=== PATIENT | female | born 1955 | race American Indian/Alaskan Native ===

== ENCOUNTER 2019-01-01 16:16 | Inpatient (IN) | payer MEDICARE ==
[2019-01-01 17:17] LABS: Basophils # (Auto) 0.1 K/mm3 (0.0-0.1); Basophils % (Auto) 0.9 % (0.0-1.8); Eosinophils # (Auto) 0.1 K/mm3 (0.0-0.4); Eosinophils % (Auto) 2.2 % (0.0-4.3); Hematocrit 34.2 % (30.3-42.9); Hemoglobin 10.7 gm/dl (10.1-14.3); Lymphocytes % (Auto) 15.2 % (13.4-35.0); Mean Corpuscular HGB Conc 31 % (30-34); Mean Corpuscular Volume 77 fl (79-97); Monocytes # (Auto) 0.6 K/mm3 (0.0-0.8); Monocytes % (Auto) 8.8 % (0.0-7.3); Platelet Count 226 K/mm3 (140-440); Red Blood Count 4.43 M/mm3 (3.65-5.03)
[2019-01-01 17:23] LABS: Red Cell Distribution Width 22.1 % (13.2-15.2)
--- NOTE | 2019-01-01 17:24 | Emergency Department Report ---
HPI - General Chief Complaint: Altered Mental Status Time Seen by Provider: 01/01/19 17:01 - HPI HPI: Room 4 The patient is a 63-year-old female presenting with chief complaint altered mental status. The patient states she was at hemodialysis and when she was going home TODAY she got dizzy and fell. Patient denies loss of consciousness but states she struck her head during the fall. Patient currently denies complaints but is slow to respond. Location: Mental status Duration: [See above] Quality: Altered Severity: Mild Modifying factors: [see above] Context: [see above] Mode of transportation: [not driving] ED Past Medical Hx - Past Medical History Hx Hypertension: Yes Additional medical history: Renal failure - Surgical History Additional Surgical History: Abdominal surgery (patient states she cannot remember what was performed). Neck surgery/tracheotomy? - Family History Family history: no significant - Social History Smoking Status: Never Smoker Substance Use Type: None ED Review of Systems ROS: Stated complaint: FELL/LETHARGIC Other details as noted in HPI Constitutional: no symptoms reported Eyes: denies: eye pain ENT: denies: throat pain Respiratory: no symptoms reported Cardiovascular: denies: chest pain Endocrine: no symptoms reported Gastrointestinal: denies: abdominal pain Genitourinary: denies: dysuria Musculoskeletal: denies: back pain Neurological: denies: headache Physical Exam - Physical Exam Vital Signs: Vital Signs 01/01/19 16:35 Pulse Rate 76 Respiratory 18 Rate Blood Pressure 180/80 [Right] O2 Sat by Pulse 99 Oximetry Physical Exam: GENERAL: The patient is well-developed well-nourished female lying on stretcher not appearing to be in acute distress but slow to respond. [] HEENT: Normocephalic. Atraumatic. Extraocular motions are intact. Patient has moist mucous membranes. NECK: Supple. Trachea midline CHEST/LUNGS: Clear to auscultation. There is no respiratory distress noted. HEART/CARDIOVASCULAR: Regular. There is no tachycardia. There is no gallop rub or murmur. ABDOMEN: Abdomen is soft, nontender. Patient has normal bowel sounds. There is no abdominal distention. SKIN: There is no rash. There is no edema. There is no diaphoresis. NEURO: The patient is awake but lethargic in appearance. Patient is slow to respond but answers questions appropriately. The patient is cooperative. The patient has no focal neurologic deficits. The patient has normal speech. Cranial nerves II through XII grossly intact MUSCULOSKELETAL: There is no evidence of acute injury. ED Course Vital Signs 01/01/19 16:35 Pulse Rate 76 Respiratory 18 Rate Blood Pressure 180/80 [Right] O2 Sat by Pulse 99 Oximetry ED Medical Decision Making - Lab Data Result diagrams: 01/01/19 16:56 01/01/19 16:56 Laboratory Tests 01/01/19 01/01/19 01/01/19 16:56 16:56 16:56 WBC 6.4 RBC 4.43 Hgb 10.7 Hct 34.2 MCV 77 L MCH 24 L MCHC 31 RDW 22.1 H Plt Count 226 Lymph % (Auto) 15.2 [place] % (Auto) 8.8 H Eos % (Auto) 2.2 Baso % (Auto) 0.9 Lymph # 1.0 L [place] # 0.6 Eos # 0.1 Baso # 0.1 Seg Neutrophils % 72.9 H Seg Neutrophils # 4.7 PT INR APTT Sodium 136 L Potassium 3.7 Chloride 92.0 L Carbon Dioxide 30 Anion Gap 18 BUN 21 H Creatinine 4.9 H Estimated GFR 9 BUN/Creatinine Ratio 4 Glucose 100 Calcium 8.7 Total Bilirubin 0.50 AST 46 H ALT 28 Alkaline Phosphatase 144 H Ammonia Total Protein 7.8 Albumin 3.8 L Albumin/Globulin Ratio 1.0 TSH 2.630 Plasma/Serum Alcohol 01/01/19 01/01/19 01/01/19 16:56 17:04 17:17 WBC RBC Hgb Hct MCV MCH MCHC RDW Plt Count Lymph % (Auto) [place] % (Auto) Eos % (Auto) Baso % (Auto) Lymph # [place] # Eos # Baso # Seg Neutrophils % Seg Neutrophils # PT 14.7 INR 1.11 APTT 34.9 Sodium Potassium Chloride Carbon Dioxide Anion Gap BUN Creatinine Estimated GFR BUN/Creatinine Ratio Glucose Calcium Total Bilirubin AST ALT Alkaline Phosphatase Ammonia 42.0 Total Protein Albumin Albumin/Globulin Ratio TSH Plasma/Serum Alcohol < 0.01 - EKG Data -: EKG Interpreted by Oh EKG shows normal: sinus rhythm Rate: normal - EKG Data When compared to previous EKG there are: previous EKG unavailable Interpretation: nonspecific ST-T wave gilma (T-wave inversions in leads V2) - Radiology Data Radiology results: pending (CT head, CT cervical spine) - Differential Diagnosis altered mental status, ICH, orthostasis, symptomatic anemia Critical care attestation.: If time is entered above; I have spent that time in minutes in the direct care of this critically ill patient, excluding procedure time. ED Disposition Clinical Impression: Altered mental status, Hypertension Disposition: OP ADMIT IP TO THIS HOSP Is pt being admited?: Yes Does the pt Need Aspirin: No Condition: Fair Instructions: Hypertension (ED) Time of Disposition: 19:53 (hospitalist notified (Dr Meza))
[2019-01-01 17:39] LABS: INR 1.11 (0.87-1.13)
[2019-01-01 17:40] LABS: Partial Thromboplastin Time 34.9 Sec. (24.2-36.6)
[2019-01-01 17:59] LABS: Albumin 3.8 g/dL (3.9-5); Calcium 8.7 mg/dL (8.4-10.2)
[2019-01-01] MEDS ORDERED: CATAPRES PO ONE (19:54)
--- NOTE | 2019-01-01 20:02 | Cat Scan Report ---
FINAL REPORT PROCEDURE: CT head without contrast. TECHNIQUE: Computerized tomography of the head was performed without contrast material. HISTORY: Altered mental status. COMPARISON: No prior studies are available for comparison. FINDINGS: There is motion artifact on several of the images. The ventricles are normal in size. There are old l acunar infarcts in the left basal ganglia. The pacheco matter and white matter otherwise appear normal. There are no mass lesions. There is no intracranial hemorrhage. The calvarium appears intact. The mas toid air cells and visualized paranasal sinuses are well aerated. IMPRESSION: Old lacunar infarcts in the left basal ganglia. Normal study of the brain for age.
--- NOTE | 2019-01-01 20:09 | Event Note ---
Date: 01/01/19 Patient evalated for fall Had HD today [place] slighly weak and dizzy and nearly fell No Syncope Discharge diagnosis Fall D/c Home F/u with pcp
--- NOTE | 2019-01-01 20:20 | Cat Scan Report ---
FINAL REPORT PROCEDURE: CT cervical spine without contrast. TECHNIQUE: Computerized tomography of the cervical spine was performed from the skull base to T1 wit hout contrast material. HISTORY: Neck injury after fall. COMPARISON: No prior studies are available for comparison. FINDINGS: The cervical vertebrae have normal height and alignment. There are no fractures. There is no subluxat ion. There is severe disc space narrowing at C3-4, C4-5 and C5-6. There are small vertebral body oste ophytes at these levels. The spinal canal is widely patent. The facet joints appear satisfactory. The neural foramina are widely patent. The prevertebral soft tissues have normal thickness. IMPRESSION: Degenerative disc disease as described. No evidence of acute cervical spine injury.
[2019-01-01] MEDS ORDERED: TYLENOL PO PRN (23:42)
[2019-01-01] MEDS ORDERED: SODIUM CHLORIDE FLUSH SYRINGE 10 ML IV PRN (23:42)
[2019-01-01] MEDS ORDERED: ZOFRAN IV PRN (23:42)
--- NOTE | 2019-01-01 23:48 | History and Physical Report ---
<RANDY NORTON - Last Filed: 01/02/19 02:40> History of Present Illness Date of examination: 01/01/19 Date of admission: 01/01/19 Chief complaint: syncope History of present illness: Patient is an 63-year-old female with past medical history of end stage renal failure, hypertension who was brought to the ER by EMS after losing con sciousness at home today. Patient non-Palestinian speaking and the most of the information was translated by patient's daughter. Patient's daughter States that patient goes to dialysis 3 times a week, after hemodialysis today when she arrives home from dialysis she was exiting the car when she collapsed on the floor and lose consciousness. Patient states that she felt dizzy and weak and passed out, she states that she hits her head on the floor when she fell, she was taken to the ER by EMS for evaluation. Patient denied any palpitation before and after the fall, denies it any seizure activities, denies bowel or bladder bladder incontinence, denies postictal disorientation and confusion. Patient's daughter at the bedside states that the patient is usually feeling weak and tired after hemodialysis, she also states that the patient was vomiting the day before. Patient was seen in the ER a CT scan of the brain was negative bilaterally bilateral Doppler studies was also done and negative. Patient labs values was reviewed, was within normal limits for patient. Patient is placed and observation for further evaluation and treatment. Past History Past Medical History: hypertension, renal failure (on HD) Past Surgical History: Other (AV fistula) Social history: no significant social history, , lives with family Family history: no significant family history Medications and Allergies Allergies Allergy/AdvReac Type Severity Reaction Status Date / Time No Known Allergies Allergy Verified 01/01/19 23:56 Active Meds: Active Medications Acetaminophen (Tylenol) 650 mg PO Q4H PRN PRN Reason: Pain MILD(1-3)/Fever >100.5/YOUNG Ondansetron HCl (Zofran) 4 mg IV Q8H PRN PRN Reason: Nausea And Vomiting Sodium Chloride (Sodium Chloride Flush Syringe 10 Ml) 10 ml IV BID ART Sodium Chloride (Sodium Chloride Flush Syringe 10 Ml) 10 ml IV PRN PRN PRN Reason: LINE FLUSH Review of Systems Neurological: headaches, other (dizziness) Exam - Constitutional Vitals: Temp Pulse Resp BP Pulse Ox 97.2 F L 74 18 201/89 98 01/01/19 17:36 01/01/19 20:24 01/01/19 20:15 01/01/19 20:24 01/01/19 20:15 General appearance: Present: other (somnolent.) - EENT Eyes: Present: EOM intact ENT: hearing intact - Neck Neck: Present: normal ROM - Respiratory Respiratory effort: normal - Cardiovascular Rhythm: irregularly irregular - Extremities Extremities: no ischemia Extremity abnormal: edema, cyanosis Peripheral Pulses: within normal limits - Abdominal General gastrointestinal: Present: non-distended Female genitourinary: Present: deferred - Rectal Rectal Exam: deferred - Integumentary Integumentary: Present: warm, dry - Musculoskeletal Musculoskeletal: generalized weakness - Psychiatric Psychiatric: cooperative - Neurologic Neurologic: moves all extremities Results - Labs CBC & Chem 7: 01/01/19 16:56 01/01/19 16:56 Labs: Laboratory Last Values WBC 6.4 K/mm3 (4.5-11.0) 01/01/19 16:56 RBC 4.43 M/mm3 (3.65-5.03) 01/01/19 16:56 Hgb 10.7 gm/dl (10.1-14.3) 01/01/19 16:56 Hct 34.2 % (30.3-42.9) 01/01/19 16:56 MCV 77 fl (79-97) L 01/01/19 16:56 MCH 24 pg (28-32) L 01/01/19 16:56 MCHC 31 % (30-34) 01/01/19 16:56 RDW 22.1 % (13.2-15.2) H 01/01/19 16:56 Plt Count 226 K/mm3 (140-440) 01/01/19 16:56 Lymph % (Auto) 15.2 % (13.4-35.0) 01/01/19 16:56 [place] % (Auto) 8.8 % (0.0-7.3) H 01/01/19 16:56 Eos % (Auto) 2.2 % (0.0-4.3) 01/01/19 16:56 Baso % (Auto) 0.9 % (0.0-1.8) 01/01/19 16:56 Lymph # 1.0 K/mm3 (1.2-5.4) L 01/01/19 16:56 [place] # 0.6 K/mm3 (0.0-0.8) 01/01/19 16:56 Eos # 0.1 K/mm3 (0.0-0.4) 01/01/19 16:56 Baso # 0.1 K/mm3 (0.0-0.1) 01/01/19 16:56 Seg Neutrophils % 72.9 % (40.0-70.0) H 01/01/19 16:56 Seg Neutrophils # 4.7 K/mm3 (1.8-7.7) 01/01/19 16:56 PT 14.7 Sec. (12.2-14.9) 01/01/19 17:04 INR 1.11 (0.87-1.13) 01/01/19 17:04 APTT 34.9 Sec. (24.2-36.6) 01/01/19 17:04 Sodium 136 mmol/L (137-145) L 01/01/19 16:56 Potassium 3.7 mmol/L (3.6-5.0) 01/01/19 16:56 Chloride 92.0 mmol/L (98-107) L 01/01/19 16:56 Carbon Dioxide 30 mmol/L (22-30) 01/01/19 16:56 Anion Gap 18 mmol/L 01/01/19 16:56 BUN 21 mg/dL (7-17) H 01/01/19 16:56 Creatinine 4.9 mg/dL (0.7-1.2) H 01/01/19 16:56 Estimated GFR 9 ml/min 01/01/19 16:56 BUN/Creatinine Ratio 4 % 01/01/19 16:56 Glucose 100 mg/dL (65-100) 01/01/19 16:56 Calcium 8.7 mg/dL (8.4-10.2) 01/01/19 16:56 Total Bilirubin 0.50 mg/dL (0.1-1.2) 01/01/19 16:56 AST 46 units/L (5-40) H 01/01/19 16:56 ALT 28 units/L (7-56) 02/04/19 16:56 Alkaline Phosphatase 144 units/L (35-129) H 01/01/19 16:56 Ammonia 42.0 umol/L (25-60) 01/01/19 17:17 Total Protein 7.8 g/dL (6.3-8.2) 01/01/19 16:56 Albumin 3.8 g/dL (3.9-5) L 01/01/19 16:56 Albumin/Globulin Ratio 1.0 % 01/01/19 16:56 TSH 2.630 mlU/mL (0.270-4.200) 01/01/19 16:56 Plasma/Serum Alcohol < 0.01 % (0-0.07) 01/01/19 16:56 Assessment and Plan Assessment and plan: 1. Acute syncopal episode (r/o cardiac vrs neurologic) 2. End-stage renal disease (hemodialysis Tuesday, Tuesday, Tuesday) 3. Accelerated systolic Hypertension 4. Irregular Heart rate Plan: Patient is placed in observation for syncope Continue neuro check every [address] and double cutter Consult cardiology for irregular heart rate Monitor vital signs Resume Home meds Further plan per cardiology recommendations Advance Directives: Yes VTE prophylaxis?: Mechanical Plan of care discussed with patient/family: Yes <DARSHANA BLACK - Last Filed: 01/02/19 04:29> History of Present Illness Date of admission: 01/01/19 23:42 Medications and Allergies Active Meds: Active Medications Acetaminophen (Tylenol) 650 mg PO Q4H PRN PRN Reason: Pain MILD(1-3)/Fever >100.5/YOUNG Ondansetron HCl (Zofran) 4 mg IV Q8H PRN PRN Reason: Nausea And Vomiting Sodium Chloride (Sodium Chloride Flush Syringe 10 Ml) 10 ml IV BID ART Sodium Chloride (Sodium Chloride Flush Syringe 10 Ml) 10 ml IV PRN PRN PRN Reason: LINE FLUSH Exam - Constitutional Vitals: Temp Pulse Resp BP Pulse Ox 98.5 F 66 20 193/85 97 01/02/19 02:15 01/02/19 02:58 01/02/19 02:15 01/02/19 02:58 01/02/19 02:15 Results - Labs CBC & Chem 7: 01/01/19 16:56 01/01/19 16:56 Labs: Laboratory Last Values WBC 6.4 K/mm3 (4.5-11.0) 01/01/19 16:56 RBC 4.43 M/mm3 (3.65-5.03) 01/01/19 16:56 Hgb 10.7 gm/dl (10.1-14.3) 01/01/19 16:56 Hct 34.2 % (30.3-42.9) 01/01/19 16:56 MCV 77 fl (79-97) L 01/01/19 16:56 MCH 24 pg (28-32) L 01/01/19 16:56 MCHC 31 % (30-34) 01/01/19 16:56 RDW 22.1 % (13.2-15.2) H 01/01/19 16:56 Plt Count 226 K/mm3 (140-440) 01/01/19 16:56 Lymph % (Auto) 15.2 % (13.4-35.0) 01/01/19 16:56 [place] % (Auto) 8.8 % (0.0-7.3) H 01/01/19 16:56 Eos % (Auto) 2.2 % (0.0-4.3) 01/01/19 16:56 Baso % (Auto) 0.9 % (0.0-1.8) 01/01/19 16:56 Lymph # 1.0 K/mm3 (1.2-5.4) L 01/01/19 16:56 [place] # 0.6 K/mm3 (0.0-0.8) 01/01/19 16:56 Eos # 0.1 K/mm3 (0.0-0.4) 01/01/19 16:56 Baso # 0.1 K/mm3 (0.0-0.1) 01/01/19 16:56 Seg Neutrophils % 72.9 % (40.0-70.0) H 01/01/19 16:56 Seg Neutrophils # 4.7 K/mm3 (1.8-7.7) 01/01/19 16:56 PT 14.7 Sec. (12.2-14.9) 01/01/19 17:04 INR 1.11 (0.87-1.13) 01/01/19 17:04 APTT 34.9 Sec. (24.2-36.6) 01/01/19 17:04 Sodium 136 mmol/L (137-145) L 01/01/19 16:56 Potassium 3.7 mmol/L (3.6-5.0) 01/01/19 16:56 Chloride 92.0 mmol/L (98-107) L 01/01/19 16:56 Carbon Dioxide 30 mmol/L (22-30) 01/01/19 16:56 Anion Gap 18 mmol/L 01/01/19 16:56 BUN 21 mg/dL (7-17) H 01/01/19 16:56 Creatinine 4.9 mg/dL (0.7-1.2) H 01/01/19 16:56 Estimated GFR 9 ml/min 01/01/19 16:56 BUN/Creatinine Ratio 4 % 01/01/19 16:56 Glucose 100 mg/dL (65-100) 01/01/19 16:56 Calcium 8.7 mg/dL (8.4-10.2) 01/01/19 16:56 Total Bilirubin 0.50 mg/dL (0.1-1.2) 01/01/19 16:56 AST 46 units/L (5-40) H 01/01/19 16:56 ALT 28 units/L (7-56) 01/01/19 16:56 Alkaline Phosphatase 144 units/L (35-129) H 01/01/19 16:56 Ammonia 42.0 umol/L (25-60) 01/01/19 17:17 Total Protein 7.8 g/dL (6.3-8.2) 01/01/19 16:56 Albumin 3.8 g/dL (3.9-5) L 01/01/19 16:56 Albumin/Globulin Ratio 1.0 % 01/01/19 16:56 TSH 2.630 mlU/mL (0.270-4.200) 01/01/19 16:56 Plasma/Serum Alcohol < 0.01 % (0-0.07) 01/01/19 16:56 Assessment and Plan Assessment and plan: 63-year-old woman for history of hypertension, end-stage renal disease on dialysis develop multiple episodes of nausea vomiting yesterday, complaining of generalized weakness. She went to dialysis today even though she was not feeling her usual self, at dialysis she felt dizzy and had a syncopal episode. Patient seen and examined with nurse practitioner, see plan as discussed above, in addition check cardiac enzymes, echo, carotid Doppler
[2019-01-02] MEDS ORDERED: TYLENOL PO PRN (00:50)
[2019-01-02] MEDS ORDERED: ZOFRAN IV PRN (00:50)
[2019-01-02] MEDS: APRESOLINE IV PRN ×2 (05:01→11:10)
[2019-01-02 07:02] LABS: Creatine Kinase MB 1.4 ng/mL (0.0-4.0)
[2019-01-02 07:20] LABS: Chol/HDL Ratio 3.33 %
[2019-01-02] MEDS ORDERED: APRESOLINE IV PRN (09:37)
--- NOTE | 2019-01-02 09:38 | Progress Note ---
Assessment and Plan Assessment and plan: --Syncope; Probably secondary to autonomic dysfunction Follow syncope workup, fall precautions, supportive care --Hypertensive urgency; resume home antihypertensives When necessary medications --Positive cardiac enzymes; nonspecific probably secondary to ESRD Hypertensive cardiomyopathy, with multiple risk factors Benefit by cardiology evaluation, request cardiology consult --Acute versus acute on chronic systolic congestive heart failure; ejection fraction 30-35%, Continue anti-failure medications, hemodialysis, cardiology already consulted --End-stage renal disease; on HD [MWF] Management per nephrology --DVT prophylaxis: Heparin ,renal dose Closely monitor the patient and adjust management as needed History Interval history: The patient seen and examined and medical records reviewed Admitted with syncope,syncope workup in progress The patient has uncontrolled hypertension Complaints of mild shortness of breath and chest discomfort Vital signs noted Hospitalist Physical - Constitutional Vitals: Temp Pulse Resp BP Pulse Ox 98.5 F 66 20 193/85 97 01/02/19 02:15 01/02/19 05:01 01/02/19 02:15 01/02/19 05:01 01/02/19 02:15 General appearance: Present: mild distress, well-nourished, other (somnolent.) - EENT Eyes: Present: PERRL, EOM intact - Neck Neck: Present: supple, normal ROM - Respiratory Respiratory effort: normal Respiratory: bilateral: diminished, rales, negative: rhonchi, wheezing - Cardiovascular Rhythm: regular Heart Sounds: Present: S1 & S2 - Extremities Extremities: no ischemia, No edema - Abdominal General gastrointestinal: soft, non-tender, non-distended, normal bowel sounds - Integumentary Integumentary: Present: clear, warm - Psychiatric Psychiatric: appropriate mood/affect, cooperative - Neurologic Neurologic: moves all extremities Results - Labs CBC & Chem 7: 01/01/19 16:56 01/01/19 16:56 Labs: Laboratory Last Values WBC 6.4 K/mm3 (4.5-11.0) 01/01/19 16:56 RBC 4.43 M/mm3 (3.65-5.03) 01/01/19 16:56 Hgb 10.7 gm/dl (10.1-14.3) 01/01/19 16:56 Hct 34.2 % (30.3-42.9) 01/01/19 16:56 MCV 77 fl (79-97) L 01/01/19 16:56 MCH 24 pg (28-32) L 01/01/19 16:56 MCHC 31 % (30-34) 01/01/19 16:56 RDW 22.1 % (13.2-15.2) H 01/01/19 16:56 Plt Count 226 K/mm3 (140-440) 01/01/19 16:56 Lymph % (Auto) 15.2 % (13.4-35.0) 01/01/19 16:56 [place] % (Auto) 8.8 % (0.0-7.3) H 01/01/19 16:56 Eos % (Auto) 2.2 % (0.0-4.3) 01/01/19 16:56 Baso % (Auto) 0.9 % (0.0-1.8) 01/01/19 16:56 Lymph # 1.0 K/mm3 (1.2-5.4) L 01/01/19 16:56 [place] # 0.6 K/mm3 (0.0-0.8) 01/01/19 16:56 Eos # 0.1 K/mm3 (0.0-0.4) 01/01/19 16:56 Baso # 0.1 K/mm3 (0.0-0.1) 01/01/19 16:56 Seg Neutrophils % 72.9 % (40.0-70.0) H 01/01/19 16:56 Seg Neutrophils # 4.7 K/mm3 (1.8-7.7) 01/01/19 16:56 PT 14.7 Sec. (12.2-14.9) 01/01/19 17:04 INR 1.11 (0.87-1.13) 01/01/19 17:04 APTT 34.9 Sec. (24.2-36.6) 01/01/19 17:04 Sodium 136 mmol/L (137-145) L 01/01/19 16:56 Potassium 3.7 mmol/L (3.6-5.0) 01/01/19 16:56 Chloride 92.0 mmol/L (98-107) L 01/01/19 16:56 Carbon Dioxide 30 mmol/L (22-30) 01/01/19 16:56 Anion Gap 18 mmol/L 01/01/19 16:56 BUN 21 mg/dL (7-17) H 01/01/19 16:56 Creatinine 4.9 mg/dL (0.7-1.2) H 01/01/19 16:56 Estimated GFR 9 ml/min 01/01/19 16:56 BUN/Creatinine Ratio 4 % 01/01/19 16:56 Glucose 100 mg/dL (65-100) 01/01/19 16:56 POC Glucose 180 (70-105) H 01/02/19 06:20 Calcium 8.7 mg/dL (8.4-10.2) 01/01/19 16:56 Total Bilirubin 0.50 mg/dL (0.1-1.2) 01/01/19 16:56 AST 46 units/L (5-40) H 01/01/19 16:56 ALT 28 units/L (7-56) 01/01/19 16:56 Alkaline Phosphatase 144 units/L (35-129) H 01/01/19 16:56 Ammonia 42.0 umol/L (25-60) 01/01/19 17:17 Total Creatine Kinase 21 units/L (30-135) L 01/02/19 05:53 CK-MB (CK-2) 1.4 ng/mL (0.0-4.0) 01/02/19 05:53 CK-MB (CK-2) Rel Index 6.6 (0-4) H 01/02/19 05:53 Troponin T 0.183 ng/mL (0.00-0.029) H* 01/02/19 05:53 Total Protein 7.8 g/dL (6.3-8.2) 01/01/19 16:56 Albumin 3.8 g/dL (3.9-5) L 01/01/19 16:56 Albumin/Globulin Ratio 1.0 % 01/01/19 16:56 Triglycerides 69 mg/dL (2-149) 01/02/19 05:53 Cholesterol 130 mg/dL (50-199) 01/02/19 05:53 LDL Cholesterol Direct 87 mg/dL (50-130) 01/02/19 05:53 HDL Cholesterol 39 mg/dL (40-59) L 01/02/19 05:53 Cholesterol/HDL Ratio 3.33 % 01/02/19 05:53 TSH 2.630 mlU/mL (0.270-4.200) 01/01/19 16:56 Plasma/Serum Alcohol < 0.01 % (0-0.07) 01/01/19 16:56
[2019-01-02] MEDS ORDERED: SODIUM CHLORIDE FLUSH SYRINGE 10 ML IV SCH (10:00)
[2019-01-02] MEDS ORDERED: GLUCOTROL PO SCH (10:00)
[2019-01-02] MEDS ORDERED: NON-FORMULARY (Furosemide [Lasix] 80 MG) PO SCH (10:00)
[2019-01-02] MEDS ORDERED: APRESOLINE IV NR (10:30)
[2019-01-02] MEDS: SODIUM CHLORIDE FLUSH SYRINGE 10 ML IV SCH ×2 (10:50→21:01)
[2019-01-02] MEDS: LASIX PO SCH (10:55)
[2019-01-02] MEDS: ZESTRIL PO SCH (11:00)
[2019-01-02] MEDS: HEPARIN SUB-Q SCH ×2 (11:01→21:01)
[2019-01-02] MEDS: HumaLOG SUB-Q SCH ×3 (11:25→22:25)
[2019-01-02 11:48] LABS: Creatine Kinase MB 1.4 ng/mL (0.0-4.0)
[2019-01-02] MEDS: ANTIVERT PO SCH ×2 (14:21→21:01)
[2019-01-02] MEDS: APRESOLINE PO SCH ×2 (14:24→21:01)
--- NOTE | 2019-01-02 15:01 | Consultation ---
Addendum entered and electronically signed by LORENZA QUIROZ MD 01/02/19 18:55: CKR revealed cardiomegaly,moderate bilateral pulmonary edema - Systolic HF.Increase in troponins could also be secondary to CHF and CKD. Original Note: History of Present Illness Consult date: 01/02/19 Requesting physician: TERESITA SUAREZ Consult reason: elevated troponin, syncope History of present illness: The pt is a 63 YO female with a past medical history of ESRD (MWF, follows Dr. Plaza), HTN, DM. She is previously unknown to our practice. She presented with c/o weakness and ? syncope. She states that she completed dialysis as usual yesterday and was attempting to get into her car when she began to feel very weak and dizzy and then fell down. She does not recall falling down, she is unsure whether she lost consciousness. She recalls being on the ground several seconds after falling down. She denies any chest pain, SOB, palpitations, n/v, diaphoresis. She was in her normal state of health prior to this episode yesterday. She denies any prior cardiac issues, including CAD, AMI, HF or arrhythmia. Past History Past Medical History: diabetes, dialysis, ESRD, hypertension Past Surgical History: Other (AV fistula; thyroidectomy ) Social history: no significant social history, , lives with family Family history: no significant family history Medications and Allergies Allergies Allergy/AdvReac Type Severity Reaction Status Date / Time No Known Allergies Allergy Verified 01/01/19 23:56 Home Medications Medication Instructions Recorded Confirmed Last Taken Type Furosemide [Lasix] 80 mg PO QDAY 01/02/19 01/02/19 01/01/19 History Lisinopril [Zestril] 40 mg QDAY 01/02/19 01/02/19 01/01/19 History Loratadine [Claritin] 10 mg PO QDAY 01/02/19 01/02/19 01/01/19 History Meclizine HCl [Wal-Dram 2] 25 mg PO TID 01/02/19 01/02/19 Unknown History Zolpidem [Ambien] 5 mg PO QHS 01/02/19 01/02/19 Unknown History glipiZIDE [Glipizide] 10 mg PO BID 01/02/19 01/02/1919 History hydrALAZINE [Apresoline TAB] 100 mg PO TID 01/02/19 01/02/19 01/01/19 History Active Meds: Active Medications Acetaminophen (Tylenol) 650 mg PO Q4H PRN PRN Reason: Pain MILD(1-3)/Fever >100.5/YOUNG Furosemide (Lasix) 80 mg PO DAILY@0600 [facility] Last Admin: 01/02/19 10:55 Dose: 80 mg Documented by: Heparin Sodium (Porcine) (Heparin) 5,000 unit SUB-Q Q12HR [facility] Last Admin: 01/02/19 11:01 Dose: 5,000 unit Documented by: Hydralazine HCl (Apresoline) 10 mg IV Q6H PRN PRN Reason: systolic b/p > 160 Last Admin: 01/02/19 05:01 Dose: 10 mg Documented by: Hydralazine HCl (Apresoline) 100 mg PO TID [facility] Hydralazine HCl (Apresoline) 10 mg IV Q4HR PRN PRN Reason: Hypertension Insulin Human Lispro (Humalog) 0 unit SUB-Q [facility]; Protocol Lisinopril (Zestril) 40 mg PO QDAY [facility] Last Admin: 01/02/19 11:00 Dose: 40 mg Documented by: Meclizine HCl (Antivert) 25 mg PO TID [facility] Ondansetron HCl (Zofran) 4 mg IV Q8H PRN PRN Reason: Nausea And Vomiting Sodium Chloride (Sodium Chloride Flush Syringe 10 Ml) 10 ml IV BID [facility] Last Admin: 01/02/19 10:50 Dose: 10 ml Documented by: Sodium Chloride (Sodium Chloride Flush Syringe 10 Ml) 10 ml IV PRN PRN PRN Reason: LINE FLUSH Review of Systems Constitutional: weakness, no fever, no chills Ears, nose, mouth and throat: no ear pain, no nose pain, no sinus pressure, no sinus pain Cardiovascular: syncope (questionable), lightheadedness, high blood pressure, no chest pain, no orthopnea, no palpitations, no rapid/irregular heart beat, no edema, no shortness of breath, no dyspnea on exertion, no paroxysmal nocturnal dyspnea, no leg edema Respiratory: no cough, no shortness of breath, no dyspnea on exertion, no congestion, no wheezing, no pain on inspiration Gastrointestinal: no abdominal pain, no nausea, no vomiting, no diarrhea, no constipation, no change in bowel habits Genitourinary Female: no pelvic pain, no flank pain, no dysuria, no urinary frequency, no urgency Musculoskeletal: no neck stiffness, no neck pain, no shooting arm pain, no arm numbness/tingling, no low back pain, no shooting leg pain Integumentary: no rash, no pruritis, no redness, no sores, no wounds Neurological: weakness, syncope (questionable), no head injury, no paralysis, no parathesias, no numbness, no tingling, no seizures Psychiatric: no anxiety Endocrine: no cold intolerance, no heat intolerance Hematologic/Lymphatic: no easy bruising, no easy bleeding Allergic/Immunologic: no urticaria, no wheezing Physical Examination Vital Signs Pulse Resp BP Pulse Ox 76 18 180/80 99 01/01/19 16:35 01/01/19 16:35 01/01/19 16:35 01/01/19 16:35 General appearance: no acute distress HEENT: Positive: PERRL, Normocephaly, Mucus Membranes Moist Neck: Positive: neck supple, trachea midline Cardiac: Positive: Reg Rate and Rhythm, S1/S2 Lungs: Positive: clear to auscultation Neuro: Positive: Grossly Intact Abdomen: Positive: Soft. Negative: Tender Skin: Negative: Rash, Wound Musculoskeletal: No Pain Extremities: Present: edema Results 01/01/19 16:56 01/01/19 16:56 Cardiac Enzymes 01/01/19 01/02/19 01/02/19 Range/Units 16:56 05:53 10:09 AST 46 H (5-40) units/L CK-MB (CK-2) 1.4 1.4 (0.0-4.0) ng/mL Coagulation 01/01/19 Range/Units 17:04 PT 14.7 (12.2-14.9) Sec. INR 1.11 (0.87-1.13) APTT 34.9 (24.2-36.6) Sec. Lipids 01/02/19 Range/Units 05:53 Triglycerides 69 (2-149) mg/dL Cholesterol 130 (50-199) mg/dL HDL Cholesterol 39 L (40-59) mg/dL Cholesterol/HDL Ratio 3.33 % CBC 01/01/19 Range/Units 16:56 WBC 6.4 (4.5-11.0) K/mm3 RBC 4.43 (3.65-5.03) M/mm3 Hgb 10.7 (10.1-14.3) gm/dl Hct 34.2 (30.3-42.9) % Plt Count 226 (140-440) K/mm3 Lymph # 1.0 L (1.2-5.4) K/mm3 [place] # 0.6 (0.0-0.8) K/mm3 Eos # 0.1 (0.0-0.4) K/mm3 Baso # 0.1 (0.0-0.1) K/mm3 Comprehensive Metabolic Panel 01/01/19 Range/Units 16:56 Sodium 136 L (137-145) mmol/L Potassium 3.7 (3.6-5.0) mmol/L Chloride 92.0 L (98-107) mmol/L Carbon Dioxide 30 (22-30) mmol/L BUN 21 H (7-17) mg/dL Creatinine 4.9 H (0.7-1.2) mg/dL Glucose 100 (65-100) mg/dL Calcium 8.7 (8.4-10.2) mg/dL AST 46 H (5-40) units/L ALT 28 (7-56) units/L Alkaline Phosphatase 144 H (35-129) units/L Total Protein 7.8 (6.3-8.2) g/dL Albumin 3.8 L (3.9-5) g/dL - Imaging and Cardiology Echo: pending EKG: report reviewed, image reviewed EKG interpretations - Telemetry EKG Rhythm: Sinus Rhythm - EKG Sinus rhythms and dysrhythmias: sinus rhythm Chamber hypertrophy or enlargement: left ventricular hypertro Repolarization changes or abnormalities: repolarization abn secondary to ventricular hypertrophy Assessment and Plan Pt with suspected syncope, accelerated HTN and CE elevation pattern c/w NSTEMI type II. No known prior cardiac issues or cardiac workup. Pt denies chest pain, ECG with no acute ischemic changes. Echo reviewed - EF 30-35%, mod LVH, mod global hypokinesis of LV, impaired relaxation. No current clinical evidence of acute heart failure. Obtain CXR. Intiate Coreg in setting of CMP and accelerated HTN. Cont lisinopril and hydralazine. Plan for lexiscan MPI stress test in AM to r/o ischemic CMP. NPO after MN. Cont telemetry. The patient has been seen in conjunction with Dr. Hameed who agrees with the assessment and plan of care. - Patient Problems (1) Syncope Current Visit: Yes Status: Suspected (2) Elevated troponin Current Visit: Yes Status: Acute (3) Cardiomyopathy Current Visit: Yes Status: Chronic (4) Hypertensive heart disease Current Visit: Yes Status: Chronic (5) Accelerated hypertension Current Visit: Yes Status: Acute (6) ESRD (end stage renal disease) Current Visit: Yes Status: Chronic (7) Diabetes Current Visit: Yes Status: Chronic
--- NOTE | 2019-01-02 15:24 | Vascular Lab Report ---
FINAL REPORT EXAM: US CAROTID DUPLEX HISTORY: syncope TECHNIQUE: Grayscale and color and spectral Doppler ultrasound imaging of the carotid arteries was p erformed. PRIORS: None. FINDINGS: No areas of complete occlusion. Normal waveforms are seen throughout. No aneurysm. Normal flow is see n in the external carotid arteries. Antegrade flow is seen in the vertebral arteries. Calcified ather osclerotic plaque is seen bilaterally. Peak systolic velocities in cm/s below: Right: CCA: 94 proximally, 63 distally ICA: 74 proximally, 76 mid, 114 distally ECA: 93 Left: CCA: 80 proximally, 62 distally ICA: 50 proximally, 111 mid, 95 distally ECA: 56 The right ICA:CCA ratio is 1.2. The left ICA:CCA ratio is 1.38. IMPRESSION: Less than 50 percent stenosis of the internal carotid arteries.
[2019-01-02] MEDS ORDERED: NACL 0.9% 100 ML IV PRN (16:15)
--- NOTE | 2019-01-02 17:09 | XRay Report ---
FINAL REPORT EXAM: XRAY CHEST SINGLE VIEW HISTORY: HF TECHNIQUE: Frontal chest radiograph. PRIORS: None. FINDINGS: Atherosclerotic calculi are seen in the thoracic aorta. The cardiac silhouette is enlarged. Moderate bilateral pulmonary edema. No focal consolidation. No pleural effusion. Curvilinear line over the lateral aspect of the left upper thorax likely represents a skin fold. No d efinite pneumothorax is seen. No acute osseous abnormality. IMPRESSION: Cardiomegaly with moderate bilateral pulmonary edema.
--- NOTE | 2019-01-02 19:22 | Consultation ---
History of Present Illness - Reason for Consult Consult date: 01/02/19 end stage renal disease Requesting physician: TERESITA SUAREZ - History of Present Illness This is a 63 yo F with past medical history of hypertension, Type 2DM, ESRD on HD on MWF schedule at [facility], who was brought in to ER after an episode of loss of consciousness. As per Patient's daughter, pt arrived at home from dialysis, and when she was exiting the car when she collapsed on the floor and lose consciousness. pt reports dizziness prior to the incident, however denies CP, palpitations, fever, chills, n/v/d, abdominal pain, dysuria prior to the incident. In ER CT scan of the brain did not show acute findings, bilaterally bilateral Doppler studies was also negative. BP was elevated as high as 210/90mmHg. Trop was mildly elevated at 0.18, 0.16. Renal consult is requested for mangement of ESRD/HD. Past History Past Medical History: diabetes, dialysis, ESRD, hypertension Past Surgical History: Other (AV fistula; thyroidectomy ) Social history: no significant social history, , lives with family Family history: no significant family history Medications and Allergies Allergies Allergy/AdvReac Type Severity Reaction Status Date / Time No Known Allergies Allergy Verified 01/01/19 23:56 Home Medications Medication Instructions Recorded Confirmed Last Taken Type Furosemide [Lasix] 80 mg PO QDAY 01/02/19 01/02/19 01/01/19 History Lisinopril [Zestril] 40 mg QDAY 01/02/19 01/02/19 01/01/19 History Loratadine [Claritin] 10 mg PO QDAY 01/02/19 01/02/19 01/01/19 History Meclizine HCl [Wal-Dram 2] 25 mg PO TID 01/02/19 01/02/19 Unknown History Zolpidem [Ambien] 5 mg PO QHS 01/02/19 01/02/19 Unknown History glipiZIDE [Glipizide] 10 mg PO BID 01/02/19 01/02/19 01/01/19 History hydrALAZINE [Apresoline TAB] 100 mg PO TID 01/02/19 01/02/19 01/01/19 History Active Meds: Active Medications Acetaminophen (Tylenol) 650 mg PO Q4H PRN PRN Reason: Pain MILD(1-3)/Fever >100.5/YOUNG Aspirin (Baby Aspirin) 81 mg PO QDAY [facility] Carvedilol (Coreg) 12.5 mg PO BID [facility] Furosemide (Lasix) 80 mg PO DAILY@0600 [facility] Last Admin: 01/02/19 10:55 Dose: 80 mg Documented by: Heparin Sodium (Porcine) (Heparin) 5,000 unit SUB-Q Q12HR [facility] Last Admin: 01/02/19 11:01 Dose: 5,000 unit Documented by: Hydralazine HCl (Apresoline) 10 mg IV Q6H PRN PRN Reason: systolic b/p > 160 Last Admin: 01/02/19 05:01 Dose: 10 mg Documented by: Hydralazine HCl (Apresoline) 100 mg PO TID [facility] Hydralazine HCl (Apresoline) 10 mg IV Q4HR PRN PRN Reason: Hypertension Sodium Chloride (Nacl 0.9%) 100 mls @ 999 mls/hr IV TWAN PRN PRN Reason: Hypotension Insulin Human Lispro (Humalog) 0 unit SUB-Q A[facility]S [facility]; Protocol Lisinopril (Zestril) 40 mg PO QDAY [facility] Last Admin: 01/02/19 11:00 Dose: 40 mg Documented by: Meclizine HCl (Antivert) 25 mg PO TID [facility] Ondansetron HCl (Zofran) 4 mg IV Q8H PRN PRN Reason: Nausea And Vomiting Sodium Chloride (Sodium Chloride Flush Syringe 10 Ml) 10 ml IV BID [facility] Last Admin: 01/02/19 10:50 Dose: 10 ml Documented by: Sodium Chloride (Sodium Chloride Flush Syringe 10 Ml) 10 ml IV PRN PRN PRN Reason: LINE FLUSH Review of Systems All systems: negative Constitutional: weakness Neurological: change in mentation, other (loss of conciousness, dizziness ) Exam - Vital Signs Vital signs: Vital Signs Pulse Resp BP Pulse Ox 76 18 180/80 99 01/01/19 16:35 01/01/19 16:35 01/01/19 16:35 01/01/19 16:35 - General Appearance General appearance: well-developed, well-nourished, appears stated age EENT: ATNC, PERRL, mucous membranes moist Neck: Present: neck supple Respiratory: Clear to Ascultation Heart: regular, S1S2 Gastrointestinal: Present: normoactive bowel sounds Integumentary: no rash, other (no edema ) Neurologic: no focal deficit, alert and oriented x3, strength 5/5, CN 3-12 intact Psychiatric: mood/affect appropriate, cooperative Results - Lab Results 01/01/19 16:56 01/01/19 16:56 Most recent lab results Calcium 8.7 mg/dL (8.4-10.2) 01/01/19 16:56 Laboratory Tests 01/01/19 01/01/19 01/01/19 16:56 16:56 16:56 PT INR APTT POC Glucose Hemoglobin A1c Calcium 8.7 Total Bilirubin 0.50 AST 46 H ALT 28 Alkaline Phosphatase 144 H Ammonia Total Creatine Kinase CK-MB (CK-2) CK-MB (CK-2) Rel Index Troponin T Total Protein 7.8 Albumin 3.8 L Albumin/Globulin Ratio 1.0 Triglycerides Cholesterol LDL Cholesterol Direct HDL Cholesterol Cholesterol/HDL Ratio TSH 2.630 Plasma/Serum Alcohol < 0.01 01/01/19 01/01/19 01/02/19 17:04 17:17 05:53 PT 14.7 INR 1.11 APTT 34.9 POC Glucose Hemoglobin A1c Calcium Total Bilirubin AST ALT Alkaline Phosphatase Ammonia 42.0 Total Creatine Kinase 21 L CK-MB (CK-2) 1.4 CK-MB (CK-2) Rel Index 6.6 H Troponin T 0.183 H* Total Protein Albumin Albumin/Globulin Ratio Triglycerides 69 Cholesterol 130 LDL Cholesterol Direct 87 HDL Cholesterol 39 L Cholesterol/HDL Ratio 3.33 TSH Plasma/Serum Alcohol 01/02/19 01/02/19 01/02/19 06:20 10:09 10:09 PT INR APTT POC Glucose 180 H Hemoglobin A1c 6.5 H Calcium Total Bilirubin AST ALT Alkaline Phosphatase Ammonia Total Creatine Kinase 32 CK-MB (CK-2) 1.4 CK-MB (CK-2) Rel Index 4.3 H Troponin T 0.168 H* Total Protein Albumin Albumin/Globulin Ratio Triglycerides Cholesterol LDL Cholesterol Direct HDL Cholesterol Cholesterol/HDL Ratio TSH Plasma/Serum Alcohol 01/02/19 12:20 PT INR APTT POC Glucose 176 H Hemoglobin A1c Calcium Total Bilirubin AST ALT Alkaline Phosphatase Ammonia Total Creatine Kinase CK-MB (CK-2) CK-MB (CK-2) Rel Index Troponin T Total Protein Albumin Albumin/Globulin Ratio Triglycerides Cholesterol LDL Cholesterol Direct HDL Cholesterol Cholesterol/HDL Ratio TSH Plasma/Serum Alcohol Assessment and Plan - Patient Problems (1) Altered mental status Current Visit: Yes Status: Acute Plan to address problem: CT head/bilateral carotid duplex negative, awaiting Echocardiogram result. (2) Accelerated hypertension Current Visit: Yes Status: Acute Plan to address problem: resume home BP. cont IV hydralazine 10mg prn to target SBP <170mmHg. will increase UF with HD for further volume/BP control (3) Diabetes Current Visit: Yes Status: Chronic Qualifiers: Diabetes mellitus type: type 2 Plan to address problem: glucose control as per primary attending (4) ESRD (end stage renal disease) Current Visit: Yes Status: Chronic Plan to address problem: cont HD on MWF schedule, target UF 2-3kg as tolerated
[2019-01-02] MEDS: COREG PO SCH (21:01)
[2019-01-03] MEDS: APRESOLINE IV PRN ×2 (00:04→05:53)
[2019-01-03] MEDS: LASIX PO SCH (05:53)
[2019-01-03 06:01] LABS: Basophils % (Auto) 0.7 % (0.0-1.8); Eosinophils # (Auto) 0.2 K/mm3 (0.0-0.4); Eosinophils % (Auto) 3.1 % (0.0-4.3); Hematocrit 32.8 % (30.3-42.9); Hemoglobin 10.4 gm/dl (10.1-14.3); Lymphocytes # (Auto) 1.2 K/mm3 (1.2-5.4); Lymphocytes % (Auto) 21.3 % (13.4-35.0); Mean Corpuscular HGB Conc 32 % (30-34); Mean Corpuscular Volume 76 fl (79-97); Monocytes # (Auto) 0.4 K/mm3 (0.0-0.8); Monocytes % (Auto) 7.9 % (0.0-7.3); Platelet Count 291 K/mm3 (140-440); Red Blood Count 4.34 M/mm3 (3.65-5.03); Red Cell Distribution Width 21.4 % (13.2-15.2)
[2019-01-03 06:22] LABS: Calcium 9.4 mg/dL (8.4-10.2)
[2019-01-03] MEDS: HumaLOG SUB-Q SCH ×4 (07:20→22:31)
[2019-01-03] MEDS ORDERED: LEXISCAN IV ONE ×2 (08:29→08:30)
[2019-01-03] MEDS: APRESOLINE PO SCH ×4 (09:36→20:41)
[2019-01-03] MEDS: ANTIVERT PO SCH ×4 (09:36→20:41)
[2019-01-03] MEDS: SODIUM CHLORIDE FLUSH SYRINGE 10 ML IV SCH ×2 (10:00→22:32)
[2019-01-03] MEDS: HEPARIN SUB-Q SCH ×2 (10:00→22:31)
--- NOTE | 2019-01-03 10:57 | Progress Note ---
Assessment and Plan - Patient Problems (1) ESRD (end stage renal disease) Current Visit: Yes Status: Chronic Plan to address problem: cont HD on MWF schedule, target UF 2-3kg as tolerated (2) Accelerated hypertension Current Visit: Yes Status: Acute Plan to address problem: resume home BP. cont IV hydralazine 10mg prn to target SBP <170mmHg. will increa se UF with HD for further volume/BP control (3) Altered mental status Current Visit: Yes Status: Acute Plan to address problem: CT head/bilateral carotid duplex negative. Echocardiogram showed moderate global hypokinesis of LV, LVEF 30-35% along with impaired relaxation. further ischemic w/u as per cardiology (4) Diabetes Current Visit: Yes Status: Chronic Qualifiers: Diabetes mellitus type: type 2 Plan to address problem: glucose control as per primary attending Subjective Date of service: 01/03/19 Principal diagnosis: ESRD Interval history: pt awake alert, in NAD, s/p bhanu scan this AM Objective - Vital Signs Vital signs: Vital Signs - 12hr 01/02/19 01/02/19 01/03/19 23:27 23:39 04:00 Temperature 98.5 F Pulse Rate 73 74 74 Respiratory 18 Rate Blood Pressure 191/85 O2 Sat by Pulse 100 97 Oximetry 01/03/19 01/03/19 04:18 08:00 Temperature 98.3 F Pulse Rate 77 Respiratory 16 Rate Blood Pressure 210/87 O2 Sat by Pulse Oximetry - General Appearance General appearance: well-developed, well-nourished, appears stated age EENT: ATNC, PERRL, mucous membranes moist Neck: no JVD Respiratory: Present: Clear to Ascultation Cardiology: regular, S1S2 Gastrointestinal: normoactive bowel sounds Integumentary: no rash, other (no edema ) Neurologic: no focal deficit, alert and oriented x3, strength 5/5, CN 3-12 intact Psychiatric: mood/affect appropriate, cooperative - Lab 01/03/19 05:18 01/03/19 05:18 Most recent lab results Calcium 9.4 mg/dL (8.4-10.2) 01/03/19 05:18 Medications & Allergies - Medications Allergies/Adverse Reactions: Allergies No Known Allergies Allergy (Verified 01/01/19 23:56) Home Medications: Home Medications Medication Instructions Recorded Confirmed Last Taken Type Furosemide [Lasix] 80 mg PO QDAY 01/02/19 01/02/19 01/01/19 History Lisinopril [Zestril] 40 mg QDAY 01/02/19 01/02/19 01/01/19 History Loratadine [Claritin] 10 mg PO QDAY 01/02/19 01/02/19 01/01/19 History Meclizine HCl [Wal-Dram 2] 25 mg PO TID 01/02/19 01/02/19 Unknown History Zolpidem [Ambien] 5 mg PO QHS 01/02/19 01/02/19 Unknown History glipiZIDE [Glipizide] 10 mg PO BID 01/02/19 01/02/19 01/01/19 History hydrALAZINE [Apresoline TAB] 100 mg PO TID 01/02/19 01/02/19 01/01/19 History Active Medications: Generic Name Dose Route Start Last Admin Trade Name Freq PRN Reason Stop Dose Admin Acetaminophen 650 mg 01/01/19 23:42 Tylenol PO Q4H PRN Pain MILD(1-3)/Fever >100.5/YOUNG Aspirin 81 mg 01/03/19 10:00 Baby Aspirin PO QDAY [facility] Carvedilol 12.5 mg 01/02/19 22:00 01/02/19 21:01 Coreg PO 12.5 mg BID ART Administration Furosemide 80 mg 01/02/19 11:00 01/03/19 05:53 Lasix PO 80 mg DAILY@0600 [facility] Administration Heparin Sodium (Porcine) 5,000 unit 01/02/19 10:00 01/02/19 21:01 Heparin SUB-Q 5,000 unit Q12HR [facility] Administration Hydralazine HCl 10 mg 01/02/19 04:35 01/03/19 05:53 Apresoline IV 10 mg Q6H PRN Administration systolic b/p > 160 Hydralazine HCl 100 mg 01/02/19 14:00 01/03/19 09:36 Apresoline PO Not Given TID [facility] Hydralazine HCl 10 mg 01/02/19 09:37 Apresoline IV Q4HR PRN Hypertension Sodium Chloride 100 mls @ 999 mls/hr 01/02/19 16:15 Nacl 0.9% IV TWAN PRN Hypotension Insulin Human Lispro 0 unit 01/02/19 11:30 01/03/19 07:20 Humalog SUB-Q Not Given ACHS [facility] Protocol Lisinopril 40 mg 01/02/19 10:00 01/02/19 11:00 Zestril PO 40 mg QDAY [facility] Administration Meclizine HCl 25 mg 01/02/19 14:00 01/03/19 09:36 Antivert PO Not Given TID [facility] Ondansetron HCl 4 mg 01/01/19 23:42 Zofran IV Q8H PRN Nausea And Vomiting Sodium Chloride 10 ml 01/02/19 10:00 01/02/19 21:01 Sodium Chloride Flush Syringe 10 Ml IV 10 ml BID [facility] Administration Sodium Chloride 10 ml 01/01/19 23:42 Sodium Chloride Flush Syringe 10 Ml IV PRN PRN LINE FLUSH
[2019-01-03] MEDS ORDERED: NACL 0.9% 100 ML IV PRN (11:16)
--- NOTE | 2019-01-03 11:28 | Progress Note ---
Assessment and Plan Pt with suspected syncope, accelerated HTN and CE elevation pattern c/w NSTEMI type II. No known prior cardiac issues or cardiac workup. Pt denies chest pain, ECG with no acute ischemic changes. Echo reviewed - EF 30-35%, mod LVH, mod global hypokinesis of LV, impaired relaxation. Optimize BPs - initiate amlodipine, increase coreg, cont lisinopril and hydralazine. Proceed with lexiscan MPI stress test. Await findings. The patient has been seen in conjunction with Dr. Hameed who agrees with the assessment and plan of care. - Patient Problems (1) Syncope Current Visit: Yes Status: Suspected (2) Elevated troponin Current Visit: Yes Status: Acute (3) Cardiomyopathy Current Visit: Yes Status: Chronic (4) Hypertensive heart disease Current Visit: Yes Status: Chronic (5) Accelerated hypertension Current Visit: Yes Status: Acute (6) ESRD (end stage renal disease) Current Visit: Yes Status: Chronic (7) Diabetes Current Visit: Yes Status: Chronic Qualifiers: Diabetes mellitus type: type 2 Subjective Date of service: 01/03/19 Principal diagnosis: ESRD Interval history: for stress test. tele reviewed - pt in SR with no acute events overnight. Objective Last Vital Signs Temp 98.3 F 01/03/19 04:18 Pulse 77 01/03/19 08:00 Resp 16 01/03/19 04:18 BP 210/87 01/03/19 04:18 Pulse Ox 97 01/03/19 04:00 - Physical Examination HEENT: Positive: PERRL, Normocephaly, Mucus Membranes Moist Neck: Positive: neck supple Neuro: Positive: Grossly Intact Abdomen: Positive: Soft. Negative: Tender Skin: Negative: Rash, Wound Musculoskeletal: No Pain Extremities: Present: edema - Labs and Meds Cardiac Enzymes 01/02/19 Range/Units 10:09 CK-MB (CK-2) 1.4 (0.0-4.0) ng/mL CBC 01/03/19 Range/Units 05:18 WBC 5.5 (4.5-11.0) K/mm3 RBC 4.34 (3.65-5.03) M/mm3 Hgb 10.4 (10.1-14.3) gm/dl Hct 32.8 (30.3-42.9) % Plt Count 291 (140-440) K/mm3 Lymph # 1.2 (1.2-5.4) K/mm3 [place] # 0.4 (0.0-0.8) K/mm3 Eos # 0.2 (0.0-0.4) K/mm3 Baso # 0.0 (0.0-0.1) K/mm3 Comprehensive Metabolic Panel 01/03/19 Range/Units 05:18 Sodium 132 L (137-145) mmol/L Potassium 4.4 (3.6-5.0) mmol/L Chloride 88.4 L (98-107) mmol/L Carbon Dioxide 27 (22-30) mmol/L BUN 47 H (7-17) mg/dL Creatinine 8.5 H D (0.7-1.2) mg/dL Glucose 87 (65-100) mg/dL Calcium 9.4 (8.4-10.2) mg/dL - Imaging and Cardiology EKG: report reviewed, image reviewed Echo: report reviewed (EF 30-35%, mod LVH, mod global hypokinesis of LV, impaired relaxation. ) - Telemetry EKG Rhythm: Sinus Rhythm - EKG Sinus rhythms and dysrhythmias: sinus rhythm Chamber hypertrophy or enlargement: left ventricular hypertro Repolarization changes or abnormalities: repolarization abn secondary to ventricular hypertrophy
[2019-01-03 12:23] LABS: Hepatitis C Virus Antibody Non-Reactive (NonReactive)
[2019-01-03] MEDS: COREG PO SCH ×3 (12:29→22:32)
[2019-01-03 13:44] LABS: Hepatitis B Surface Antigen Non-Reactive (Negative)
[2019-01-03] MEDS: NORVASC PO SCH (15:42)
[2019-01-03] MEDS: BABY ASPIRIN PO SCH (15:43)
[2019-01-03] MEDS: ZESTRIL PO SCH (15:44)
--- NOTE | 2019-01-03 18:50 | Progress Note ---
Assessment and Plan Assessment and plan: --Positive cardiac enzymes; nonspecific probably secondary to ESRD Hypertensive cardiomyopathy, with multiple risk factors Cardiology evaluated the patient, status post stress test today Pending report --Syncope; no new episodes of syncope Probably secondary to autonomic dysfunction Follow syncope workup, fall precautions, physical therapy --Hypertensive urgency; present on admission, today moderate control Continue current antihypertensives, When necessary medications --Acute versus acute on chronic systolic congestive heart failure; ejection fraction 30-35%, Continue anti-failure medications, hemodialysis, cardiology already consulted --End-stage renal disease; on HD [MWF] Management per nephrology --DVT prophylaxis: Heparin ,renal dose Physical therapy evaluation and treat, possible home PT at discharge Closely monitor the patient and adjust management as needed Possible discharge tomorrow , home health service as needed .i History Interval history: Patient seen and examined medical records reviewed Patient feels better no new complaints Patient underwent stress test awaiting report Not in acute distress Vital signs noted Hospitalist Physical - Constitutional Vitals: Temp Pulse Resp BP Pulse Ox 98.3 F 81 18 148/69 93 01/03/19 16:34 01/03/19 16:34 01/03/19 16:34 01/03/19 16:34 01/03/19 16:34 General appearance: Present: no acute distress, well-nourished - EENT Eyes: Present: PERRL, EOM intact - Neck Neck: Present: supple, normal ROM - Respiratory Respiratory effort: normal Respiratory: bilateral: diminished, negative: rales, rhonchi, wheezing - Cardiovascular Rhythm: regular Heart Sounds: Present: S1 & S2 - Extremities Extremities: no ischemia Extremity abnormal: edema - Abdominal General gastrointestinal: soft, non-tender, non-distended, normal bowel sounds - Integumentary Integumentary: Present: clear, warm - Psychiatric Psychiatric: appropriate mood/affect, cooperative - Neurologic Neurologic: CNII-XII intact, moves all extremities Results - Labs CBC & Chem 7: 01/03/19 05:18 01/03/19 05:18 Labs: Laboratory Last Values WBC 5.5 K/mm3 (4.5-11.0) 01/03/19 05:18 RBC 4.34 M/mm3 (3.65-5.03) 01/03/19 05:18 Hgb 10.4 gm/dl (10.1-14.3) 01/03/19 05:18 Hct 32.8 % (30.3-42.9) 01/03/19 05:18 MCV 76 fl (79-97) L 01/03/19 05:18 MCH 24 pg (28-32) L 01/03/19 05:18 MCHC 32 % (30-34) 01/03/19 05:18 RDW 21.4 % (13.2-15.2) H 01/03/19 05:18 Plt Count 291 K/mm3 (140-440) 01/03/19 05:18 Lymph % (Auto) 21.3 % (13.4-35.0) 01/03/19 05:18 [place] % (Auto) 7.9 % (0.0-7.3) H 01/03/19 05:18 Eos % (Auto) 3.1 % (0.0-4.3) 01/03/19 05:18 Baso % (Auto) 0.7 % (0.0-1.8) 01/03/19 05:18 Lymph # 1.2 K/mm3 (1.2-5.4) 01/03/19 05:18 [place] # 0.4 K/mm3 (0.0-0.8) 01/03/19 05:18 Eos # 0.2 K/mm3 (0.0-0.4) 01/03/19 05:18 Baso # 0.0 K/mm3 (0.0-0.1) 01/03/19 05:18 Seg Neutrophils % 67.0 % (40.0-70.0) 01/03/19 05:18 Seg Neutrophils # 3.7 K/mm3 (1.8-7.7) 01/03/19 05:18 PT 14.7 Sec. (12.2-14.9) 01/01/19 17:04 INR 1.11 (0.87-1.13) 01/01/19 17:04 APTT 34.9 Sec. (24.2-36.6) 01/01/19 17:04 Sodium 132 mmol/L (137-145) L 01/03/19 05:18 Potassium 4.4 mmol/L (3.6-5.0) 01/03/19 05:18 Chloride 88.4 mmol/L (98-107) L 01/03/19 05:18 Carbon Dioxide 27 mmol/L (22-30) 01/03/19 05:18 Anion Gap 21 mmol/L 01/03/19 05:18 BUN 47 mg/dL (7-17) H 01/03/19 05:18 Creatinine 8.5 mg/dL (0.7-1.2) H D 01/03/19 05:18 Estimated GFR 6 ml/min 01/03/19 05:18 BUN/Creatinine Ratio 6 % 01/03/19 05:18 Glucose 87 mg/dL (65-100) 01/03/19 05:18 POC Glucose 91 (70-105) 01/03/19 05:28 Hemoglobin A1c 6.5 % (4-6) H 01/02/19 10:09 Calcium 9.4 mg/dL (8.4-10.2) 01/03/19 05:18 Total Bilirubin 0.50 mg/dL (0.1-1.2) 01/01/19 16:56 AST 46 units/L (5-40) H 01/01/19 16:56 ALT 28 units/L (7-56) 01/01/19 16:56 Alkaline Phosphatase 144 units/L (35-129) H 01/01/19 16:56 Ammonia 42.0 umol/L (25-60) 01/01/19 17:17 Total Creatine Kinase 32 units/L (30-135) 01/02/19 10:09 CK-MB (CK-2) 1.4 ng/mL (0.0-4.0) 01/02/19 10:09 CK-MB (CK-2) Rel Index 4.3 (0-4) H 01/02/19 10:09 Troponin T 0.168 ng/mL (0.00-0.029) H* 01/02/19 10:09 Total Protein 7.8 g/dL (6.3-8.2) 01/01/19 16:56 Albumin 3.8 g/dL (3.9-5) L 01/01/19 16:56 Albumin/Globulin Ratio 1.0 % 01/01/19 16:56 Triglycerides 69 mg/dL (2-149) 01/02/19 05:53 Cholesterol 130 mg/dL (50-199) 01/02/19 05:53 LDL Cholesterol Direct 87 mg/dL (50-130) 01/02/19 05:53 HDL Cholesterol 39 mg/dL (40-59) L 01/02/19 05:53 Cholesterol/HDL Ratio 3.33 % 01/02/19 05:53 TSH 2.630 mlU/mL (0.270-4.200) 01/01/19 16:56 Plasma/Serum Alcohol < 0.01 % (0-0.07) 01/01/19 16:56 Hepatitis A IgM Ab Non-reactive (NonReactive) 01/03/19 11:34 Hep Bs Antigen Non-reactive (Negative) 01/03/19 11:34 Hep B Core IgM Ab Non-reactive (NonReactive) 01/03/19 11:34 Hepatitis C Antibody Non-reactive (NonReactive) 01/03/19 11:34
--- NOTE | 2019-01-03 23:46 | Treadmill Report ---
SINGLE ISOTOPE DUAL STUDY MYOCARDIAL PERFUSION SCAN REPORT AGE: 63. SEX: Female. Seen and dictated by Nando Montoya. The patient received 10 mCi of technetium 99m Myoview intravenously under resting conditions. Resting myocardial perfusion scan was done. Subsequently, the patient underwent Lexiscan stress test as per the protocol. During Lexiscan stress, the patient received 28 mCi of technetium 99m Myoview intravenously. After 30-60 minutes, post stress images were done. Computerized reconstruction images were performed for analysis. The post-stress images did not reveal any perfusion abnormality. Gated study revealed moderate global left ventricular systolic dysfunction with LVEF of 38%. The resting images were normal. CONCLUSION: 1. Normal resting and stress myocardial perfusion scan images after the patient underwent a Lexiscan stress test. 2. Moderate global left ventricular systolic dysfunction with LVEF of 38% by gated study. JOB# [id number] [facility]
[2019-01-04] MEDS: LASIX PO SCH (05:39)
[2019-01-04] MEDS: APRESOLINE PO SCH ×2 (10:23→14:32)
[2019-01-04] MEDS: ANTIVERT PO SCH ×2 (10:23→14:33)
[2019-01-04] MEDS: ZESTRIL PO SCH (10:23)
[2019-01-04] MEDS: HEPARIN SUB-Q SCH (10:23)
[2019-01-04] MEDS: NORVASC PO SCH (10:23)
[2019-01-04] MEDS: BABY ASPIRIN PO SCH (10:23)
[2019-01-04] MEDS: COREG PO SCH (10:23)
[2019-01-04] MEDS: HumaLOG SUB-Q SCH ×2 (10:24→14:42)
[2019-01-04] MEDS: SODIUM CHLORIDE FLUSH SYRINGE 10 ML IV SCH (10:24)
--- NOTE | 2019-01-04 13:36 | Progress Note ---
Assessment and Plan Optimize BPs - increase amlodipine, cont coreg, lisinopril and hydralazine. S/p lexiscan MPI stress test yesterday which was negative for ischemia. Currently stable cardiac status. Nothing further to add from cardiac perspective at this time. Will sign off. Recommend follow up in our office with Dr. Hameed within 1-2 weeks of hospital discharge ([phone]). The patient has been seen in conjunction with Dr. Hameed who agrees with the assessment and plan of care. - Patient Problems (1) Syncope Current Visit: Yes Status: Suspected (2) Elevated troponin Current Visit: Yes Status: Acute (3) Cardiomyopathy Current Visit: Yes Status: Chronic (4) Hypertensive heart disease Current Visit: Yes Status: Chronic (5) Accelerated hypertension Current Visit: Yes Status: Acute (6) ESRD (end stage renal disease) Current Visit: Yes Status: Chronic (7) Diabetes Current Visit: Yes Status: Chronic Qualifiers: Diabetes mellitus type: type 2 Subjective Date of service: 01/04/19 Principal diagnosis: ESRD Interval history: pt resting in bed, no current complaints. tele reviewed - no acute events. Objective Last Vital Signs Temp 98.7 F 01/04/19 07:25 Pulse 77 01/04/19 07:25 Resp 20 01/04/19 07:25 BP 182/83 01/04/19 07:25 Pulse Ox 97 01/04/19 07:25 - Physical Examination HEENT: Positive: PERRL, Normocephaly, Mucus Membranes Moist Neck: Positive: neck supple Cardiac: Positive: Reg Rate and Rhythm, S1/S2 Lungs: Positive: Decreased Breath Sounds Neuro: Positive: Grossly Intact Abdomen: Positive: Soft. Negative: Tender Skin: Negative: Rash, Wound Musculoskeletal: No Pain Extremities: Present: edema - Imaging and Cardiology EKG: report reviewed, image reviewed Echo: report reviewed (EF 30-35%, mod LVH, mod global hypokinesis of LV, impaired relaxation. ) - EKG Sinus rhythms and dysrhythmias: sinus rhythm Chamber hypertrophy or enlargement: left ventricular hypertro Repolarization changes or abnormalities: repolarization abn secondary to ventricular hypertrophy
--- NOTE | 2019-01-04 14:31 | Discharge Summary ---
Providers - Providers Date of Admission: 01/01/19 23:42 Date of discharge: 01/04/19 Attending physician: TERESITA SUAREZ 01/01/19 22:19 Consult to Case Management [CONS] Stat Services Needed at Discharge: Other Notified:: Angelina Branch RN Additional Physician Instructions: see nurse's note. 01/02/19 04:23 Physical Therapy Evaluation and Treat [CONS] Routine Comment: Reason For Exam: weakness 01/02/19 13:20 Consult to Physician [CONS] Routine Comment: Consulting Provider: LORENZA QUIROZ Physician Instructions: Reason For Exam: Syncope/positive troponin/ESRD/Risk factors 01/02/19 13:56 Consult to Physician [CONS] Routine Comment: Consulting Provider: NING CHAIDEZ Physician Instructions: Reason For Exam: ESRD/HD Primary care physician: JOSE LUIS BRITO Hospitalization Reason for admission: syncopal episode Condition: Fair Pertinent studies: Echo: showed 30-35% ejection fraction abnormal left ventricle diastolic filling with impaired relaxation. 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 CT cervical spine; no acute abnormality; degenerative disc disease Chest x-ray; cardiomegaly with pulmonary edema Stress test; negative for reversible ischemia, ejection fraction 38% Carotid Doppler; less than 50% stenosis Hospital course: 63-year-old -[place] female patient with significant history of end- stage renal disease on hemodialysis received dialysis and was going home and suddenly had a syncopal episode Patient was admitted for syncope workup was negative, placed on fall precautions, physical therapy evaluated the patient and received therapyPatient had mild elevation of cardiac enzymes, though nonspecific secondary to ESRD, atient had risk factors hence evaluated by cardiology,underwent stress test which was negative for reversible ischemia, Echocardiogram showed 30-35% ejection fraction abnormal left ventricle diastolic filling with impaired relaxation.,Patient received hemodialysis per schedule during the hospital stay Today she is comfortable in no new complaints, Vital signs noted, Physical examination unremarkable, Stable at discharge Discharge diagnosis: and management; --Positive cardiac enzymes; nonspecific Cardiology evaluated the patient, negative stress test Optimize medications --Noncardiac chest pain; probably secondary to GERD --Syncope; no new episodes of syncope Probably secondary to autonomic dysfunction syncope workup, negative, fall precautions, --Hypertensive urgency; present on admission, now well controlled Continue current antihypertensives, When necessary medications --Acute versus acute on chronic systolic congestive heart failure; ejection fraction 30-35%, Continue anti-failure medications, hemodialysis, cardiology evaluated --End-stage renal disease; on HD [MWF] HD per schedule upon discharge Patient is hemodynamically and clinically stable at discharge Disposition: [facility] TO HOME OR SELFCARE Time spent for discharge: 32 min Core Measure Documentation - Palliative Care Palliative Care/ Comfort Measures: Not Applicable - Core Measures Any of the following diagnoses?: heart failure - Heart Failure Discharge Requirements DYLAN/ARB for LVSD if EF <40%: No Reason for no DYLAN/ARB: Renal impairment Beta yahaira at discharge: Yes Exam - Constitutional Vitals: Temp Pulse Resp BP Pulse Ox 98.7 F 77 20 182/83 97 01/04/19 07:25 01/04/19 07:25 01/04/19 07:25 01/04/19 07:25 01/04/19 07:25 General appearance: Present: no acute distress, well-nourished - EENT Eyes: Present: PERRL, EOM intact - Neck Neck: Present: supple, normal ROM - Respiratory Respiratory effort: normal Respiratory: bilateral: diminished, negative: rales, rhonchi, wheezing - Cardiovascular Rhythm: regular Heart Sounds: Present: S1 & S2 - Extremities Extremities: no ischemia, No edema - Abdominal General gastrointestinal: Present: soft, non-tender, non-distended, normal bowel sounds - Integumentary Integumentary: Present: clear, warm - Musculoskeletal Musculoskeletal: strength equal bilaterally, generalized weakness - Psychiatric Psychiatric: appropriate mood/affect, cooperative - Neurologic Neurologic: CNII-XII intact, moves all extremities Plan Activity: advance as tolerated, fall precautions Diet: renal Additional Instructions: f/u Renal,HD per schedule [MWF]. Fall precautions Follow up with: JOSE LUIS BRITO MD [Primary Care Provider] - 3-5 Days LORELEI VASQUEZ MD [Staff Physician] - 7 Days LROENZA QUIROZ MD [Staff Physician] - 7 Days Prescriptions: amLODIPine [Norvasc] 10 mg PO QDAY #30 tablet Aspirin [Aspirin BABY CHEW TAB] 81 mg PO QDAY #30 tab.chew Carvedilol [Coreg] 25 mg PO BID #60 tablet
[2019-01-04 14:37] VITALS: BP 166/70
--- NOTE | 2019-01-04 15:12 | Progress Note ---
Assessment and Plan - Patient Problems (1) ESRD (end stage renal disease) Current Visit: Yes Status: Chronic Plan to address problem: cont HD on MWF schedule, target UF 2-3kg as tolerated (2) Accelerated hypertension Current Visit: Yes Status: Acute Plan to address problem: BP improved on current meds and with increased UF with HD. cont meds as above (3) Altered mental status Current Visit: Yes Status: Acute Plan to address problem: CT head/bilateral carotid duplex negative. Echocardiogram showed moderate global hypokinesis of LV, LVEF 30-35% along with impaired relaxation. further ischemic w/u as per cardiology (4) Diabetes Current Visit: Yes Status: Chronic Qualifiers: Diabetes mellitus type: type 2 Plan to address problem: glucose control as per primary attending Subjective Date of service: 01/04/19 Principal diagnosis: ESRD Interval history: pt awake alert, in NAD, denies CP, palpitations, SOB, n/v/d Objective - Vital Signs Vital signs: Vital Signs - 12hr 01/04/19 01/04/19 01/04/19 04:48 04:52 07:25 Temperature 98.4 F 98.2 F 98.7 F Pulse Rate 72 94 H 77 Respiratory 16 16 20 Rate Blood Pressure 190/80 154/72 182/83 O2 Sat by Pulse 93 98 97 Oximetry 01/04/19 14:34 Temperature 98.9 F Pulse Rate 74 Respiratory 20 Rate Blood Pressure 166/70 O2 Sat by Pulse 95 Oximetry - General Appearance General appearance: well-developed, well-nourished, appears stated age EENT: ATNC, PERRL, mucous membranes moist Neck: no JVD Respiratory: Present: Clear to Ascultation Cardiology: regular, S1S2 Gastrointestinal: normoactive bowel sounds Integumentary: no rash, other (no edema ) Neurologic: no focal deficit, alert and oriented x3, strength 5/5, CN 3-12 intact Psychiatric: mood/affect appropriate, cooperative - Lab 01/03/19 05:18 01/03/19 05:18 Most recent lab results Calcium 9.4 mg/dL (8.4-10.2) 01/03/19 05:18 Medications & Allergies - Medications Allergies/Adverse Reactions: Allergies No Known Allergies Allergy (Verified 01/01/19 23:56) Home Medications: Home Medications Medication Instructions Recorded Confirmed Last Taken Type Furosemide [Lasix] 80 mg PO QDAY 01/02/19 01/02/19 01/01/19 History Lisinopril [Zestril] 40 mg QDAY 01/02/19 01/02/19 01/01/19 History Loratadine [Claritin] 10 mg PO QDAY 01/02/19 01/02/19 01/01/19 History Meclizine HCl [[place] 2] 25 mg PO TID 01/02/19 01/02/19 Unknown History Zolpidem [Ambien] 5 mg PO QHS 01/02/19 01/02/19 Unknown History glipiZIDE [Glipizide] 10 mg PO BID 01/02/19 01/02/19 01/01/19 History hydrALAZINE [Apresoline TAB] 100 mg PO TID 01/02/19 01/02/19 01/01/19 History Aspirin [Aspirin BABY CHEW TAB] 81 mg PO QDAY #30 tab.chew 01/04/19 Unknown Rx Carvedilol [Coreg] 25 mg PO BID #60 tablet 01/04/19 Unknown Rx amLODIPine [Norvasc] 10 mg PO QDAY #30 tablet 01/04/19 Unknown Rx Active Medications: Generic Name Dose Route Start Last Admin Trade Name Freq PRN Reason Stop Dose Admin Acetaminophen 650 mg 01/01/19 23:42 01/03/19 17:06 Tylenol PO 650 mg Q4H PRN Administration Pain MILD(1-3)/Fever >100.5/YOUNG Amlodipine Besylate 10 mg 01/04/19 16:00 Norvasc PO QDAY ART Aspirin 81 mg 01/03/19 10:00 01/04/19 10:23 Baby Aspirin PO 81 mg QDAY ART Administration Carvedilol 25 mg 01/03/19 14:00 01/04/19 10:23 Coreg PO 25 mg BID ART Administration Furosemide 80 mg 01/02/19 11:00 01/04/19 05:39 Lasix PO 80 mg DAILY@0600 ART Administration Heparin Sodium (Porcine) 5,000 unit 01/02/19 10:00 01/04/19 10:23 Heparin SUB-Q 5,000 unit Q12HR ART Administration Hydralazine HCl 100 mg 01/02/19 14:00 01/04/19 14:32 Apresoline PO 100 mg TID ART Administration Hydralazine HCl 10 mg 01/02/19 09:37 Apresoline IV Q4HR PRN Hypertension Sodium Chloride 100 mls @ 999 mls/hr 01/03/19 11:16 Nacl 0.9% IV TWAN PRN Hypotension Insulin Human Lispro 0 unit 01/02/19 11:30 01/04/19 14:42 Humalog SUB-Q 2 unit ACHS ART Administration Protocol Lisinopril 40 mg 01/02/19 10:00 01/04/19 10:23 Zestril PO 40 mg QDAY ART Administration Meclizine HCl 25 mg 01/02/19 14:00 01/04/19 14:33 Antivert PO 25 mg TID ART Administration Ondansetron HCl 4 mg 01/01/19 23:42 Zofran IV Q8H PRN Nausea And Vomiting Sodium Chloride 10 ml 01/02/19 10:00 01/04/19 10:24 Sodium Chloride Flush Syringe 10 Ml IV 10 ml BID ART Administration Sodium Chloride 10 ml 01/01/19 23:42 Sodium Chloride Flush Syringe 10 Ml IV PRN PRN LINE FLUSH
[2019-01-04] MEDS ORDERED: NORVASC PO SCH (16:00)
== END 2019-01-04 16:12 | disposition home or self-care (01) | DRG 73 ==
LOC: EDBD → ED 16:16 → 4A 23:42
PROVIDERS: ADMIT Internal Medicine; ATTEND Internal Medicine
PROC: 5A1D70Z Performance of Urinary Filtration, Intermittent, Less than 6 Hours Per Day (ICD-10-PCS; principal; 2019-01-03)
DX: G90.9 Disorder of the autonomic nervous system, unspecified (principal); I50.23 Acute on chronic systolic (congestive) heart failure; N18.6 End stage renal disease; I13.2 Hypertensive heart and chronic kidney disease with heart failure and with stage 5 chronic kidney disease, or end stage renal disease; I43 Cardiomyopathy in diseases classified elsewhere; R41.82 Altered mental status, unspecified; I16.0 Hypertensive urgency; E11.22 Type 2 diabetes mellitus with diabetic chronic kidney disease; E89.0 Postprocedural hypothyroidism; I25.2 Old myocardial infarction; Z79.899 Other long term (current) drug therapy
CPT/HCPCS: 36415; 70450; 71045; 72125; 78452; 80048; 80053; 80061; 80074; 80320; 82140; 82550; 82553; 82962; 83036; 84443; 84484; 85025; 85610; 85730; 93005; 93010; 93017; 93306; 93880; G0378; A9502; G0480; J0360; J1644; J1815; J2785

== ENCOUNTER 2019-03-15 17:42 | Inpatient (IN) | payer MEDICARE ==
--- NOTE | 2019-03-15 17:50 | Emergency Department Report ---
Blank Doc - Documentation Documentation: This is a 63-year-old female that presents uncontrolled diabetes. Stated at h ome was in the 400s. This initial assessment/diagnostic orders/clinical plan/treatment(s) is/are subject to change based on patient's health status, clinical progression and re- assessment by fellow clinical providers in the ED. Further treatment and workup at subsequent clinical providers discretion. Patient/guardians urged not to elope from the ED as their condition may be serious if not clinically assessed and managed. Initial orders include: 1- Patient sent to MAIN ED for further evaluation and treatment 2- labs 3- UA
[2019-03-15 18:07] LABS: Basophils # (Auto) 0.1 K/mm3 (0.0-0.1); Basophils % (Auto) 1.4 % (0.0-1.8); Eosinophils # (Auto) 0.1 K/mm3 (0.0-0.4); Eosinophils % (Auto) 3.4 % (0.0-4.3); Hematocrit 34.3 % (30.3-42.9); Lymphocytes % (Auto) 24.7 % (13.4-35.0); Mean Corpuscular HGB Conc 32 % (30-34); Mean Corpuscular Volume 77 fl (79-97); Monocytes # (Auto) 0.3 K/mm3 (0.0-0.8); Platelet Count 179 K/mm3 (140-440); Red Blood Count 4.49 M/mm3 (3.65-5.03); Red Cell Distribution Width 23.1 % (13.2-15.2)
[2019-03-15 18:27] LABS: Alanine Aminotransferase 91 units/L (7-56); Albumin 3.5 g/dL (3.9-5); BUN/Creatinine Ratio 6; Blood Urea Nitrogen 51 mg/dL (7-17); Calcium 7.9 mg/dL (8.4-10.2); Hemolysis Index 3
[2019-03-15 18:39] LABS: Bilirubin,Direct < 0.2 mg/dL (0-0.2)
--- NOTE | 2019-03-15 18:49 | Emergency Department Report ---
ED General Adult HPI - General Chief complaint: Hyperglycemia Stated complaint: HIGH SUGAR LEVEL Time Seen by Provider: 03/15/19 17:49 Source: patient Mode of arrival: Ambulatory Limitations: Language Barrier - History of Present Illness Initial comments: Patient is a 63-year-old female that presents to the emergency room for hyperglycemia. Patient states she is not on insulin. Patient states she is a diabetic but is only taking glipizide. Patient denies chest pain or shortness of breath. Patient denies abdominal pain. Patient denies headache. Patient denies blurry vision. Patient states she is not sure why her blood sugar is high. Patient states she does dialysis Tuesday, Tuesday and Tuesday. Light with very noted. Family at bedside to translate. -: Sudden Severity scale (0 -10): 0 Improves with: rest Worsens with: eating Associated Symptoms: denies other symptoms. denies: confusion, cough, diaphoresis, fever/chills, headaches, loss of appetite, malaise, nausea/vomiting, rash, seizure, syncope, weakness Treatments Prior to Arrival: none - Related Data Home Medications Medication Instructions Recorded Confirmed Last Taken Furosemide [Lasix] 80 mg PO QDAY 01/02/19 02/18/19 02/17/19 Lisinopril [Zestril] 40 mg QDAY 01/02/19 02/18/19 02/17/19 Loratadine [Claritin] 10 mg PO QDAY 01/02/19 02/18/19 02/17/19 Meclizine HCl [Wal-Dram 2] 25 mg PO TID 01/02/19 02/18/19 02/17/19 Zolpidem [Ambien] 5 mg PO QHS 01/02/19 02/18/19 02/17/19 glipiZIDE [Glipizide] 10 mg PO BID 01/02/19 02/18/19 02/17/19 hydrALAZINE [Apresoline TAB] 100 mg PO TID 01/02/19 02/18/19 02/17/19 Previous Rx's Medication Instructions Recorded Last Taken Type Aspirin [Aspirin BABY CHEW TAB] 81 mg PO QDAY #30 tab.chew 01/04/19 02/17/19 Rx Carvedilol [Coreg] 25 mg PO BID #60 tablet 01/04/19 02/17/19 Rx amLODIPine [Norvasc] 10 mg PO QDAY #30 tablet 01/04/19 02/17/19 Rx Allergies Allergy/AdvReac Type Severity Reaction Status Date / Time No Known Allergies Allergy Verified 01/01/19 23:56 ED Review of Systems ROS: Stated complaint: HIGH SUGAR LEVEL Other details as noted in HPI Constitutional: denies: chills, fever Eyes: denies: eye pain, eye discharge, vision change ENT: denies: ear pain, throat pain Respiratory: shortness of breath. denies: cough, wheezing Cardiovascular: chest pain. denies: palpitations Endocrine: no symptoms reported Gastrointestinal: denies: abdominal pain, nausea, diarrhea Genitourinary: denies: urgency, dysuria, discharge Musculoskeletal: denies: back pain, joint swelling, arthralgia Skin: denies: rash, lesions Neurological: denies: headache, weakness, paresthesias Psychiatric: denies: anxiety, depression Hematological/Lymphatic: denies: easy bleeding, easy bruising ED Past Medical Hx - Past Medical History Previous Medical History?: Yes Hx Hypertension: Yes Hx Congestive Heart Failure: Yes Hx Diabetes: Yes Hx Renal Disease: Yes Hx Headaches / Migraines: Yes Hx Asthma: No Hx COPD: No Additional medical history: Renal failure. Dialysis M, W, F - Surgical History Past Surgical History?: Yes Hx Cholecystectomy: Yes Additional Surgical History: Abdominal surgery (patient states she cannot remember what was performed). Neck surgery/tracheotomy? - Family History Family history: no significant - Social History Smoking Status: Never Smoker Substance Use Type: None - Medications Home Medications: Home Medications Medication Instructions Recorded Confirmed Last Taken Type Furosemide [Lasix] 80 mg PO QDAY 01/02/19 02/18/19 02/17/19 History Lisinopril [Zestril] 40 mg QDAY 01/02/19 02/18/19 02/17/19 History Loratadine [Claritin] 10 mg PO QDAY 01/02/19 02/18/19 02/17/19 History Meclizine HCl [Wal-Dram 2] 25 mg PO TID 01/02/19 02/18/19 02/17/19 History Zolpidem [Ambien] 5 mg PO QHS 01/02/19 02/18/19 02/17/19 History glipiZIDE [Glipizide] 10 mg PO BID 01/02/19 02/18/19 02/17/19 History hydrALAZINE [Apresoline TAB] 100 mg PO TID 01/02/19 02/18/19 02/17/19 History Aspirin [Aspirin BABY CHEW TAB] 81 mg PO QDAY #30 tab.chew 01/04/19 02/18/19 02/17/19 Rx Carvedilol [Coreg] 25 mg PO BID #60 tablet 01/04/19 02/18/19 02/17/19 Rx amLODIPine [Norvasc] 10 mg PO QDAY #30 tablet 01/04/19 02/18/19 02/17/19 Rx ED Physical Exam - General Limitations: Language Barrier General appearance: alert, in no apparent distress - Head Head exam: Present: atraumatic, normocephalic - Eye Eye exam: Present: normal appearance - ENT ENT exam: Present: mucous membranes moist - Neck Neck exam: Present: normal inspection - Respiratory Respiratory exam: Present: normal lung sounds bilaterally. Absent: respiratory distress - Cardiovascular Cardiovascular Exam: Present: regular rate, normal rhythm. Absent: systolic murmur, diastolic murmur, rubs, gallop - GI/Abdominal GI/Abdominal exam: Present: soft, normal bowel sounds - Extremities Exam Extremities exam: Present: normal inspection - Back Exam Back exam: Present: normal inspection - Neurological Exam Neurological exam: Present: alert, oriented X3 - Psychiatric Psychiatric exam: Present: normal affect, normal mood - Skin Skin exam: Present: warm, dry, intact, normal color. Absent: rash ED Course Vital Signs 03/15/19 03/15/19 03/15/19 17:50 18:25 18:30 Temperature 98.1 F Pulse Rate 68 Respiratory 18 Rate Blood Pressure 226/93 229/99 Blood Pressure [Right] O2 Sat by Pulse 93 92 95 Oximetry 03/15/19 03/15/19 03/15/19 18:46 19:00 19:16 Temperature Pulse Rate Respiratory Rate Blood Pressure 227/91 227/91 227/91 Blood Pressure [Right] O2 Sat by Pulse 90 92 98 Oximetry 03/15/19 03/15/19 03/15/19 19:30 19:46 19:56 Temperature Pulse Rate Respiratory Rate Blood Pressure 227/91 227/91 227/91 Blood Pressure [Right] O2 Sat by Pulse 96 96 Oximetry 03/15/19 03/15/19 03/15/19 20:00 20:16 20:30 Temperature Pulse Rate Respiratory Rate Blood Pressure 227/91 227/91 227/91 Blood Pressure [Right] O2 Sat by Pulse 95 98 97 Oximetry 03/15/19 03/15/19 03/15/19 20:33 20:46 21:00 Temperature Pulse Rate Respiratory Rate Blood Pressure 227/91 227/91 Blood Pressure 220/99 [Right] O2 Sat by Pulse 100 99 Oximetry 03/15/19 03/15/19 03/15/19 21:01 21:16 21:43 Temperature Pulse Rate 61 Respiratory Rate Blood Pressure 228/95 227/91 227/91 Blood Pressure [Right] O2 Sat by Pulse 100 97 Oximetry 03/15/19 03/15/19 03/15/19 21:45 21:46 22:00 Temperature Pulse Rate 65 Respiratory Rate Blood Pressure 227/91 227/91 Blood Pressure 211/90 [Right] O2 Sat by Pulse 97 96 Oximetry 03/15/19 03/15/19 03/15/19 22:12 22:16 22:30 Temperature Pulse Rate 64 Respiratory 18 Rate Blood Pressure 227/91 227/91 Blood Pressure 190/81 [Right] O2 Sat by Pulse 99 95 96 Oximetry 03/15/19 03/15/19 03/15/19 22:43 22:45 23:00 Temperature Pulse Rate Respiratory 16 Rate Blood Pressure 168/72 171/71 Blood Pressure 167/76 [Right] O2 Sat by Pulse 99 95 96 Oximetry 03/15/19 03/15/19 03/15/19 23:16 23:30 23:46 Temperature Pulse Rate Respiratory Rate Blood Pressure 207/89 225/92 226/90 Blood Pressure [Right] O2 Sat by Pulse 98 99 100 Oximetry 03/16/19 03/16/19 03/16/19 00:00 00:16 00:30 Temperature Pulse Rate Respiratory Rate Blood Pressure 221/84 215/85 208/97 Blood Pressure [Right] O2 Sat by Pulse 100 99 100 Oximetry 03/16/19 03/16/19 03/16/19 00:36 00:46 01:00 Temperature Pulse Rate 64 Respiratory 15 Rate Blood Pressure 225/69 206/80 Blood Pressure 210/83 [Right] O2 Sat by Pulse 100 100 99 Oximetry 03/16/19 03/16/19 03/16/19 01:16 01:18 01:30 Temperature Pulse Rate 71 Respiratory 16 Rate Blood Pressure 154/75 149/68 Blood Pressure 154/75 [Right] O2 Sat by Pulse 93 99 97 Oximetry 03/16/19 01:46 Temperature Pulse Rate Respiratory Rate Blood Pressure 149/62 Blood Pressure [Right] O2 Sat by Pulse 94 Oximetry - Reevaluation(s) Reevaluation #1: Patient's blood pressure still high. Patient will be given clonidine 0.2 mg. Patient already given 10 units of insulin. We will recheck the blood sugar 03/15/19 19:46 I went to discuss the patient's results with her and the patient is complaining of chest pain and shortness of breath. Patient states that she's been having chest pain for approximately 48 hours and that the chest pain and shortness of breath is worse with laying down and exertion. Patient states the chest pain shortness of breath are better with rest and upright position. We will do an initial cardiac workup. EKG has already been done. 03/15/19 20:42 Discussed results with patient. 03/15/19 22:48 Patient blood pressure difficult to control. Patient will be placed on a nicardipine drip. 03/16/19 00:44 Blood pressure is better. Patient will be admitted to the hospitalist service. Discussed all results with patient. Patient agrees with plan of care and admission. 03/16/19 01:48 - Consultations Consultation #1: Hospitalist consult for admission. Hospitalist to admit patient. 03/16/19 01:48 ED Medical Decision Making - Lab Data Result diagrams: 03/15/19 17:56 03/15/19 17:56 - EKG Data -: EKG Interpreted by Al EKG shows normal: sinus rhythm, axis, intervals, QRS complexes, ST-T waves Rate: normal - Radiology Data Radiology results: report reviewed PROCEDURE: CT ANGIOGRAM OF THE CHEST FOR PULMONARY EMBOLISM TECHNIQUE: Computerized axial tomographic angiography of the chest and pulmonary arteries was performed after the IV injection of iodinated nonionic contrast. The image data was postprocessed using maximum intensity projection (MIP) and 2-dimensional multiplanar reformatted (MPR) techniques. The examination is specifically tailored to the evaluation of the pulmonary arteries per clinical request. Automated exposure control, adjustment of mA and/or kV according to patient size, or iterative reconstruction dose optimization techniques were utilized. CPT G9637, 80599 HISTORY: Shortness of breath R06.02, chest pain unspecified R07.9 , COMPARISONS: 02/19/2019 FINDINGS: Heart and pericardium: The heart is enlarged. Thoracic aorta: There is calcified plaque in the thoracic aorta. There is no aneurysm or dissection.. Pulmonary vasculature: There is no pulmonary embolism.. Lymph nodes: No enlarged thoracic lymph nodes. Lungs: There is bilateral perihilar pulmonary edema. This suggests heart failure or fluid overload. There are noncalcified nodules at the right lung base measuring up to 9 mm.. These are slightly more prominent compared to the prior study. Pleural space: There are small effusions. Musculoskeletal structures: There are multiple degenerative disc changes in the thoracic spine.. Upper abdominal structures: No significant abnormality. IMPRESSION: The heart is enlarged. There is calcified plaque in the thoracic aorta. There is no aneurysm or dissection.. There is no pulmonary embolism.. There is bilateral perihilar pulmonary edema. This suggests heart failure or fluid overload. There are noncalcified nodules at the right lung base measuring up to 9 mm.. These are slightly more prominent. The the prior study. There are small effusions.. - Medical Decision Making Patient is a 63-year-old female that presents emergency room with complaints of hyperglycemia. Patient after initial workup was completely and a peanut shaker is at bedside, the patient may be aware that that she was actually having chest pain or shortness of breath. Patient then had a cardiac workup done. Patient found to have a elevated troponin which is most likely secondary to congestive heart failure and end-stage renal disease. Labs are consistent with end-stage renal disease. Also found to have elevated BNP. Patient had a CTA done to rule out dissection and PE. Pulmonary edema noted on CTA. Patient will be admitted to the hospitalist service. Patient was placed on a nicardipine drip for her elevated blood pressure. Patient's blood pressure was difficult to manage with other medications so nicardipine drip was initiated. - Differential Diagnosis PE. Chest pain. Shortness of breath. CHF. Hyperglycemia volume overload Critical Care Time: Yes Critical care attestation.: If time is entered above; I have spent that time in minutes in the direct care of this critically ill patient, excluding procedure time. Critical Care Time: 35 minutes ED Disposition Clinical Impression: SOB (shortness of breath), End stage renal disease on dialysis, Malignant hypertension, Elevated troponin, ESRD (end stage renal disease), Pulmonary edema cardiac cause Chest pain Qualifiers: Chest pain type: unspecified Qualified Code(s): R07.9 - Chest pain, unspecified Hypertension Qualifiers: Hypertension type: essential hypertension Qualified Code(s): I10 - Essential (primary) hypertension Cardiomyopathy Qualifiers: Cardiomyopathy type: unspecified Qualified Code(s): I42.9 - Cardiomyopathy, unspecified CHF (congestive heart failure) Qualifiers: Heart failure type: unspecified Heart failure chronicity: acute Qualified Code(s): I50.9 - Heart failure, unspecified Disposition: 09 OP ADMIT IP TO THIS HOSP Is pt being admited?: Yes Does the pt Need Aspirin: No Condition: Critical Time of Disposition: 02:06
[2019-03-15] MEDS ORDERED: HumuLIN R IV ONE (18:50)
[2019-03-15] MEDS ORDERED: CATAPRES PO ONE (19:45)
[2019-03-15] MEDS ORDERED: APRESOLINE IV ONE (20:44)
[2019-03-15 21:59] LABS: Creatine Kinase MB 2.4 ng/mL (0.0-4.0)
[2019-03-15 22:21] LABS: Chol/HDL Ratio 3.82 %
[2019-03-16] MEDS ORDERED: ASPIRIN PO ONE (00:25)
[2019-03-16] MEDS ORDERED: CARDENE 50 MG in NACL 0.9% 250ML 230 ML IV SCH (01:00)
--- NOTE | 2019-03-16 01:44 | Cat Scan Report ---
PROCEDURE: CT ANGIOGRAM OF THE CHEST FOR PULMONARY EMBOLISM TECHNIQUE: Computerized axial tomographic angiography of the chest and pulmonary arteries was perfor med after the IV injection of iodinated nonionic contrast. The image data was postprocessed using max imum intensity projection (MIP) and 2-dimensional multiplanar reformatted (MPR) techniques. The exami nation is specifically tailored to the evaluation of the pulmonary arteries per clinical request. Au tomated exposure control, adjustment of mA and/or kV according to patient size, or iterative reconstr uction dose optimization techniques were utilized. CPT G9637, 61122 HISTORY: Shortness of breath R06.02, chest pain unspecified R07.9 , COMPARISONS: 02/19/2019 FINDINGS: Heart and pericardium: The heart is enlarged. Thoracic aorta: There is calcified plaque in the thoracic aorta. There is no aneurysm or dissection. . Pulmonary vasculature: There is no pulmonary embolism.. Lymph nodes: No enlarged thoracic lymph nodes. Lungs: There is bilateral perihilar pulmonary edema. This suggests heart failure or fluid overload. There are noncalcified nodules at the right lung base measuring up to 9 mm.. These are slightly more prominent compared to the prior study. Pleural space: There are small effusions. Musculoskeletal structures: There are multiple degenerative disc changes in the thoracic spine.. Upper abdominal structures: No significant abnormality. IMPRESSION: The heart is enlarged. There is calcified plaque in the thoracic aorta. There is no aneurysm or dissection.. There is no pulmonary embolism.. There is bilateral perihilar pulmonary edema. This suggests heart failure or fluid overload. There ar e noncalcified nodules at the right lung base measuring up to 9 mm.. These are slightly more prominen t. The the prior study. There are small effusions.. This document is electronically signed by Ricardo Curran MD., March 16 2019 01:41:41 AM ET
[2019-03-16] MEDS ORDERED: D50W (25GM) Syringe IV ONE ×2 (02:32→02:36)
--- NOTE | 2019-03-16 03:49 | History and Physical Report ---
History of Present Illness Date of examination: 03/16/19 History of present illness: 63 year old woman with history of hypertension, diabetes, end-stage renal disease on dialysis comes to the emergency room because her blood sugar and blood pressure has been elevated despite taking her medications. Also complaining of chest pain, located in the epigastric area, started 4 days ago, she is unable to describe it, intermittently every 5 minutes, no radiation, intensity 4/10, cannot identify exacerbating or relieving factors. Admits to shortness of breath, no nausea vomiting, diaphoresis, constipation. Patient has been here several times with similar complaints, she had a stress test on the however she cannot recall when the last stress test was. Her last few admissions on during the white count, unable to pull up her old records. In the emergency room her blood pressure has been on control with antihypertensive, she was started on a Cardene drip Review of systems Constitutional: no weight loss, chills, fever Ears, eyes, nose, mouth and throat: no nasal congestion, no nasal discharge, no sinus pressure, no vision change, no red eye. Neck: No neck pain or rigidity. Cardiovascular: no palpitations Respiratory: no cough, shortness of breath Gastrointestinal: no hematochezia, abdominal pain Genitourinary : no frequency , no hematuria Musculoskeletal: no joint swelling or muscle ache Integumentary: no rash, no pruritis Neurological: no parathesias, no focal weakness Endocrine: no cold or heat intolerance, no polyuria or polydipsia Hematologic/Lymphatic: no easy bruising, no easy bleeding, no gland swelling Allergic/Immunologic: no urticaria, no angioedema. PAST MEDICAL HISTORY:hypertension, diabetes, end-stage renal disease PAST SURGICAL HISTORY: AV fistula, thyroidectomy, cholecystectomy SOCIAL HISTORY: Denies alcohol, drugs, tobacco FAMILY HISTORY: Hypertension Medications and Allergies Allergies Allergy/AdvReac Type Severity Reaction Status Date / Time No Known Allergies Allergy Verified 01/01/19 23:56 Home Medications Medication Instructions Recorded Confirmed Last Taken Type Furosemide [Lasix] 80 mg PO QDAY 01/02/19 03/16/19 02/17/19 History Lisinopril [Zestril] 40 mg QDAY 01/02/19 03/16/19 02/17/19 History Loratadine [Claritin] 10 mg PO QDAY 01/02/19 03/16/19 02/17/19 History Meclizine HCl [Wal-Dram 2] 25 mg PO TID 01/02/19 03/16/19 02/17/19 History Zolpidem [Ambien] 5 mg PO QHS 01/02/19 03/16/19 02/17/19 History glipiZIDE [Glipizide] 10 mg PO BID 01/02/19 03/16/19 02/17/19 History hydrALAZINE [Apresoline TAB] 100 mg PO TID 01/02/19 03/16/19 02/17/19 History Aspirin [Aspirin BABY CHEW TAB] 81 mg PO QDAY #30 tab.chew 01/04/19 03/16/19 02/17/19 Rx Carvedilol [Coreg] 25 mg PO BID #60 tablet 01/04/19 03/16/19 02/17/19 Rx amLODIPine [Norvasc] 10 mg PO QDAY #30 tablet 01/04/19 03/16/19 02/17/19 Rx Active Meds: Active Medications Enoxaparin Sodium (Lovenox) 30 mg SUB-Q QDAY ART Nicardipine HCl 50 mg/ Sodium (Chloride) 250 mls @ 25 mls/hr IV TITR ART; Protocol Last Admin: 03/16/19 00:59 Dose: 5 mg/hr, 25 mls/hr Documented by: Exam - Physical Exam Narrative exam: General Apperance: The patient lying in bed, breathing comfortable HEENT: Normocephalic, atraumatic. Pupils equally round and reactive to light, EOMI, no sclericterus or JVD or thyromegaly or nodule. , no carotid bruit, muc ous membranes moist, no exudate or erythema Heart: S1-S2, regular is rhythm Lungs: Clear to auscultation bilaterally, breathing comfortable Abdomen: Positive bowel sounds, soft, nontender, nondistended, no organomegaly Extremities: No edema cyanosis clubbing Skin: no rash, nodule, warm and dry Neuro: cranial nerves 2-12 intact, speech is fluent, motor/sensory intact - Constitutional Vitals: Temp Pulse Resp BP Pulse Ox 97.9 F 59 L 21 136/58 97 03/16/19 02:15 03/16/19 03:16 03/16/19 03:16 03/16/19 03:16 03/16/19 03:16 Results - Labs CBC & Chem 7: 03/15/19 17:56 03/15/19 17:56 Labs: Abnormal lab results 03/15/19 03/15/19 03/15/19 Range/Units 17:53 17:56 17:56 WBC 3.9 L (4.5-11.0) K/mm3 MCV 77 L (79-97) fl MCH 25 L (28-32) pg RDW 23.1 H (13.2-15.2) % [place] % (Auto) 8.0 H (0.0-7.3) % Lymph # 1.0 L (1.2-5.4) K/mm3 Chloride 94.3 L (98-107) mmol/L BUN 51 H (7-17) mg/dL Creatinine 8.7 H (0.7-1.2) mg/dL Glucose 367 H (65-100) mg/dL POC Glucose 359 H (70-105) Calcium 7.9 L (8.4-10.2) mg/dL AST 111 H (5-40) units/L ALT 91 H (7-56) units/L Alkaline Phosphatase 197 H (35-129) units/L Troponin T (0.00-0.029) ng/mL NT-Pro-B Natriuret Pep (0-900) pg/mL Albumin 3.5 L (3.9-5) g/dL 03/15/19 03/15/19 03/15/19 Range/Units 20:00 20:21 20:52 WBC (4.5-11.0) K/mm3 MCV (79-97) fl MCH (28-32) pg RDW (13.2-15.2) % [place] % (Auto) (0.0-7.3) % Lymph # (1.2-5.4) K/mm3 Chloride (98-107) mmol/L BUN (7-17) mg/dL Creatinine (0.7-1.2) mg/dL Glucose (65-100) mg/dL POC Glucose 284 H (70-105) Calcium (8.4-10.2) mg/dL AST (5-40) units/L ALT (7-56) units/L Alkaline Phosphatase (35-129) units/L Troponin T 0.187 H* (0.00-0.029) ng/mL NT-Pro-B Natriuret Pep 56677 H (0-900) pg/mL Albumin (3.9-5) g/dL 03/16/19 03/16/19 Range/Units 02:25 03:08 WBC (4.5-11.0) K/mm3 MCV (79-97) fl MCH (28-32) pg RDW (13.2-15.2) % [place] % (Auto) (0.0-7.3) % Lymph # (1.2-5.4) K/mm3 Chloride (98-107) mmol/L BUN (7-17) mg/dL Creatinine (0.7-1.2) mg/dL Glucose (65-100) mg/dL POC Glucose 60 L 204 H (70-105) Calcium (8.4-10.2) mg/dL AST (5-40) units/L ALT (7-56) units/L Alkaline Phosphatase (35-129) units/L Troponin T (0.00-0.029) ng/mL NT-Pro-B Natriuret Pep (0-900) pg/mL Albumin (3.9-5) g/dL - Imaging and Cardiology EKG: image reviewed CT scan - chest: report reviewed Assessment and Plan Assessment Hypertensive urgency, malignant Chest pain Diabetes 2 uncontrolled End-stage disease on dialysis Plan Admit to medicine Continue Cardene drip Check cardiac enzymes, consult cardiology Consult critical care, renal Check fingersticks and initiate insulin sliding scale DVT prophylaxis
[2019-03-16] MEDS ORDERED: PERCOCET 5/325 PO PRN (04:09)
[2019-03-16] MEDS ORDERED: TYLENOL PO PRN (04:09)
[2019-03-16] MEDS ORDERED: SODIUM CHLORIDE FLUSH SYRINGE 10 ML IV PRN (04:09)
[2019-03-16] MEDS ORDERED: ZOFRAN IV PRN (04:09)
--- NOTE | 2019-03-16 09:24 | Consultation ---
History of Present Illness Consult date: 03/16/19 Requesting physician: DARSHANA BLACK History of present illness: 63 year old woman with history of hypertension, diabetes, end-stage renal disea se on dialysis comes to the emergency room because her blood sugar and blood pressure has been elevated despite taking her medications. Also complaining of chest pain, located in the epigastric area, started 4 days ago, she is unable to describe it, intermittently every 5 minutes, no radiation, intensity 4/10, cannot identify exacerbating or relieving factors. Admits to shortness of breath, no nausea vomiting, diaphoresis, constipation. Patient has been here several times with similar complaints, she had a stress test on the however she cannot recall when the last stress test was. In the emergency room she was antihypertensive, she was started on a Cardene drip which is currently at an infusion rate of 2mg I have been consulted for critical care management. At the time of evaluation, patient was yet to receive her oral medications and is scheduled for HD. Will give her oral medications, get HD done. Once she is off the cardene infusion she can be downgraded to telemetry unit. Review of systems Constitutional: no weight loss, chills, fever Ears, eyes, nose, mouth and throat: no nasal congestion, no nasal discharge, no sinus pressure, no vision change, no red eye. Neck: No neck pain or rigidity. Cardiovascular: no palpitations Respiratory: no cough, shortness of breath Gastrointestinal: no hematochezia, abdominal pain Genitourinary : no frequency , no hematuria Musculoskeletal: no joint swelling or muscle ache Integumentary: no rash, no pruritis Neurological: no parathesias, no focal weakness Endocrine: no cold or heat intolerance, no polyuria or polydipsia Hematologic/Lymphatic: no easy bruising, no easy bleeding, no gland swelling Allergic/Immunologic: no urticaria, no angioedema. PAST MEDICAL HISTORY:hypertension, diabetes, end-stage renal disease PAST SURGICAL HISTORY: AV fistula, thyroidectomy, cholecystectomy SOCIAL HISTORY: Denies alcohol, drugs, tobacco FAMILY HISTORY: Hypertension Medications and Allergies Allergies Allergy/AdvReac Type Severity Reaction Status Date / Time No Known Allergies Allergy Verified 01/01/19 23:56 Home Medications Medication Instructions Recorded Confirmed Last Taken Type Furosemide [Lasix] 80 mg PO QDAY 01/02/19 03/16/19 02/17/19 History Lisinopril [Zestril] 40 mg QDAY 01/02/19 03/16/19 02/17/19 History Loratadine [Claritin] 10 mg PO QDAY 01/02/19 03/16/19 02/17/19 History Meclizine HCl [Wal-Dram 2] 25 mg PO TID 01/02/19 03/16/19 02/17/19 History Zolpidem [Ambien] 5 mg PO QHS 01/02/19 03/16/19 02/17/19 History glipiZIDE [Glipizide] 10 mg PO BID 01/02/19 03/16/19 02/17/19 History hydrALAZINE [Apresoline TAB] 100 mg PO TID 01/02/19 03/16/19 02/17/19 History Aspirin [Aspirin BABY CHEW TAB] 81 mg PO QDAY #30 tab.chew 01/04/19 03/16/19 02/17/19 Rx Carvedilol [Coreg] 25 mg PO BID #60 tablet 01/04/19 03/16/19 02/17/19 Rx amLODIPine [Norvasc] 10 mg PO QDAY #30 tablet 01/04/19 03/16/19 02/17/19 Rx Active Meds: Active Medications Acetaminophen (Tylenol) 650 mg PO Q4H PRN PRN Reason: Pain MILD(1-3)/Fever >100.5/YOUNG Aspirin (Baby Aspirin) 81 mg PO QDAY [facility] Enoxaparin Sodium (Lovenox) 30 mg SUB-Q QDAY [facility] Glipizide (Glucotrol) 10 mg PO BIDDIAB [facility] Nicardipine HCl 50 mg/ Sodium (Chloride) 250 mls @ 25 mls/hr IV TITR ART; Pr otocol Last Titration: 03/16/19 02:15 Dose: 2.5 mg/hr, 12.5 mls/hr Documented by: Ondansetron HCl (Zofran) 4 mg IV Q4H PRN PRN Reason: Nausea And Vomiting Oxycodone/Acetaminophen (Percocet 5/325) 1 tab PO Q6H PRN PRN Reason: Pain, Moderate (4-6) Sodium Chloride (Sodium Chloride Flush Syringe 10 Ml) 10 ml IV BID [facility] Sodium Chloride (Sodium Chloride Flush Syringe 10 Ml) 10 ml IV PRN PRN PRN Reason: LINE FLUSH Physical Examination Vital signs: Vital Signs Temp Pulse Resp BP Pulse Ox 98.1 F 68 18 226/93 93 03/15/19 17:50 03/15/19 17:50 03/15/19 17:50 03/15/19 17:50 03/15/19 17:50 General Apperance: The patient lying in bed, breathing comfortable, chronically ill looking HEENT: Normocephalic, atraumatic. Pupils equally round and reactive to light, EOMI, no sclericterus or JVD or thyromegaly or nodule. Heart: S1-S2, RRR, Lungs: Clear to auscultation bilaterally, Diminished AE Abdomen: Positive bowel sounds, soft, non-tender, non-distended, no organomegaly Extremities: No edema cyanosis clubbing Skin: no rash, nodule, warm and dry Neuro: cranial nerves 2-12 intact, speech is fluent, motor/sensory intact Results - Laboratory Findings CBC and BMP: 03/17/19 07:37 03/17/19 07:37 Abnormal lab findings: Abnormal Labs 03/15/19 03/15/19 03/15/19 17:53 17:56 17:56 WBC 3.9 L MCV 77 L MCH 25 L RDW 23.1 H [place] % (Auto) 8.0 H Lymph # 1.0 L Chloride 94.3 L BUN 51 H Creatinine 8.7 H Glucose 367 H POC Glucose 359 H Calcium 7.9 L AST 111 H ALT 91 H Alkaline Phosphatase 197 H CK-MB (CK-2) Rel Index Troponin T NT-Pro-B Natriuret Pep Albumin 3.5 L 03/15/19 03/15/19 03/15/19 20:00 20:21 20:52 WBC MCV MCH RDW [place] % (Auto) Lymph # Chloride BUN Creatinine Glucose POC Glucose 284 H Calcium AST ALT Alkaline Phosphatase CK-MB (CK-2) Rel Index Troponin T 0.187 H* NT-Pro-B Natriuret Pep 38375 H Albumin 03/16/19 03/16/19 03/16/19 02:25 03:08 04:59 WBC MCV MCH RDW [place] % (Auto) Lymph # Chloride BUN Creatinine Glucose POC Glucose 60 L 204 H Calcium AST ALT Alkaline Phosphatase CK-MB (CK-2) Rel Index 4.7 H Troponin T 0.184 H* NT-Pro-B Natriuret Pep Albumin 03/16/19 03/16/19 06:35 08:28 WBC MCV MCH RDW [place] % (Auto) Lymph # Chloride BUN Creatinine Glucose POC Glucose 260 H 261 H Calcium AST ALT Alkaline Phosphatase CK-MB (CK-2) Rel Index Troponin T NT-Pro-B Natriuret Pep Albumin Assessment and Plan Hypertensive urgency, malignant Chest pain Diabetes 2 uncontrolled End-stage disease on dialysis -Wean off cardene infusion -Supplemental oxygen to keep O2 sats>90% -Resume home medications -Once off cardene infusion can downgrade to telemetry unit -HD emergently -Accuchecks with glycemic control -Renal, cardiac, consistent carb diet -VTE prophylaxis, stop enoxaparin and use heparin -Cardiology consult -Nutritional support Thank you for this consult will follow Please do not hesitate to call with questions and concerns
[2019-03-16 11:19] LABS: Creatine Kinase MB 3.6 ng/mL (0.0-4.0)
[2019-03-16] MEDS ORDERED: BABY ASPIRIN ONE (11:45)
[2019-03-16] MEDS ORDERED: LOVENOX SUB-Q ONE (11:47)
[2019-03-16] MEDS: LOVENOX SUB-Q SCH (12:08)
[2019-03-16] MEDS: BABY ASPIRIN PO SCH (12:08)
[2019-03-16] MEDS: SODIUM CHLORIDE FLUSH SYRINGE 10 ML IV SCH ×2 (12:08→22:29)
[2019-03-16] MEDS: GLUCOTROL PO SCH ×2 (12:08→20:51)
--- NOTE | 2019-03-16 12:09 | Consultation ---
History of Present Illness Consult date: 03/16/19 Requesting physician: DARSHANA BLACK Consult reason: chest pain History of present illness: The pt is a 63 YO female with a past medical history of CMP, ESRD (MWF, follows Dr. Plaza), HTN, DM. She has been seen by our practice on prior hospitalizations and infrequently in the office by Dr. Shipman. She presented with c/o "elevated blood sugars". She reports compliance with her dialysis and medication regimen. She denies any other complaints. Cardiology has been consulted for chest pain. Pt denies chest pain. Pt was noted to have hypertensive emergency and was initiated on cardene gtt. Echo done 12/2018 showed EF 30-35%, mod LVH, mod global hypokinesis, impaired relaxation, RVSP 33mmHg. Lexiscan MPI stress test done 12/2018 was negative for ischemia, EF 38%. Past History Past Medical History: diabetes, dialysis, ESRD, hypertension Medications and Allergies Allergies Allergy/AdvReac Type Severity Reaction Status Date / Time No Known Allergies Allergy Verified 01/01/19 23:56 Home Medications Medication Instructions Recorded Confirmed Last Taken Type Furosemide [Lasix] 80 mg PO QDAY 01/02/19 03/16/19 02/17/19 History Lisinopril [Zestril] 40 mg QDAY 01/02/19 03/16/19 02/17/19 History Loratadine [Claritin] 10 mg PO QDAY 01/02/19 03/16/19 02/17/19 History Meclizine HCl [Wal-Dram 2] 25 mg PO TID 01/02/19 03/16/19 02/17/19 History Zolpidem [Ambien] 5 mg PO QHS 01/02/19 03/16/19 02/17/19 History glipiZIDE [Glipizide] 10 mg PO BID 01/02/19 03/16/19 02/17/19 History hydrALAZINE [Apresoline TAB] 100 mg PO TID 01/02/19 03/16/19 02/17/19 History Aspirin [Aspirin BABY CHEW TAB] 81 mg PO QDAY #30 tab.chew 01/04/19 03/16/19 02/17/19 Rx Carvedilol [Coreg] 25 mg PO BID #60 tablet 01/04/19 03/16/19 02/17/19 Rx amLODIPine [Norvasc] 10 mg PO QDAY #30 tablet 01/04/19 03/16/19 02/17/19 Rx Active Meds: Active Medications Acetaminophen (Tylenol) 650 mg PO Q4H PRN PRN Reason: Pain MILD(1-3)/Fever >100.5/YOUNG Aspirin (Baby Aspirin) 81 mg PO QDAY [facility] Enoxaparin Sodium (Lovenox) 30 mg SUB-Q QDAY [facility] Glipizide (Glucotrol) 10 mg PO BIDDIAB [facility] Nicardipine HCl 50 mg/ Sodium (Chloride) 250 mls @ 25 mls/hr IV TITR ART; Protocol Last Titration: 03/16/19 02:15 Dose: 2.5 mg/hr, 12.5 mls/hr Documented by: Ondansetron HCl (Zofran) 4 mg IV Q4H PRN PRN Reason: Nausea And Vomiting Oxycodone/Acetaminophen (Percocet 5/325) 1 tab PO Q6H PRN PRN Reason: Pain, Moderate (4-6) Sodium Chloride (Sodium Chloride Flush Syringe 10 Ml) 10 ml IV BID [facility] Sodium Chloride (Sodium Chloride Flush Syringe 10 Ml) 10 ml IV PRN PRN PRN Reason: LINE FLUSH Review of Systems Constitutional: no weight loss, no weight gain, no fever, no chills, no sweats Ears, nose, mouth and throat: no ear pain, no nose pain, no sinus pressure, no sinus pain Cardiovascular: high blood pressure, no chest pain, no orthopnea, no palpitations, no rapid/irregular heart beat, no edema, no syncope, no lightheadedness, no shortness of breath, no dyspnea on exertion Respiratory: no cough, no shortness of breath, no dyspnea on exertion, no congestion, no wheezing, no pain on inspiration Gastrointestinal: no abdominal pain, no nausea, no vomiting, no diarrhea, no constipation, no change in bowel habits Genitourinary Female: no pelvic pain, no flank pain, no dysuria, no urinary frequency, no urgency Musculoskeletal: no neck stiffness, no neck pain, no shooting arm pain, no arm numbness/tingling, no low back pain Integumentary: no rash, no pruritis, no redness, no sores, no wounds Neurological: no head injury, no paralysis, no weakness, no parathesias, no numbness, no tingling, no seizures, no syncope Psychiatric: no anxiety Endocrine: high blood sugars, no cold intolerance, no heat intolerance Hematologic/Lymphatic: no easy bruising, no easy bleeding Allergic/Immunologic: no urticaria, no wheezing Physical Examination Vital Signs Temp Pulse Resp BP Pulse Ox 98.1 F 68 18 226/93 93 03/15/19 17:50 03/15/19 17:50 03/15/19 17:50 03/15/19 17:50 03/15/19 17:50 General appearance: no acute distress HEENT: Positive: PERRL, Normocephaly, Mucus Membranes Moist Neck: Positive: neck supple, trachea midline Cardiac: Positive: Reg Rate and Rhythm, S1/S2 Lungs: Positive: clear to auscultation Neuro: Positive: Grossly Intact Abdomen: Positive: Soft. Negative: Tender Skin: Negative: Rash, Wound Musculoskeletal: No Pain Extremities: Absent: edema Results 03/15/19 17:56 03/15/19 17:56 Cardiac Enzymes 03/15/19 03/15/19 03/16/19 Range/Units 17:56 20:52 04:59 AST 111 H (5-40) units/L CK-MB (CK-2) 2.4 3.0 (0.0-4.0) ng/mL 03/16/19 Range/Units 10:39 AST (5-40) units/L CK-MB (CK-2) 3.6 (0.0-4.0) ng/mL Lipids 03/15/19 Range/Units 20:52 Triglycerides 71 (2-149) mg/dL Cholesterol 153 (50-199) mg/dL HDL Cholesterol 40 (40-59) mg/dL Cholesterol/HDL Ratio 3.82 % CBC 03/15/19 Range/Units 17:56 WBC 3.9 L (4.5-11.0) K/mm3 RBC 4.49 (3.65-5.03) M/mm3 Hgb 11.0 (10.1-14.3) gm/dl Hct 34.3 (30.3-42.9) % Plt Count 179 (140-440) K/mm3 Lymph # 1.0 L (1.2-5.4) K/mm3 [place] # 0.3 (0.0-0.8) K/mm3 Eos # 0.1 (0.0-0.4) K/mm3 Baso # 0.1 (0.0-0.1) K/mm3 Comprehensive Metabolic Panel 03/15/19 Range/Units 17:56 Sodium 138 (137-145) mmol/L Potassium 4.3 (3.6-5.0) mmol/L Chloride 94.3 L (98-107) mmol/L Carbon Dioxide 29 (22-30) mmol/L BUN 51 H (7-17) mg/dL Creatinine 8.7 H (0.7-1.2) mg/dL Glucose 367 H (65-100) mg/dL Calcium 7.9 L (8.4-10.2) mg/dL Direct Bilirubin < 0.2 (0-0.2) mg/dL Indirect Bilirubin 0.2 mg/dL AST 111 H (5-40) units/L ALT 91 H (7-56) units/L Alkaline Phosphatase 197 H (35-129) units/L Total Protein 6.4 (6.3-8.2) g/dL Albumin 3.5 L (3.9-5) g/dL - Imaging and Cardiology Echo: report reviewed (12/2018 showed EF 30-35%, mod LVH, mod global hypokinesis, impaired relaxation, RVSP 33mmHg.) EKG: report reviewed, image reviewed EKG interpretations - Telemetry EKG Rhythm: Sinus Rhythm - EKG Sinus rhythms and dysrhythmias: sinus rhythm Chamber hypertrophy or enlargement: left ventricular hypertro Assessment and Plan Pt presented with c/o "elevated blood sugars" and hypertensive emergency. Pt denies any current cardiac complaints. Echo done 12/2018 showed EF 30-35%, mod LVH, mod global hypokinesis, impaired relaxation, RVSP 33mmHg. Lexiscan MPI stress test done 12/2018 was negative for ischemia, EF 38%. Optimize anti-hypertensive regimen. Volume optimization per nephrology. Pt appears to have chronic troponin elevation, currently nonspecific in setting of hypertensive emergency and ESRD. The patient has been seen in conjunction with Dr. Arechiga who agrees with the assessment and plan of care. - Patient Problems (1) Acute HFrEF (heart failure with reduced ejection fraction) Current Visit: Yes Status: Acute (2) Cardiomyopathy Current Visit: Yes Status: Chronic Qualifiers: Cardiomyopathy type: unspecified Qualified Code(s): I42.9 - Cardiomyopathy, unspecified (3) Volume overload Current Visit: Yes Status: Acute (4) Hypertensive crisis Current Visit: Yes Status: Acute (5) Diabetes mellitus with hyperglycemia Current Visit: Yes Status: Acute (6) ESRD (end stage renal disease) Current Visit: Yes Status: Chronic (7) Elevated troponin Current Visit: Yes Status: Acute
[2019-03-16] MEDS ORDERED: NACL 0.9% 100 ML IV PRN (13:23)
[2019-03-16] MEDS ORDERED: APRESOLINE ONE (13:35)
[2019-03-16] MEDS: APRESOLINE PO SCH ×2 (13:39→20:51)
[2019-03-16] MEDS ORDERED: ANTIVERT ONE (13:44)
[2019-03-16] MEDS: ANTIVERT PO SCH ×2 (13:55→20:51)
--- NOTE | 2019-03-16 16:55 | Event Note ---
Date: 03/16/19 Patient seen and examined, continue current management. I will discuss with the patients family in respect to her compliance with medications and management. she is a poor historian. Restart home meds and wean off cardene drip
[2019-03-16] MEDS: COREG PO SCH (22:28)
[2019-03-16] MEDS: AMBIEN PO SCH (22:31)
[2019-03-17] MEDS ORDERED: NORMODYNE IV ONE (05:50)
[2019-03-17 08:37] LABS: Basophils % (Auto) 0.9 % (0.0-1.8); Eosinophils # (Auto) 0.2 K/mm3 (0.0-0.4); Eosinophils % (Auto) 4.1 % (0.0-4.3); Hematocrit 34.2 % (30.3-42.9); Hemoglobin 10.8 gm/dl (10.1-14.3); Lymphocytes % (Auto) 22.7 % (13.4-35.0); Mean Corpuscular HGB Conc 32 % (30-34); Mean Corpuscular Volume 77 fl (79-97); Monocytes # (Auto) 0.3 K/mm3 (0.0-0.8); Monocytes % (Auto) 7.4 % (0.0-7.3); Platelet Count 164 K/mm3 (140-440); Red Blood Count 4.47 M/mm3 (3.65-5.03)
[2019-03-17 08:41] LABS: Red Cell Distribution Width 23.8 % (13.2-15.2)
[2019-03-17] MEDS: LOVENOX SUB-Q SCH (09:51)
[2019-03-17] MEDS: BABY ASPIRIN PO SCH (09:53)
[2019-03-17] MEDS: NORVASC PO SCH (09:53)
[2019-03-17] MEDS: APRESOLINE PO SCH ×3 (09:53→22:21)
[2019-03-17] MEDS: CLARITIN PO SCH (09:53)
[2019-03-17] MEDS: GLUCOTROL PO SCH ×2 (09:53→18:47)
[2019-03-17] MEDS: LASIX PO SCH (09:54)
[2019-03-17] MEDS: COREG PO SCH ×2 (09:54→22:22)
[2019-03-17] MEDS: ANTIVERT PO SCH ×3 (09:55→22:21)
[2019-03-17] MEDS ORDERED: NON-FORMULARY (Furosemide [Lasix] 80 MG) PO SCH (10:00)
[2019-03-17] MEDS ORDERED: ZESTRIL PO SCH (10:00)
--- NOTE | 2019-03-17 10:23 | Progress Note ---
Assessment and Plan Assessment and plan: 63 year old woman with history of hypertension, diabetes, end-stage renal disease on dialysis comes to the emergency room because her blood sugar and blood pressure has been elevated despite taking her medications. Also complaining of chest pain, located in the epigastric area, started 4 days ago, she is unable to describe it, intermittently every 5 minutes, no radiation, intensity 4/10, cannot identify exacerbating or relieving factors. Admits to shortness of breath, no nausea vomiting, diaphoresis, constipation. Patient has been here several times with similar complaints, she had a stress test on the however she cannot recall when the last stress test was. Her last few admissions on during the white count, unable to pull up her old records. In the emergency room her blood pressure has been on control with antihypertensive, she was started on a Cardene drip Hypertensive urgency, malignant ATYPICAL Chest pain Secondary to hypertensive urgency Diabetes 2 uncontrolled End-stage disease on dialysis Plan Cardene drip weaned off cardiology input noted Continue adjusting BP meds Nephrology consult pending awaiting family to bring in home meds Consult critical care, renal Check fingersticks and initiate insulin sliding scale DVT prophylaxis History Interval history: Patient seen and examined, resting comfortable, no chest pain, no nausea and vomiting. Hospitalist Physical - Physical exam Narrative exam: General Apperance: The patient lying in bed, breathing comfortable HEENT: Normocephalic, atraumatic. Pupils equally round and reactive to light, E TRIPP, no sclericterus or JVD or thyromegaly or nodule. no carotid bruit, mucous membranes moist, no exudate or erythema Heart: S1-S2, regular is rhythm Lungs: Clear to auscultation bilaterally, breathing comfortable Abdomen: Positive bowel sounds, soft, nontender, nondistended, no organomegaly Extremities: No edema cyanosis clubbing Skin: no rash, nodule, warm and dry Neuro: cranial nerves 2-12 intact, speech is fluent, motor/sensory intact - Constitutional Vitals: Temp Pulse Resp BP Pulse Ox 97.8 F 78 18 183/64 100 03/17/19 05:11 03/17/19 09:54 03/17/19 05:11 03/17/19 09:54 03/17/19 05:11 General appearance: Present: no acute distress Results - Labs CBC & Chem 7: 03/17/19 07:37 03/17/19 07:37 Labs: Laboratory Last Values WBC 4.3 K/mm3 (4.5-11.0) L 03/17/19 07:37 RBC 4.47 M/mm3 (3.65-5.03) 03/17/19 07:37 Hgb 10.8 gm/dl (10.1-14.3) 03/17/19 07:37 Hct 34.2 % (30.3-42.9) 03/17/19 07:37 MCV 77 fl (79-97) L 03/17/19 07:37 MCH 24 pg (28-32) L 03/17/19 07:37 MCHC 32 % (30-34) 03/17/19 07:37 RDW 23.8 % (13.2-15.2) H 03/17/19 07:37 Plt Count 164 K/mm3 (140-440) 03/17/19 07:37 Lymph % (Auto) 22.7 % (13.4-35.0) 03/17/19 07:37 [place] % (Auto) 7.4 % (0.0-7.3) H 03/17/19 07:37 Eos % (Auto) 4.1 % (0.0-4.3) 03/17/19 07:37 Baso % (Auto) 0.9 % (0.0-1.8) 03/17/19 07:37 Lymph # 1.0 K/mm3 (1.2-5.4) L 03/17/19 07:37 [place] # 0.3 K/mm3 (0.0-0.8) 03/17/19 07:37 Eos # 0.2 K/mm3 (0.0-0.4) 03/17/19 07:37 Baso # 0.0 K/mm3 (0.0-0.1) 03/17/19 07:37 Seg Neutrophils % 64.9 % (40.0-70.0) 03/17/19 07:37 Seg Neutrophils # 2.8 K/mm3 (1.8-7.7) 03/17/19 07:37 VBG pH 7.418 (7.320-7.420) 03/15/19 17:56 Sodium 138 mmol/L (137-145) 03/17/19 07:37 Potassium 4.3 mmol/L (3.6-5.0) 03/17/19 07:37 Chloride 95.9 mmol/L (98-107) L 03/17/19 07:37 Carbon Dioxide 28 mmol/L (22-30) 03/17/19 07:37 Anion Gap 18 mmol/L 03/17/19 07:37 BUN 33 mg/dL (7-17) H 03/17/19 07:37 Creatinine 7.1 mg/dL (0.7-1.2) H 03/17/19 07:37 Estimated GFR 7 ml/min 03/17/19 07:37 BUN/Creatinine Ratio 5 % 03/17/19 07:37 Glucose 146 mg/dL (65-100) H 03/17/19 07:37 POC Glucose 252 (70-105) H 03/16/19 13:48 Calcium 8.0 mg/dL (8.4-10.2) L 03/17/19 07:37 Total Bilirubin 0.40 mg/dL (0.1-1.2) 03/15/19 17:56 Direct Bilirubin < 0.2 mg/dL (0-0.2) 03/15/19 17:56 Indirect Bilirubin 0.2 mg/dL 03/15/19 17:56 AST 111 units/L (5-40) H 03/15/19 17:56 ALT 91 units/L (7-56) H 03/15/19 17:56 Alkaline Phosphatase 197 units/L (35-129) H 03/15/19 17:56 Total Creatine Kinase 67 units/L (30-135) 03/16/19 10:39 CK-MB (CK-2) 3.6 ng/mL (0.0-4.0) 03/16/19 10:39 CK-MB (CK-2) Rel Index 5.3 (0-4) H 03/16/19 10:39 Troponin T 0.191 ng/mL (0.00-0.029) H* 03/16/19 10:39 NT-Pro-B Natriuret Pep 36470 pg/mL (0-900) H 03/15/19 20:00 Total Protein 6.4 g/dL (6.3-8.2) 03/15/19 17:56 Albumin 3.5 g/dL (3.9-5) L 03/15/19 17:56 Albumin/Globulin Ratio 1.2 % 03/15/19 17:56 Triglycerides 71 mg/dL (2-149) 03/15/19 20:52 Cholesterol 153 mg/dL (50-199) 03/15/19 20:52 LDL Cholesterol Direct 112 mg/dL (50-130) 03/15/19 20:52 HDL Cholesterol 40 mg/dL (40-59) 03/15/19 20:52 Cholesterol/HDL Ratio 3.82 % 03/15/19 20:52 Active Medications - Current Medications Current Medications: Generic Name Dose Route Start Last Admin Trade Name Freq PRN Reason Stop Dose Admin Acetaminophen 650 mg 03/16/19 04:09 Tylenol PO Q4H PRN Pain MILD(1-3)/Fever >100.5/YOUNG Amlodipine Besylate 10 mg 03/17/19 10:00 03/17/19 09:53 Norvasc PO 10 mg QDAY [facility] Administration Aspirin 81 mg 03/16/19 10:00 03/17/19 09:53 Baby Aspirin PO 81 mg QDAY [facility] Administration Carvedilol 25 mg 03/16/19 22:00 03/17/19 09:54 Coreg PO 25 mg BID ART Administration Enoxaparin Sodium 30 mg 03/16/19 10:00 03/17/19 09:51 Lovenox SUB-Q 30 mg QDAY [facility] Administration Furosemide 80 mg 03/17/19 10:00 03/17/19 09:54 Lasix PO 80 mg DAILY ART Administration Glipizide 10 mg 03/16/19 08:00 03/17/19 09:53 Glucotrol PO 10 mg BIDDIAB ART Administration Hydralazine HCl 100 mg 03/16/19 14:00 03/17/19 09:53 Apresoline PO 100 mg TID ART Administration Hydralazine HCl 10 mg 03/17/19 09:15 Apresoline IV Q4HR PRN Hypertension Sodium Chloride 100 mls @ 999 mls/hr 03/16/19 13:23 Nacl 0.9% IV TWAN PRN Hypotension Lisinopril 40 mg 03/17/19 10:00 03/17/19 09:54 Zestril PO 40 mg QDAY [facility] Administration Loratadine 10 mg 03/17/19 10:00 03/17/19 09:53 Claritin PO 10 mg QDAY [facility] Administration Meclizine HCl 25 mg 03/16/19 14:00 03/17/19 09:55 Antivert PO 25 mg TID ART Administration Ondansetron HCl 4 mg 03/16/19 04:09 Zofran IV Q4H PRN Nausea And Vomiting Oxycodone/Acetaminophen 1 tab 03/16/19 04:09 Percocet 5/325 PO Q6H PRN Pain, Moderate (4-6) Sodium Chloride 10 ml 03/16/19 10:00 03/16/19 22:29 Sodium Chloride Flush Syringe 10 Ml IV 10 ml BID ART Administration Sodium Chloride 10 ml 03/16/19 04:09 Sodium Chloride Flush Syringe 10 Ml IV PRN PRN LINE FLUSH Zolpidem Tartrate 5 mg 03/16/19 22:00 03/16/19 22:31 Ambien PO 5 mg QHS ART Administration
--- NOTE | 2019-03-17 11:05 | Consultation ---
History of Present Illness - Reason for Consult end stage renal disease, hyperkalemia Requesting physician: NEELIMA RONQUILLO - History of Present Illness Very pleasant 63-year-old Irish female well known to us from the outpatient dialysis unit, with a past medical history of end-stage renal disease in the setting of diabetes and hypertension, presented to emergency department [place] to significant hyperglycemia and poorly controlled diabetes. She mentioned that over the past days she has noted Accu-Chek readings of greater than 400 for which she came into the emergency room department for further evaluation. She was also found to be significantly hypertensive and was placed on a Cardene drip initially which now has been weaned off. Patient received her scheduled hemod ialysis yesterday as an inpatient with removal of 2 L of fluid with ultrafiltration. Labs noted and stable this morning. Blood pressures continues to be elevated. She is not complaining of any headaches, dizziness, lightheadedness, visual disturbances, chest pain, or shortness of breath. She is on a Tuesday outpatient hemodialysis schedule. She dialyzes via left upper extremity AV fistula. Past History Past Medical History: diabetes, dialysis, ESRD, hypertension Medications and Allergies Allergies Allergy/AdvReac Type Severity Reaction Status Date / Time No Known Allergies Allergy Verified 01/01/19 23:56 Home Medications Medication Instructions Recorded Confirmed Last Taken Type Furosemide [Lasix] 80 mg PO QDAY 01/02/19 03/16/19 02/17/19 History Lisinopril [Zestril] 40 mg QDAY 01/02/19 03/16/19 02/17/19 History Loratadine [Claritin] 10 mg PO QDAY 01/02/19 03/16/19 02/17/19 History Meclizine HCl [[place] 2] 25 mg PO TID 01/02/19 03/16/19 02/17/19 History Zolpidem [Ambien] 5 mg PO QHS 01/02/19 03/16/19 02/17/19 History glipiZIDE [Glipizide] 10 mg PO BID 01/02/19 03/16/19 02/17/19 History hydrALAZINE [Apresoline TAB] 100 mg PO TID 01/02/19 03/16/19 02/17/19 History Aspirin [Aspirin BABY CHEW TAB] 81 mg PO QDAY #30 tab.chew 02/07/19 04/19/19 03/23/19 Rx Carvedilol [Coreg] 25 mg PO BID #60 tablet 01/04/19 03/16/19 02/17/19 Rx amLODIPine [Norvasc] 10 mg PO QDAY #30 tablet 01/04/19 03/16/19 02/17/19 Rx Active Meds: Active Medications Acetaminophen (Tylenol) 650 mg PO Q4H PRN PRN Reason: Pain MILD(1-3)/Fever >100.5/YOUNG Amlodipine Besylate (Norvasc) 10 mg PO QDAY [facility] Last Admin: 03/17/19 09:53 Dose: 10 mg Documented by: Aspirin (Baby Aspirin) 81 mg PO QDAY [facility] Last Admin: 03/17/19 09:53 Dose: 81 mg Documented by: Carvedilol (Coreg) 25 mg PO BID [facility] Last Admin: 03/17/19 09:54 Dose: 25 mg Documented by: Enoxaparin Sodium (Lovenox) 30 mg SUB-Q QDAY [facility] Last Admin: 03/17/19 09:51 Dose: 30 mg Documented by: Furosemide (Lasix) 80 mg PO DAILY [facility] Last Admin: 03/17/19 09:54 Dose: 80 mg Documented by: Glipizide (Glucotrol) 10 mg PO BIDDIAB [facility] Last Admin: 03/17/19 09:53 Dose: 10 mg Documented by: Hydralazine HCl (Apresoline) 100 mg PO TID [facility] Last Admin: 03/17/19 09:53 Dose: 100 mg Documented by: Hydralazine HCl (Apresoline) 10 mg IV Q4H PRN PRN Reason: Hypertension Sodium Chloride (Nacl 0.9%) 100 mls @ 999 mls/hr IV TWAN PRN PRN Reason: Hypotension Loratadine (Claritin) 10 mg PO QDAY [facility] Last Admin: 03/17/19 09:53 Dose: 10 mg Documented by: Losartan Potassium (Cozaar) 100 mg PO QDAY [facility] Meclizine HCl (Antivert) 25 mg PO TID [facility] Last Admin: 03/17/19 09:55 Dose: 25 mg Documented by: Ondansetron HCl (Zofran) 4 mg IV Q4H PRN PRN Reason: Nausea And Vomiting Oxycodone/Acetaminophen (Percocet 5/325) 1 tab PO Q6H PRN PRN Reason: Pain, Moderate (4-6) Sodium Chloride (Sodium Chloride Flush Syringe 10 Ml) 10 ml IV BID [facility] Last Admin: 03/16/19 22:29 Dose: 10 ml Documented by: Sodium Chloride (Sodium Chloride Flush Syringe 10 Ml) 10 ml IV PRN PRN PRN Reason: LINE FLUSH Zolpidem Tartrate (Ambien) 5 mg PO QHS [facility] Last Admin: 03/16/19 22:31 Dose: 5 mg Documented by: Review of Systems All systems: negative Constitutional: fatigue, weakness Exam - Vital Signs Vital signs: Vital Signs Temp Pulse Resp BP Pulse Ox 98.1 F 68 18 226/93 93 03/15/19 17:50 03/15/19 17:50 03/15/19 17:50 03/15/19 17:50 03/15/19 17:50 - General Appearance General appearance: well-developed, well-nourished, appears stated age EENT: ATNC, PERRL Neck: Present: neck supple, trachea midline Respiratory: Clear to Ascultation, Normal Exam Heart: regular, S1S2 Gastrointestinal: Present: normal, normoactive bowel sounds Integumentary: no rash, warm and dry Neurologic: no focal deficit, alert and oriented x3 Musculoskeletal: Present: other (negative edema) Psychiatric: mood/affect appropriate, cooperative Results - Lab Results 03/17/19 07:37 03/17/19 07:37 Most recent lab results Calcium 8.0 mg/dL (8.4-10.2) L 03/17/19 07:37 Assessment and Plan - Patient Problems (1) ESRD (end stage renal disease) Current Visit: Yes Status: Chronic Plan to address problem: [facility] patient on Tuesday inpatient hemodialysis schedule. Will have patient obtain extra session today for isolated ultrafiltration goal of 22.5 L as tolerated. (2) Hypertensive chronic kidney disease with stage 5 chronic kidney disease or end stage renal disease Current Visit: Yes Status: Chronic Plan to address problem: Patient has been weaned off Cardene drip at this time. We will discontinue her lisinopril and started on losartan at an equivalent dose of 100 mg daily. We'll monitor on this regimen. For further optimization of volume status and hypertension, we will have patient undergo an extra session today essentially for isolated UF goal of 2-2.5 L. Please ensure the patient is on low-sodium diet as appropriate. (3) Type 2 diabetes mellitus with diabetic chronic kidney disease Current Visit: Yes Status: Chronic Qualifiers: Chronic kidney disease stage: on chronic dialysis Plan to address problem: Diabetes management per primary attending. (4) Anemia in CKD (chronic kidney disease) Current Visit: Yes Status: Chronic Qualifiers: Chronic kidney disease stage: on chronic dialysis Qualified Code(s): N18.6 - End stage renal disease; D63.1 - Anemia in chronic kidney disease; Z99.2 - Dependence on renal dialysis Plan to address problem: Current hemoglobin levels are at goal for her end-stage renal disease. We'll hold off on a project at this time secondary also to patient's uncontrolled hypertension. (5) Secondary hyperparathyroidism (of renal origin) Current Visit: Yes Status: Chronic Plan to address problem: Continue patient's home phosphate binder regimen.
[2019-03-17] MEDS ORDERED: NACL 0.9% 100 ML IV PRN (11:08)
--- NOTE | 2019-03-17 13:37 | Progress Note ---
Assessment and Plan Patient undergoing hemodialysis. She is on 2L O2. Patient O2 saturation is 98%. No complaint of chest pain, shortness of breath or cough. - Patient Problems (1) Accelerated hypertension Current Visit: Yes Status: Acute Plan to address problem: Management as per primary care. (2) Acute HFrEF (heart failure with reduced ejection fraction) Current Visit: Yes Status: Acute Plan to address problem: Management as per cardiology. (3) Chest pain Current Visit: Yes Status: Acute Qualifiers: Chest pain type: unspecified Qualified Code(s): R07.9 - Chest pain, unspecified Plan to address problem: Management as per cardiology. (4) Diabetes mellitus with hyperglycemia Current Visit: Yes Status: Acute Plan to address problem: Management as per primary care. (5) Hypertensive crisis Current Visit: Yes Status: Acute Plan to address problem: management as per primary care. (6) Pulmonary edema cardiac cause Current Visit: Yes Status: Acute Plan to address problem: Patient is on lasix. (7) ESRD (end stage renal disease) Current Visit: Yes Status: Chronic Plan to address problem: Managment as per nephrology. Subjective Date of service: 03/17/19 Interval history: Patient undergoing hemodialysis. She is on 2L O2. Patient O2 saturation is 98%. No complaint of chest pain, shortness of breath or cough. Objective Vital Signs - 12hr 03/17/19 03/17/19 03/17/19 05:11 06:04 09:53 Temperature 97.8 F Pulse Rate 67 67 78 Respiratory 18 Rate Blood Pressure 205/87 205/87 183/64 Blood Pressure [Right] O2 Sat by Pulse 100 Oximetry 03/17/19 03/17/19 03/17/19 09:54 10:25 13:34 Temperature 98.2 F Pulse Rate 78 74 75 Respiratory 18 Rate Blood Pressure 183/64 194/76 Blood Pressure 158/73 [Right] O2 Sat by Pulse 96 92 Oximetry Constitutional: no acute distress, alert Eyes: non-icteric ENT: oropharynx moist Neck: supple, no lymphadenopathy Ascultation: Bilateral: rales Cardiovascular: regular rate and rhythm Gastrointestinal: normoactive bowel sounds, non-tender Integumentary: normal Extremities: no cyanosis, no edema Neurologic: normal mental status, non-focal exam, pupils equal and round, CN II- XII normal CBC and BMP: 03/17/19 07:37 03/17/19 07:37 Abnormal lab findings: Abnormal Labs 03/15/19 03/15/19 03/15/19 17:53 17:56 17:56 WBC 3.9 L MCV 77 L MCH 25 L RDW 23.1 H [place] % (Auto) 8.0 H Lymph # 1.0 L Chloride 94.3 L BUN 51 H Creatinine 8.7 H Glucose 367 H POC Glucose 359 H Calcium 7.9 L AST 111 H ALT 91 H Alkaline Phosphatase 197 H CK-MB (CK-2) Rel Index Troponin T NT-Pro-B Natriuret Pep Albumin 3.5 L 03/15/19 03/15/19 03/15/19 20:00 20:21 20:52 WBC MCV MCH RDW [place] % (Auto) Lymph # Chloride BUN Creatinine Glucose POC Glucose 284 H Calcium AST ALT Alkaline Phosphatase CK-MB (CK-2) Rel Index Troponin T 0.187 H* NT-Pro-B Natriuret Pep 14961 H Albumin 03/16/19 03/16/19 03/16/19 02:25 03:08 04:59 WBC MCV MCH RDW [place] % (Auto) Lymph # Chloride BUN Creatinine Glucose POC Glucose 60 L 204 H Calcium AST ALT Alkaline Phosphatase CK-MB (CK-2) Rel Index 4.7 H Troponin T 0.184 H* NT-Pro-B Natriuret Pep Albumin 03/16/19 03/16/19 03/16/19 06:35 08:28 10:39 WBC MCV MCH RDW [place] % (Auto) Lymph # Chloride BUN Creatinine Glucose POC Glucose 260 H 261 H Calcium AST ALT Alkaline Phosphatase CK-MB (CK-2) Rel Index 5.3 H Troponin T 0.191 H* NT-Pro-B Natriuret Pep Albumin 03/16/19 03/17/19 03/17/19 13:48 07:37 07:37 WBC 4.3 L MCV 77 L MCH 24 L RDW 23.8 H [place] % (Auto) 7.4 H Lymph # 1.0 L Chloride 95.9 L BUN 33 H Creatinine 7.1 H Glucose 146 H POC Glucose 252 H Calcium 8.0 L AST ALT Alkaline Phosphatase CK-MB (CK-2) Rel Index Troponin T NT-Pro-B Natriuret Pep Albumin CT scan - chest: report reviewed, image reviewed Additional Studies: Angio Ct of the chest done on 03/15/19 The heart is enlarged. There is calcified plaque in the thoracic aorta. There is no aneurysm or dissection.. There is no pulmonary embolism.. There is bilateral perihilar pulmonary edema. This suggests heart failure or fl uid overload. There are noncalcified nodules at the right lung base measuring up to 9 mm.. These are slightly more prominent compared to the prior study. There are small effusions..
--- NOTE | 2019-03-17 14:56 | Progress Note ---
Assessment and Plan The pt is a 63 YO female with a past medical history of CMP, ESRD (MWF, follows Dr. Plaza), HTN, DM. She has been seen by our practice on prior hospitalizations and infrequently in the office by Dr. Shipman. She presented with c/o "elevated blood sugars". She reports compliance with her dialysis and medication regimen. She denies any other complaints. Cardiology has been consulted for chest pain. Pt denies chest pain. Pt was noted to have hypertensive emergency and was initiated on cardene gtt. Echo done 12/2018 showed EF 30-35%, mod LVH, mod global hypokinesis, impaired relaxation, RVSP 33mmHg. Lexiscan MPI stress test done 12/2018 was negative for ischemia, EF 38%. 03/17/2019>telemetry shows S.R with PVC's,clinically patient is better,continue present therapy. Subjective Date of service: 03/17/19 Interval history: Feels some better,says still gets SOB. Objective Vital Signs Temp Pulse Pulse Resp BP BP Pulse Ox 03/17/19 13:34 98.2 F 75 18 158/73 92 03/17/19 10:25 74 194/76 96 03/17/19 09:54 78 183/64 03/17/19 09:53 78 183/64 03/17/19 06:04 67 205/87 03/17/19 05:11 97.8 F 67 18 205/87 100 03/16/19 23:11 70 18 03/16/19 22:28 67 183/77 03/16/19 19:41 98.3 F 67 18 183/77 100 03/16/19 19:35 66 03/16/19 18:00 97.8 F 65 18 181/85 03/16/19 17:45 67 178/87 03/16/19 17:30 62 174/83 03/16/19 17:15 62 172/86 03/16/19 17:00 65 187/92 03/16/19 16:45 62 190/86 03/16/19 16:30 63 165/88 03/16/19 16:15 61 171/52 03/16/19 16:00 59 L 168/74 03/16/19 15:45 60 157/79 03/16/19 15:30 65 169/85 03/16/19 15:15 58 L 162/67 03/16/19 15:00 61 170/82 - Physical Examination General: No Apparent Distress HEENT: Positive: PERRL, Normocephaly, Mucus Membranes Moist Neck: Positive: neck supple, trachea midline Cardiac: Positive: Irregularly Regular Lungs: Positive: Decreased Breath Sounds Neuro: Positive: Grossly Intact Abdomen: Positive: Soft. Negative: Tender Skin: Negative: Rash, Wound Musculoskeletal: No Pain Extremities: Absent: edema - Labs and Meds CBC 03/17/19 Range/Units 07:37 WBC 4.3 L (4.5-11.0) K/mm3 RBC 4.47 (3.65-5.03) M/mm3 Hgb 10.8 (10.1-14.3) gm/dl Hct 34.2 (30.3-42.9) % Plt Count 164 (140-440) K/mm3 Lymph # 1.0 L (1.2-5.4) K/mm3 [place] # 0.3 (0.0-0.8) K/mm3 Eos # 0.2 (0.0-0.4) K/mm3 Baso # 0.0 (0.0-0.1) K/mm3 Comprehensive Metabolic Panel 03/17/19 Range/Units 07:37 Sodium 138 (137-145) mmol/L Potassium 4.3 (3.6-5.0) mmol/L Chloride 95.9 L (98-107) mmol/L Carbon Dioxide 28 (22-30) mmol/L BUN 33 H (7-17) mg/dL Creatinine 7.1 H (0.7-1.2) mg/dL Glucose 146 H (65-100) mg/dL Calcium 8.0 L (8.4-10.2) mg/dL - Imaging and Cardiology EKG: report reviewed, image reviewed Echo: report reviewed (12/2018 showed EF 30-35%, mod LVH, mod global hypokinesis, impaired relaxation, RVSP 33mmHg.) - EKG Sinus rhythms and dysrhythmias: sinus rhythm Chamber hypertrophy or enlargement: left ventricular hypertro
[2019-03-17] MEDS ORDERED: NACL 0.9 (PRIMING MACHINE ONLY DIALYSIS) MC ONE (17:14)
[2019-03-17] MEDS: SODIUM CHLORIDE FLUSH SYRINGE 10 ML IV SCH ×2 (18:49→22:22)
[2019-03-17] MEDS: APRESOLINE IV PRN (18:49)
[2019-03-17] MEDS: AMBIEN PO SCH (22:22)
[2019-03-18] MEDS: APRESOLINE IV PRN (05:58)
--- NOTE | 2019-03-18 08:23 | Progress Note ---
Assessment and Plan Assessment and plan: 63 year old woman with history of hypertension, diabetes, end-stage renal disease on dialysis comes to the emergency room because her blood sugar and blood pressure has been elevated despite taking her medications. Also complaining of chest pain, located in the epigastric area, started 4 days ago, she is unable to describe it, intermittently every 5 minutes, no radiation, intensity 4/10, cannot identify exacerbating or relieving factors. Admits to shortness of breath, no nausea vomiting, diaphoresis, constipation. Patient has been here several times with similar complaints, she had a stress test on the however she cannot recall when the last stress test was. Her last few admissions on during the white count, unable to pull up her old records. In the emergency room her blood pressure has been on control with antihypertensive, she was started on a Cardene drip Hypertensive urgency, malignant ATYPICAL Chest pain Secondary to hypertensive urgency Diabetes 2 uncontrolled End-stage disease on dialysis Cardimyopathy Plan Cardene drip weaned off Cardiology input noted Echo done 12/2018 showed EF 30-35%, mod LVH, mod global hypokinesis, impaired relaxation, RVSP 33mmHg. Lexiscan MPI stress test done 12/2018 was negative for ischemia, EF 38%. 03/17/2019>telemetry shows S.R with PVC's,clinically patient is better,continue present therapy. Continue adjusting BP meds Nephrology consult noted Changed to Losartan from Lisinopril BP still elevated, will add Clonidin and monitor considering Bradycardia. Awaiting family to bring in home meds Renal and Critical care input noted Check fingersticks and initiate insulin sliding scale Transfer to [facility] DVT prophylaxis Anticipate discharge in am if BP stable History Interval history: Patient seen and examined, resting comfortable, no chest pain, no nausea and vomiting. Hospitalist Physical - Physical exam Narrative exam: General Apperance: The patient lying in bed, breathing comfortable HEENT: Normocephalic, atraumatic. Pupils equally round and reactive to light, EOMI, no sclericterus or JVD or thyromegaly or nodule. no carotid bruit, mucous membranes moist, no exudate or erythema Heart: S1-S2, regular is rhythm Lungs: Clear to auscultation bilaterally, breathing comfortable Abdomen: Positive bowel sounds, soft, nontender, nondistended, no organomegaly Extremities: No edema cyanosis clubbing Skin: no rash, nodule, warm and dry Neuro: cranial nerves 2-12 intact, speech is fluent, motor/sensory intact - Constitutional Vitals: Temp Pulse Resp BP Pulse Ox 98.2 F 73 16 198/88 98 03/18/19 03:51 03/18/19 05:58 03/18/19 03:51 03/18/19 05:58 03/17/19 22:46 General appearance: Present: no acute distress Results - Labs CBC & Chem 7: 03/17/19 07:37 03/17/19 07:37 Labs: Laboratory Last Values WBC 4.3 K/mm3 (4.5-11.0) L 03/17/19 07:37 RBC 4.47 M/mm3 (3.65-5.03) 03/17/19 07:37 Hgb 10.8 gm/dl (10.1-14.3) 03/17/19 07:37 Hct 34.2 % (30.3-42.9) 03/17/19 07:37 MCV 77 fl (79-97) L 03/17/19 07:37 MCH 24 pg (28-32) L 03/17/19 07:37 MCHC 32 % (30-34) 03/17/19 07:37 RDW 23.8 % (13.2-15.2) H 03/17/19 07:37 Plt Count 164 K/mm3 (140-440) 03/17/19 07:37 Lymph % (Auto) 22.7 % (13.4-35.0) 03/17/19 07:37 [place] % (Auto) 7.4 % (0.0-7.3) H 03/17/19 07:37 Eos % (Auto) 4.1 % (0.0-4.3) 03/17/19 07:37 Baso % (Auto) 0.9 % (0.0-1.8) 03/17/19 07:37 Lymph # 1.0 K/mm3 (1.2-5.4) L 03/17/19 07:37 [place] # 0.3 K/mm3 (0.0-0.8) 03/17/19 07:37 Eos # 0.2 K/mm3 (0.0-0.4) 03/17/19 07:37 Baso # 0.0 K/mm3 (0.0-0.1) 03/17/19 07:37 Seg Neutrophils % 64.9 % (40.0-70.0) 03/17/19 07:37 Seg Neutrophils # 2.8 K/mm3 (1.8-7.7) 03/17/19 07:37 VBG pH 7.418 (7.320-7.420) 03/15/19 17:56 Sodium 138 mmol/L (137-145) 03/17/19 07:37 Potassium 4.3 mmol/L (3.6-5.0) 03/17/19 07:37 Chloride 95.9 mmol/L (98-107) L 03/17/19 07:37 Carbon Dioxide 28 mmol/L (22-30) 03/17/19 07:37 Anion Gap 18 mmol/L 03/17/19 07:37 BUN 33 mg/dL (7-17) H 03/17/19 07:37 Creatinine 7.1 mg/dL (0.7-1.2) H 03/17/19 07:37 Estimated GFR 7 ml/min 03/17/19 07:37 BUN/Creatinine Ratio 5 % 03/17/19 07:37 Glucose 146 mg/dL (65-100) H 03/17/19 07:37 POC Glucose 278 (70-105) H 03/17/19 20:50 Calcium 8.0 mg/dL (8.4-10.2) L 03/17/19 07:37 Total Bilirubin 0.40 mg/dL (0.1-1.2) 03/15/19 17:56 Direct Bilirubin < 0.2 mg/dL (0-0.2) 03/15/19 17:56 Indirect Bilirubin 0.2 mg/dL 03/15/19 17:56 AST 111 units/L (5-40) H 03/15/19 17:56 ALT 91 units/L (7-56) H 03/15/19 17:56 Alkaline Phosphatase 197 units/L (35-129) H 03/15/19 17:56 Total Creatine Kinase 67 units/L (30-135) 03/16/19 10:39 CK-MB (CK-2) 3.6 ng/mL (0.0-4.0) 03/16/19 10:39 CK-MB (CK-2) Rel Index 5.3 (0-4) H 03/16/19 10:39 Troponin T 0.191 ng/mL (0.00-0.029) H* 03/16/19 10:39 NT-Pro-B Natriuret Pep 63076 pg/mL (0-900) H 03/15/19 20:00 Total Protein 6.4 g/dL (6.3-8.2) 03/15/19 17:56 Albumin 3.5 g/dL (3.9-5) L 03/15/19 17:56 Albumin/Globulin Ratio 1.2 % 03/15/19 17:56 Triglycerides 71 mg/dL (2-149) 03/15/19 20:52 Cholesterol 153 mg/dL (50-199) 03/15/19 20:52 LDL Cholesterol Direct 112 mg/dL (50-130) 03/15/19 20:52 HDL Cholesterol 40 mg/dL (40-59) 03/15/19 20:52 Cholesterol/HDL Ratio 3.82 % 03/15/19 20:52 Active Medications - Current Medications Current Medications: Generic Name Dose Route Start Last Admin Trade Name Freq PRN Reason Stop Dose Admin Acetaminophen 650 mg 03/16/19 04:09 Tylenol PO Q4H PRN Pain MILD(1-3)/Fever >100.5/YOUNG Amlodipine Besylate 10 mg 03/17/19 10:00 03/17/19 09:53 Norvasc PO 10 mg QDAY ART Administration Aspirin 81 mg 03/16/19 10:00 03/17/19 09:53 Baby Aspirin PO 81 mg QDAY ART Administration Carvedilol 25 mg 03/16/19 22:00 03/17/19 22:22 Coreg PO 25 mg BID ART Administration Clonidine HCl 0.1 mg 03/18/19 10:00 Catapres PO Q12HR ART Enoxaparin Sodium 30 mg 03/16/19 10:00 03/17/19 09:51 Lovenox SUB-Q 30 mg QDAY ART Administration Furosemide 80 mg 03/17/19 10:00 03/17/19 09:54 Lasix PO 80 mg DAILY ART Administration Glipizide 10 mg 03/16/19 08:00 03/17/19 18:47 Glucotrol PO 10 mg BIDDIAB ART Administration Hydralazine HCl 100 mg 03/16/19 14:00 03/17/19 22:21 Apresoline PO 100 mg TID ART Administration Hydralazine HCl 10 mg 03/17/19 09:15 03/18/19 05:58 Apresoline IV 10 mg Q4H PRN Administration Hypertension Sodium Chloride 100 mls @ 999 mls/hr 03/16/19 13:23 Nacl 0.9% IV TWAN PRN Hypotension Sodium Chloride 100 mls @ 999 mls/hr 03/17/19 11:08 Nacl 0.9% IV TWAN PRN Hypotension Loratadine 10 mg 03/17/19 10:00 03/17/19 09:53 Claritin PO 10 mg QDAY ART Administration Losartan Potassium 100 mg 03/18/19 10:00 Cozaar PO QDAY ART Meclizine HCl 25 mg 03/16/19 14:00 03/17/19 22:21 Antivert PO 25 mg TID ART Administration Ondansetron HCl 4 mg 03/16/19 04:09 Zofran IV Q4H PRN Nausea And Vomiting Oxycodone/Acetaminophen 1 tab 03/16/19 04:09 Percocet 5/325 PO Q6H PRN Pain, Moderate (4-6) Sodium Chloride 10 ml 03/16/19 10:00 03/17/19 22:22 Sodium Chloride Flush Syringe 10 Ml IV 10 ml BID ART Administration Sodium Chloride 10 ml 03/16/19 04:09 Sodium Chloride Flush Syringe 10 Ml IV PRN PRN LINE FLUSH Zolpidem Tartrate 5 mg 03/16/19 22:00 03/17/19 22:22 Ambien PO 5 mg QHS ART Administration
[2019-03-18] MEDS: APRESOLINE PO SCH ×3 (08:55→22:22)
[2019-03-18] MEDS: GLUCOTROL PO SCH ×2 (08:55→17:17)
[2019-03-18] MEDS: ANTIVERT PO SCH ×3 (08:55→22:23)
[2019-03-18] MEDS: LOVENOX SUB-Q SCH (09:00)
[2019-03-18] MEDS: COREG PO SCH ×2 (09:00→22:23)
[2019-03-18] MEDS: LASIX PO SCH (09:00)
[2019-03-18] MEDS: SODIUM CHLORIDE FLUSH SYRINGE 10 ML IV SCH ×2 (09:00→22:24)
[2019-03-18] MEDS: COZAAR PO SCH (09:01)
[2019-03-18] MEDS: NORVASC PO SCH (09:01)
[2019-03-18] MEDS: BABY ASPIRIN PO SCH (09:01)
[2019-03-18] MEDS: CATAPRES PO SCH ×2 (09:01→22:22)
[2019-03-18] MEDS: CLARITIN PO SCH (09:01)
--- NOTE | 2019-03-18 11:23 | Progress Note ---
Assessment and Plan - Patient Problems (1) ESRD (end stage renal disease) Current Visit: Yes Status: Chronic Plan to address problem: Will Place patient on Tuesday inpatient hemodialysis schedule. Patient obtained extra session for isolated UF Tuesday. Next HD session tomorrow and will challenge EDW further with HD (2) Hypertensive chronic kidney disease with stage 5 chronic kidney disease or end stage renal disease Current Visit: Yes Status: Chronic Plan to address problem: Patient has been weaned off Cardene drip at this time. We discontinued her lisinopril and started on losartan at an equivalent dose of 100 mg daily. Clonidine 0.1 mg q12 hrs was also added this am. For further optimization of volume status and hypertension, patient underwent an extra session yesterday essentially for isolated UF. Please ensure the patient is on low-sodium diet as appropriate. (3) Type 2 diabetes mellitus with diabetic chronic kidney disease Current Visit: Yes Status: Chronic Qualifiers: Chronic kidney disease stage: on chronic dialysis Plan to address problem: Diabetes management per primary attending. (4) Anemia in CKD (chronic kidney disease) Current Visit: Yes Status: Chronic Qualifiers: Chronic kidney disease stage: on chronic dialysis Qualified Code(s): N18.6 - End stage renal disease; D63.1 - Anemia in chronic kidney disease; Z99.2 - Dependence on renal dialysis Plan to address problem: Current hemoglobin levels are at goal for her end-stage renal disease. We'll hold off on a project at this time secondary also to patient's uncontrolled hypertension. (5) Secondary hyperparathyroidism (of renal origin) Current Visit: Yes Status: Chronic Plan to address problem: Continue patient's home phosphate binder regimen. Subjective Date of service: 03/18/19 Interval history: No acute changes overnight. tolerated extra session of isolated UF. Blood pressures remain elevated and clonidine has been added. Objective - Vital Signs Vital signs: Vital Signs - 12hr 03/18/19 03/18/19 03/18/19 01:41 03:51 05:58 Temperature 98.2 F Pulse Rate 73 Pulse Rate [ Right Radial] Respiratory 16 Rate Blood Pressure 187/84 198/88 198/88 O2 Sat by Pulse Oximetry 03/18/19 03/18/19 09:22 10:00 Temperature 98.0 F Pulse Rate 71 72 Pulse Rate [ 70 Right Radial] Respiratory 18 18 Rate Blood Pressure 191/83 O2 Sat by Pulse 98 Oximetry - General Appearance General appearance: well-developed, well-nourished, appears stated age EENT: ATNC, PERRL Neck: no JVD, no thyromegaly Respiratory: Present: Clear to Ascultation Cardiology: regular, S1S2 Gastrointestinal: normal, normoactive bowel sounds Integumentary: no rash, warm and dry Neurologic: no focal deficit, no asterixis, alert and oriented x3 Musculoskeletal: other (-edema ) Psychiatric: mood/affect appropriate, cooperative - Lab 03/17/19 07:37 03/17/19 07:37 Most recent lab results Calcium 8.0 mg/dL (8.4-10.2) L 03/17/19 07:37 - Allied health notes Allied health notes reviewed: nursing Medications & Allergies - Medications Allergies/Adverse Reactions: Allergies No Known Allergies Allergy (Verified 01/01/19 23:56) Home Medications: Home Medications Medication Instructions Recorded Confirmed Last Taken Type Furosemide [Lasix] 80 mg PO QDAY 01/02/19 03/16/19 02/17/19 History Lisinopril [Zestril] 40 mg QDAY 01/02/19 03/16/19 02/17/19 History Loratadine [Claritin] 10 mg PO QDAY 01/02/19 03/16/19 02/17/19 History Meclizine HCl [Wal-Dram 2] 25 mg PO TID 01/02/19 03/16/19 02/17/19 History Zolpidem [Ambien] 5 mg PO QHS 01/02/19 03/16/19 02/17/19 History glipiZIDE [Glipizide] 10 mg PO BID 01/02/19 03/16/19 02/17/19 History hydrALAZINE [Apresoline TAB] 100 mg PO TID 01/02/19 03/16/19 02/17/19 History Aspirin [Aspirin BABY CHEW TAB] 81 mg PO QDAY #30 tab.chew 01/04/19 03/16/19 02/17/19 Rx Carvedilol [Coreg] 25 mg PO BID #60 tablet 01/04/19 03/16/19 02/17/19 Rx amLODIPine [Norvasc] 10 mg PO QDAY #30 tablet 01/04/19 03/16/19 02/17/19 Rx Active Medications: Generic Name Dose Route Start Last Admin Trade Name Freq PRN Reason Stop Dose Admin Acetaminophen 650 mg 03/16/19 04:09 Tylenol PO Q4H PRN Pain MILD(1-3)/Fever >100.5/YOUNG Amlodipine Besylate 10 mg 03/17/19 10:00 03/18/19 09:01 Norvasc PO 10 mg QDAY ART Administration Aspirin 81 mg 03/16/19 10:00 03/18/19 09:01 Baby Aspirin PO 81 mg QDAY ART Administration Carvedilol 25 mg 03/16/19 22:00 03/18/19 09:00 Coreg PO 25 mg BID ART Administration Clonidine HCl 0.1 mg 03/18/19 10:00 03/18/19 09:01 Catapres PO 0.1 mg Q12HR ART Administration Enoxaparin Sodium 30 mg 03/16/19 10:00 03/18/19 09:00 Lovenox SUB-Q 30 mg QDAY ART Administration Furosemide 80 mg 03/17/19 10:00 03/18/19 09:00 Lasix PO 80 mg DAILY ART Administration Glipizide 10 mg 03/16/19 08:00 03/18/19 08:55 Glucotrol PO 10 mg BIDDIAB ART Administration Hydralazine HCl 100 mg 03/16/19 14:00 03/18/19 08:55 Apresoline PO 100 mg TID ART Administration Hydralazine HCl 10 mg 03/17/19 09:15 03/18/19 05:58 Apresoline IV 10 mg Q4H PRN Administration Hypertension Sodium Chloride 100 mls @ 999 mls/hr 03/16/19 13:23 Nacl 0.9% IV TWAN PRN Hypotension Sodium Chloride 100 mls @ 999 mls/hr 03/17/19 11:08 Nacl 0.9% IV TWAN PRN Hypotension Loratadine 10 mg 03/17/19 10:00 03/18/19 09:01 Claritin PO 10 mg QDAY ART Administration Losartan Potassium 100 mg 03/18/19 10:00 03/18/19 09:01 Cozaar PO 100 mg QDAY ART Administration Meclizine HCl 25 mg 03/16/19 14:00 03/18/19 08:55 Antivert PO 25 mg TID ART Administration Ondansetron HCl 4 mg 03/16/19 04:09 Zofran IV Q4H PRN Nausea And Vomiting Oxycodone/Acetaminophen 1 tab 03/16/19 04:09 Percocet 5/325 PO Q6H PRN Pain, Moderate (4-6) Sodium Chloride 10 ml 03/16/19 10:00 03/18/19 09:00 Sodium Chloride Flush Syringe 10 Ml IV 10 ml BID ART Administration Sodium Chloride 10 ml 03/16/19 04:09 Sodium Chloride Flush Syringe 10 Ml IV PRN PRN LINE FLUSH Zolpidem Tartrate 5 mg 03/16/19 22:00 03/17/19 22:22 Ambien PO 5 mg QHS ART Administration
--- NOTE | 2019-03-18 15:00 | Progress Note ---
Assessment and Plan Patient is resting on 2L O2. Patient O2 saturation is 98%. No complaint of chest pain, shortness of breath or cough. - Patient Problems (1) Accelerated hypertension Current Visit: Yes Status: Acute Plan to address problem: Management as per primary care. (2) Acute HFrEF (heart failure with reduced ejection fraction) Current Visit: Yes Status: Acute Plan to address problem: Management as per cardiology. (3) Chest pain Current Visit: Yes Status: Acute Qualifiers: Chest pain type: unspecified Qualified Code(s): R07.9 - Chest pain, unspecified Plan to address problem: Management as per cardiology. (4) Diabetes mellitus with hyperglycemia Current Visit: Yes Status: Acute Plan to address problem: Management as per primary care. (5) Hypertensive crisis Current Visit: Yes Status: Acute Plan to address problem: management as per primary care. (6) Pulmonary edema cardiac cause Current Visit: Yes Status: Acute Plan to address problem: Patient is on lasix. (7) ESRD (end stage renal disease) Current Visit: Yes Status: Chronic Plan to address problem: Managment as per nephrology. Subjective Date of service: 03/18/19 Interval history: Patient is resting on 2L O2. Patient O2 saturation is 98%. No complaint of chest pain, shortness of breath or cough. Objective Vital Signs - 12hr 03/18/19 03/18/19 03/18/19 03:51 05:58 09:22 Temperature 98.2 F 98.0 F Pulse Rate 73 71 Pulse Rate [ Right Radial] Respiratory 16 18 Rate Blood Pressure 198/88 198/88 191/83 Blood Pressure [Right] O2 Sat by Pulse 98 Oximetry 03/18/19 03/18/19 10:00 14:22 Temperature 98.3 F Pulse Rate 72 61 Pulse Rate [ 70 Right Radial] Respiratory 18 18 Rate Blood Pressure Blood Pressure 150/67 [Right] O2 Sat by Pulse 96 Oximetry Constitutional: no acute distress, alert Eyes: non-icteric ENT: oropharynx moist Neck: supple, no lymphadenopathy Ascultation: Bilateral: rales Cardiovascular: regular rate and rhythm Gastrointestinal: normoactive bowel sounds, non-tender Integumentary: normal Extremities: no cyanosis, no edema Neurologic: normal mental status, non-focal exam, pupils equal and round, CN II- XII normal CBC and BMP: 03/17/19 07:37 03/17/19 07:37 Abnormal lab findings: Abnormal Labs 03/15/19 03/15/19 03/15/19 17:53 17:56 17:56 WBC 3.9 L MCV 77 L MCH 25 L RDW 23.1 H Cole % (Auto) 8.0 H Lymph # 1.0 L Chloride 94.3 L BUN 51 H Creatinine 8.7 H Glucose 367 H POC Glucose 359 H Calcium 7.9 L AST 111 H ALT 91 H Alkaline Phosphatase 197 H CK-MB (CK-2) Rel Index Troponin T NT-Pro-B Natriuret Pep Albumin 3.5 L 03/15/19 03/15/19 03/15/19 20:00 20:21 20:52 WBC MCV MCH RDW Cole % (Auto) Lymph # Chloride BUN Creatinine Glucose POC Glucose 284 H Calcium AST ALT Alkaline Phosphatase CK-MB (CK-2) Rel Index Troponin T 0.187 H* NT-Pro-B Natriuret Pep 29403 H Albumin 03/16/19 03/16/19 03/16/19 02:25 03:08 04:59 WBC MCV MCH RDW Cole % (Auto) Lymph # Chloride BUN Creatinine Glucose POC Glucose 60 L 204 H Calcium AST ALT Alkaline Phosphatase CK-MB (CK-2) Rel Index 4.7 H Troponin T 0.184 H* NT-Pro-B Natriuret Pep Albumin 03/16/19 03/16/19 03/16/19 06:35 08:28 10:39 WBC MCV MCH RDW Cole % (Auto) Lymph # Chloride BUN Creatinine Glucose POC Glucose 260 H 261 H Calcium AST ALT Alkaline Phosphatase CK-MB (CK-2) Rel Index 5.3 H Troponin T 0.191 H* NT-Pro-B Natriuret Pep Albumin 03/16/19 03/17/19 03/17/19 13:48 07:37 07:37 WBC 4.3 L MCV 77 L MCH 24 L RDW 23.8 H Cole % (Auto) 7.4 H Lymph # 1.0 L Chloride 95.9 L BUN 33 H Creatinine 7.1 H Glucose 146 H POC Glucose 252 H Calcium 8.0 L AST ALT Alkaline Phosphatase CK-MB (CK-2) Rel Index Troponin T NT-Pro-B Natriuret Pep Albumin 03/17/19 03/17/19 03/17/19 13:34 18:51 20:50 WBC MCV MCH RDW Cole % (Auto) Lymph # Chloride BUN Creatinine Glucose POC Glucose 223 H 278 H 278 H Calcium AST ALT Alkaline Phosphatase CK-MB (CK-2) Rel Index Troponin T NT-Pro-B Natriuret Pep Albumin 03/18/19 12:27 WBC MCV MCH RDW Cole % (Auto) Lymph # Chloride BUN Creatinine Glucose POC Glucose 263 H Calcium AST ALT Alkaline Phosphatase CK-MB (CK-2) Rel Index Troponin T NT-Pro-B Natriuret Pep Albumin Allied health notes reviewed: nursing
[2019-03-18] MEDS ORDERED: D50W (25GM) Syringe IV PRN (15:04)
--- NOTE | 2019-03-18 16:48 | Progress Note ---
Assessment and Plan The pt is a 63 YO female with a past medical history of CMP, ESRD (MWF, follows Dr. Plaza), HTN, DM. She has been seen by our practice on prior hospitalizations and infrequently in the office by Dr. Shipman. She presented with c/o "elevated blood sugars". She reports compliance with her dialysis and medication regimen. She denies any other complaints. Cardiology has been consulted for chest pain. Pt denies chest pain. Pt was noted to have hypertensive emergency and was initiated on cardene gtt. Echo done 12/2018 showed EF 30-35%, mod LVH, mod global hypokinesis, impaired relaxation, RVSP 33mmHg. Lexiscan MPI stress test done 12/2018 was negative for ischemia, EF 38%. 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 Subjective Date of service: 03/18/19 Interval history: Feels much better,moved to medical floor. Objective Vital Signs Temp Pulse Pulse Resp BP BP Pulse Ox 03/18/19 14:22 98.3 F 61 18 150/67 96 03/18/19 10:00 72 70 18 03/18/19 09:22 98.0 F 71 18 191/83 98 03/18/19 05:58 73 198/88 03/18/19 03:51 98.2 F 16 198/88 03/18/19 01:41 187/84 03/17/19 22:46 100.2 F H 72 18 192/80 98 03/17/19 22:22 70 161/63 03/17/19 22:00 69 70 18 03/17/19 19:30 98.3 F 70 16 161/43 97 03/17/19 17:00 98.3 F 68 18 189/96 - Physical Examination General: No Apparent Distress HEENT: Positive: PERRL, Normocephaly, Mucus Membranes Moist Neck: Positive: neck supple, trachea midline Cardiac: Positive: Regular Rhythm Lungs: Positive: Normal Breath Sounds Neuro: Positive: Grossly Intact Abdomen: Positive: Soft. Negative: Tender Skin: Negative: Rash, Wound Musculoskeletal: No Pain Extremities: Absent: edema - Imaging and Cardiology EKG: report reviewed, image reviewed Echo: report reviewed (12/2018 showed EF 30-35%, mod LVH, mod global hypokinesis, impaired relaxation, RVSP 33mmHg.) - EKG Sinus rhythms and dysrhythmias: sinus rhythm Chamber hypertrophy or enlargement: left ventricular hypertro - Allied health notes Allied health notes reviewed: nursing
[2019-03-18] MEDS: HumaLOG SUB-Q SCH ×2 (17:16→22:23)
[2019-03-18] MEDS: AMBIEN PO SCH (22:22)
[2019-03-19] MEDS: APRESOLINE PO SCH ×3 (08:20→21:00)
[2019-03-19] MEDS: HumaLOG SUB-Q SCH ×4 (08:30→21:51)
[2019-03-19] MEDS: GLUCOTROL PO SCH ×2 (08:49→16:10)
[2019-03-19] MEDS: ANTIVERT PO SCH ×3 (08:49→21:00)
[2019-03-19] MEDS: LOVENOX SUB-Q SCH (09:40)
[2019-03-19] MEDS: CLARITIN PO SCH (09:42)
[2019-03-19] MEDS: BABY ASPIRIN PO SCH (09:42)
[2019-03-19] MEDS: SODIUM CHLORIDE FLUSH SYRINGE 10 ML IV SCH ×2 (09:43→21:38)
[2019-03-19] MEDS ORDERED: NACL 0.9 (PRIMING MACHINE ONLY DIALYSIS) MC ONE (09:54)
--- NOTE | 2019-03-19 10:30 | Progress Note ---
Assessment and Plan - Patient Problems (1) ESRD (end stage renal disease) Current Visit: Yes Status: Chronic Plan to address problem: cont HD on MWF, increase UF as tolerated (2) Accelerated hypertension Current Visit: Yes Status: Acute Plan to address problem: Patient has been weaned off Cardene drip at this time. lisinopril was changed to losartan at an equivalent dose of 100 mg daily. Clonidine 0.1 mg q12 hrs was added. isolated UF on Sat, will increase UF as tolerated for further volume /BP control. (3) Type 2 diabetes mellitus with diabetic chronic kidney disease Current Visit: Yes Status: Chronic Qualifiers: Chronic kidney disease stage: on chronic dialysis Plan to address problem: Diabetes management per primary attending. (4) Anemia in CKD (chronic kidney disease) Current Visit: Yes Status: Chronic Qualifiers: Chronic kidney disease stage: on chronic dialysis Qualified Code(s): N18.6 - End stage renal disease; D63.1 - Anemia in chronic kidney disease; Z99.2 - Dependence on renal dialysis Plan to address problem: Current hemoglobin levels are at goal for her end-stage renal disease. hold EPO for now, given also uncontrolled HTN (5) Secondary hyperparathyroidism (of renal origin) Current Visit: Yes Status: Chronic Plan to address problem: Continue patient's home phosphate binder regimen Subjective Date of service: 03/19/19 Principal diagnosis: ESRD Interval history: Pt awake, alert, in no acute distress. tolerating HD well Objective - Vital Signs Vital signs: Vital Signs - 12hr 03/19/19 02:48 Temperature 98.3 F Pulse Rate 70 Respiratory 20 Rate Blood Pressure 153/67 O2 Sat by Pulse 96 Oximetry - General Appearance General appearance: well-developed, well-nourished, appears stated age EENT: ATNC, PERRL, mucous membranes moist Neck: no JVD Respiratory: Present: Clear to Ascultation Cardiology: regular, S1S2 Gastrointestinal: normal Integumentary: no rash, other (no edema ) Neurologic: no focal deficit, alert and oriented x3, strength 5/5, CN 3-12 intact Psychiatric: mood/affect appropriate, cooperative - Lab 03/17/19 07:37 03/17/19 07:37 Most recent lab results Calcium 8.0 mg/dL (8.4-10.2) L 03/17/19 07:37 Medications & Allergies - Medications Allergies/Adverse Reactions: Allergies No Known Allergies Allergy (Verified 01/01/19 23:56) Home Medications: Home Medications Medication Instructions Recorded Confirmed Last Taken Type Furosemide [Lasix] 80 mg PO QDAY 01/02/19 03/16/19 02/17/19 History Lisinopril [Zestril] 40 mg QDAY 01/02/19 03/16/19 02/17/19 History Loratadine [Claritin] 10 mg PO QDAY 01/02/19 03/16/19 02/17/19 History Meclizine HCl [Wal-Dram 2] 25 mg PO TID 01/02/19 03/16/19 02/17/19 History Zolpidem [Ambien] 5 mg PO QHS 01/02/19 03/16/19 02/17/19 History glipiZIDE [Glipizide] 10 mg PO BID 01/02/19 03/16/19 02/17/19 History hydrALAZINE [Apresoline TAB] 100 mg PO TID 01/02/19 03/16/19 02/17/19 History Aspirin [Aspirin BABY CHEW TAB] 81 mg PO QDAY #30 tab.chew 01/04/19 03/16/19 02/17/19 Rx Carvedilol [Coreg] 25 mg PO BID #60 tablet 01/04/19 03/16/19 02/17/19 Rx amLODIPine [Norvasc] 10 mg PO QDAY #30 tablet 01/04/19 03/16/19 02/17/19 Rx Active Medications: Generic Name Dose Route Start Last Admin Trade Name Garyq PRN Reason Stop Dose Admin Acetaminophen 650 mg 03/16/19 04:09 Tylenol PO Q4H PRN Pain MILD(1-3)/Fever >100.5/YOUNG Amlodipine Besylate 10 mg 03/17/19 10:00 03/18/19 09:01 Norvasc PO 10 mg QDAY ART Administration Aspirin 81 mg 03/16/19 10:00 03/19/19 09:42 Baby Aspirin PO 81 mg QDAY ART Administration Carvedilol 25 mg 03/16/19 22:00 03/18/19 22:23 Coreg PO 25 mg BID ART Administration Clonidine HCl 0.1 mg 03/18/19 10:00 03/18/19 22:22 Catapres PO 0.1 mg Q12HR ART Administration Dextrose 50 ml 03/18/19 15:04 D50w (25gm) Syringe IV PRN PRN Hypoglycemia Enoxaparin Sodium 30 mg 03/16/19 10:00 03/18/19 09:00 Lovenox SUB-Q 30 mg QDAY ART Administration Furosemide 80 mg 03/17/19 10:00 03/18/19 09:00 Lasix PO 80 mg DAILY ART Administration Glipizide 10 mg 03/16/19 08:00 03/19/19 08:49 Glucotrol PO 10 mg BIDDIAB ART Administration Hydralazine HCl 100 mg 03/16/19 14:00 03/18/19 22:22 Apresoline PO 100 mg TID ART Administration Hydralazine HCl 10 mg 03/17/19 09:15 03/18/19 05:58 Apresoline IV 10 mg Q4H PRN Administration Hypertension Sodium Chloride 100 mls @ 999 mls/hr 03/16/19 13:23 Nacl 0.9% IV TWAN PRN Hypotension Sodium Chloride 100 mls @ 999 mls/hr 03/17/19 11:08 Nacl 0.9% IV TWAN PRN Hypotension Insulin Human Lispro 0 unit 03/18/19 16:30 03/19/19 08:30 Humalog SUB-Q 3 unit ACHS ART Administration Protocol Loratadine 10 mg 03/17/19 10:00 03/19/19 09:42 Claritin PO 10 mg QDAY ART Administration Losartan Potassium 100 mg 03/18/19 10:00 03/18/19 09:01 Cozaar PO 100 mg QDAY ART Administration Meclizine HCl 25 mg 03/16/19 14:00 03/19/19 08:49 Antivert PO 25 mg TID ART Administration Ondansetron HCl 4 mg 03/16/19 04:09 Zofran IV Q4H PRN Nausea And Vomiting Oxycodone/Acetaminophen 1 tab 03/16/19 04:09 Percocet 5/325 PO Q6H PRN Pain, Moderate (4-6) Sodium Chloride 10 ml 03/16/19 10:00 03/19/19 09:43 Sodium Chloride Flush Syringe 10 Ml IV 10 ml BID ART Administration Sodium Chloride 10 ml 03/16/19 04:09 Sodium Chloride Flush Syringe 10 Ml IV PRN PRN LINE FLUSH Zolpidem Tartrate 5 mg 03/16/19 22:00 03/18/19 22:22 Ambien PO 5 mg QHS ART Administration
[2019-03-19] MEDS: APRESOLINE IV PRN ×2 (11:00→16:06)
--- NOTE | 2019-03-19 11:00 | Discharge Summary ---
Providers - Providers Date of Admission: 03/16/19 03:46 Attending physician: NEELIMA RONQUILLO MD 03/16/19 03:48 Consult to Physician [CONS] Routine Comment: Consulting Provider: GAYLE COKER Physician Instructions: Reason For Exam: cc 03/16/19 04:09 Consult to Physician [CONS] Routine Comment: Consulting Provider: DALTON APARICIO Physician Instructions: Reason For Exam: cp 03/16/19 04:17 Consult to Physician [CONS] Routine Comment: Consulting Provider: LORELEI VASQUEZ Physician Instructions: Reason For Exam: hd [facility] Hospital[facility] Condition: Stable Hospital course: 63 year old woman with history of hypertension, diabetes, end-stage renal disease on dialysis comes to the emergency room because her blood sugar and blood pressure has been elevated despite taking her medications. Also complaining of chest pain, located in the epigastric area, started 4 days ago, she is unable to describe it, intermittently every 5 minutes, no radiation, intensity 4/10, cannot identify exacerbating or relieving factors. Admits to shortness of breath, no nausea vomiting, diaphoresis, constipation. Patient has been here several times with similar complaints, she had a stress test on the however she cannot recall when the last stress test was. Her last few admissions on during the white count, unable to pull up her old records. In the emergency room her blood pressure has been on control with antihypertensive, she was started on a Cardene drip Hypertensive urgency, malignant ATYPICAL Chest pain Secondary to hypertensive urgency Diabetes 2 uncontrolled End-stage disease on dialysis Cardimyopathy Acute on chronic Combined systolic and diastolic heart failure Plan Cardene drip weaned off Cardiology input noted Echo done 12/2018 showed EF 30-35%, mod LVH, mod global hypokinesis, impaired relaxation, RVSP 33mmHg. Lexiscan MPI stress test done 12/2018 was negative for ischemia, EF 38%. 03/17/2019>telemetry shows S.R with PVC's,clinically patient is better,continue present therapy. Continue adjusting BP meds Nephrology consult noted Changed to Losartan from Lisinopril BP still elevated, will add Clonidin and monitor considering Bradycardia. Awaiting family to bring in home meds Renal and Critical care input noted Check fingersticks and initiate insulin sliding scale Transfer to [facility] DVT prophylaxis Anticipate discharge in am if BP stable slidding scale insulin added on discharge Daily BP diary recommended and discuss with PCP Disposition: DC-30 STILL A PATIENT Exam - Constitutional Vitals: Temp Pulse Resp BP Pulse Ox 98.3 F 70 20 153/67 96 03/19/19 02:48 03/19/19 02:48 03/19/19 02:48 03/19/19 02:48 03/19/19 02:48 Plan Activity: advance as tolerated, fall precautions Diet: diabetic, renal Special Instructions: record daily weights, record daily BP diary, record blood sugar diary Follow up with: MARCO BARNESCAMDEN MD WARREN [Primary Care Provider] - 7 Days SUE CAMPOS MD [Staff Physician] - 7 Days LORELEI VASQUEZ MD [Staff Physician] - 7 Days Prescriptions: cloNIDine [Catapres] 0.1 mg PO Q12HR #60 tablet Losartan [Cozaar] 100 mg PO QDAY #60 tablet Insulin Regular, Human [HumuLIN R] 0 unit SQ AC #1 vial Other Discharge Orders: Glucometer (Amb) Location: None Selected Glucometer supplies[Amb] Location: None Selected
--- NOTE | 2019-03-19 11:06 | Progress Note ---
Assessment and Plan Currently stable cardiac status. Patient may discharge home from cardiology standpoint. Recommend follow-up in our office with Dr. Shipman within 3 to 5 days of hospital discharge ([phone]). The patient has been seen in conjunction with Dr. Burkett who agrees with the assessment and plan of care. - Patient Problems (1) Acute HFrEF (heart failure with reduced ejection fraction) Current Visit: Yes Status: Acute (2) Cardiomyopathy Current Visit: Yes Status: Chronic Qualifiers: Cardiomyopathy type: unspecified Qualified Code(s): I42.9 - Cardiomyopathy, unspecified (3) Volume overload Current Visit: Yes Status: Acute (4) Hypertensive crisis Current Visit: Yes Status: Acute (5) Diabetes mellitus with hyperglycemia Current Visit: Yes Status: Acute (6) ESRD (end stage renal disease) Current Visit: Yes Status: Chronic (7) Elevated troponin Current Visit: Yes Status: Acute Subjective Date of service: 03/19/19 Principal diagnosis: ESRD Interval history: Patient resting comfortably in bed. Denies CP and SOB. Objective Vital Signs - 12hr 03/19/19 02:48 Temperature 98.3 F Pulse Rate 70 Respiratory 20 Rate Blood Pressure 153/67 O2 Sat by Pulse 96 Oximetry - Physical Examination General: No Apparent Distress HEENT: Positive: PERRL, Normocephaly, Mucus Membranes Moist Neck: Positive: neck supple, trachea midline Cardiac: Positive: Reg Rate and Rhythm Lungs: Positive: clear to auscultation Neuro: Positive: Grossly Intact Abdomen: Positive: Soft. Negative: Tender Skin: Negative: Rash, Wound Musculoskeletal: No Pain Extremities: Absent: edema - Imaging and Cardiology EKG: report reviewed, image reviewed Echo: report reviewed (12/2018 showed EF 30-35%, mod LVH, mod global hypokinesis, impaired relaxation, RVSP 33mmHg.) - EKG Sinus rhythms and dysrhythmias: sinus rhythm Chamber hypertrophy or enlargement: left ventricular hypertro - Allied health notes Allied health notes reviewed: nursing
[2019-03-19] MEDS: CATAPRES PO SCH ×3 (14:36→21:36)
--- NOTE | 2019-03-19 14:44 | Progress Note ---
Assessment and Plan Assessment and plan: 63 year old woman with history of hypertension, diabetes, end-stage renal disease on dialysis comes to the emergency room because her blood sugar and blood pressure has been elevated despite taking her medications. Also complaining of chest pain, located in the epigastric area, started 4 days ago, she is unable to describe it, intermittently every 5 minutes, no radiation, intensity 4/10, cannot identify exacerbating or relieving factors. Admits to shortness of breath, no nausea vomiting, diaphoresis, constipation. Patient has been here several times with similar complaints, she had a stress test on the however she cannot recall when the last stress test was. Her last few admissions on during the white count, unable to pull up her old records. In the emergency room her blood pressure has been on control with antihypertensive, she was started on a Cardene drip CTA cHEST: Enlarged heart, calcified plaque in thoracic aorta, no aneurysm or dissection or pulmonary embolsim. the perihilar pulmonary edema suggestive of heart failure or fluid overload. There are noncalcified nodules of the right lung base measuring 9 mm. The more prominent than prior study. * Of admission the patient was initially on Cardene drip as noted above. This was subsequently weaned off with initiation of her home medications. * Clonidine 0.1 was added with improvement of blood pressure to the 150 systolic with more related unfortunately the patient underwent dialysis and missed one dose blood pressure resulted in reactivation of her blood pressure. * plan is to reevaluate patient throughout the day and if blood pressure remains stable, discharged in a.m. 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 Lexiscan MPI stress test done 12/2018 was negative for ischemia, EF 38%. 03/17/2019>telemetry shows S.R with PVC's,clinically patient is better,continue present therapy. Continue adjusting BP meds Nephrology consult noted Changed to Losartan from Lisinopril BP still elevated, added Clonidin Awaiting family to bring in home meds Renal and Critical care input noted Check fingersticks and initiate insulin sliding scale Transfer to [facility] DVT prophylaxis Anticipate discharge in am if BP stable History Interval history: Patient seen and examined, resting comfortable, no chest pain, no nausea and vomiting. Had dialysis today Hospitalist Physical - Physical exam Narrative exam: General Apperance: The patient lying in bed, breathing comfortable HEENT: Normocephalic, atraumatic. Pupils equally round and reactive to light, EOMI, no sclericterus or JVD or thyromegaly or nodule. no carotid bruit, mucous membranes moist, no exudate or erythema Heart: S1-S2, regular is rhythm Lungs: Clear to auscultation bilaterally, breathing comfortable Abdomen: Positive bowel sounds, soft, nontender, nondistended, no organomegaly Extremities: No edema cyanosis clubbing Skin: no rash, nodule, warm and dry Neuro: cranial nerves 2-12 intact, speech is fluent, motor/sensory intact - Constitutional Vitals: Temp Pulse Resp BP Pulse Ox 98.2 F 70 18 201/89 99 03/19/19 10:15 03/19/19 14:36 03/19/19 10:15 03/19/19 14:36 03/19/19 07:00 General appearance: Present: no acute distress Results - Labs CBC & Chem 7: 03/17/19 07:37 03/17/19 07:37 Labs: Laboratory Last Values WBC 4.3 K/mm3 (4.5-11.0) L 03/17/19 07:37 RBC 4.47 M/mm3 (3.65-5.03) 03/17/19 07:37 Hgb 10.8 gm/dl (10.1-14.3) 03/17/19 07:37 Hct 34.2 % (30.3-42.9) 03/17/19 07:37 MCV 77 fl (79-97) L 03/17/19 07:37 MCH 24 pg (28-32) L 03/17/19 07:37 MCHC 32 % (30-34) 03/17/19 07:37 RDW 23.8 % (13.2-15.2) H 03/17/19 07:37 Plt Count 164 K/mm3 (140-440) 03/17/19 07:37 Lymph % (Auto) 22.7 % (13.4-35.0) 03/17/19 07:37 [place] % (Auto) 7.4 % (0.0-7.3) H 03/17/19 07:37 Eos % (Auto) 4.1 % (0.0-4.3) 03/17/19 07:37 Baso % (Auto) 0.9 % (0.0-1.8) 03/17/19 07:37 Lymph # 1.0 K/mm3 (1.2-5.4) L 03/17/19 07:37 [place] # 0.3 K/mm3 (0.0-0.8) 03/17/19 07:37 Eos # 0.2 K/mm3 (0.0-0.4) 03/17/19 07:37 Baso # 0.0 K/mm3 (0.0-0.1) 03/17/19 07:37 Seg Neutrophils % 64.9 % (40.0-70.0) 03/17/19 07:37 Seg Neutrophils # 2.8 K/mm3 (1.8-7.7) 03/17/19 07:37 VBG pH 7.418 (7.320-7.420) 03/15/19 17:56 Sodium 138 mmol/L (137-145) 03/17/19 07:37 Potassium 4.3 mmol/L (3.6-5.0) 03/17/19 07:37 Chloride 95.9 mmol/L (98-107) L 03/17/19 07:37 Carbon Dioxide 28 mmol/L (22-30) 03/17/19 07:37 Anion Gap 18 mmol/L 03/17/19 07:37 BUN 33 mg/dL (7-17) H 03/17/19 07:37 Creatinine 7.1 mg/dL (0.7-1.2) H 03/17/19 07:37 Estimated GFR 7 ml/min 03/17/19 07:37 BUN/Creatinine Ratio 5 % 03/17/19 07:37 Glucose 146 mg/dL (65-100) H 03/17/19 07:37 POC Glucose 210 (70-105) H 03/19/19 07:38 Calcium 8.0 mg/dL (8.4-10.2) L 03/17/19 07:37 Total Bilirubin 0.40 mg/dL (0.1-1.2) 03/15/19 17:56 Direct Bilirubin < 0.2 mg/dL (0-0.2) 03/15/19 17:56 Indirect Bilirubin 0.2 mg/dL 03/15/19 17:56 AST 111 units/L (5-40) H 03/15/19 17:56 ALT 91 units/L (7-56) H 03/15/19 17:56 Alkaline Phosphatase 197 units/L (35-129) H 03/15/19 17:56 Total Creatine Kinase 67 units/L (30-135) 03/16/19 10:39 CK-MB (CK-2) 3.6 ng/mL (0.0-4.0) 03/16/19 10:39 CK-MB (CK-2) Rel Index 5.3 (0-4) H 03/16/19 10:39 Troponin T 0.191 ng/mL (0.00-0.029) H* 03/16/19 10:39 NT-Pro-B Natriuret Pep 77024 pg/mL (0-900) H 03/15/19 20:00 Total Protein 6.4 g/dL (6.3-8.2) 03/15/19 17:56 Albumin 3.5 g/dL (3.9-5) L 03/15/19 17:56 Albumin/Globulin Ratio 1.2 % 03/15/19 17:56 Triglycerides 71 mg/dL (2-149) 03/15/19 20:52 Cholesterol 153 mg/dL (50-199) 03/15/19 20:52 LDL Cholesterol Direct 112 mg/dL (50-130) 03/15/19 20:52 HDL Cholesterol 40 mg/dL (40-59) 03/15/19 20:52 Cholesterol/HDL Ratio 3.82 % 03/15/19 20:52 Active Medications - Current Medications Current Medications: Generic Name Dose Route Start Last Admin Trade Name Freq PRN Reason Stop Dose Admin Acetaminophen 650 mg 03/16/19 04:09 Tylenol PO Q4H PRN Pain MILD(1-3)/Fever >100.5/YOUNG Amlodipine Besylate 10 mg 03/17/19 10:00 03/18/19 09:01 Norvasc PO 10 mg QDAY ART Administration Aspirin 81 mg 03/16/19 10:00 03/19/19 09:42 Baby Aspirin PO 81 mg QDAY ART Administration Carvedilol 25 mg 03/16/19 22:00 03/18/19 22:23 Coreg PO 25 mg BID ART Administration Clonidine HCl 0.1 mg 03/18/19 10:00 03/19/19 14:36 Catapres PO 0.1 mg Q12HR ART Administration Dextrose 50 ml 03/18/19 15:04 D50w (25gm) Syringe IV PRN PRN Hypoglycemia Enoxaparin Sodium 30 mg 03/16/19 10:00 03/18/19 09:00 Lovenox SUB-Q 30 mg QDAY ART Administration Furosemide 80 mg 03/17/19 10:00 03/18/19 09:00 Lasix PO 80 mg DAILY ART Administration Glipizide 10 mg 03/16/19 08:00 03/19/19 08:49 Glucotrol PO 10 mg BIDDIAB ART Administration Hydralazine HCl 100 mg 03/16/19 14:00 03/19/19 14:36 Apresoline PO 100 mg TID ART Administration Hydralazine HCl 10 mg 03/17/19 09:15 03/19/19 11:00 Apresoline IV 10 mg Q4H PRN Administration Hypertension Sodium Chloride 100 mls @ 999 mls/hr 03/17/19 11:08 Nacl 0.9% IV TWAN PRN Hypotension Insulin Human Lispro 0 unit 03/18/19 16:30 03/19/19 08:30 Humalog SUB-Q 3 unit ACHS ART Administration Protocol Loratadine 10 mg 03/17/19 10:00 03/19/19 09:42 Claritin PO 10 mg QDAY ART Administration Losartan Potassium 100 mg 03/18/19 10:00 03/18/19 09:01 Cozaar PO 100 mg QDAY ART Administration Meclizine HCl 25 mg 03/16/19 14:00 03/19/19 08:49 Antivert PO 25 mg TID ART Administration Ondansetron HCl 4 mg 03/16/19 04:09 Zofran IV Q4H PRN Nausea And Vomiting Oxycodone/Acetaminophen 1 tab 03/16/19 04:09 Percocet 5/325 PO Q6H PRN Pain, Moderate (4-6) Sodium Chloride 10 ml 03/16/19 10:00 03/19/19 09:43 Sodium Chloride Flush Syringe 10 Ml IV 10 ml BID ART Administration Sodium Chloride 10 ml 03/16/19 04:09 Sodium Chloride Flush Syringe 10 Ml IV PRN PRN LINE FLUSH Zolpidem Tartrate 5 mg 03/16/19 22:00 03/18/19 22:22 Ambien PO 5 mg QHS ART Administration
[2019-03-19] MEDS: COZAAR PO SCH (14:46)
[2019-03-19] MEDS: NORVASC PO SCH (15:23)
[2019-03-19] MEDS: COREG PO SCH ×2 (15:24→21:37)
[2019-03-19] MEDS: LASIX PO SCH (15:25)
--- NOTE | 2019-03-19 18:45 | Progress Note ---
Assessment and Plan Patient is resting on 2L O2. Patient O2 saturation is 100%. No complaint of chest pain, shortness of breath or cough.Patient has hemodialysis to day. - Patient Problems (1) Accelerated hypertension Current Visit: Yes Status: Acute Plan to address problem: Management as per primary care. (2) Acute HFrEF (heart failure with reduced ejection fraction) Current Visit: Yes Status: Acute Plan to address problem: Management as per cardiology. (3) Chest pain Current Visit: Yes Status: Acute Qualifiers: Chest pain type: unspecified Qualified Code(s): R07.9 - Chest pain, unspecified Plan to address problem: Management as per cardiology. (4) Diabetes mellitus with hyperglycemia Current Visit: Yes Status: Acute Plan to address problem: Management as per primary care. (5) Hypertensive crisis Current Visit: Yes Status: Acute Plan to address problem: management as per primary care. (6) Pulmonary edema cardiac cause Current Visit: Yes Status: Acute Plan to address problem: Patient is on lasix. (7) ESRD (end stage renal disease) Current Visit: Yes Status: Chronic Plan to address problem: Managment as per nephrology. Subjective Date of service: 03/19/19 Principal diagnosis: ESRD Interval history: Patient is resting on 2L O2. Patient O2 saturation is 100%. No complaint of chest pain, shortness of breath or cough.Patient has hemodialysis to day. Objective Vital Signs - 12hr 03/19/19 03/19/19 03/19/19 07:00 10:15 10:30 Temperature 98 F 98.2 F Pulse Rate 71 67 66 Respiratory 18 18 Rate Blood Pressure 193/90 195/78 Blood Pressure 184/83 [Right] O2 Sat by Pulse 99 Oximetry 03/19/19 03/19/19 03/19/19 10:45 11:00 11:15 Temperature Pulse Rate 66 66 67 Respiratory Rate Blood Pressure 206/92 201/86 187/90 Blood Pressure [Right] O2 Sat by Pulse Oximetry 03/19/19 03/19/19 03/19/19 11:30 11:45 12:00 Temperature Pulse Rate 64 65 67 Respiratory Rate Blood Pressure 194/86 193/80 178/83 Blood Pressure [Right] O2 Sat by Pulse Oximetry 03/19/19 03/19/19 03/19/19 12:15 12:30 12:45 Temperature Pulse Rate 69 67 64 Respiratory Rate Blood Pressure 185/82 197/90 202/82 Blood Pressure [Right] O2 Sat by Pulse Oximetry 03/19/19 03/19/19 03/19/19 13:00 13:15 13:30 Temperature Pulse Rate 64 64 66 Respiratory Rate Blood Pressure 173/64 175/83 179/81 Blood Pressure [Right] O2 Sat by Pulse Oximetry 03/19/19 03/19/19 03/19/19 14:22 14:26 14:36 Temperature Pulse Rate 66 70 Respiratory Rate Blood Pressure 201/89 201/89 Blood Pressure [Right] O2 Sat by Pulse 96 Oximetry 03/19/19 03/19/19 03/19/19 14:46 15:20 15:23 Temperature Pulse Rate 70 70 70 Respiratory Rate Blood Pressure 201/89 200/78 200/78 Blood Pressure [Right] O2 Sat by Pulse 95 Oximetry 03/19/19 03/19/19 03/19/19 15:24 16:01 16:06 Temperature Pulse Rate 70 70 70 Respiratory Rate Blood Pressure 200/78 202/79 202/79 Blood Pressure [Right] O2 Sat by Pulse 100 Oximetry 03/19/19 03/19/19 03/19/19 16:55 17:15 17:38 Temperature Pulse Rate 69 69 70 Respiratory Rate Blood Pressure 203/83 203/83 190/79 Blood Pressure [Right] O2 Sat by Pulse 95 97 Oximetry Constitutional: no acute distress, alert Eyes: non-icteric ENT: oropharynx moist Neck: supple, no lymphadenopathy Ascultation: Bilateral: rales Cardiovascular: regular rate and rhythm Gastrointestinal: normoactive bowel sounds, non-tender Integumentary: normal Extremities: no cyanosis, no edema Neurologic: normal mental status, non-focal exam, pupils equal and round, CN II- XII normal CBC and BMP: 03/17/19 07:37 03/17/19 07:37 Abnormal lab findings: Abnormal Labs 03/15/19 03/15/19 03/15/19 17:53 17:56 17:56 WBC 3.9 L MCV 77 L MCH 25 L RDW 23.1 H [place] % (Auto) 8.0 H Lymph # 1.0 L Chloride 94.3 L BUN 51 H Creatinine 8.7 H Glucose 367 H POC Glucose 359 H Calcium 7.9 L AST 111 H ALT 91 H Alkaline Phosphatase 197 H CK-MB (CK-2) Rel Index Troponin T NT-Pro-B Natriuret Pep Albumin 3.5 L 03/15/19 03/15/19 03/15/19 20:00 20:21 20:52 WBC MCV MCH RDW [place] % (Auto) Lymph # Chloride BUN Creatinine Glucose POC Glucose 284 H Calcium AST ALT Alkaline Phosphatase CK-MB (CK-2) Rel Index Troponin T 0.187 H* NT-Pro-B Natriuret Pep 85204 H Albumin 03/16/19 03/16/19 03/16/19 02:25 03:08 04:59 WBC MCV MCH RDW [place] % (Auto) Lymph # Chloride BUN Creatinine Glucose POC Glucose 60 L 204 H Calcium AST ALT Alkaline Phosphatase CK-MB (CK-2) Rel Index 4.7 H Troponin T 0.184 H* NT-Pro-B Natriuret Pep Albumin 03/16/19 03/16/19 03/16/19 06:35 08:28 10:39 WBC MCV MCH RDW [place] % (Auto) Lymph # Chloride BUN Creatinine Glucose POC Glucose 260 H 261 H Calcium AST ALT Alkaline Phosphatase CK-MB (CK-2) Rel Index 5.3 H Troponin T 0.191 H* NT-Pro-B Natriuret Pep Albumin 03/16/19 03/17/19 03/17/19 13:48 07:37 07:37 WBC 4.3 L MCV 77 L MCH 24 L RDW 23.8 H [place] % (Auto) 7.4 H Lymph # 1.0 L Chloride 95.9 L BUN 33 H Creatinine 7.1 H Glucose 146 H POC Glucose 252 H Calcium 8.0 L AST ALT Alkaline Phosphatase CK-MB (CK-2) Rel Index Troponin T NT-Pro-B Natriuret Pep Albumin 03/17/19 03/17/19 03/17/19 13:34 18:51 20:50 WBC MCV MCH RDW [place] % (Auto) Lymph # Chloride BUN Creatinine Glucose POC Glucose 223 H 278 H 278 H Calcium AST ALT Alkaline Phosphatase CK-MB (CK-2) Rel Index Troponin T NT-Pro-B Natriuret Pep Albumin 03/18/19 03/18/19 03/18/19 12:27 16:38 22:00 WBC MCV MCH RDW [place] % (Auto) Lymph # Chloride BUN Creatinine Glucose POC Glucose 263 H 196 H 219 H Calcium AST ALT Alkaline Phosphatase CK-MB (CK-2) Rel Index Troponin T NT-Pro-B Natriuret Pep Albumin 03/19/19 03/19/19 03/19/19 07:38 15:58 17:09 WBC MCV MCH RDW [place] % (Auto) Lymph # Chloride BUN Creatinine Glucose POC Glucose 210 H 291 H 342 H Calcium AST ALT Alkaline Phosphatase CK-MB (CK-2) Rel Index Troponin T NT-Pro-B Natriuret Pep Albumin Allied health notes reviewed: nursing
[2019-03-19] MEDS: AMBIEN PO SCH (21:36)
[2019-03-20] MEDS: CATAPRES PO SCH ×3 (05:31→21:35)
[2019-03-20] MEDS: HumaLOG SUB-Q SCH ×4 (09:08→21:53)
[2019-03-20] MEDS: SODIUM CHLORIDE FLUSH SYRINGE 10 ML IV SCH ×2 (09:09→21:36)
[2019-03-20] MEDS: GLUCOTROL PO SCH ×2 (09:09→17:44)
[2019-03-20] MEDS: LOVENOX SUB-Q SCH (09:09)
[2019-03-20] MEDS: COZAAR PO SCH (09:09)
[2019-03-20] MEDS: ANTIVERT PO SCH ×3 (09:09→21:38)
[2019-03-20] MEDS: APRESOLINE PO SCH ×3 (09:10→21:35)
[2019-03-20] MEDS: NORVASC PO SCH (09:10)
[2019-03-20] MEDS: COREG PO SCH ×2 (09:10→21:35)
[2019-03-20] MEDS: LASIX PO SCH (09:11)
[2019-03-20] MEDS: BABY ASPIRIN PO SCH (09:11)
[2019-03-20] MEDS: CLARITIN PO SCH (09:11)
--- NOTE | 2019-03-20 10:31 | Progress Note ---
Assessment and Plan - Patient Problems (1) ESRD (end stage renal disease) Current Visit: Yes Status: Chronic Plan to address problem: cont HD on MWF, increase UF as tolerated (2) Accelerated hypertension Current Visit: Yes Status: Acute Plan to address problem: BP remains elevated, depite clonidine increased to 0.1 po tid. given borderline low HR, cannot further increase clonidine dose. added spironolactone 25mg po bid. will increase UF as tolerated for further volume /BP control. pt stable for discharge from renal stand point if BP remains < 160/90s mmHg (3) Type 2 diabetes mellitus with diabetic chronic kidney disease Current Visit: Yes Status: Chronic Qualifiers: Chronic kidney disease stage: on chronic dialysis Plan to address problem: Diabetes management per primary attending. (4) Anemia in CKD (chronic kidney disease) Current Visit: Yes Status: Chronic Qualifiers: Chronic kidney disease stage: on chronic dialysis Qualified Code(s): N18.6 - End stage renal disease; D63.1 - Anemia in chronic kidney disease; Z99.2 - Dependence on renal dialysis Plan to address problem: Current hemoglobin levels are at goal for her end-stage renal disease. hold EPO for now, given also uncontrolled HTN (5) Secondary hyperparathyroidism (of renal origin) Current Visit: Yes Status: Chronic Plan to address problem: Continue patient's home phosphate binder regimen Subjective Date of service: 03/20/19 Principal diagnosis: ESRD Interval history: Pt awake, alert, in no acute distress. BP remains elevated. Objective - Vital Signs Vital signs: Vital Signs - 12hr 03/20/19 03/20/19 03/20/19 02:23 02:24 05:27 Temperature 97.6 F Pulse Rate 63 75 Respiratory 20 Rate Blood Pressure 166/76 Blood Pressure [Right] O2 Sat by Pulse 98 86 Oximetry 03/20/19 03/20/19 03/20/19 05:28 05:31 07:03 Temperature 98.0 F Pulse Rate 82 82 62 Respiratory 20 20 Rate Blood Pressure 158/76 158/76 166/76 Blood Pressure 158/76 [Right] O2 Sat by Pulse 100 Oximetry 03/20/19 03/20/19 03/20/19 07:08 07:19 09:09 Temperature 98.6 F Pulse Rate 63 62 Respiratory Rate Blood Pressure 169/80 169/80 Blood Pressure [Right] O2 Sat by Pulse 100 99 Oximetry 03/20/19 03/20/19 09:10 10:00 Temperature Pulse Rate 62 62 Respiratory Rate Blood Pressure 169/80 Blood Pressure [Right] O2 Sat by Pulse Oximetry - General Appearance General appearance: well-developed, well-nourished, appears stated age EENT: ATNC, PERRL, mucous membranes moist Neck: no JVD Respiratory: Present: Clear to Ascultation Cardiology: regular, S1S2 Gastrointestinal: normoactive bowel sounds Integumentary: no rash, other (no edema ) Neurologic: no focal deficit, alert and oriented x3, strength 5/5, CN 3-12 intact Psychiatric: mood/affect appropriate, cooperative - Lab 03/17/19 07:37 03/17/19 07:37 Most recent lab results Calcium 8.0 mg/dL (8.4-10.2) L 03/17/19 07:37 Medications & Allergies - Medications Allergies/Adverse Reactions: Allergies No Known Allergies Allergy (Verified 01/01/19 23:56) Home Medications: Home Medications Medication Instructions Recorded Confirmed Last Taken Type Furosemide [Lasix] 80 mg PO QDAY 01/02/19 03/16/19 02/17/19 History Loratadine [Claritin] 10 mg PO QDAY 01/02/19 03/16/19 02/17/19 History Meclizine HCl [[place] 2] 25 mg PO TID 01/02/19 03/16/19 02/17/19 History Zolpidem [Ambien] 5 mg PO QHS 01/02/19 03/16/19 02/17/19 History glipiZIDE [Glipizide] 10 mg PO BID 01/02/19 03/16/19 02/17/19 History hydrALAZINE [Apresoline TAB] 100 mg PO TID 01/02/19 03/16/19 02/17/19 History Aspirin [Aspirin BABY CHEW TAB] 81 mg PO QDAY #30 tab.chew 01/04/19 03/16/19 02/17/19 Rx Carvedilol [Coreg] 25 mg PO BID #60 tablet 01/04/19 03/16/19 02/17/19 Rx amLODIPine [Norvasc] 10 mg PO QDAY #30 tablet 01/04/19 03/16/19 02/17/19 Rx Insulin Regular, Human [HumuLIN R] 0 unit SQ AC #1 vial 03/19/19 Unknown Rx Losartan [Cozaar] 100 mg PO QDAY #60 tablet 03/19/19 Unknown Rx cloNIDine [Catapres] 0.1 mg PO Q12HR #60 tablet 03/19/19 Unknown Rx Active Medications: Generic Name Dose Route Start Last Admin Trade Name Freq PRN Reason Stop Dose Admin Acetaminophen 650 mg 03/16/19 04:09 Tylenol PO Q4H PRN Pain MILD(1-3)/Fever >100.5/YOUNG Amlodipine Besylate 10 mg 03/17/19 10:00 03/20/19 09:10 Norvasc PO 10 mg QDAY ART Administration Aspirin 81 mg 03/16/19 10:00 03/20/19 09:11 Baby Aspirin PO 81 mg QDAY ART Administration Carvedilol 25 mg 03/16/19 22:00 03/20/19 09:10 Coreg PO 25 mg BID ART Administration Clonidine HCl 0.1 mg 03/19/19 18:00 03/20/19 05:31 Catapres PO 0.1 mg Q8HR ART Administration Dextrose 50 ml 03/18/19 15:04 D50w (25gm) Syringe IV PRN PRN Hypoglycemia Enoxaparin Sodium 30 mg 03/16/19 10:00 03/20/19 09:09 Lovenox SUB-Q 30 mg QDAY ART Administration Glipizide 10 mg 03/16/19 08:00 03/20/19 09:09 Glucotrol PO 10 mg BIDDIAB ART Administration Hydralazine HCl 100 mg 03/16/19 14:00 03/20/19 09:10 Apresoline PO 100 mg TID ART Administration Hydralazine HCl 10 mg 03/17/19 09:15 03/19/19 16:06 Apresoline IV 10 mg Q4H PRN Administration Hypertension Sodium Chloride 100 mls @ 999 mls/hr 03/17/19 11:08 Nacl 0.9% IV TWAN PRN Hypotension Insulin Human Lispro 0 unit 03/18/19 16:30 03/20/19 09:08 Humalog SUB-Q 3 unit ACHS ART Administration Protocol Loratadine 10 mg 03/17/19 10:00 03/20/19 09:11 Claritin PO 10 mg QDAY ART Administration Losartan Potassium 100 mg 03/18/19 10:00 03/20/19 09:09 Cozaar PO 100 mg QDAY ART Administration Meclizine HCl 25 mg 03/16/19 14:00 03/20/19 09:09 Antivert PO 25 mg TID ART Administration Ondansetron HCl 4 mg 03/16/19 04:09 Zofran IV Q4H PRN Nausea And Vomiting Oxycodone/Acetaminophen 1 tab 03/16/19 04:09 Percocet 5/325 PO Q6H PRN Pain, Moderate (4-6) Sodium Chloride 10 ml 03/16/19 10:00 03/20/19 09:09 Sodium Chloride Flush Syringe 10 Ml IV 10 ml BID ART Administration Sodium Chloride 10 ml 03/16/19 04:09 Sodium Chloride Flush Syringe 10 Ml IV PRN PRN LINE FLUSH Spironolactone 25 mg 03/20/19 11:00 Aldactone PO BID ART Zolpidem Tartrate 5 mg 03/16/19 22:00 03/19/19 21:36 Ambien PO 5 mg QHS ART Administration
[2019-03-20] MEDS: ALDACTONE PO SCH ×2 (11:36→21:34)
--- NOTE | 2019-03-20 13:49 | Progress Note ---
Assessment and Plan Patient is resting on 1L O2. Patient O2 saturation is 99%. No complaint of chest pain, shortness of breath or cough. - Patient Problems (1) Accelerated hypertension Current Visit: Yes Status: Acute Plan to address problem: As per primary care (2) Acute HFrEF (heart failure with reduced ejection fraction) Current Visit: Yes Status: Acute Plan to address problem: Management as per cardiology. (3) Chest pain Current Visit: Yes Status: Acute Qualifiers: Chest pain type: unspecified Qualified Code(s): R07.9 - Chest pain, unspecified Plan to address problem: Management as per cardiology. (4) Diabetes mellitus with hyperglycemia Current Visit: Yes Status: Acute Plan to address problem: Management as per primary care. (5) Hypertensive crisis Current Visit: Yes Status: Acute Plan to address problem: management as per primary care. (6) Pulmonary edema cardiac cause Current Visit: Yes Status: Acute Plan to address problem: Patient is on spirinolactone. (7) ESRD (end stage renal disease) Current Visit: Yes Status: Chronic Plan to address problem: Management as per nephrology. Subjective Date of service: 03/20/19 Principal diagnosis: ESRD Interval history: Patient is resting on 1L O2. Patient O2 saturation is 99%. No complaint of chest pain, shortness of breath or cough. Objective Vital Signs - 12hr 03/20/19 03/20/19 03/20/19 02:23 02:24 05:27 Temperature 97.6 F Pulse Rate 63 75 Respiratory 20 Rate Blood Pressure 166/76 Blood Pressure [Right] O2 Sat by Pulse 98 86 Oximetry 03/20/19 03/20/19 03/20/19 05:28 05:31 07:03 Temperature 98.0 F Pulse Rate 82 82 62 Respiratory 20 20 Rate Blood Pressure 158/76 158/76 166/76 Blood Pressure 158/76 [Right] O2 Sat by Pulse 100 Oximetry 03/20/19 03/20/19 03/20/19 07:08 07:19 09:09 Temperature 98.6 F Pulse Rate 63 62 Respiratory Rate Blood Pressure 169/80 169/80 Blood Pressure [Right] O2 Sat by Pulse 100 99 Oximetry 03/20/19 03/20/19 09:10 10:00 Temperature Pulse Rate 62 62 Respiratory Rate Blood Pressure 169/80 Blood Pressure [Right] O2 Sat by Pulse Oximetry Constitutional: no acute distress, alert Eyes: non-icteric ENT: oropharynx moist Neck: supple, no lymphadenopathy Ascultation: Bilateral: rales Cardiovascular: regular rate and rhythm Gastrointestinal: normoactive bowel sounds, non-tender Integumentary: normal Extremities: no cyanosis, no edema Neurologic: normal mental status, non-focal exam, pupils equal and round, CN II- XII normal CBC and BMP: 03/17/19 07:37 03/17/19 07:37 Abnormal lab findings: Abnormal Labs 03/15/19 03/15/19 03/15/19 17:53 17:56 17:56 WBC 3.9 L MCV 77 L MCH 25 L RDW 23.[address] [place] % (Auto) 8.0 H Lymph # 1.0 L Chloride 94.3 L BUN 51 H Creatinine 8.7 H Glucose 367 H POC Glucose 359 H Calcium 7.9 L AST 111 H ALT 91 H Alkaline Phosphatase 197 H CK-MB (CK-2) Rel Index Troponin T NT-Pro-B Natriuret Pep Albumin 3.5 L 03/15/19 03/15/19 03/15/19 20:00 20:21 20:52 WBC MCV MCH RDW [place] % (Auto) Lymph # Chloride BUN Creatinine Glucose POC Glucose 284 H Calcium AST ALT Alkaline Phosphatase CK-MB (CK-2) Rel Index Troponin T 0.187 H* NT-Pro-B Natriuret Pep 28805 H Albumin 03/16/19 03/16/19 03/16/19 02:25 03:08 04:59 WBC MCV MCH RDW [place] % (Auto) Lymph # Chloride BUN Creatinine Glucose POC Glucose 60 L 204 H Calcium AST ALT Alkaline Phosphatase CK-MB (CK-2) Rel Index 4.7 H Troponin T 0.184 H* NT-Pro-B Natriuret Pep Albumin 03/16/19 03/16/19 03/16/19 06:35 08:28 10:39 WBC MCV MCH RDW [place] % (Auto) Lymph # Chloride BUN Creatinine Glucose POC Glucose 260 H 261 H Calcium AST ALT Alkaline Phosphatase CK-MB (CK-2) Rel Index 5.3 H Troponin T 0.191 H* NT-Pro-B Natriuret Pep Albumin 03/16/19 03/17/19 03/17/19 13:48 07:37 07:37 WBC 4.3 L MCV 77 L MCH 24 L RDW 23.[address] [place] % (Auto) 7.4 H Lymph # 1.0 L Chloride 95.9 L BUN 33 H Creatinine 7.1 H Glucose 146 H POC Glucose 252 H Calcium 8.0 L AST ALT Alkaline Phosphatase CK-MB (CK-2) Rel Index Troponin T NT-Pro-B Natriuret Pep Albumin 03/17/19 03/17/19 03/17/19 13:34 18:51 20:50 WBC MCV MCH RDW [place] % (Auto) Lymph # Chloride BUN Creatinine Glucose POC Glucose 223 H 278 H 278 H Calcium AST ALT Alkaline Phosphatase CK-MB (CK-2) Rel Index Troponin T NT-Pro-B Natriuret Pep Albumin 03/18/19 03/18/19 03/18/19 12:27 16:38 22:00 WBC MCV MCH RDW [place] % (Auto) Lymph # Chloride BUN Creatinine Glucose POC Glucose 263 H 196 H 219 H Calcium AST ALT Alkaline Phosphatase CK-MB (CK-2) Rel Index Troponin T NT-Pro-B Natriuret Pep Albumin 03/19/19 03/19/19 03/19/19 07:38 15:58 17:09 WBC MCV MCH RDW [place] % (Auto) Lymph # Chloride BUN Creatinine Glucose POC Glucose 210 H 291 H 342 H Calcium AST ALT Alkaline Phosphatase CK-MB (CK-2) Rel Index Troponin T NT-Pro-B Natriuret Pep Albumin 03/19/19 03/20/19 03/20/19 21:35 07:08 11:26 WBC MCV MCH RDW [place] % (Auto) Lymph # Chloride BUN Creatinine Glucose POC Glucose 243 H 204 H 239 H Calcium AST ALT Alkaline Phosphatase CK-MB (CK-2) Rel Index Troponin T NT-Pro-B Natriuret Pep Albumin Allied health notes reviewed: nursing
--- NOTE | 2019-03-20 13:57 | Discharge Summary ---
Providers - Providers Date of Admission: 03/16/19 03:46 Date of discharge: 03/20/19 Attending physician: MAINE ASHLEY 03/16/19 03:48 Consult to Physician [CONS] Routine Comment: Consulting Provider: GAYLE COKER Physician Instructions: Reason For Exam: cc 03/16/19 04:09 Consult to Physician [CONS] Routine Comment: Consulting Provider: DALTON APARICIO Physician Instructions: Reason For Exam: cp 03/16/19 04:17 Consult to Physician [CONS] Routine Comment: Consulting Provider: LORELEI VASQUEZ Physician Instructions: Reason For Exam: hd [facility] Hospital[facility] Condition: Stable Hospital course: Patient is a 63 yo woman with a history of hypertension, DM type 2 and ESRD on hemodialysis who presented ER uncontrolled DM and uncontrolled hypertension requiring IV Cardene drip * CTA cHEST: Enlarged heart, calcified plaque in thoracic aorta, no aneurysm or dissection or pulmonary embolsim; the perihilar pulmonary edema suggestive of heart failure or fluid overload. There are noncalcified nodules of the right lung base measuring 9 mm. The more prominent than prior study. Hypertensive urgency, malignant, steady ok to discharge per Renal ATYPICAL Chest pain Secondary to hypertensive urgency Diabetes 2 uncontrolled End-stage disease on dialysis Cardimyopathy Acute on chronic Combined systolic and diastolic heart failure Pulmonray nodules: Outpatient pulmonary follow up for surveillance Disposition: DC-01 TO HOME OR SELFCARE Time spent for discharge: 34 minutes Core Measure Documentation - Palliative Care Palliative Care/ Comfort Measures: Not Applicable - Core Measures Any of the following diagnoses?: none - VTE Discharge Requirements Deep Vein Thrombosis/Pulmonary Embolism Present on Admission: No Has pt received <5 days of overlap therapy or INR<2.0: No Anticoagulant overlap therapy prescribed at discharge: No Contraindication No Overlap Therapy order at DC: Not Indicated Exam - Physical Exam Narrative exam: Gen: WDWN, NAD, Awake, Alert, Orientated HEENT: NCAT, EOMI, PERRL, OP Clear Neck: supple, no adenopathy, no thyromegaly, no JVD CVS/Heart: RRR, normal S1S2, pulses present bilaterally Chest/Lungs: CTA B, Symmetrical chest expansion, good air entry bilaterally GI/Abdomen: soft, NTND, good bowel sounds, no guarding or rebound /Bladder: no suprapubic tenderness, no CVA or paraspinal tenderness Extermity/Skin: no c/c/e, no obvious rash MSK: FROM x 4 Neuro: CN 2-12 grossly intact, no new focal deficits Psych: calm - Constitutional Vitals: Temp Pulse Resp BP Pulse Ox 98.6 F 62 20 169/80 99 03/20/19 07:19 03/20/19 10:00 03/20/19 07:03 03/20/19 09:10 03/20/19 07:19 Plan Activity: other (no strenous activity) Diet: low salt, diabetic Special Instructions: record daily BP diary, record blood sugar diary Follow up with: LORELEI VASQUEZ MD [Staff Physician] - 7 Days AISHA CARR MD [Staff Physician] - 7 Days [facility] MD WARREN [Primary Care Provider] - 7 Days SUE CAMPOS MD [Staff Physician] - 7 Days Prescriptions: Spironolactone [Aldactone] 25 mg PO BID #60 tablet cloNIDine [Catapres] 0.1 mg PO Q8HR #90 tablet Losartan [Cozaar] 100 mg PO QDAY #60 tablet Insulin Regular, Human [HumuLIN R] 0 unit SQ AC #1 vial Other Discharge Orders: Glucometer (Amb) Location: None Selected Glucometer supplies[Amb] Location: None Selected
[2019-03-20 21:16] VITALS: BP 145/70
[2019-03-20] MEDS: AMBIEN PO SCH (21:37)
== END 2019-03-20 23:59 | disposition home or self-care (01) | DRG 637 ==
LOC: ED 17:42 → CC1 03-16 03:46 → 4A 03-16 13:23 → 2B-ACE 03-18 12:45
PROVIDERS: ADMIT Internal Medicine; ATTEND Internal Medicine
PROC: 5A1D70Z Performance of Urinary Filtration, Intermittent, Less than 6 Hours Per Day (ICD-10-PCS; principal; 2019-03-16)
PROC: 5A1D70Z Performance of Urinary Filtration, Intermittent, Less than 6 Hours Per Day (ICD-10-PCS; 2019-03-17)
PROC: 5A1D70Z Performance of Urinary Filtration, Intermittent, Less than 6 Hours Per Day (ICD-10-PCS; 2019-03-19)
DX: E11.65 Type 2 diabetes mellitus with hyperglycemia (principal); I50.43 Acute on chronic combined systolic (congestive) and diastolic (congestive) heart failure; N18.6 End stage renal disease; I13.2 Hypertensive heart and chronic kidney disease with heart failure and with stage 5 chronic kidney disease, or end stage renal disease; N25.81 Secondary hyperparathyroidism of renal origin; I42.9 Cardiomyopathy, unspecified; I16.0 Hypertensive urgency; E11.22 Type 2 diabetes mellitus with diabetic chronic kidney disease; R91.1 Solitary pulmonary nodule; E89.0 Postprocedural hypothyroidism; D63.1 Anemia in chronic kidney disease; G43.909 Migraine, unspecified, not intractable, without status migrainosus; Z99.2 Dependence on renal dialysis; Z90.49 Acquired absence of other specified parts of digestive tract; Z82.49 Family history of ischemic heart disease and other diseases of the circulatory system; Z79.899 Other long term (current) drug therapy; Z79.82 Long term (current) use of aspirin
CPT/HCPCS: 36415; 71275; 80048; 80061; 80076; 82550; 82553; 82805; 82962; 83880; 84484; 85025; 93005; 93010; 96374; 96375; G0378; J0360; J1650; J1815; J7030; J7050; Q9967

== ENCOUNTER 2019-09-09 18:40 | Inpatient (IN) | payer MEDICARE ==
[2019-09-09] MEDS ORDERED: ASPIRIN PO ONE (19:36)
[2019-09-09] MEDS ORDERED: APRESOLINE IV ONE ×2 (19:37→20:08)
[2019-09-09] MEDS ORDERED: TYLENOL PO ONE (20:03)
--- NOTE | 2019-09-09 20:06 | Event Note ---
Date of service: 09/09/19 Face to Face: Nephrology: Dr. Devin Plaza The patient is [id number] and requests that her son translate for her. The patient has end-stage renal disease, and is on dialysis, and presents with shortness of breath, JVD, subjective abdominal discomfort. Found to have evidence of fluid overload, manifest by JVD, crackles, rales, x-ray of the chest showing pulmonary vascular congestion, CT scan abdomen pelvis, obtained for complaint of abdominal pain, also shows pulmonary vascular congestion. 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 Vital Signs - 24 hr 09/09/19 09/09/19 09/09/19 18:58 19:00 19:01 Temperature 98.3 F Pulse Rate 70 69 69 Respiratory 26 H 18 30 H Rate Blood Pressure 211/94 211/94 O2 Sat by Pulse 94 91 92 Oximetry 09/09/19 09/09/19 09/09/19 19:15 19:31 19:45 Temperature Pulse Rate 67 67 67 Respiratory 27 H 16 28 H Rate Blood Pressure 215/90 212/90 218/95 O2 Sat by Pulse 99 99 99 Oximetry 09/09/19 09/09/19 09/09/19 20:01 20:25 20:31 Temperature Pulse Rate 69 70 61 Respiratory 39 H 16 Rate Blood Pressure 212/96 212/96 153/100 O2 Sat by Pulse 96 95 93 Oximetry 09/09/19 20:45 Temperature Pulse Rate 67 Respiratory 22 Rate Blood Pressure 205/90 O2 Sat by Pulse 94 Oximetry
[2019-09-09] MEDS ORDERED: NITROSTAT SL ONE (20:08)
--- NOTE | 2019-09-09 20:16 | XRay Report ---
CHEST 2 VIEWS INDICATION / CLINICAL INFORMATION: dyspnea. Difficulty breathing today. COMPARISON: 04/13/19 FINDINGS: SUPPORT DEVICES: None. HEART / MEDIASTINUM: Heart is enlarged but stable. LUNGS / PLEURA: Moderate interstitial pulmonary edema with James B lines. Mild thickening of the fis sures. No pneumothorax. ADDITIONAL FINDINGS: No significant additional findings. IMPRESSION: 1. Cardiomegaly with moderate pulmonary edema. Signer Name: Margo Hernandez MD Signed: 09/09/2019 8:12 PM Workstation Name: [id number]
--- NOTE | 2019-09-09 20:57 | Cat Scan Report ---
CT ABDOMEN AND PELVIS WITHOUT CONTRAST INDICATION / CLINICAL INFORMATION: abd pain htn sob. TECHNIQUE: Axial CT images were obtained through the abdomen and pelvis without IV contrast. All CT scans at [facility] location are performed using CT dose reduction for ALARA by means of automated exposure control. COMPARISON: None available. FINDINGS: LOWER CHEST: Heart is enlarged with mild to moderate bibasilar interstitial pulmonary edema and small bilateral pleural effusions. LIVER: No significant abnormality. GALLBLADDER: No significant abnormality. BILE DUCTS: No significant abnormality. PANCREAS: No significant abnormality. SPLEEN: No significant abnormality. ADRENALS: No significant abnormality. RIGHT KIDNEY and URETER: Atrophic. No acute abnormality. LEFT KIDNEY and URETER: Atrophic. No acute abnormality. Small cysts. STOMACH and SMALL BOWEL: No significant abnormality. COLON: Moderate amount of fecal material throughout the colon. No acute findings. APPENDIX: No significant abnormality. PERITONEUM: Small amount of free fluid around the liver. No free air. No fluid collection. LYMPH NODES: No significant adenopathy. AORTA and ARTERIES: Extensive vascular calcifications likely related to diabetes and/or renal failure . IVC and VEINS: No significant abnormality. URINARY BLADDER: No significant abnormality. REPRODUCTIVE ORGANS: Uterine fibroids. No acute abnormality. ADDITIONAL FINDINGS: None. SKELETAL SYSTEM: No significant abnormality. IMPRESSION: 1. No inflammatory process or bowel obstruction. 2. Cardiomegaly with bibasilar pulmonary edema and small bilateral pleural effusions. 3. Atrophic kidneys and vascular calcifications likely related to diabetes and/or renal failure. Signer Name: Margo Hernandez MD Signed: 09/09/2019 8:52 PM Workstation Name: [id number]
[2019-09-09 21:13] LABS: Basophils # (Auto) 0.1 K/mm3 (0.0-0.1); Basophils % (Auto) 0.9 % (0.0-1.8); Eosinophils # (Auto) 0.2 K/mm3 (0.0-0.4); Eosinophils % (Auto) 2.6 % (0.0-4.3); Hematocrit 29.9 % (30.3-42.9); Hemoglobin 9.6 gm/dl (10.1-14.3); Lymphocytes # (Auto) 1.6 K/mm3 (1.2-5.4); Lymphocytes % (Auto) 25.3 % (13.4-35.0); Mean Corpuscular HGB Conc 32 % (30-34); Mean Corpuscular Volume 76 fl (79-97); Monocytes # (Auto) 0.3 K/mm3 (0.0-0.8); Monocytes % (Auto) 4.5 % (0.0-7.3); Platelet Count 185 K/mm3 (140-440); Red Blood Count 3.91 M/mm3 (3.65-5.03)
[2019-09-09 21:14] LABS: Red Cell Distribution Width 21.6 % (13.2-15.2)
--- NOTE | 2019-09-09 21:29 | Emergency Department Report ---
<RAH PATEL - Last Filed: 09/09/19 22:37> ED Shortness of Breath HPI - General Chief Complaint: Dyspnea/Respdistress Stated Complaint: ALONSO - Related Data Home Medications Medication Instructions Recorded Confirmed Last Taken Loratadine [Claritin] 10 mg PO QDAY 01/02/19 09/09/19 02/17/19 Meclizine HCl [Wal-Dram 2] 25 mg PO TID 01/02/19 09/09/19 02/17/19 Zolpidem [Ambien] 5 mg PO QHS 01/02/19 09/09/19 02/17/19 glipiZIDE [Glipizide] 10 mg PO BID 01/02/19 09/09/19 02/17/19 hydrALAZINE [Apresoline TAB] 100 mg PO TID 01/02/19 09/09/19 02/17/19 Previous Rx's Medication Instructions Recorded Last Taken Type Aspirin [Aspirin BABY CHEW TAB] 81 mg PO QDAY #30 tab.chew 01/04/19 02/17/19 Rx Carvedilol [Coreg] 25 mg PO BID #60 tablet 01/04/19 02/17/19 Rx amLODIPine [Norvasc] 10 mg PO QDAY #30 tablet 01/04/19 02/17/19 Rx Insulin Regular, Human [HumuLIN R] 0 unit SQ AC #1 vial 03/19/19 Unknown Rx Losartan [Cozaar] 100 mg PO QDAY #60 tablet 03/19/19 Unknown Rx Spironolactone [Aldactone] 25 mg PO BID #60 tablet 03/20/19 Unknown Rx cloNIDine [Catapres] 0.1 mg PO Q8HR #90 tablet 03/20/19 Unknown Rx Allergies Allergy/AdvReac Type Severity Reaction Status Date / Time No Known Allergies Allergy Verified 01/01/19 23:56 ED Past Medical Hx - Medications Home Medications: Home Medications Medication Instructions Recorded Confirmed Last Taken Type Loratadine [Claritin] 10 mg PO QDAY 01/02/19 09/09/19 02/17/19 History Meclizine HCl [Wal-Dram 2] 25 mg PO TID 01/02/19 09/09/19 02/17/19 History Zolpidem [Ambien] 5 mg PO QHS 01/02/19 09/09/19 02/17/19 History glipiZIDE [Glipizide] 10 mg PO BID 01/02/19 09/09/19 02/17/19 History hydrALAZINE [Apresoline TAB] 100 mg PO TID 01/02/19 09/09/19 02/17/19 History Aspirin [Aspirin BABY CHEW TAB] 81 mg PO QDAY #30 tab.chew 01/04/19 09/09/19 02/17/19 Rx Carvedilol [Coreg] 25 mg PO BID #60 tablet 01/04/19 09/09/19 02/17/19 Rx amLODIPine [Norvasc] 10 mg PO QDAY #30 tablet 01/04/19 09/09/19 02/17/19 Rx Insulin Regular, Human [HumuLIN R] 0 unit SQ AC #1 vial 03/19/19 09/09/19 Unknown Rx Losartan [Cozaar] 100 mg PO QDAY #60 tablet 03/19/19 09/09/19 Unknown Rx Spironolactone [Aldactone] 25 mg PO BID #60 tablet 03/20/19 09/09/19 Unknown Rx cloNIDine [Catapres] 0.1 mg PO Q8HR #90 tablet 03/20/19 09/09/19 Unknown Rx ED Course - Reevaluation(s) Reevaluation #2: 09/09/19 22:37 Laboratory studies reviewed and appreciated. Patient will be started on nitroglycerin for supportive care and symptomatic control. Elevated troponin is likely a type II troponin leak. Nephrology has been contacted. High-dose Lasix ordered. The Hospital physician, Dr. Knowles has been contacted, she is agreed to admit the patient to the medical service. ED Medical Decision Making - Lab Data Result diagrams: 09/09/19 20:35 09/09/19 20:35 Vital Signs 09/09/19 09/09/19 09/09/19 18:58 19:00 19:01 Temperature 98.3 F Pulse Rate 70 69 69 Respiratory 26 H 18 30 H Rate Blood Pressure 211/94 211/94 O2 Sat by Pulse 94 91 92 Oximetry 09/09/19 09/09/19 09/09/19 19:15 19:31 19:45 Temperature Pulse Rate 67 67 67 Respiratory 27 H 16 28 H Rate Blood Pressure 215/90 212/90 218/95 O2 Sat by Pulse 99 99 99 Oximetry 09/09/19 09/09/19 09/09/19 20:01 20:25 20:31 Temperature Pulse Rate 69 70 61 Respiratory 39 H 16 Rate Blood Pressure 212/96 212/96 153/100 O2 Sat by Pulse 96 95 93 Oximetry 09/09/19 09/09/19 09/09/19 20:45 21:00 21:15 Temperature Pulse Rate 67 67 68 Respiratory 22 30 H 32 H Rate Blood Pressure 205/90 210/89 217/97 O2 Sat by Pulse 94 92 92 Oximetry 09/09/19 09/09/19 09/09/19 21:18 21:30 21:45 Temperature Pulse Rate 67 68 Respiratory 18 21 14 Rate Blood Pressure 209/95 214/91 O2 Sat by Pulse 90 86 Oximetry 09/09/19 09/09/19 22:01 22:15 Temperature Pulse Rate 66 67 Respiratory 28 H 28 H Rate Blood Pressure 210/87 211/95 O2 Sat by Pulse 89 90 Oximetry Lab Results 09/09/19 09/09/19 09/09/19 Range/Units 20:35 20:35 20:35 WBC 6.4 (4.5-11.0) K/mm3 RBC 3.91 (3.65-5.03) M/mm3 Hgb 9.6 L (10.1-14.3) gm/dl Hct 29.9 L (30.3-42.9) % MCV 76 L (79-97) fl MCH 25 L (28-32) pg MCHC 32 (30-34) % RDW 21.6 H (13.2-15.2) % Plt Count 185 (140-440) K/mm3 Lymph % (Auto) 25.3 (13.4-35.0) % Mower % (Auto) 4.5 (0.0-7.3) % Eos % (Auto) 2.6 (0.0-4.3) % Baso % (Auto) 0.9 (0.0-1.8) % Lymph # 1.6 (1.2-5.4) K/mm3 Mower # 0.3 (0.0-0.8) K/mm3 Eos # 0.2 (0.0-0.4) K/mm3 Baso # 0.1 (0.0-0.1) K/mm3 Seg Neutrophils % 66.7 (40.0-70.0) % Seg Neutrophils # 4.2 (1.8-7.7) K/mm3 PT 13.6 (12.2-14.9) Sec. INR 1.07 (0.87-1.13) APTT 27.1 (24.2-36.6) Sec. Sodium 140 (137-145) mmol/L Potassium 5.1 H (3.6-5.0) mmol/L Chloride 94.9 L (98-107) mmol/L Carbon Dioxide 25 (22-30) mmol/L Anion Gap 25 mmol/L BUN 45 H (7-17) mg/dL Creatinine 8.3 H (0.7-1.2) mg/dL Estimated GFR 6 ml/min BUN/Creatinine Ratio 5 % Glucose 270 H (65-100) mg/dL Calcium 9.3 (8.4-10.2) mg/dL Magnesium (1.7-2.3) mg/dL Total Bilirubin 0.30 (0.1-1.2) mg/dL AST 104 H (5-40) units/L ALT 84 H (7-56) units/L Alkaline Phosphatase 195 H (35-129) units/L Total Creatine Kinase (30-135) units/L Troponin T 0.143 H* (0.00-0.029) ng/mL NT-Pro-B Natriuret Pep (0-900) pg/mL Total Protein 7.6 (6.3-8.2) g/dL Albumin 3.9 (3.9-5) g/dL Albumin/Globulin Ratio 1.1 % Triglycerides 86 (2-149) mg/dL Cholesterol 126 (50-199) mg/dL LDL Cholesterol Direct 73 (50-130) mg/dL HDL Cholesterol 42 (40-59) mg/dL Cholesterol/HDL Ratio 3.00 % 09/09/19 09/09/19 Range/Units 20:35 20:35 WBC (4.5-11.0) K/mm3 RBC (3.65-5.03) M/mm3 Hgb (10.1-14.3) gm/dl Hct (30.3-42.9) % MCV (79-97) fl MCH (28-32) pg MCHC (30-34) % RDW (13.2-15.2) % Plt Count (140-440) K/mm3 Lymph % (Auto) (13.4-35.0) % Mower % (Auto) (0.0-7.3) % Eos % (Auto) (0.0-4.3) % Baso % (Auto) (0.0-1.8) % Lymph # (1.2-5.4) K/mm3 Mower # (0.0-0.8) K/mm3 Eos # (0.0-0.4) K/mm3 Baso # (0.0-0.1) K/mm3 Seg Neutrophils % (40.0-70.0) % Seg Neutrophils # (1.8-7.7) K/mm3 PT (12.2-14.9) Sec. INR (0.87-1.13) APTT (24.2-36.6) Sec. Sodium (137-145) mmol/L Potassium (3.6-5.0) mmol/L Chloride (98-107) mmol/L Carbon Dioxide (22-30) mmol/L Anion Gap mmol/L BUN (7-17) mg/dL Creatinine (0.7-1.2) mg/dL Estimated GFR ml/min BUN/Creatinine Ratio % Glucose (65-100) mg/dL Calcium (8.4-10.2) mg/dL Magnesium 2.30 (1.7-2.3) mg/dL Total Bilirubin (0.1-1.2) mg/dL AST (5-40) units/L ALT (7-56) units/L Alkaline Phosphatase (35-129) units/L Total Creatine Kinase 80 (30-135) units/L Troponin T (0.00-0.029) ng/mL NT-Pro-B Natriuret Pep > 61228 H (0-900) pg/mL Total Protein (6.3-8.2) g/dL Albumin (3.9-5) g/dL Albumin/Globulin Ratio % Triglycerides (2-149) mg/dL Cholesterol (50-199) mg/dL LDL Cholesterol Direct (50-130) mg/dL HDL Cholesterol (40-59) mg/dL Cholesterol/HDL Ratio % - EKG Data -: EKG Interpreted by Me Critical Care Time: Yes Critical care time in (mins) excluding proc time.: 35 ED Disposition Clinical Impression: Hypertension with fluid overload, ESRD (end stage renal disease), Shortness of breath at rest, End stage renal disease on dialysis Pulmonary edema Qualifiers: Chronicity: chronic Qualified Code(s): J81.1 - Chronic pulmonary edema Disposition: OP ADMIT IP TO THIS HOSP Is pt being admited?: Yes Does the pt Need Aspirin: Yes Condition: Stable Instructions: Pulmonary Edema (ED), Hypertension (ED) Referrals: KEVIN TUCKER MD [Primary Care Provider] - 3-5 Days <MEG PICKETT - Last Filed: 09/09/19 22:52> ED Shortness of Breath HPI - General Source: patient, family, EMS Mode of arrival: Ambulatory Limitations: No Limitations - History of Present Illness Initial Comments: Patient is a 64-year-old -Portuguese female with a history of hypertension, vfu-lmizfba-hwpwxbbjm diabetes, CHF, hyperlipidemia and ESRD on hemodialysis 3 times a week who presented to the ED today with Banegas of acute onset persistent worsening shortness of breath with generalized weakness, dry cough and fatigue for 24 hours. Patient states that the shortness of breath is persistent both at rest and with exertion. Patient states that the last time she was at dialysis was 2 days ago. Patient also states that she has previously been treated for pneumonia the last of which was over 6 months ago. Patient denies fever, chills, nausea, vomiting, chest pain, headache, dizziness, abdominal pain, change in vision, syncope, numbness and tingling or weakness of upper and lower extremities bilaterally or diarrhea. Patient states that her and her configuration management architect is Dr. Anthony Watters MD Complaint: shortness of breath, cough -: Sudden, hour(s) (24) Radiation: other (Nonradiating) Severity: severe Pain Scale: 7 Quality: dull, other (tightness and pressure) Consistency: constant Improves With: nothing Worsens With: nothing Known History Of: congestive heart failure, diabetes, recurrent pnemonia Associated Symptoms: denies other symptoms, cough, abdominal pain Treatments Prior to Arrival: none - Related Data Home Oxygen Therapy: No ED Review of Systems ROS: Stated complaint: ALONSO Other details as noted in HPI Constitutional: malaise, weakness. denies: chills, fever Eyes: denies: eye pain, eye discharge, vision change ENT: denies: ear pain, throat pain Respiratory: cough, shortness of breath. denies: wheezing Cardiovascular: dyspnea on exertion. denies: chest pain, palpitations Endocrine: no symptoms reported Gastrointestinal: abdominal pain. denies: nausea, vomiting, diarrhea Genitourinary: denies: urgency, dysuria, discharge Musculoskeletal: denies: back pain, joint swelling, arthralgia Skin: denies: rash, lesions Neurological: denies: headache, weakness, paresthesias Psychiatric: denies: anxiety, depression Hematological/Lymphatic: denies: easy bleeding, easy bruising ED Past Medical Hx - Past Medical History Hx Hypertension: Yes Hx Congestive Heart Failure: Yes Hx Diabetes: Yes Hx Renal Disease: Yes (HD MWF) Hx Headaches / Migraines: Yes Hx Asthma: No Hx COPD: No Additional medical history: Renal failure. Dialysis M, W, F - Surgical History Hx Cholecystectomy: Yes Additional Surgical History: Abdominal surgery (patient states she cannot remember what was performed). Neck surgery/tracheotomy? - Social History Smoking Status: Never Smoker Substance Use Type: None ED Physical Exam - General Limitations: No Limitations General appearance: alert, in no apparent distress - Head Head exam: Present: atraumatic, normocephalic, normal inspection - Eye Eye exam: Present: normal appearance, PERRL, EOMI Pupils: Present: normal accommodation - ENT ENT exam: Present: normal exam, normal orophraynx, mucous membranes moist - Neck Neck exam: Present: normal inspection, full ROM. Absent: tenderness - Respiratory Respiratory exam: Present: normal lung sounds bilaterally, wheezes (mildly diffuse), rhonchi (Bilateral lower lobes), other (tachypnea in triage). Absent: respiratory distress, chest wall tenderness - Cardiovascular Cardiovascular Exam: Present: regular rate, normal rhythm. Absent: systolic murmur, diastolic murmur, rubs, gallop - GI/Abdominal GI/Abdominal exam: Present: soft, normal bowel sounds. Absent: tenderness, guarding - Extremities Exam Extremities exam: Present: normal inspection, full ROM, normal capillary refill - Back Exam Back exam: Present: normal inspection, full ROM - Neurological Exam Neurological exam: Present: alert, oriented X3, CN II-XII intact, normal gait, reflexes normal - Psychiatric Psychiatric exam: Present: normal affect, normal mood - Skin Skin exam: Present: warm, dry, intact, normal color. Absent: rash ED Course Vital Signs 09/09/19 09/09/19 09/09/19 18:58 19:00 19:01 Temperature 98.3 F Pulse Rate 70 69 69 Respiratory 26 H 18 30 H Rate Blood Pressure 211/94 211/94 O2 Sat by Pulse 94 91 92 Oximetry 09/09/19 09/09/19 09/09/19 19:15 19:31 19:45 Temperature Pulse Rate 67 67 67 Respiratory 27 H 16 28 H Rate Blood Pressure 215/90 212/90 218/95 O2 Sat by Pulse 99 99 99 Oximetry 09/09/19 09/09/19 09/09/19 20:01 20:25 20:31 Temperature Pulse Rate 69 70 61 Respiratory 39 H 16 Rate Blood Pressure 212/96 212/96 153/100 O2 Sat by Pulse 96 95 93 Oximetry 09/09/19 09/09/19 09/09/19 20:45 21:00 21:15 Temperature Pulse Rate 67 67 68 Respiratory 22 30 H 32 H Rate Blood Pressure 205/90 210/89 217/97 O2 Sat by Pulse 94 92 92 Oximetry 09/09/19 09/09/19 09/09/19 21:18 21:30 21:45 Temperature Pulse Rate 67 68 Respiratory 18 21 14 Rate Blood Pressure 209/95 214/91 O2 Sat by Pulse 90 86 Oximetry 09/09/19 09/09/19 22:01 22:15 Temperature Pulse Rate 66 67 Respiratory 28 H 28 H Rate Blood Pressure 210/87 211/95 O2 Sat by Pulse 89 90 Oximetry - Reevaluation(s) Reevaluation #1: 09/09/19 21:46 This is a 64-year-old -Portuguese female with a history of end-stage renal disease on hemodialysis, hypertension, hxa-tnylvja-fhreobclh diabetes, hyperte nsion, CHF and hyperlipidemia who presented to the ED with shortness of breath and generalized weakness with dry cough. In the ED, patient is alert and oriented 3 and is not in distress but tachypneic and hypertensive in triage. Labs were drawn chest x-ray also ordered. Patient was treated for hypertension also given aspirin and nitroglycerin. Patient's configuration management architect Dr. Orozco was also paged. Chest x-ray shows cardiomegaly with moderate pulmonary edema. Abdomen pelvis CT scan without contrast shows no acute inflammatory process or small bowel obstruction. It shows cardiomegaly with bibasilar pulmonary edema and bilateral small pleural effusions. I discussed the patient's case with the ED attending physician Dr. Patel also evaluated the patient and agree with the plan of care. I discussed the patient's case with Dr. Orozco who advised that the patient be admitted for hemodialysis in the morning. The plan is to admit the patient to the hospital by hospitalist physician on-call after all lab test results are reviewed, and nephrology shall dialyze the patient in the morning. Lab test results were reviewed and shows an elevated troponin of 0.143 with BNP of greater than 35,000. Patient case was discussed with the hospitalist physician corporate vp advertising & online Dr. Knowles will admitted the patient. 09/09/19 21:54 09/09/19 22:50 09/09/19 22:50 ED Medical Decision Making - Lab Data Result diagrams: 09/09/19 20:35 09/09/19 20:35 - Radiology Data Radiology results: report reviewed, [place] [address] Cat Scan Report Signed Patient: DIANA NATION MR#: [id number] : 1955 Acct:[id number] Age/Sex: 64 / F ADM Date: 09/09/19 Loc: ED Attending Dr: Ordering Physician: RAH PATEL MD Date of Service: 09/09/19 Procedure(s): CT abdomen pelvis wo con Accession Number(s): [id number] cc: RAH PATLE MD CT ABDOMEN AND PELVIS WITHOUT CONTRAST INDICATION / CLINICAL INFORMATION: abd pain htn sob. TECHNIQUE: Axial CT images were obtained through the abdomen and pelvis without IV contrast. All CT scans at this location are performed using CT dose reduction for ALARA by means of automated exposure control. COMPARISON: None available. FINDINGS: LOWER CHEST: Heart is enlarged with mild to moderate bibasilar interstitial pulm onary edema and small bilateral pleural effusions. LIVER: No significant abnormality. GALLBLADDER: No significant abnormality. BILE DUCTS: No significant abnormality. PANCREAS: No significant abnormality. SPLEEN: No significant abnormality. ADRENALS: No significant abnormality. RIGHT KIDNEY and URETER: Atrophic. No acute abnormality. LEFT KIDNEY and URETER: Atrophic. No acute abnormality. Small cysts. STOMACH and SMALL BOWEL: No significant abnormality. COLON: Moderate amount of fecal material throughout the colon. No acute findings. APPENDIX: No significant abnormality. PERITONEUM: Small amount of free fluid around the liver. No free air. No fluid collection. LYMPH NODES: No significant adenopathy. AORTA and ARTERIES: Extensive vascular calcifications likely related to diabetes and/or renal failure. IVC and VEINS: No significant abnormality. URINARY BLADDER: No significant abnormality. REPRODUCTIVE ORGANS: Uterine fibroids. No acute abnormality. ADDITIONAL FINDINGS: None. SKELETAL SYSTEM: No significant abnormality. IMPRESSION: 1. No inflammatory process or bowel obstruction. 2. Cardiomegaly with bibasilar pulmonary edema and small bilateral pleural effusions. 3. Atrophic kidneys and vascular calcifications likely related to diabetes and/or renal failure. Signer Name: Margo Hernandez MD Signed: 09/09/2019 8:52 PM Workstation Name: [id number] Transcribed By: DIMITRY Dictated By: Meg Hernandez MD Electronically Authenticated By: Meg Hernandez MD Signed Date/Time: 09/09/192051 DD/ 48 TD/TT: --------- Findings [facility] [address] [place] [address] XRay Report Signed Patient: DIANA NATION MR#: [id number] : 1955 Acct:[id number] Age/Sex: 64 / F ADM Date: 09/09/19 Loc: ED Attending Dr: Ordering Physician: EUSEBIO PATTON Date of Service: 09/09/19 Procedure(s): XR chest routine 2V Accession Number(s): [id number] cc: EUSEBIO PATTON Fluoro Time In Minutes: CHEST 2 VIEWS INDICATION / CLINICAL INFORMATION: dyspnea. Difficulty breathing today. COMPARISON: 04/13/19 FINDINGS: SUPPORT DEVICES: None. HEART / MEDIASTINUM: Heart is enlarged but stable. LUNGS / PLEURA: Moderate interstitial pulmonary edema with James B lines. Mild thickening of the fissures. No pneumothorax. ADDITIONAL FINDINGS: No significant additional findings. IMPRESSION: 1. Cardiomegaly with moderate pulmonary edema. Signer Name: Margo Hernandez MD Signed: 09/09/2019 8:12 PM Workstation Name: [id number] Transcribed By: DT Dictated By: Meg Hernandez MD Electronically Authenticated By: Meg Hernandez MD Signed Date/Time: 09/09/192011 DD/ 10 TD/TT: - Medical Decision Making 09/09/19 21:46 This is a 64-year-old -Portuguese female with a history of end-stage renal disease on hemodialysis, hypertension, ttz-oxyriyu-kprgfvjni diabetes, hype rtension, CHF and hyperlipidemia who presented to the ED with shortness of breath and generalized weakness with dry cough. In the ED, patient is alert and oriented 3 and is not in distress but tachypneic and hypertensive in triage. Labs were drawn chest x-ray also ordered. Patient was treated for hypertension also given aspirin and nitroglycerin. Patient's configuration management architect Dr. Orozco was also paged. Chest x-ray shows cardiomegaly with moderate pulmonary edema. Abdomen pelvis CT scan without contrast shows no acute inflammatory process or small bowel obstruction. It shows cardiomegaly with bibasilar pulmonary edema and bilateral small pleural effusions. I discussed the patient's case with the ED attending physician Dr. Caraballooff also evaluated the patient and agree with the plan of care. I discussed the patient's case with Dr. Orozco who advised that the patient be admitted for hemodialysis in the morning. The plan is to admit the patient to the hospital by hospitalist physician on-call after all lab test results are reviewed, and nephrology shall dialyze the patient in the morning. Lab test results were reviewed and shows an elevated troponin of 0.143 with BNP of greater than 35,000. Patient case was discussed with the hospitalist physician corporate vp advertising & online Dr. Knowles will admitted the patient. - Differential Diagnosis Dyspnea; Pulmonary edema; Fluid overload; Hypertensive emergency Critical care attestation.: If time is entered above; I have spent that time in minutes in the direct care of this critically ill patient, excluding procedure time.
[2019-09-09 21:30] LABS: INR 1.07 (0.87-1.13)
[2019-09-09 21:31] LABS: Partial Thromboplastin Time 27.1 Sec. (24.2-36.6)
[2019-09-09 22:14] LABS: Albumin 3.9 g/dL (3.9-5); Calcium 9.3 mg/dL (8.4-10.2)
[2019-09-09] MEDS ORDERED: LASIX IV ONE (22:21)
[2019-09-09] MEDS ORDERED: BABY ASPIRIN PO ONE (22:39)
[2019-09-09] MEDS: TRIDIL DRIP 50MG/250ML 50 MG/250 ML BOTTLE IV SCH (23:09)
--- NOTE | 2019-09-09 23:55 | History and Physical Report ---
History of Present Illness Date of examination: 09/09/19 History of present illness: 64 year old woman with history of hypertension, diabetes, end-stage renal disease on dialysis comes to the emergency room because of shortness of breath, states she is compliant with dialysis, but not diet. Also complaining of chest pain, located in the right substernal area, she is unable to describe it, intermittent every 5 minutes, no radiation, intensity 5/10, cannot identify exacerbating or relieving factors. Admits to shortness of breath, no nausea vomiting, diaphoresis In the emergency room her blood pressure has been on control with antihypertensive, she was started on a nitroglycerin drip Review of systems Constitutional: no weight loss, chills, fever Ears, eyes, nose, mouth and throat: no nasal congestion, no nasal discharge, no sinus pressure, no vision change, no red eye. Neck: No neck pain or rigidity. Cardiovascular: no palpitations Respiratory: no cough Gastrointestinal: no hematochezia, abdominal pain Genitourinary : no frequency , no hematuria Musculoskeletal: no joint swelling or muscle ache Integumentary: no rash, no pruritis Neurological: no parathesias, no focal weakness Endocrine: no cold or heat intolerance, no polyuria or polydipsia Hematologic/Lymphatic: no easy bruising, no easy bleeding, no gland swelling Allergic/Immunologic: no urticaria, no angioedema. PAST MEDICAL HISTORY:hypertension, diabetes, end-stage renal disease PAST SURGICAL HISTORY: AV fistula, thyroidectomy, cholecystectomy SOCIAL HISTORY: Denies alcohol, drugs, tobacco Medications and Allergies Allergies Allergy/AdvReac Type Severity Reaction Status Date / Time No Known Allergies Allergy Verified 01/01/19 23:56 Home Medications Medication Instructions Recorded Confirmed Last Taken Type Loratadine [Claritin] 10 mg PO QDAY 01/02/19 09/09/19 02/17/19 History Meclizine HCl [Wal-Dram 2] 25 mg PO TID 01/02/19 09/09/19 02/17/19 History Zolpidem [Ambien] 5 mg PO QHS 01/02/19 09/09/19 02/17/19 History glipiZIDE [Glipizide] 10 mg PO BID 01/02/19 09/09/19 02/17/19 History hydrALAZINE [Apresoline TAB] 100 mg PO TID 01/02/19 09/09/19 02/17/19 History Aspirin [Aspirin BABY CHEW TAB] 81 mg PO QDAY #30 tab.chew 01/04/19 09/09/19 02/17/19 Rx Carvedilol [Coreg] 25 mg PO BID #60 tablet 01/04/19 09/09/19 02/17/19 Rx amLODIPine [Norvasc] 10 mg PO QDAY #30 tablet 01/04/19 09/09/19 02/17/19 Rx Insulin Regular, Human [HumuLIN R] 0 unit SQ AC #1 vial 03/19/19 09/09/19 Unknown Rx Losartan [Cozaar] 100 mg PO QDAY #60 tablet 03/19/19 09/09/19 Unknown Rx Spironolactone [Aldactone] 25 mg PO BID #60 tablet 03/20/19 09/09/19 Unknown Rx cloNIDine [Catapres] 0.1 mg PO Q8HR #90 tablet 03/20/19 09/09/19 Unknown Rx Active Meds: Active Medications Enoxaparin Sodium (Lovenox) 30 mg SUB-Q QDAY ART Nitroglycerin/Dextrose (Tridil Drip 50mg/250ml) 50 mg in 250 mls @ 3 mls/hr IV TITR ART; Protocol Last Admin: 09/09/19 23:09 Dose: 10 mcg/min, 3 mls/hr Documented by: Exam - Physical Exam Narrative exam: General Apperance: The patient sitting in bed no acute distress HEENT: Normocephalic, atraumatic. Pupils equally round and reactive to light, extraocular movement intact, and no sclericterus or JVD or thyromegaly or nodule. Neck supple, no carotid bruit, mucous membranes moist, no exudate or erythema Heart: S1-S2, regular is rhythm Lungs: Crqckles bilaterally, breathing comfortable Abdomen: Positive bowel sounds, soft, nontender, nondistended, no organomegaly Extremities: No edema cyanosis clubbing Skin: no rash, nodule, warm and dry Neuro:CN 2 -12 intact, motor/sensory intact, speech is fluent - Constitutional Vitals: Temp Pulse Resp BP Pulse Ox 98.3 F 64 25 H 193/83 98 09/09/19 19:00 09/09/19 23:30 09/09/19 23:30 09/09/19 23:30 09/09/19 23:30 Results - Labs CBC & Chem 7: 09/09/19 20:35 09/09/19 20:35 Labs: Abnormal lab results 09/09/19 09/09/19 09/09/19 Range/Units 20:35 20:35 20:35 Hgb 9.6 L (10.1-14.3) gm/dl Hct 29.9 L (30.3-42.9) % MCV 76 L (79-97) fl MCH 25 L (28-32) pg RDW 21.6 H (13.2-15.2) % Potassium 5.1 H (3.6-5.0) mmol/L Chloride 94.9 L (98-107) mmol/L BUN 45 H (7-17) mg/dL Creatinine 8.3 H (0.7-1.2) mg/dL Glucose 270 H (65-100) mg/dL AST 104 H (5-40) units/L ALT 84 H (7-56) units/L Alkaline Phosphatase 195 H (35-129) units/L Troponin T 0.143 H* (0.00-0.029) ng/mL NT-Pro-B Natriuret Pep > 99281 H (0-900) pg/mL - Imaging and Cardiology Chest x-ray: report reviewed CT scan - abdomen: report reviewed CT scan - pelvis: report reviewed Assessment and Plan Assessment Hypertensive urgency, malignant End-stage disease needing dialysis Chest pain/Abnormal cardiac enzymes Diabetes 2 uncontrolled Plan Admit to medicine Continue nitroglycerin drip Check cardiac enzymes, echo, consult cardiology Consult critical care, renal Check fingersticks and initiate insulin sliding scale DVT prophylaxis
[2019-09-10] MEDS ORDERED: D50W (25GM) Syringe IV PRN (00:19)
[2019-09-10] MEDS ORDERED: SODIUM CHLORIDE FLUSH SYRINGE 10 ML IV PRN (00:19)
[2019-09-10] MEDS ORDERED: ZOFRAN IV PRN (00:19)
[2019-09-10] MEDS ORDERED: TYLENOL ONE (01:05)
[2019-09-10] MEDS: TYLENOL PO PRN (01:07)
[2019-09-10 01:55] LABS: Creatine Kinase MB 2.5 ng/mL (0.0-4.0)
[2019-09-10 04:27] LABS: Basophils # (Auto) 0.1 K/mm3 (0.0-0.1); Basophils % (Auto) 0.8 % (0.0-1.8); Eosinophils # (Auto) 0.2 K/mm3 (0.0-0.4); Eosinophils % (Auto) 3.1 % (0.0-4.3); Hematocrit 26.9 % (30.3-42.9); Hemoglobin 8.9 gm/dl (10.1-14.3); Lymphocytes # (Auto) 1.4 K/mm3 (1.2-5.4); Lymphocytes % (Auto) 21.3 % (13.4-35.0); Mean Corpuscular HGB Conc 33 % (30-34); Mean Corpuscular Volume 75 fl (79-97); Monocytes # (Auto) 0.3 K/mm3 (0.0-0.8); Monocytes % (Auto) 4.7 % (0.0-7.3); Platelet Count 160 K/mm3 (140-440); Red Blood Count 3.56 M/mm3 (3.65-5.03)
[2019-09-10 04:40] LABS: Calcium 9.3 mg/dL (8.4-10.2)
[2019-09-10 06:09] LABS: Creatine Kinase MB 2.5 ng/mL (0.0-4.0)
[2019-09-10] MEDS: HumaLOG SUB-Q SCH ×4 (09:35→23:20)
[2019-09-10] MEDS ORDERED: HumaLOG SUB-Q ONE ×3 (09:36→23:36)
[2019-09-10] MEDS ORDERED: LOVENOX SUB-Q SCH (10:00)
[2019-09-10] MEDS: BABY ASPIRIN PO SCH (10:30)
[2019-09-10] MEDS: NORVASC PO SCH (10:30)
[2019-09-10] MEDS: COZAAR PO SCH (10:30)
[2019-09-10] MEDS: COREG PO SCH ×2 (10:30→23:20)
[2019-09-10] MEDS ORDERED: LOVENOX SUB-Q ONE (10:50)
[2019-09-10] MEDS ORDERED: BABY ASPIRIN ONE (10:50)
[2019-09-10] MEDS ORDERED: COREG ONE ×2 (10:51→23:07)
[2019-09-10] MEDS ORDERED: COZAAR ONE (10:51)
[2019-09-10] MEDS ORDERED: NORVASC ONE (10:51)
[2019-09-10] MEDS: SODIUM CHLORIDE FLUSH SYRINGE 10 ML IV SCH ×2 (11:13→23:20)
[2019-09-10] MEDS ORDERED: NACL 0.9% 100 ML IV PRN (13:16)
[2019-09-10] MEDS ORDERED: PROCRIT IV PRN (13:16)
--- NOTE | 2019-09-10 13:56 | Consultation ---
History of Present Illness Consult date: 09/10/19 Requesting physician: DARSHANA BLACK Consult reason: elevated troponin, hypertension History of present illness: The pt is a 64 YO female with a past medical history of CMP, ESRD (MWF, follows Dr. Plaza), HTN, DM. She has been seen by our practice on prior hospitalizations and infrequently in the office by Dr. Shipman. She presented with c/o "elevated blood pressure" and SOB since yesterday. She reports compliance with her dialysis and medication regimen. She denies any other complaints. Following arrival, pt was noted to have hypertensive emergency and was initiated on nitro gtt in ED. Echo done 01/2019 showed EF 40-45%%, mod LVH with increased echogenicty ? amyloid heart disease, impaired relaxation, RV systolic function mod reduced, RA mild to mod dilated, pericardial effusion seen adjacent to the RA. Lexiscan MPI stress test done 12/2018 was negative for ischemia, EF 38%. Past History Past Medical History: other (as per HPI) Medications and Allergies Allergies Allergy/AdvReac Type Severity Reaction Status Date / Time No Known Allergies Allergy Verified 01/01/19 23:56 Home Medications Medication Instructions Recorded Confirmed Last Taken Type Loratadine [Claritin] 10 mg PO QDAY 01/02/19 09/09/19 02/17/19 History Meclizine HCl [Wal-Dram 2] 25 mg PO TID 01/02/19 09/09/19 02/17/19 History Zolpidem [Ambien] 5 mg PO QHS 01/02/19 09/09/19 02/17/19 History glipiZIDE [Glipizide] 10 mg PO BID 01/02/19 09/09/19 02/17/19 History hydrALAZINE [Apresoline TAB] 100 mg PO TID 01/02/19 09/09/19 02/17/19 History Aspirin [Aspirin BABY CHEW TAB] 81 mg PO QDAY #30 tab.chew 01/04/19 09/09/19 02/17/19 Rx Carvedilol [Coreg] 25 mg PO BID #60 tablet 01/04/19 09/09/19 02/17/19 Rx amLODIPine [Norvasc] 10 mg PO QDAY #30 tablet 01/04/19 09/09/19 02/17/19 Rx Insulin Regular, Human [HumuLIN R] 0 unit SQ AC #1 vial 03/19/19 09/09/19 Unknown Rx Losartan [Cozaar] 100 mg PO QDAY #60 tablet 03/19/19 09/09/19 Unknown Rx Spironolactone [Aldactone] 25 mg PO BID #60 tablet 03/20/19 09/09/19 Unknown Rx cloNIDine [Catapres] 0.1 mg PO Q8HR #90 tablet 03/20/19 09/09/19 Unknown Rx Active Meds: Active Medications Acetaminophen (Tylenol) 650 mg PO Q4H PRN PRN Reason: Pain MILD(1-3)/Fever >100.5/YOUNG Last Admin: 09/10/19 01:07 Dose: 650 mg Documented by: Amlodipine Besylate (Norvasc) 10 mg PO QDAY [facility] Last Admin: 09/10/19 10:30 Dose: 10 mg Documented by: Aspirin (Baby Aspirin) 81 mg PO QDAY [facility] Last Admin: 09/10/19 10:30 Dose: 81 mg Documented by: Carvedilol (Coreg) 25 mg PO BID [facility] Last Admin: 09/10/19 10:30 Dose: 25 mg Documented by: Clonidine HCl (Catapres) 0.1 mg PO Q8HR [facility] Dextrose (D50w (25gm) Syringe) 50 ml IV PRN PRN PRN Reason: Hypoglycemia Enoxaparin Sodium (Lovenox) 30 mg SUB-Q QDAY [facility] Last Admin: 09/10/19 11:13 Dose: 30 mg Documented by: Epoetin Chago (Procrit) 10,000 unit IV TWAN PRN PRN Reason: hemodialysis Hydralazine HCl (Apresoline) 100 mg PO TID [facility] Nitroglycerin/Dextrose (Tridil Drip 50mg/250ml) 50 mg in 250 mls @ 3 mls/hr IV TITR [facility]; Protocol Last Titration: 09/10/19 12:31 Dose: 35 mcg/min, 10.5 mls/hr Documented by: Sodium Chloride (Nacl 0.9%) 100 mls @ 999 mls/hr IV TWAN PRN PRN Reason: Hypotension Insulin Human Lispro (Humalog) 0 unit SUB-Q ACHS [facility]; Protocol Last Admin: 09/10/19 12:53 Dose: 3 unit Documented by: Losartan Potassium (Cozaar) 100 mg PO QDAY [facility] Last Admin: 09/10/19 10:30 Dose: 100 mg Documented by: Ondansetron HCl (Zofran) 4 mg IV Q8H PRN PRN Reason: Nausea And Vomiting Sodium Chloride (Sodium Chloride Flush Syringe 10 Ml) 10 ml IV BID [facility] Last Admin: 09/10/19 11:13 Dose: 10 ml Documented by: Sodium Chloride (Sodium Chloride Flush Syringe 10 Ml) 10 ml IV PRN PRN PRN Reason: LINE FLUSH Zolpidem Tartrate (Ambien) 5 mg PO QHS [facility] Review of Systems Constitutional: no weight loss, no weight gain, no fever, no chills, no sweats Ears, nose, mouth and throat: no ear pain, no nose pain, no sinus pressure, no sinus pain Cardiovascular: shortness of breath, dyspnea on exertion, high blood pressure, no chest pain, no orthopnea, no palpitations, no rapid/irregular heart beat, no edema, no syncope, no lightheadedness Respiratory: no cough, no congestion, no wheezing Gastrointestinal: no abdominal pain, no nausea, no vomiting, no constipation, no change in bowel habits Genitourinary Female: no pelvic pain, no flank pain, no dysuria, no urinary frequency, no urgency Musculoskeletal: no neck stiffness, no neck pain, no shooting arm pain, no arm numbness/tingling, no low back pain, no shooting leg pain Integumentary: no rash, no pruritis, no redness, no sores, no wounds Neurological: no head injury, no paralysis, no weakness, no parathesias, no numbness, no tingling, no seizures, no syncope Psychiatric: no anxiety Endocrine: no cold intolerance, no heat intolerance Hematologic/Lymphatic: no easy bruising, no easy bleeding Allergic/Immunologic: no urticaria, no wheezing Physical Examination Vital Signs Pulse Resp Pulse Ox 70 26 H 94 09/09/19 18:58 09/09/19 18:58 09/09/19 18:58 General appearance: no acute distress HEENT: Positive: PERRL, Normocephaly, Mucus Membranes Moist Neck: Positive: neck supple, trachea midline Cardiac: Positive: Reg Rate and Rhythm, S1/S2 Lungs: Positive: Decreased Breath Sounds Abdomen: Negative: Tender Skin: Negative: Rash Musculoskeletal: No Pain Extremities: Present: edema (trace BLE) Results 10/14/19 03:59 09/10/19 03:59 Cardiac Enzymes 09/09/19 09/10/19 09/10/19 Range/Units 20:35 01:01 05:44 AST 104 H (5-40) units/L CK-MB (CK-2) 2.5 2.5 (0.0-4.0) ng/mL Coagulation 09/09/19 Range/Units 20:35 PT 13.6 (12.2-14.9) Sec. INR 1.07 (0.87-1.13) APTT 27.1 (24.2-36.6) Sec. Lipids 09/09/19 Range/Units 20:35 Triglycerides 86 (2-149) mg/dL Cholesterol 126 (50-199) mg/dL HDL Cholesterol 42 (40-59) mg/dL Cholesterol/HDL Ratio 3.00 % CBC 09/09/19 09/10/19 Range/Units 20:35 03:59 WBC 6.4 6.5 (4.5-11.0) K/mm3 RBC 3.91 3.56 L (3.65-5.03) M/mm3 Hgb 9.6 L 8.9 L (10.1-14.3) gm/dl Hct 29.9 L 26.9 L (30.3-42.9) % Plt Count 185 160 (140-440) K/mm3 Lymph # 1.6 1.4 (1.2-5.4) K/mm3 [place]vert # 0.3 0.3 (0.0-0.8) K/mm3 Eos # 0.2 0.2 (0.0-0.4) K/mm3 Baso # 0.1 0.1 (0.0-0.1) K/mm3 Comprehensive Metabolic Panel 09/09/19 09/10/19 Range/Units 20:35 03:59 Sodium 140 140 (137-145) mmol/L Potassium 5.1 H 5.1 H (3.6-5.0) mmol/L Chloride 94.9 L 95.3 L (98-107) mmol/L Carbon Dioxide 25 26 (22-30) mmol/L BUN 45 H 50 H (7-17) mg/dL Creatinine 8.3 H 8.7 H (0.7-1.2) mg/dL Glucose 270 H 217 H (65-100) mg/dL Calcium 9.3 9.3 (8.4-10.2) mg/dL AST 104 H (5-40) units/L ALT 84 H (7-56) units/L Alkaline Phosphatase 195 H (35-129) units/L Total Protein 7.6 (6.3-8.2) g/dL Albumin 3.9 (3.9-5) g/dL - Imaging and Cardiology Echo: report reviewed ( 01/2019 showed EF 40-45%%, mod LVH with increased echogenicty ? amyloid heart disease, impaired relaxation, RV systolic function mod reduced, RA mild to mod dilated, pericardial effusion seen adjacent to the RA.) EKG: report reviewed, image reviewed EKG interpretations - Telemetry EKG Rhythm: Sinus Rhythm - EKG Sinus rhythms and dysrhythmias: sinus rhythm Chamber hypertrophy or enlargement: left ventricular hypertro Assessment and Plan Pt presented with c/o SOB and hypertensive emergency. Optimize anti-hypertensive regimen. Volume optimization per nephrology. Pt appears to have chronic troponin elevation c/w NSTEMI type II, currently nonspecific in setting of hypertensive emergency and ESRD. Lexiscan MPI stress test done 12/2018 was negative for ischemia, EF 38%. No plans for additional cardiac w/u at this time. The patient has been seen in conjunction with Dr. Bazan who agrees with the assessment and plan of care. - Patient Problems (1) Acute HFrEF (heart failure with reduced ejection fraction) Current Visit: Yes Status: Acute (2) Cardiomyopathy Current Visit: Yes Status: Chronic Qualifiers: Cardiomyopathy type: unspecified Qualified Code(s): I42.9 - Cardiomyopathy, unspecified (3) Volume overload Current Visit: Yes Status: Acute (4) Hypertensive crisis Current Visit: Yes Status: Acute (5) Diabetes mellitus with hyperglycemia Current Visit: Yes Status: Acute (6) ESRD (end stage renal disease) Current Visit: Yes Status: Chronic (7) NSTEMI Current Visit: Yes Status: Acute
[2019-09-10] MEDS ORDERED: APRESOLINE ONE ×2 (15:08→23:07)
[2019-09-10] MEDS ORDERED: CATAPRES ONE ×2 (15:08→23:07)
--- NOTE | 2019-09-10 15:08 | Progress Note ---
Assessment and Plan Hypertensive urgency, malignant - Continue nitroglycerin drip - resumed home medications and wean off nitroglycerin drip as tolerated Respiratory distress with a moderate pulmonary edema - due to volume overload from end-stage renal disease and underlying CHF - Continue supplemental oxygen, plan for emergent dialysis, strictly monitor f luid balance End-stage disease needing dialysis with volume overload - Consulted nephrology for emergent dialysis Chest pain/Abnormal cardiac enzymes - Pt appears to have chronic troponin elevation c/w NSTEMI type II, currently nonspecific in setting of hypertensive emergency and ESRD.Respiratory - Lexiscan MPI stress test done 12/2018 was negative for ischemia, EF 38%. No plans for additional cardiac w/u at this time per cardiology. Acute CHF exacerbation with systolic dysfunction - Echo done 01/2019 showed EF 40-45% - Patient presented with volume overload - superimposed with history of end- stage renal disease and underlying CHF - Volume correction with hemodialysis, Cardiologic consulted to follow recommendation Diabetes 2 uncontrolled - Consistent carb diet with sliding scale insulin coverage Protein calorie malnutrition, consult dietary Hyperkalemia due to ESRD, monitor clinically potassium level should improve to a dialysis Anemia of chronic kidney disease - Monitor H&H, transfuse as needed DVT prophylaxis, with heparin Brief History: 64 y/o [place] female with h/o ESRD on MWS scheduled with last HD session on Tuesday presented with uncontrolled blood pressures and worsening LE edema and dyspnea on exertion. She is being treated for hypertensive emergency with evidence of moderate pulmonary edema on chest xray. She is on nitro gtt in the ER. Nephrology consulted secondary to chronic HD needs, cardiology following for abnormal cardiac enzymes. Radiological data: Chest x-ray - Cardiomegaly with moderate pulmonary edema. Abdominal pelvis CT 1. No inflammatory process or bowel obstruction. 2. Cardiomegaly with bibasilar pulmonary edema and small bilateral pleural effusions. 3. Atrophic kidneys and vascular calcifications likely related to diabetes and/or renal failure. Hospitalist Physical exam: GENERAL: Elderly malnourished female lying on bed appeared to be in no discomf ort. HEENT: Normocephalic. Atraumatic. No conjunctival congestion or icterus. Patient has moist mucous membranes. NECK: Supple. Trachea midline. CHEST/LUNGS: Coarse breath sounds auscultated bilaterally, breathing slightly labored. HEART/CARDIOVASCULAR: Regular in rate and rhythm. S1 and S2 positive. ABDOMEN: Abdomen is soft, nontender. Patient has normal bowel sounds. SKIN: There is no rash. Warm and dry. NEURO: No focal motor deficit. Follows command. MUSCULOSKELETAL: No joint effusion or tenderness. EXTRIMITY: Positive edema, no cyanosis or clubbing. PSYCH: Cooperative. Subjective Date of service: 09/10/19 Interval history: Patient seen and examined. Medical records and medication list reviewed. No acute event overnight noted by the RN. Patient complains of difficulty breathing. Patient is tolerating diet. Discussed plan of care at bedside with patient. Objective - Constitutional Vitals: Vital Signs - 12hr 09/10/19 09/10/19 09/10/19 03:30 04:01 04:30 Temperature Pulse Rate 64 65 63 Respiratory 22 38 H 16 Rate Blood Pressure 184/79 182/82 168/67 Blood Pressure [Left] O2 Sat by Pulse 94 97 97 Oximetry 09/10/19 09/10/19 09/10/19 05:00 05:31 06:01 Temperature Pulse Rate 63 65 66 Respiratory 20 15 13 Rate Blood Pressure 165/64 165/53 181/81 Blood Pressure [Left] O2 Sat by Pulse 93 95 96 Oximetry 09/10/19 09/10/19 09/10/19 06:30 06:31 07:00 Temperature 98.3 F Pulse Rate 64 63 63 Respiratory 18 14 20 Rate Blood Pressure 172/69 159/65 Blood Pressure 164/67 [Left] O2 Sat by Pulse 94 93 93 Oximetry 09/10/19 09/10/19 09/10/19 07:30 08:00 08:30 Temperature Pulse Rate 65 66 66 Respiratory 22 17 27 H Rate Blood Pressure 168/70 176/81 185/74 Blood Pressure [Left] O2 Sat by Pulse 93 Oximetry 09/10/19 09/10/19 09/10/19 09:00 09:30 10:00 Temperature Pulse Rate 65 65 63 Respiratory 24 27 H 23 Rate Blood Pressure 186/79 181/80 183/76 Blood Pressure [Left] O2 Sat by Pulse 95 94 97 Oximetry 09/10/19 09/10/19 09/10/19 10:30 11:00 11:30 Temperature Pulse Rate 73 65 65 Respiratory 25 H 25 H 23 Rate Blood Pressure 193/79 198/80 195/82 Blood Pressure [Left] O2 Sat by Pulse 97 96 96 Oximetry 09/10/19 09/10/19 09/10/19 12:00 12:31 13:00 Temperature Pulse Rate 67 66 66 Respiratory 17 34 H 24 Rate Blood Pressure 199/76 179/73 179/78 Blood Pressure [Left] O2 Sat by Pulse 96 95 97 Oximetry 09/10/19 13:30 Temperature Pulse Rate 66 Respiratory 24 Rate Blood Pressure 180/71 Blood Pressure [Left] O2 Sat by Pulse Oximetry - Labs CBC & Chem 7: 09/10/19 03:59 09/10/19 03:59 Labs: Abnormal lab results 09/09/19 09/09/19 09/09/19 Range/Units 20:35 20:35 20:35 RBC (3.65-5.03) M/mm3 Hgb 9.6 L (10.1-14.3) gm/dl Hct 29.9 L (30.3-42.9) % MCV 76 L (79-97) fl MCH 25 L (28-32) pg RDW 21.6 H (13.2-15.2) % Seg Neutrophils % (40.0-70.0) % Potassium 5.1 H (3.6-5.0) mmol/L Chloride 94.9 L (98-107) mmol/L BUN 45 H (7-17) mg/dL Creatinine 8.3 H (0.7-1.2) mg/dL Glucose 270 H (65-100) mg/dL POC Glucose (70-105) AST 104 H (5-40) units/L ALT 84 H (7-56) units/L Alkaline Phosphatase 195 H (35-129) units/L Troponin T 0.143 H* (0.00-0.029) ng/mL NT-Pro-B Natriuret Pep > 22631 H (0-900) pg/mL 09/10/19 09/10/19 09/10/19 Range/Units 01:01 03:59 03:59 RBC 3.56 L (3.65-5.03) M/mm3 Hgb 8.9 L (10.1-14.3) gm/dl Hct 26.9 L (30.3-42.9) % MCV 75 L (79-97) fl MCH 25 L (28-32) pg RDW 21.0 H (13.2-15.2) % Seg Neutrophils % 70.1 H (40.0-70.0) % Potassium 5.1 H (3.6-5.0) mmol/L Chloride 95.3 L (98-107) mmol/L BUN 50 H (7-17) mg/dL Creatinine 8.7 H (0.7-1.2) mg/dL Glucose 217 H (65-100) mg/dL POC Glucose (70-105) AST (5-40) units/L ALT (7-56) units/L Alkaline Phosphatase (35-129) units/L Troponin T 0.157 H* (0.00-0.029) ng/mL NT-Pro-B Natriuret Pep (0-900) pg/mL 09/10/19 09/10/19 09/10/19 Range/Units 05:44 09:38 12:54 RBC (3.65-5.03) M/mm3 Hgb (10.1-14.3) gm/dl Hct (30.3-42.9) % MCV (79-97) fl MCH (28-32) pg RDW (13.2-15.2) % Seg Neutrophils % (40.0-70.0) % Potassium (3.6-5.0) mmol/L Chloride (98-107) mmol/L BUN (7-17) mg/dL Creatinine (0.7-1.2) mg/dL Glucose (65-100) mg/dL POC Glucose 304 H 172 H (70-105) AST (5-40) units/L ALT (7-56) units/L Alkaline Phosphatase (35-129) units/L Troponin T 0.151 H* (0.00-0.029) ng/mL NT-Pro-B Natriuret Pep (0-900) pg/mL
[2019-09-10] MEDS: APRESOLINE PO SCH ×2 (15:12→23:19)
[2019-09-10] MEDS: CATAPRES PO SCH ×2 (15:15→23:19)
--- NOTE | 2019-09-10 15:57 | Consultation ---
History of Present Illness Consult date: 09/10/19 Requesting physician: CROW KIM Reason for consult: dyspnea History of present illness: 64 yo admitted with increased SOB at rest, elevated BP requiring Nitro drip. Denies fevers, chills, chest pain. Has had dry cough. No hemoptysis, LE edema. Reports medication compliance. Active Medications Acetaminophen (Tylenol) 650 mg PO Q4H PRN PRN Reason: Pain MILD(1-3)/Fever >100.5/YOUNG Last Admin: 09/10/19 01:07 Dose: 650 mg Documented by: Amlodipine Besylate (Norvasc) 10 mg PO QDAY [facility] Last Admin: 09/10/19 10:30 Dose: 10 mg Documented by: Aspirin (Baby Aspirin) 81 mg PO QDAY [facility] Last Admin: 09/10/19 10:30 Dose: 81 mg Documented by: Carvedilol (Coreg) 25 mg PO BID [facility] Last Admin: 09/10/19 10:30 Dose: 25 mg Documented by: Clonidine HCl (Catapres) 0.1 mg PO Q8HR [facility] Last Admin: 09/10/19 15:15 Dose: 0.1 mg Documented by: Dextrose (D50w (25gm) Syringe) 50 ml IV PRN PRN PRN Reason: Hypoglycemia Enoxaparin Sodium (Lovenox) 30 mg SUB-Q QDAY [facility] Last Admin: 09/10/19 11:13 Dose: 30 mg Documented by: Epoetin Chago (Procrit) 10,000 unit IV TWAN PRN PRN Reason: hemodialysis Heparin Sodium (Porcine) (Heparin) 5,000 unit SUB-Q Q12HR [facility] Hydralazine HCl (Apresoline) 100 mg PO TID [facility] Last Admin: 09/10/19 15:12 Dose: 100 mg Documented by: Nitroglycerin/Dextrose (Tridil Drip 50mg/250ml) 50 mg in 250 mls @ 3 mls/hr IV TITR [facility]; Protocol Last Titration: 09/10/19 12:31 Dose: 35 mcg/min, 10.5 mls/hr Documented by: Sodium Chloride (Nacl 0.9%) 100 mls @ 999 mls/hr IV TWAN PRN PRN Reason: Hypotension Insulin Human Lispro (Humalog) 0 unit SUB-Q ACHS [facility]; Protocol Last Admin: 09/10/19 12:53 Dose: 3 unit Documented by: Losartan Potassium (Cozaar) 100 mg PO QDAY [facility] Last Admin: 09/10/19 10:30 Dose: 100 mg Documented by: Ondansetron HCl (Zofran) 4 mg IV Q8H PRN PRN Reason: Nausea And Vomiting Sodium Chloride (Sodium Chloride Flush Syringe 10 Ml) 10 ml IV BID [facility] Last Admin: 09/10/19 11:13 Dose: 10 ml Documented by: Sodium Chloride (Sodium Chloride Flush Syringe 10 Ml) 10 ml IV PRN PRN PRN Reason: LINE FLUSH Zolpidem Tartrate (Ambien) 5 mg PO QHS [facility] Past History Past Medical History: other (HTN, ESRD, Cardiomyopathy, Chronic systolic CHF) Social history: full code. denies: smoking, alcohol abuse, prescription drug abuse, IV drug use Family history: other (No pulm issues reported) Medications and Allergies Allergies Allergy/AdvReac Type Severity Reaction Status Date / Time No Known Allergies Allergy Verified 01/01/19 23:56 Home Medications Medication Instructions Recorded Confirmed Last Taken Type Loratadine [Claritin] 10 mg PO QDAY 01/02/19 09/09/19 02/17/19 History Meclizine HCl [Wal-Dram 2] 25 mg PO TID 01/02/19 09/09/19 02/17/19 History Zolpidem [Ambien] 5 mg PO QHS 01/02/19 09/09/19 02/17/19 History glipiZIDE [Glipizide] 10 mg PO BID 01/02/19 09/09/19 02/17/19 History hydrALAZINE [Apresoline TAB] 100 mg PO TID 01/02/19 09/09/19 02/17/19 History Aspirin [Aspirin BABY CHEW TAB] 81 mg PO QDAY #30 tab.chew 01/04/19 09/09/19 02/17/19 Rx Carvedilol [Coreg] 25 mg PO BID #60 tablet 01/04/19 09/09/19 02/17/19 Rx amLODIPine [Norvasc] 10 mg PO QDAY #30 tablet 01/04/19 09/09/19 02/17/19 Rx Insulin Regular, Human [HumuLIN R] 0 unit SQ AC #1 vial 03/19/19 09/09/19 Unknown Rx Losartan [Cozaar] 100 mg PO QDAY #60 tablet 03/19/19 09/09/19 Unknown Rx Spironolactone [Aldactone] 25 mg PO BID #60 tablet 03/20/19 09/09/19 Unknown Rx cloNIDine [Catapres] 0.1 mg PO Q8HR #90 tablet 03/20/19 09/09/19 Unknown Rx Active Meds: Active Medications Acetaminophen (Tylenol) 650 mg PO Q4H PRN PRN Reason: Pain MILD(1-3)/Fever >100.5/YOUNG Last Admin: 09/10/19 01:07 Dose: 650 mg Documented by: Amlodipine Besylate (Norvasc) 10 mg PO QDAY [facility] Last Admin: 09/10/19 10:30 Dose: 10 mg Documented by: Aspirin (Baby Aspirin) 81 mg PO QDAY [facility] Last Admin: 09/10/19 10:30 Dose: 81 mg Documented by: Carvedilol (Coreg) 25 mg PO BID [facility] Last Admin: 09/10/19 10:30 Dose: 25 mg Documented by: Clonidine HCl (Catapres) 0.1 mg PO Q8HR [facility] Last Admin: 09/10/19 15:15 Dose: 0.1 mg Documented by: Dextrose (D50w (25gm) Syringe) 50 ml IV PRN PRN PRN Reason: Hypoglycemia Enoxaparin Sodium (Lovenox) 30 mg SUB-Q QDAY [facility] Last Admin: 09/10/19 11:13 Dose: 30 mg Documented by: Epoetin Chago (Procrit) 10,000 unit IV TWAN PRN PRN Reason: hemodialysis Heparin Sodium (Porcine) (Heparin) 5,000 unit SUB-Q Q12HR [facility] Hydralazine HCl (Apresoline) 100 mg PO TID [facility] Last Admin: 09/10/19 15:12 Dose: 100 mg Documented by: Nitroglycerin/Dextrose (Tridil Drip 50mg/250ml) 50 mg in 250 mls @ 3 mls/hr IV TITR [facility]; Protocol Last Titration: 09/10/19 12:31 Dose: 35 mcg/min, 10.5 mls/hr Documented by: Sodium Chloride (Nacl 0.9%) 100 mls @ 999 mls/hr IV TWAN PRN PRN Reason: Hypotension Insulin Human Lispro (Humalog) 0 unit SUB-Q ACHS [facility]; Protocol Last Admin: 09/10/19 12:53 Dose: 3 unit Documented by: Losartan Potassium (Cozaar) 100 mg PO QDAY [facility] Last Admin: 09/10/19 10:30 Dose: 100 mg Documented by: Ondansetron HCl (Zofran) 4 mg IV Q8H PRN PRN Reason: Nausea And Vomiting Sodium Chloride (Sodium Chloride Flush Syringe 10 Ml) 10 ml IV BID [facility] Last Admin: 09/10/19 11:13 Dose: 10 ml Documented by: Sodium Chloride (Sodium Chloride Flush Syringe 10 Ml) 10 ml IV PRN PRN PRN Reason: LINE FLUSH Zolpidem Tartrate (Ambien) 5 mg PO QHS [facility] Review of Systems All systems: negative Physical Examination Vital signs: Vital Signs Pulse Resp Pulse Ox 70 26 H 94 09/09/19 18:58 09/09/19 18:58 09/09/19 18:58 Vital Signs - 24 hr 09/09/19 09/09/19 09/09/19 18:58 19:00 19:01 Temperature 98.3 F Pulse Rate 70 69 69 Respiratory 26 H 18 30 H Rate Blood Pressure 211/94 211/94 Blood Pressure [Left] O2 Sat by Pulse 94 91 92 Oximetry 09/09/19 09/09/19 09/09/19 19:15 19:31 19:45 Temperature Pulse Rate 67 67 67 Respiratory 27 H 16 28 H Rate Blood Pressure 215/90 212/90 218/95 Blood Pressure [Left] O2 Sat by Pulse 99 99 99 Oximetry 09/09/19 09/09/19 09/09/19 20:01 20:25 20:31 Temperature Pulse Rate 69 70 61 Respiratory 39 H 16 Rate Blood Pressure 212/96 212/96 153/100 Blood Pressure [Left] O2 Sat by Pulse 96 95 93 Oximetry 09/09/19 09/09/19 09/09/19 20:45 21:00 21:15 Temperature Pulse Rate 67 67 68 Respiratory 22 30 H 32 H Rate Blood Pressure 205/90 210/89 217/97 Blood Pressure [Left] O2 Sat by Pulse 94 92 92 Oximetry 09/09/19 09/09/19 09/09/19 21:18 21:30 21:45 Temperature Pulse Rate 67 68 Respiratory 18 21 14 Rate Blood Pressure 209/95 214/91 Blood Pressure [Left] O2 Sat by Pulse 90 86 Oximetry 09/09/19 09/09/19 09/09/19 21:46 22:01 22:15 Temperature Pulse Rate 66 67 Respiratory 16 28 H 28 H Rate Blood Pressure 210/87 211/95 Blood Pressure [Left] O2 Sat by Pulse 89 90 Oximetry 09/09/19 09/09/19 09/09/19 22:31 22:45 23:00 Temperature Pulse Rate 65 65 66 Respiratory 26 H 30 H 28 H Rate Blood Pressure 201/77 201/77 202/78 Blood Pressure [Left] O2 Sat by Pulse 99 99 98 Oximetry 09/09/19 09/09/19 09/09/19 23:15 23:30 23:45 Temperature Pulse Rate 66 64 66 Respiratory 23 25 H 22 Rate Blood Pressure 200/81 193/83 195/77 Blood Pressure [Left] O2 Sat by Pulse 96 98 96 Oximetry 09/10/19 09/10/19 09/10/19 00:01 00:15 00:30 Temperature Pulse Rate 66 66 67 Respiratory 14 26 H 21 Rate Blood Pressure 194/76 188/85 195/80 Blood Pressure [Left] O2 Sat by Pulse 96 95 93 Oximetry 09/10/19 09/10/19 09/10/19 00:45 01:01 01:31 Temperature Pulse Rate 68 66 Respiratory 23 19 39 H Rate Blood Pressure 195/80 114/91 218/90 Blood Pressure [Left] O2 Sat by Pulse 98 98 97 Oximetry 09/10/19 09/10/19 09/10/19 02:01 02:31 03:01 Temperature Pulse Rate 65 65 64 Respiratory 14 13 11 L Rate Blood Pressure 182/77 186/74 187/72 Blood Pressure [Left] O2 Sat by Pulse 93 94 94 Oximetry 09/10/19 09/10/19 09/10/19 03:30 04:01 04:30 Temperature Pulse Rate 64 65 63 Respiratory 22 38 H 16 Rate Blood Pressure 184/79 182/82 168/67 Blood Pressure [Left] O2 Sat by Pulse 94 97 97 Oximetry 09/10/19 09/10/19 09/10/19 05:00 05:31 06:01 Temperature Pulse Rate 63 65 66 Respiratory 20 15 13 Rate Blood Pressure 165/64 165/53 181/81 Blood Pressure [Left] O2 Sat by Pulse 93 95 96 Oximetry 09/10/19 09/10/19 09/10/19 06:30 06:31 07:00 Temperature 98.3 F Pulse Rate 64 63 63 Respiratory 18 14 20 Rate Blood Pressure 172/69 159/65 Blood Pressure 164/67 [Left] O2 Sat by Pulse 94 93 93 Oximetry 09/10/19 09/10/19 09/10/19 07:30 08:00 08:30 Temperature Pulse Rate 65 66 66 Respiratory 22 17 27 H Rate Blood Pressure 168/70 176/81 185/74 Blood Pressure [Left] O2 Sat by Pulse 93 Oximetry 09/10/19 09/10/19 09/10/19 09:00 09:30 10:00 Temperature Pulse Rate 65 65 63 Respiratory 24 27 H 23 Rate Blood Pressure 186/79 181/80 183/76 Blood Pressure [Left] O2 Sat by Pulse 95 94 97 Oximetry 09/10/19 09/10/19 09/10/19 10:30 11:00 11:30 Temperature Pulse Rate 73 65 65 Respiratory 25 H 25 H 23 Rate Blood Pressure 193/79 198/80 195/82 Blood Pressure [Left] O2 Sat by Pulse 97 96 96 Oximetry 09/10/19 09/10/19 09/10/19 12:00 12:31 13:00 Temperature Pulse Rate 67 66 66 Respiratory 17 34 H 24 Rate Blood Pressure 199/76 179/73 179/78 Blood Pressure [Left] O2 Sat by Pulse 96 95 97 Oximetry 09/10/19 09/10/19 09/10/19 13:30 14:00 14:30 Temperature Pulse Rate 66 64 63 Respiratory 24 22 22 Rate Blood Pressure 180/71 164/66 160/71 Blood Pressure [Left] O2 Sat by Pulse 97 94 Oximetry 09/10/19 09/10/19 15:00 15:15 Temperature Pulse Rate 66 63 Respiratory 23 Rate Blood Pressure 169/71 169/71 Blood Pressure [Left] O2 Sat by Pulse Oximetry General appearance: no acute distress, alert Eyes: non-icteric ENT: oropharynx moist Neck: supple Effort: normal Ascultation: Bilateral: clear (anteriorly) Cardiovascular: regular rate and rhythm (no mrg) Gastrointestinal: normoactive bowel sounds, soft, non-tender, non-distended Integumentary: normal Extremities: no cyanosis, no edema, pink and warm normal mental status, non-focal exam, pupils equal and round, CN II-XII normal mood appropriate, affect normal Results - Laboratory Findings CBC and BMP: 09/10/19 03:59 09/10/19 03:59 PT/INR, D-dimer PT 13.6 Sec. (12.2-14.9) 09/09/19 20:35 INR 1.07 (0.87-1.13) 09/09/19 20:35 Abnormal lab findings: Abnormal Labs 09/09/19 09/09/19 09/09/19 20:35 20:35 20:35 RBC Hgb 9.6 L Hct 29.9 L MCV 76 L MCH 25 L RDW 21.6 H Seg Neutrophils % Potassium 5.1 H Chloride 94.9 L BUN 45 H Creatinine 8.3 H Glucose 270 H POC Glucose AST 104 H ALT 84 H Alkaline Phosphatase 195 H Troponin T 0.143 H* NT-Pro-B Natriuret Pep > 01455 H 09/10/19 09/10/19 09/10/19 01:01 03:59 03:59 RBC 3.56 L Hgb 8.9 L Hct 26.9 L MCV 75 L MCH 25 L RDW 21.0 H Seg Neutrophils % 70.1 H Potassium 5.1 H Chloride 95.3 L BUN 50 H Creatinine 8.7 H Glucose 217 H POC Glucose AST ALT Alkaline Phosphatase Troponin T 0.157 H* NT-Pro-B Natriuret Pep 09/10/19 09/10/19 09/10/19 05:44 09:38 12:54 RBC Hgb Hct MCV MCH RDW Seg Neutrophils % Potassium Chloride BUN Creatinine Glucose POC Glucose 304 H 172 H AST ALT Alkaline Phosphatase Troponin T 0.151 H* NT-Pro-B Natriuret Pep - Diagnostic Findings Chest x-ray: report reviewed, image reviewed (CHF) Assessment and Plan Imp: 1. Cardiomyopathy 2. A/C systolic CHF 3. Hyperkalemia 4. ESRD 5. Hypertensive urgency Rec: 1. PO anti-hypertensive optimization then wean off NTG drip 2. Dialysis as per renal, with volume removal 3. DVT PPx 4. F/u CXR to ensure improvement in CHF after #'s 1 and 2 5. Further plans pending clinical course Plan of care reviewed with patient, she understands/agrees
--- NOTE | 2019-09-10 16:14 | Consultation ---
History of Present Illness - Reason for Consult end stage renal disease - History of Present Illness 64 y/o [place] Citizen female with h/o ESRD, well known to our outpatient dialysis unit, presented with uncontrolled blood pressures and worsening LE edema and dyspnea on exertion. She is being treated for hypertensive emergency with evidence of moderate pulmonary edema on chest xray. She is on nitro gtt in the ER. Nephrology consulted secondary to chronic HD needs. She dialyzes on a MWF schedule, with last HD session on Tuesday. Past History Past Medical History: diabetes, ESRD, heart failure, hypertension, hyperlipidemia, other (HTN, ESRD, Cardiomyopathy, Chronic systolic CHF) Past Surgical History: Other (AVF creation ) Social history: no significant social history, lives with family, full code. denies: smoking, alcohol abuse, prescription drug abuse, IV drug use Family history: other (No pulm issues reported) Medications and Allergies Allergies Allergy/AdvReac Type Severity Reaction Status Date / Time No Known Allergies Allergy Verified 01/01/19 23:56 Home Medications Medication Instructions Recorded Confirmed Last Taken Type Loratadine [Claritin] 10 mg PO QDAY 01/02/19 09/09/19 02/17/19 History Meclizine HCl [Wal-Dram 2] 25 mg PO TID 01/02/19 09/09/19 02/17/19 History Zolpidem [Ambien] 5 mg PO QHS 01/02/19 09/09/19 02/17/19 History glipiZIDE [Glipizide] 10 mg PO BID 01/02/19 09/09/19 02/17/19 History hydrALAZINE [Apresoline TAB] 100 mg PO TID 01/02/19 09/09/19 02/17/19 History Aspirin [Aspirin BABY CHEW TAB] 81 mg PO QDAY #30 tab.chew 01/04/19 09/09/19 02/17/19 Rx Carvedilol [Coreg] 25 mg PO BID #60 tablet 01/04/19 09/09/19 02/17/19 Rx amLODIPine [Norvasc] 10 mg PO QDAY #30 tablet 01/04/19 09/09/19 02/17/19 Rx Insulin Regular, Human [HumuLIN R] 0 unit SQ AC #1 vial 03/19/19 09/09/19 Unknown Rx Losartan [Cozaar] 100 mg PO QDAY #60 tablet 03/19/19 09/09/19 Unknown Rx Spironolactone [Aldactone] 25 mg PO BID #60 tablet 03/20/19 09/09/19 Unknown Rx cloNIDine [Catapres] 0.1 mg PO Q8HR #90 tablet 03/20/19 09/09/19 Unknown Rx Active Meds: Active Medications Acetaminophen (Tylenol) 650 mg PO Q4H PRN PRN Reason: Pain MILD(1-3)/Fever >100.5/[facility] Last Admin: 09/10/19 01:07 Dose: 650 mg Documented by: Amlodipine Besylate (Norvasc) 10 mg PO QDAY [facility] Last Admin: 09/10/19 10:30 Dose: 10 mg Documented by: Aspirin (Baby Aspirin) 81 mg PO QDAY [facility] Last Admin: 09/10/19 10:30 Dose: 81 mg Documented by: Carvedilol (Coreg) 25 mg PO BID [facility] Last Admin: 09/10/19 10:30 Dose: 25 mg Documented by: Clonidine HCl (Catapres) 0.1 mg PO Q8HR [facility] Last Admin: 09/10/19 15:15 Dose: 0.1 mg Documented by: Dextrose (D50w (25gm) Syringe) 50 ml IV PRN PRN PRN Reason: Hypoglycemia Enoxaparin Sodium (Lovenox) 30 mg SUB-Q QDAY [facility] Last Admin: 09/10/19 11:13 Dose: 30 mg Documented by: Epoetin Chago (Procrit) 10,000 unit IV TWAN PRN PRN Reason: hemodialysis Heparin Sodium (Porcine) (Heparin) 5,000 unit SUB-Q Q12HR [facility] Hydralazine HCl (Apresoline) 100 mg PO TID [facility] Last Admin: 09/10/19 15:12 Dose: 100 mg Documented by: Nitroglycerin/Dextrose (Tridil Drip 50mg/250ml) 50 mg in 250 mls @ 3 mls/hr IV TITR [facility]; Protocol Last Titration: 09/10/19 12:31 Dose: 35 mcg/min, 10.5 mls/hr Documented by: Sodium Chloride (Nacl 0.9%) 100 mls @ 999 mls/hr IV TWAN PRN PRN Reason: Hypotension Insulin Human Lispro (Humalog) 0 unit SUB-Q ACHS [facility]; Protocol Last Admin: 09/10/19 12:53 Dose: 3 unit Documented by: Losartan Potassium (Cozaar) 100 mg PO QDAY [facility] Last Admin: 09/10/19 10:30 Dose: 100 mg Documented by: Ondansetron HCl (Zofran) 4 mg IV Q8H PRN PRN Reason: Nausea And Vomiting Sodium Chloride (Sodium Chloride Flush Syringe 10 Ml) 10 ml IV BID [facility] Last Admin: 09/10/19 11:13 Dose: 10 ml Documented by: Sodium Chloride (Sodium Chloride Flush Syringe 10 Ml) 10 ml IV PRN PRN PRN Reason: LINE FLUSH Zolpidem Tartrate (Ambien) 5 mg PO QHS [facility] Review of Systems All systems: negative Constitutional: fatigue, weakness Cardiovascular: edema, shortness of breath, dyspnea on exertion Exam - Vital Signs Vital signs: Vital Signs Pulse Resp Pulse Ox 70 26 H 94 09/09/19 18:58 09/09/19 18:58 09/09/19 18:58 - General Appearance General appearance: well-developed, well-nourished, appears stated age EENT: ATNC, PERRL Neck: Present: neck supple, trachea midline Respiratory: Rales Heart: regular, S1S2 Gastrointestinal: Present: normal, normoactive bowel sounds Integumentary: no rash, warm and dry Neurologic: no focal deficit, alert and oriented x3 Musculoskeletal: Present: other (+edema ) Psychiatric: mood/affect appropriate, cooperative Results - Lab Results 09/10/19 03:59 09/10/19 03:59 Most recent lab results Calcium 9.3 mg/dL (8.4-10.2) 09/10/19 03:59 Magnesium 2.30 mg/dL (1.7-2.3) 09/09/19 20:35 Assessment and Plan - Patient Problems (1) ESRD (end stage renal disease) Current Visit: Yes Status: Chronic Plan to address problem: Continue on MWF inpatient schedule, with possible extra sessions for isolated UF sessions based on volume/pulmonary status. Orders placed for today. 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 Will continue to monitor, with goal to wean off and maintain on oral antihypertensive regimen. She states that she has missed doses of her blood pressure medications intermittently and I counseled patient on the importance of medical compliance with her antihypertensive regimen. (3) Pulmonary edema Current Visit: Yes Status: Acute Qualifiers: Chronicity: chronic Qualified Code(s): J81.1 - Chronic pulmonary edema Plan to address problem: Will challenge dry weight on HD. Goal UF today of 3-4 L as tolerated. Will assess the need for extra sessions for isolated UF on a daily basis while inpatient. Counseled on importance of salt and fluid restrictions. (4) Hyperkalemia Current Visit: Yes Status: Acute Plan to address problem: Dialyze with 2 K bath. Counseled on importance of low K diet. (5) Type 2 diabetes mellitus with diabetic chronic kidney disease Current Visit: No Status: Chronic Qualifiers: Chronic kidney disease stage: on chronic dialysis Plan to address problem: DM management per primary attending. (6) Anemia in CKD (chronic kidney disease) Current Visit: No Status: Chronic Qualifiers: Chronic kidney disease stage: on chronic dialysis Qualified Code(s): N18.6 - End stage renal disease; D63.1 - Anemia in chronic kidney disease; Z99.2 - Dependence on renal dialysis Plan to address problem: KARL therapy with HD once blood pressure reading stabilize.
[2019-09-10 17:21] LABS: Hepatitis B Surface Antigen Non-Reactive (Negative); Hepatitis C Virus Antibody Non-Reactive (NonReactive)
[2019-09-10] MEDS ORDERED: HEPARIN ONE (23:07)
[2019-09-10] MEDS ORDERED: AMBIEN ONE (23:08)
[2019-09-10] MEDS: AMBIEN PO SCH (23:19)
[2019-09-10] MEDS: HEPARIN SUB-Q SCH (23:20)
[2019-09-11] MEDS: TRIDIL DRIP 50MG/250ML 50 MG/250 ML BOTTLE IV SCH (02:42)
[2019-09-11] MEDS: CATAPRES PO SCH ×3 (05:59→21:18)
--- NOTE | 2019-09-11 07:59 | Progress Note ---
Assessment and Plan Hypertensive urgency, malignant - s/p nitroglycerin drip - resumed home medications and cont to monitor BP Respiratory distress with a moderate pulmonary edema - due to volume overload from end-stage renal disease and underlying CHF - Continue supplemental oxygen, plan for emergent dialysis, strictly monitor fluid balance End-stage disease needing dialysis with volume overload - Consulted nephrology for emergent dialysis End-stage disease needing dialysis with volume overload - Consulted nephrology for emergent dialysis Chest pain/Abnormal cardiac enzymes - Pt appears to have chronic troponin elevation c/w NSTEMI type II, currently nonspecific in setting of hypertensive emergency and ESRD. - Lexiscan MPI stress test done 12/2018 was negative for ischemia, EF 38%. No plans for additional cardiac w/u at this time per cardiology. Acute CHF exacerbation with systolic dysfunction - Echo done 01/2019 showed EF 40-45% - Patient presented with volume overload - superimposed with history of end- stage renal disease and underlying CHF - Volume correction with hemodialysis, Cardiologic consulted - follow recommendation - medical Mx for now Diabetes 2 uncontrolled - Consistent carb diet with sliding scale insulin coverage Protein calorie malnutrition, consult dietary Hyperkalemia due to ESRD, monitor clinically, potassium level improved with dialysis Anemia of chronic kidney disease - Monitor H&H, transfuse as needed DVT prophylaxis, with heparin Brief History: 64 y/o [place] female with h/o ESRD on MWS scheduled with last HD session on Tuesday presented with uncontrolled blood pressures and worsening LE edema and dyspnea on exertion. She is being treated for hypertensive emergency with evidence of moderate pulmonary edema on chest xray. She is on nitro gtt in the ER. Nephrology consulted secondary to chronic HD needs, cardiology following for abnormal cardiac enzymes. Radiological data: Chest x-ray - Cardiomegaly with moderate pulmonary edema. Abdominal pelvis CT 1. No inflammatory process or bowel obstruction. 2. Cardiomegaly with bibasilar pulmonary edema and small bilateral pleural effusions. 3. Atrophic kidneys and vascular calcifications likely related to diabetes and/or renal failure. Hospitalist Physical exam: GENERAL: Elderly malnourished female lying on bed appeared to be in no discomfort. HEENT: Normocephalic. Atraumatic. No conjunctival congestion or icterus. Patient has moist mucous membranes. NECK: Supple. Trachea midline. CHEST/LUNGS: Coarse breath sounds auscultated bilaterally, breathing nonlabored. HEART/CARDIOVASCULAR: Regular in rate and rhythm. S1 and S2 positive. ABDOMEN: Abdomen is soft, nontender. Patient has normal bowel sounds. SKIN: There is no rash. Warm and dry. NEURO: No focal motor deficit. Follows command. MUSCULOSKELETAL: No joint effusion or tenderness. EXTRIMITY: Positive edema, no cyanosis or clubbing. PSYCH: Cooperative. Subjective Date of service: 09/11/19 Interval history: Patient seen and examined. Medical records and medication list reviewed. No acute event overnight noted by the RN. Patient states improved difficulty breathing. Patient is tolerating diet. Discussed plan of care at bedside with patient. getting Hd at bedside, off nitro drip since this am Objective - Constitutional Vitals: Vital Signs - 12hr 09/10/19 09/10/19 09/10/19 20:00 20:15 20:30 Temperature Pulse Rate 66 63 62 Pulse Rate [ From Monitor] Respiratory Rate Blood Pressure 175/73 180/70 185/74 Blood Pressure [Left] O2 Sat by Pulse Oximetry 09/10/19 09/10/19 09/10/19 20:45 21:00 21:15 Temperature Pulse Rate 64 64 62 Pulse Rate [ From Monitor] Respiratory Rate Blood Pressure 187/79 189/80 188/81 Blood Pressure [Left] O2 Sat by Pulse Oximetry 09/10/19 09/10/19 09/10/19 21:30 21:45 22:00 Temperature Pulse Rate 62 64 68 Pulse Rate [ From Monitor] Respiratory 21 Rate Blood Pressure 178/77 177/81 189/90 Blood Pressure [Left] O2 Sat by Pulse Oximetry 09/10/19 09/10/19 09/10/19 23:19 23:23 23:56 Temperature 98.4 F Pulse Rate 69 Pulse Rate [ From Monitor] Respiratory 20 Rate Blood Pressure 221/83 Blood Pressure 221/89 [Left] O2 Sat by Pulse 97 Oximetry 09/10/19 09/11/19 09/11/19 23:58 00:00 00:16 Temperature Pulse Rate 69 68 66 Pulse Rate [ From Monitor] Respiratory 25 H 18 18 Rate Blood Pressure 202/80 149/80 Blood Pressure [Left] O2 Sat by Pulse Oximetry 09/11/19 09/11/19 09/11/19 00:30 00:34 00:46 Temperature Pulse Rate 65 65 65 Pulse Rate [ From Monitor] Respiratory 22 22 Rate Blood Pressure 194/69 172/65 Blood Pressure [Left] O2 Sat by Pulse 100 100 Oximetry 09/11/19 09/11/19 09/11/19 01:00 01:16 01:30 Temperature Pulse Rate 65 66 66 Pulse Rate [ 65 From Monitor] Respiratory 20 22 24 Rate Blood Pressure 170/72 181/67 191/66 Blood Pressure [Left] O2 Sat by Pulse 100 100 99 Oximetry 09/11/19 09/11/19 09/11/19 01:32 01:45 02:00 Temperature Pulse Rate 64 65 Pulse Rate [ From Monitor] Respiratory 22 20 Rate Blood Pressure 185/64 174/69 Blood Pressure [Left] O2 Sat by Pulse 100 99 99 Oximetry 09/11/19 09/11/19 09/11/19 02:15 02:30 02:46 Temperature Pulse Rate 66 65 68 Pulse Rate [ From Monitor] Respiratory 21 19 22 Rate Blood Pressure 189/69 179/67 163/61 Blood Pressure [Left] O2 Sat by Pulse 100 100 94 Oximetry 09/11/19 09/11/19 09/11/19 03:00 03:15 03:17 Temperature 98.8 F Pulse Rate 65 66 Pulse Rate [ From Monitor] Respiratory 27 H 26 H Rate Blood Pressure 179/62 180/69 Blood Pressure [Left] O2 Sat by Pulse 92 88 Oximetry 09/11/19 09/11/19 09/11/19 03:30 03:45 04:00 Temperature Pulse Rate 65 65 66 Pulse Rate [ 66 From Monitor] Respiratory 22 13 16 Rate Blood Pressure 164/55 169/57 173/58 Blood Pressure [Left] O2 Sat by Pulse 88 91 96 Oximetry 09/11/19 09/11/19 09/11/19 04:16 04:30 04:45 Temperature Pulse Rate 66 67 64 Pulse Rate [ From Monitor] Respiratory 11 L 13 19 Rate Blood Pressure 175/65 184/59 192/72 Blood Pressure [Left] O2 Sat by Pulse 86 87 96 Oximetry 09/11/19 09/11/19 09/11/19 05:00 05:15 05:30 Temperature Pulse Rate 63 63 63 Pulse Rate [ From Monitor] Respiratory 18 21 15 Rate Blood Pressure 187/78 190/71 184/69 Blood Pressure [Left] O2 Sat by Pulse 98 99 98 Oximetry 09/11/19 09/11/19 09/11/19 05:45 05:59 06:00 Temperature Pulse Rate 63 64 68 Pulse Rate [ From Monitor] Respiratory 20 18 Rate Blood Pressure 182/76 182/76 168/84 Blood Pressure [Left] O2 Sat by Pulse 99 100 Oximetry 09/11/19 09/11/19 09/11/19 06:15 06:30 06:45 Temperature Pulse Rate 66 65 66 Pulse Rate [ From Monitor] Respiratory 19 20 21 Rate Blood Pressure 171/73 170/73 172/70 Blood Pressure [Left] O2 Sat by Pulse 98 97 97 Oximetry 09/11/19 09/11/19 09/11/19 07:00 07:15 07:30 Temperature Pulse Rate 67 71 71 Pulse Rate [ From Monitor] Respiratory 23 24 25 H Rate Blood Pressure 164/71 173/80 187/76 Blood Pressure [Left] O2 Sat by Pulse 97 98 99 Oximetry 09/11/19 07:40 Temperature Pulse Rate Pulse Rate [ From Monitor] Respiratory Rate Blood Pressure Blood Pressure [Left] O2 Sat by Pulse 100 Oximetry - Labs CBC & Chem 7: 09/12/19 05:29 09/12/19 05:29 Labs: Abnormal lab results 09/10/19 09/10/19 09/10/19 Range/Units 09:38 12:54 19:32 POC Glucose 304 H 172 H 160 H (70-105) 09/10/19 Range/Units 23:19 POC Glucose 161 H (70-105)
--- NOTE | 2019-09-11 08:38 | Progress Note ---
Assessment and Plan - Patient Problems (1) ESRD (end stage renal disease) Current Visit: Yes Status: Chronic Plan to address problem: Continue on MWF inpatient schedule Will set up for extra session today for isolated UF. 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 Will continue to monitor, with goal to wean off and maintain on oral antihypertensive regimen. She states that she has missed doses of her blood pressure medications intermittently and I counseled patient on the importance of medical compliance with her antihypertensive regimen. Will have her obtain an extra session of dialysis today for isolated UF, goal 3- 4 L as tolerated. (3) Pulmonary edema Current Visit: Yes Status: Acute Qualifiers: Chronicity: chronic Qualified Code(s): J81.1 - Chronic pulmonary edema Plan to address problem: Will challenge dry weight on HD. Goal UF today of 3-4 L as tolerated. Will assess the need for extra sessions for isolated UF on a daily basis while inpatient. Counseled on importance of salt and fluid restrictions. (4) Hyperkalemia Current Visit: Yes Status: Acute Plan to address problem: Dialyze with 2 K bath. Counseled on importance of low K diet. (5) Type 2 diabetes mellitus with diabetic chronic kidney disease Current Visit: No Status: Chronic Qualifiers: Chronic kidney disease stage: on chronic dialysis Plan to address problem: DM management per primary attending. (6) Anemia in CKD (chronic kidney disease) Current Visit: No Status: Chronic Qualifiers: Chronic kidney disease stage: on chronic dialysis Qualified Code(s): N18.6 - End stage renal disease; D63.1 - Anemia in chronic kidney disease; Z99.2 - Dependence on renal dialysis Plan to address problem: KARL therapy with HD once blood pressure reading stabilize. Subjective Date of service: 09/11/19 Interval history: Remains on nitroglycerin, pending am home medications. Will set patient up for extra session of isolated UF for today. Instructed nursing staff to hold off on BP meds until after HD session this am. Objective - Vital Signs Vital signs: Vital Signs - 12hr 09/10/19 09/10/19 09/10/19 20:45 21:00 21:15 Temperature Pulse Rate 64 64 62 Pulse Rate [ From Monitor] Respiratory Rate Blood Pressure 187/79 189/80 188/81 Blood Pressure [Left] O2 Sat by Pulse Oximetry 09/10/19 09/10/19 09/10/19 21:30 21:45 22:00 Temperature Pulse Rate 62 64 68 Pulse Rate [ From Monitor] Respiratory 21 Rate Blood Pressure 178/77 177/81 189/90 Blood Pressure [Left] O2 Sat by Pulse Oximetry 09/10/19 09/10/19 09/10/19 23:19 23:23 23:56 Temperature 98.4 F Pulse Rate 69 Pulse Rate [ From Monitor] Respiratory 20 Rate Blood Pressure 221/83 Blood Pressure 221/89 [Left] O2 Sat by Pulse 97 Oximetry 09/10/19 09/11/19 09/11/19 23:58 00:00 00:16 Temperature Pulse Rate 69 68 66 Pulse Rate [ From Monitor] Respiratory 25 H 18 18 Rate Blood Pressure 202/80 149/80 Blood Pressure [Left] O2 Sat by Pulse Oximetry 09/11/19 09/11/19 09/11/19 00:30 00:34 00:46 Temperature Pulse Rate 65 65 65 Pulse Rate [ From Monitor] Respiratory 22 22 Rate Blood Pressure 194/69 172/65 Blood Pressure [Left] O2 Sat by Pulse 100 100 Oximetry 09/11/19 09/11/19 09/11/19 01:00 01:16 01:30 Temperature Pulse Rate 65 66 66 Pulse Rate [ 65 From Monitor] Respiratory 20 22 24 Rate Blood Pressure 170/72 181/67 191/66 Blood Pressure [Left] O2 Sat by Pulse 100 100 99 Oximetry 09/11/19 09/11/19 09/11/19 01:32 01:45 02:00 Temperature Pulse Rate 64 65 Pulse Rate [ From Monitor] Respiratory 22 20 Rate Blood Pressure 185/64 174/69 Blood Pressure [Left] O2 Sat by Pulse 100 99 99 Oximetry 09/11/19 09/11/19 09/11/19 02:15 02:30 02:46 Temperature Pulse Rate 66 65 68 Pulse Rate [ From Monitor] Respiratory 21 19 22 Rate Blood Pressure 189/69 179/67 163/61 Blood Pressure [Left] O2 Sat by Pulse 100 100 94 Oximetry 09/11/19 09/11/19 09/11/19 03:00 03:15 03:17 Temperature 98.8 F Pulse Rate 65 66 Pulse Rate [ From Monitor] Respiratory 27 H 26 H Rate Blood Pressure 179/62 180/69 Blood Pressure [Left] O2 Sat by Pulse 92 88 Oximetry 09/11/19 09/11/19 09/11/19 03:30 03:45 04:00 Temperature Pulse Rate 65 65 66 Pulse Rate [ 66 From Monitor] Respiratory 22 13 16 Rate Blood Pressure 164/55 169/57 173/58 Blood Pressure [Left] O2 Sat by Pulse 88 91 96 Oximetry 09/11/19 09/11/19 09/11/19 04:16 04:30 04:45 Temperature Pulse Rate 66 67 64 Pulse Rate [ From Monitor] Respiratory 11 L 13 19 Rate Blood Pressure 175/65 184/59 192/72 Blood Pressure [Left] O2 Sat by Pulse 86 87 96 Oximetry 09/11/19 09/11/19 09/11/19 05:00 05:15 05:30 Temperature Pulse Rate 63 63 63 Pulse Rate [ From Monitor] Respiratory 18 21 15 Rate Blood Pressure 187/78 190/71 184/69 Blood Pressure [Left] O2 Sat by Pulse 98 99 98 Oximetry 09/11/19 09/11/19 09/11/19 05:45 05:59 06:00 Temperature Pulse Rate 63 64 68 Pulse Rate [ From Monitor] Respiratory 20 18 Rate Blood Pressure 182/76 182/76 168/84 Blood Pressure [Left] O2 Sat by Pulse 99 100 Oximetry 09/11/19 09/11/19 09/11/19 06:15 06:30 06:45 Temperature Pulse Rate 66 65 66 Pulse Rate [ From Monitor] Respiratory 19 20 21 Rate Blood Pressure 171/73 170/73 172/70 Blood Pressure [Left] O2 Sat by Pulse 98 97 97 Oximetry 09/11/19 09/11/19 09/11/19 07:00 07:15 07:30 Temperature Pulse Rate 67 71 71 Pulse Rate [ From Monitor] Respiratory 23 24 25 H Rate Blood Pressure 164/71 173/80 187/76 Blood Pressure [Left] O2 Sat by Pulse 97 98 99 Oximetry 09/11/19 07:40 Temperature Pulse Rate Pulse Rate [ From Monitor] Respiratory Rate Blood Pressure Blood Pressure [Left] O2 Sat by Pulse 100 Oximetry - General Appearance General appearance: well-nourished, appears stated age EENT: ATNC, PERRL Neck: no JVD, no thyromegaly Respiratory: Present: Rales Cardiology: regular, S1S2 Gastrointestinal: normal, normoactive bowel sounds Integumentary: no rash, warm and dry Neurologic: no focal deficit, alert and oriented x3 Psychiatric: mood/affect appropriate, cooperative - Lab 09/10/19 03:59 09/10/19 03:59 Most recent lab results Calcium 9.3 mg/dL (8.4-10.2) 09/10/19 03:59 Magnesium 2.30 mg/dL (1.7-2.3) 09/09/19 20:35 - Allied health notes Allied health notes reviewed: nursing Medications & Allergies - Medications Allergies/Adverse Reactions: Allergies No Known Allergies Allergy (Verified 01/01/19 23:56) Home Medications: Home Medications Medication Instructions Recorded Confirmed Last Taken Type Loratadine [Claritin] 10 mg PO QDAY 01/02/19 09/09/19 02/17/19 History Meclizine HCl [Wal-Dram 2] 25 mg PO TID 01/02/19 09/09/19 02/17/19 History Zolpidem [Ambien] 5 mg PO QHS 01/02/19 09/09/19 02/17/19 History glipiZIDE [Glipizide] 10 mg PO BID 01/02/19 09/09/19 02/17/19 History hydrALAZINE [Apresoline TAB] 100 mg PO TID 01/02/19 09/09/19 02/17/19 History Aspirin [Aspirin BABY CHEW TAB] 81 mg PO QDAY #30 tab.chew 01/04/19 09/09/19 0 02/17/19 Rx Carvedilol [Coreg] 25 mg PO BID #60 tablet 01/04/19 09/09/19 02/17/19 Rx amLODIPine [Norvasc] 10 mg PO QDAY #30 tablet 01/04/19 09/09/19 02/17/19 Rx Insulin Regular, Human [HumuLIN R] 0 unit SQ AC #1 vial 03/19/19 09/09/19 Unknown Rx Losartan [Cozaar] 100 mg PO QDAY #60 tablet 03/19/19 09/09/19 Unknown Rx Spironolactone [Aldactone] 25 mg PO BID #60 tablet 03/20/19 09/09/19 Unknown Rx cloNIDine [Catapres] 0.1 mg PO Q8HR #90 tablet 03/20/19 09/09/19 Unknown Rx Active Medications: Generic Name Dose Route Start Last Admin Trade Name Freq PRN Reason Stop Dose Admin Acetaminophen 650 mg 09/10/19 00:19 09/10/19 01:07 Tylenol PO 650 mg Q4H PRN Administration Pain MILD(1-3)/Fever >100.5/YOUNG Amlodipine Besylate 10 mg 09/10/19 10:00 09/10/19 10:30 Norvasc PO 10 mg QDAY ART Administration Aspirin 81 mg 09/10/19 10:00 09/10/19 10:30 Baby Aspirin PO 81 mg QDAY ART Administration Carvedilol 25 mg 09/10/19 10:00 09/10/19 23:20 Coreg PO 25 mg BID ART Administration Clonidine HCl 0.1 mg 09/10/19 14:00 09/11/19 05:59 Catapres PO 0.1 mg Q8HR ART Administration Dextrose 50 ml 09/10/19 00:19 D50w (25gm) Syringe IV PRN PRN Hypoglycemia Epoetin Chago 10,000 unit 09/10/19 13:16 Procrit IV TWAN PRN hemodialysis Heparin Sodium (Porcine) 5,000 unit 09/10/19 22:00 09/10/19 23:20 Heparin SUB-Q 5,000 unit Q12HR ART Administration Hydralazine HCl 100 mg 09/10/19 14:00 09/10/19 23:19 Apresoline PO 100 mg TID ART Administration Nitroglycerin/Dextrose 50 mg in 250 mls @ 3 mls/hr 09/09/19 23:00 09/11/19 07:08 Tridil Drip 50mg/250ml IV 70 mcg/min TITR ART 21 mls/hr Titration Protocol 10 MCG/MIN Sodium Chloride 100 mls @ 999 mls/hr 09/10/19 13:16 Nacl 0.9% IV TWAN PRN Hypotension Sodium Chloride 100 mls @ 999 mls/hr 09/11/19 08:31 Nacl 0.9% IV TWAN PRN Hypotension Insulin Human Lispro 0 unit 09/10/19 07:30 09/10/19 23:20 Humalog SUB-Q 3 unit ACHS ART Administration Protocol Losartan Potassium 100 mg 09/10/19 10:00 09/10/19 10:30 Cozaar PO 100 mg QDAY ART Administration Ondansetron HCl 4 mg 09/10/19 00:19 Zofran IV Q8H PRN Nausea And Vomiting Sodium Chloride 10 ml 09/10/19 10:00 09/10/19 23:20 Sodium Chloride Flush Syringe 10 Ml IV 10 ml BID ART Administration Sodium Chloride 10 ml 09/10/19 00:19 Sodium Chloride Flush Syringe 10 Ml IV PRN PRN LINE FLUSH Zolpidem Tartrate 5 mg 09/10/19 22:00 09/10/19 23:19 Ambien PO 5 mg QHS ART Administration
[2019-09-11] MEDS: HumaLOG SUB-Q SCH ×4 (08:45→22:45)
[2019-09-11] MEDS ORDERED: NACL 0.9% 100 ML IV PRN (09:00)
[2019-09-11] MEDS ORDERED: SYNTHROID PO SCH (10:00)
--- NOTE | 2019-09-11 12:02 | Progress Note ---
Assessment and Plan Optimize anti-hypertensive regimen and wean off nitro gtt. Volume optimization per nephrology. Pt appears to have chronic troponin elevation c/w NSTEMI type II, currently nonspecific in setting of hypertensive emergency and ESRD. Lexiscan MPI stress test done 12/2018 was negative for ischemia, EF 38%. No plans for additional cardiac w/u at this time. The patient has been seen in conjunction with Dr. Bazan who agrees with the assessment and plan of care. - Patient Problems (1) Acute HFrEF (heart failure with reduced ejection fraction) Current Visit: Yes Status: Acute (2) Cardiomyopathy Current Visit: Yes Status: Chronic Qualifiers: Cardiomyopathy type: unspecified Qualified Code(s): I42.9 - Cardiomyopathy, unspecified (3) Volume overload Current Visit: Yes Status: Acute (4) Hypertensive crisis Current Visit: Yes Status: Acute (5) Diabetes mellitus with hyperglycemia Current Visit: Yes Status: Acute (6) ESRD (end stage renal disease) Current Visit: Yes Status: Chronic (7) NSTEMI Current Visit: Yes Status: Acute Subjective Date of service: 09/11/19 Principal diagnosis: htn; sob Interval history: pt resting in bed, states she is feeling much better today. sob improved. BPs remain elevated, on nitro gtt. Objective Last Vital Signs Temp 99.1 F 09/11/19 09:45 Pulse 64 09/11/19 11:45 Resp 22 09/11/19 09:45 BP 142/83 09/11/19 11:45 Pulse Ox 100 09/11/19 09:45 - Physical Examination General: No Apparent Distress HEENT: Positive: PERRL, Normocephaly, Mucus Membranes Moist Neck: Positive: neck supple, trachea midline Cardiac: Positive: Reg Rate and Rhythm, S1/S2 Lungs: Positive: Decreased Breath Sounds Abdomen: Negative: Tender Skin: Negative: Rash Musculoskeletal: No Pain Extremities: Present: edema (trace BLE) - Imaging and Cardiology EKG: report reviewed, image reviewed Echo: report reviewed ( 01/2019 showed EF 40-45%%, mod LVH with increased echogenicty ? amyloid heart disease, impaired relaxation, RV systolic function mod reduced, RA mild to mod dilated, pericardial effusion seen adjacent to the RA.) - EKG Sinus rhythms and dysrhythmias: sinus rhythm Chamber hypertrophy or enlargement: left ventricular hypertro - Allied health notes Allied health notes reviewed: nursing
[2019-09-11] MEDS ORDERED: NACL 0.9% 1000 ML 2,000 ML ONE (12:25)
[2019-09-11] MEDS: APRESOLINE PO SCH ×2 (13:51→19:46)
[2019-09-11] MEDS: NORVASC PO SCH (13:51)
[2019-09-11] MEDS: COREG PO SCH ×2 (13:52→21:19)
[2019-09-11] MEDS: BABY ASPIRIN PO SCH (19:39)
[2019-09-11] MEDS: TYLENOL PO PRN (20:00)
[2019-09-11] MEDS: AMBIEN PO SCH (21:18)
[2019-09-11] MEDS: HEPARIN SUB-Q SCH (21:19)
[2019-09-11] MEDS: SODIUM CHLORIDE FLUSH SYRINGE 10 ML IV SCH (21:20)
--- NOTE | 2019-09-11 22:20 | Progress Note ---
Assessment and Plan Imp: 1. Cardiomyopathy 2. A/C systolic CHF 3. Hyperkalemia 4. ESRD 5. Hypertensive urgency Rec: 1. PO anti-hypertensive optimization 2. Dialysis as per renal, with volume removal 3. DVT PPx 4. F/u CXR to ensure improvement in CHF after #'s 1 and 2 5. Discussed with her re: need for sodium restriction Plan of care reviewed with patient/son, they understand/agree Subjective Date of service: 09/11/19 Principal diagnosis: htn; sob Interval history: No events. Has had HD x 2. SOB is better. No new complaints. Active Medications Acetaminophen (Tylenol) 650 mg PO Q4H PRN PRN Reason: Pain MILD(1-3)/Fever >100.5/YOUNG Last Admin: 09/11/19 20:00 Dose: 650 mg Documented by: Amlodipine Besylate (Norvasc) 10 mg PO QDAY [facility] Last Admin: 09/11/19 13:51 Dose: 10 mg Documented by: Aspirin (Baby Aspirin) 81 mg PO QDAY [facility] Last Admin: 09/11/19 19:39 Dose: 81 mg Documented by: Carvedilol (Coreg) 25 mg PO BID [facility] Last Admin: 09/11/19 21:19 Dose: 25 mg Documented by: Clonidine HCl (Catapres) 0.1 mg PO Q8HR [facility] Last Admin: 09/11/19 21:18 Dose: 0.1 mg Documented by: Dextrose (D50w (25gm) Syringe) 50 ml IV PRN PRN PRN Reason: Hypoglycemia Epoetin Chago (Procrit) 10,000 unit IV TWAN PRN PRN Reason: hemodialysis Last Admin: 09/11/19 12:49 Dose: 10,000 unit Documented by: Heparin Sodium (Porcine) (Heparin) 5,000 unit SUB-Q Q12HR [facility] Last Admin: 09/11/19 21:19 Dose: 5,000 unit Documented by: Hydralazine HCl (Apresoline) 100 mg PO TID [facility] Last Admin: 09/11/19 19:46 Dose: 100 mg Documented by: Nitroglycerin/Dextrose (Tridil Drip 50mg/250ml) 50 mg in 250 mls @ 3 mls/hr IV TITR [facility]; Protocol Last Titration: 09/11/19 07:08 Dose: 70 mcg/min, 21 mls/hr Documented by: Sodium Chloride (Nacl 0.9%) 100 mls @ 999 mls/hr IV TWAN PRN PRN Reason: Hypotension Insulin Human Lispro (Humalog) 0 unit SUB-Q ACHS [facility]; Protocol Last Admin: 09/11/19 17:14 Dose: 3 unit Documented by: Levothyroxine Sodium (Synthroid) 75 mcg PO DAILY@0600 [facility] Losartan Potassium (Cozaar) 100 mg PO QDAY [facility] Last Admin: 09/10/19 10:30 Dose: 100 mg Documented by: Ondansetron HCl (Zofran) 4 mg IV Q8H PRN PRN Reason: Nausea And Vomiting Sodium Chloride (Sodium Chloride Flush Syringe 10 Ml) 10 ml IV BID [facility] Last Admin: 09/11/19 21:20 Dose: 10 ml Documented by: Sodium Chloride (Sodium Chloride Flush Syringe 10 Ml) 10 ml IV PRN PRN PRN Reason: LINE FLUSH Zolpidem Tartrate (Ambien) 5 mg PO QHS [facility] Last Admin: 09/11/19 21:18 Dose: 5 mg Documented by: Objective Vital Signs - 12hr 09/11/19 09/11/19 09/11/19 10:30 10:45 11:00 Temperature Pulse Rate 59 L 59 L 60 Pulse Rate [ From Monitor] Respiratory 20 20 24 Rate Blood Pressure 150/57 158/53 149/49 O2 Sat by Pulse 99 100 100 Oximetry O2 Sat by Pulse Oximetry [ Anterior Throughout] 09/11/19 09/11/19 09/11/19 11:15 11:30 11:45 Temperature Pulse Rate 58 L 60 63 Pulse Rate [ From Monitor] Respiratory 23 21 14 Rate Blood Pressure 140/54 140/54 142/83 O2 Sat by Pulse 100 100 100 Oximetry O2 Sat by Pulse Oximetry [ Anterior Throughout] 09/11/19 09/11/19 09/11/19 12:00 12:15 12:30 Temperature 97.6 F Pulse Rate 61 63 62 Pulse Rate [ From Monitor] Respiratory 25 H 22 25 H Rate Blood Pressure 160/58 182/47 162/57 O2 Sat by Pulse 100 100 100 Oximetry O2 Sat by Pulse Oximetry [ Anterior Throughout] 09/11/19 09/11/19 09/11/19 12:45 12:46 13:00 Temperature 97.6 F Pulse Rate 65 62 68 Pulse Rate [ From Monitor] Respiratory 21 24 Rate Blood Pressure 164/64 164/64 186/57 O2 Sat by Pulse 100 100 Oximetry O2 Sat by Pulse 100 Oximetry [ Anterior Throughout] 09/11/19 09/11/19 09/11/19 13:16 13:30 13:46 Temperature Pulse Rate 70 71 66 Pulse Rate [ From Monitor] Respiratory 27 H 29 H 25 H Rate Blood Pressure 186/57 186/57 186/57 O2 Sat by Pulse 100 99 100 Oximetry O2 Sat by Pulse Oximetry [ Anterior Throughout] 09/11/19 09/11/19 09/11/19 13:51 13:52 14:00 Temperature Pulse Rate 68 69 69 Pulse Rate [ From Monitor] Respiratory 24 Rate Blood Pressure 153/78 153/78 153/78 O2 Sat by Pulse 100 Oximetry O2 Sat by Pulse Oximetry [ Anterior Throughout] 09/11/19 09/11/19 09/11/19 14:15 14:30 14:46 Temperature Pulse Rate 66 67 70 Pulse Rate [ From Monitor] Respiratory 22 21 19 Rate Blood Pressure 141/41 142/61 101/31 O2 Sat by Pulse 99 100 99 Oximetry O2 Sat by Pulse Oximetry [ Anterior Throughout] 09/11/19 09/11/19 09/11/19 15:00 15:15 15:30 Temperature Pulse Rate 67 66 67 Pulse Rate [ From Monitor] Respiratory 25 H 22 23 Rate Blood Pressure 131/54 154/50 168/66 O2 Sat by Pulse 100 100 100 Oximetry O2 Sat by Pulse Oximetry [ Anterior Throughout] 09/11/19 09/11/19 09/11/19 15:45 16:00 16:15 Temperature 97.4 F L Pulse Rate 69 70 68 Pulse Rate [ From Monitor] Respiratory 18 26 H 26 H Rate Blood Pressure 170/74 182/74 196/55 O2 Sat by Pulse 98 98 97 Oximetry O2 Sat by Pulse Oximetry [ Anterior Throughout] 09/11/19 09/11/19 09/11/19 16:30 16:45 17:00 Temperature Pulse Rate 66 67 66 Pulse Rate [ From Monitor] Respiratory 27 H 22 29 H Rate Blood Pressure 164/42 171/43 183/42 O2 Sat by Pulse 99 100 100 Oximetry O2 Sat by Pulse Oximetry [ Anterior Throughout] 09/11/19 09/11/19 09/11/19 17:15 17:30 17:45 Temperature Pulse Rate 65 70 70 Pulse Rate [ From Monitor] Respiratory 26 H 22 25 H Rate Blood Pressure 179/56 179/56 178/59 O2 Sat by Pulse 100 100 98 Oximetry O2 Sat by Pulse Oximetry [ Anterior Throughout] 09/11/19 09/11/19 09/11/19 18:00 18:30 19:00 Temperature Pulse Rate 67 64 63 Pulse Rate [ From Monitor] Respiratory 24 22 19 Rate Blood Pressure 178/59 129/39 138/44 O2 Sat by Pulse 100 98 98 Oximetry O2 Sat by Pulse Oximetry [ Anterior Throughout] 09/11/19 09/11/19 09/11/19 19:23 19:30 20:00 Temperature 98.6 F Pulse Rate 65 66 Pulse Rate [ 66 From Monitor] Respiratory 17 19 Rate Blood Pressure 160/53 173/40 O2 Sat by Pulse 100 98 100 Oximetry O2 Sat by Pulse Oximetry [ Anterior Throughout] 09/11/19 09/11/19 09/11/19 20:30 21:00 21:18 Temperature Pulse Rate 66 72 67 Pulse Rate [ From Monitor] Respiratory 16 22 Rate Blood Pressure 171/72 164/62 173/48 O2 Sat by Pulse 100 100 Oximetry O2 Sat by Pulse Oximetry [ Anterior Throughout] 09/11/19 09/11/19 21:19 21:30 Temperature Pulse Rate 67 66 Pulse Rate [ From Monitor] Respiratory 24 Rate Blood Pressure 173/48 173/48 O2 Sat by Pulse 100 Oximetry O2 Sat by Pulse Oximetry [ Anterior Throughout] Constitutional: no acute distress, alert Eyes: non-icteric ENT: oropharynx moist Neck: supple Effort: normal Ascultation: Bilateral: clear (anteriorly) Cardiovascular: regular rate and rhythm (no mrg) Gastrointestinal: normoactive bowel sounds, soft, non-tender, non-distended Integumentary: normal Extremities: no cyanosis, no edema, pink and warm Neurologic: normal mental status, non-focal exam, pupils equal and round, CN II- XII normal Psychiatric: mood appropriate, affect normal CBC and BMP: 09/10/19 03:59 09/11/19 13:01 ABG, PT/INR, D-dimer: PT/INR, D-dimer PT 13.6 Sec. (12.2-14.9) 09/09/19 20:35 INR 1.07 (0.87-1.13) 09/09/19 20:35 Abnormal lab findings: Abnormal Labs 09/09/19 09/09/19 09/09/19 20:35 20:35 20:35 RBC Hgb 9.6 L Hct 29.9 L MCV 76 L MCH 25 L RDW 21.6 H Seg Neutrophils % Potassium 5.1 H Chloride 94.9 L BUN 45 H Creatinine 8.3 H Glucose 270 H POC Glucose AST 104 H ALT 84 H Alkaline Phosphatase 195 H Troponin T 0.143 H* NT-Pro-B Natriuret Pep > 94545 H Free T4 09/10/19 09/10/19 09/10/19 01:01 03:59 03:59 RBC 3.56 L Hgb 8.9 L Hct 26.9 L MCV 75 L MCH 25 L RDW 21.0 H Seg Neutrophils % 70.1 H Potassium 5.1 H Chloride 95.3 L BUN 50 H Creatinine 8.7 H Glucose 217 H POC Glucose AST ALT Alkaline Phosphatase Troponin T 0.157 H* NT-Pro-B Natriuret Pep Free T4 09/10/19 09/10/19 09/10/19 05:44 09:38 12:54 RBC Hgb Hct MCV MCH RDW Seg Neutrophils % Potassium Chloride BUN Creatinine Glucose POC Glucose 304 H 172 H AST ALT Alkaline Phosphatase Troponin T 0.151 H* NT-Pro-B Natriuret Pep Free T4 09/10/19 09/10/19 09/11/19 19:32 23:19 08:17 RBC Hgb Hct MCV MCH RDW Seg Neutrophils % Potassium Chloride BUN Creatinine Glucose POC Glucose 160 H 161 H 160 H AST ALT Alkaline Phosphatase Troponin T NT-Pro-B Natriuret Pep Free T4 09/11/19 09/11/19 09/11/19 11:30 11:51 13:01 RBC Hgb Hct MCV MCH RDW Seg Neutrophils % Potassium Chloride 95.5 L BUN 24 H Creatinine 5.8 H Glucose 188 H POC Glucose 194 H AST ALT Alkaline Phosphatase Troponin T NT-Pro-B Natriuret Pep Free T4 1.59 H 09/11/19 16:41 RBC Hgb Hct MCV MCH RDW Seg Neutrophils % Potassium Chloride BUN Creatinine Glucose POC Glucose 199 H AST ALT Alkaline Phosphatase Troponin T NT-Pro-B Natriuret Pep Free T4 Chest x-ray: report reviewed, image reviewed Allied health notes reviewed: nursing
[2019-09-12] MEDS: CATAPRES PO SCH ×3 (05:30→21:42)
[2019-09-12 05:55] LABS: Basophils # (Auto) 0.1 K/mm3 (0.0-0.1); Basophils % (Auto) 0.6 % (0.0-1.8); Eosinophils # (Auto) 0.3 K/mm3 (0.0-0.4); Eosinophils % (Auto) 2.8 % (0.0-4.3); Hematocrit 30.4 % (30.3-42.9); Hemoglobin 9.8 gm/dl (10.1-14.3); Lymphocytes # (Auto) 1.2 K/mm3 (1.2-5.4); Lymphocytes % (Auto) 13.1 % (13.4-35.0); Mean Corpuscular HGB Conc 32 % (30-34); Mean Corpuscular Volume 76 fl (79-97); Monocytes # (Auto) 0.6 K/mm3 (0.0-0.8); Platelet Count 181 K/mm3 (140-440); Red Blood Count 3.99 M/mm3 (3.65-5.03)
[2019-09-12 05:57] LABS: Red Cell Distribution Width 21.6 % (13.2-15.2)
[2019-09-12 06:13] LABS: Calcium 8.6 mg/dL (8.4-10.2)
--- NOTE | 2019-09-12 09:08 | Progress Note ---
Assessment and Plan - Patient Problems (1) ESRD (end stage renal disease) Current Visit: Yes Status: Chronic Plan to address problem: Continue on MWF inpatient schedule (2) Hypertensive chronic kidney disease with stage 5 chronic kidney disease or end stage renal disease Current Visit: No Status: Chronic Plan to address problem: Patient off nitroglycerin gtt and now optimizing on oral antihypertensives. Tolerated extra session for isolated UF 3L. (3) Pulmonary edema Current Visit: Yes Status: Acute Qualifiers: Chronicity: chronic Qualified Code(s): J81.1 - Chronic pulmonary edema Plan to address problem: Will challenge dry weight on HD. Overall respiratory status improving. Counseled on importance of salt/fluid restrictions. (4) Hyperkalemia Current Visit: Yes Status: Acute Plan to address problem: Dialyze with 2 K bath. Counseled on importance of low K diet. (5) Type 2 diabetes mellitus with diabetic chronic kidney disease Current Visit: No Status: Chronic Qualifiers: Chronic kidney disease stage: on chronic dialysis Plan to address problem: DM management per primary attending. (6) Anemia in CKD (chronic kidney disease) Current Visit: No Status: Chronic Qualifiers: Chronic kidney disease stage: on chronic dialysis Qualified Code(s): N18.6 - End stage renal disease; D63.1 - Anemia in chronic kidney disease; Z99.2 - Dependence on renal dialysis Plan to address problem: KARL therapy with HD now that BP has stabilized. Subjective Date of service: 09/12/19 Principal diagnosis: htn; sob Interval history: No acute events overnight. Now off nitroglycerin gtt at this time. Tolerated extra UF session, with removal of 3L. Plan for regular HD session today. Objective - Vital Signs Vital signs: Vital Signs - 12hr 09/11/19 09/11/19 09/11/19 21:18 21:19 21:30 Temperature Pulse Rate 67 67 66 Pulse Rate [ From Monitor] Respiratory 24 Rate Blood Pressure 173/48 173/48 173/48 O2 Sat by Pulse 100 Oximetry 09/11/19 09/11/19 09/11/19 22:00 22:30 23:00 Temperature Pulse Rate 63 63 66 Pulse Rate [ From Monitor] Respiratory 20 21 24 Rate Blood Pressure 150/50 161/53 161/53 O2 Sat by Pulse 100 100 100 Oximetry 09/11/19 09/12/19 09/12/19 23:30 00:00 00:16 Temperature 98.8 F Pulse Rate 64 63 64 Pulse Rate [ 63 From Monitor] Respiratory 23 17 18 Rate Blood Pressure 140/58 150/46 138/44 O2 Sat by Pulse 100 100 100 Oximetry 09/12/19 09/12/19 09/12/19 00:30 01:00 01:30 Temperature Pulse Rate 62 61 61 Pulse Rate [ From Monitor] Respiratory 24 22 20 Rate Blood Pressure 138/44 147/54 147/54 O2 Sat by Pulse 100 100 100 Oximetry 09/12/19 09/12/19 09/12/19 02:00 02:30 03:00 Temperature Pulse Rate 60 64 61 Pulse Rate [ From Monitor] Respiratory 22 20 24 Rate Blood Pressure 159/55 167/53 169/67 O2 Sat by Pulse 100 100 100 Oximetry 09/12/19 09/12/19 09/12/19 03:30 03:52 04:00 Temperature 98.7 F Pulse Rate 65 62 Pulse Rate [ 62 From Monitor] Respiratory 19 18 Rate Blood Pressure 153/45 192/77 O2 Sat by Pulse 100 97 Oximetry 09/12/19 09/12/19 09/12/19 04:30 05:00 05:30 Temperature Pulse Rate 62 63 64 Pulse Rate [ From Monitor] Respiratory 18 21 16 Rate Blood Pressure 180/66 160/68 160/68 O2 Sat by Pulse 100 99 100 Oximetry 09/12/19 09/12/19 09/12/19 06:00 06:30 07:00 Temperature Pulse Rate 66 60 68 Pulse Rate [ From Monitor] Respiratory 18 27 H 12 Rate Blood Pressure 150/38 150/38 156/59 O2 Sat by Pulse 99 100 100 Oximetry 09/12/19 09/12/19 09/12/19 07:30 08:00 08:03 Temperature 98.0 F Pulse Rate 66 64 Pulse Rate [ From Monitor] Respiratory 11 L 20 Rate Blood Pressure 174/44 137/65 O2 Sat by Pulse 100 100 99 Oximetry - General Appearance General appearance: well-developed, well-nourished, appears stated age EENT: ATNC, PERRL Neck: no JVD, no thyromegaly Respiratory: Present: Clear to Ascultation Cardiology: regular, S1S2 Gastrointestinal: normal, normoactive bowel sounds Integumentary: no rash, warm and dry Neurologic: no focal deficit, no asterixis, alert and oriented x3 Psychiatric: mood/affect appropriate, cooperative - Lab 09/12/19 05:29 09/12/19 05:29 Most recent lab results Calcium 8.6 mg/dL (8.4-10.2) 09/12/19 05:29 Magnesium 2.30 mg/dL (1.7-2.3) 09/09/19 20:35 - Imaging Chest x-ray: report reviewed - Allied health notes Allied health notes reviewed: nursing Medications & Allergies - Medications Allergies/Adverse Reactions: Allergies No Known Allergies Allergy (Verified 01/01/19 23:56) Home Medications: Home Medications Medication Instructions Recorded Confirmed Last Taken Type Loratadine [Claritin] 10 mg PO QDAY 01/02/19 09/09/19 02/17/19 History Meclizine HCl [Wal-Dram 2] 25 mg PO TID 01/02/19 09/09/19 02/17/19 History Zolpidem [Ambien] 5 mg PO QHS 01/02/19 09/09/19 02/17/19 History glipiZIDE [Glipizide] 10 mg PO BID 01/02/19 09/09/19 02/17/19 History hydrALAZINE [Apresoline TAB] 100 mg PO TID 01/02/19 09/09/19 02/17/19 History Aspirin [Aspirin BABY CHEW TAB] 81 mg PO QDAY #30 tab.chew 01/04/19 09/09/19 02/17/19 Rx Carvedilol [Coreg] 25 mg PO BID #60 tablet 01/04/19 09/09/19 02/17/19 Rx amLODIPine [Norvasc] 10 mg PO QDAY #30 tablet 01/04/19 09/09/19 02/17/19 Rx Insulin Regular, Human [HumuLIN R] 0 unit SQ AC #1 vial 03/19/19 09/09/19 Unknown Rx Losartan [Cozaar] 100 mg PO QDAY #60 tablet 03/19/19 09/09/19 Unknown Rx Spironolactone [Aldactone] 25 mg PO BID #60 tablet 03/20/19 09/09/19 Unknown Rx cloNIDine [Catapres] 0.1 mg PO Q8HR #90 tablet 03/20/19 09/09/19 Unknown Rx Active Medications: Generic Name Dose Route Start Last Admin Trade Name Freq PRN Reason Stop Dose Admin Acetaminophen 650 mg 09/10/19 00:19 09/11/19 20:00 Tylenol PO 650 mg Q4H PRN Administration Pain MILD(1-3)/Fever >100.5/YOUNG Amlodipine Besylate 10 mg 09/10/19 10:00 09/11/19 13:51 Norvasc PO 10 mg QDAY [facility] Administration Aspirin 81 mg 09/10/19 10:00 09/11/19 19:39 Baby Aspirin PO 81 mg QDAY [facility] Administration Carvedilol 25 mg 09/10/19 10:00 09/11/19 21:19 Coreg PO 25 mg BID [facility] Administration Clonidine HCl 0.1 mg 09/10/19 14:00 09/12/19 05:30 Catapres PO 0.1 mg Q8HR [facility] Administration Dextrose 50 ml 09/10/19 00:19 D50w (25gm) Syringe IV PRN PRN Hypoglycemia Epoetin Chago 10,000 unit 09/10/19 13:16 09/11/19 12:49 Procrit IV 10,000 unit TWAN PRN Administration hemodialysis Heparin Sodium (Porcine) 5,000 unit 09/10/19 22:00 09/11/19 21:19 Heparin SUB-Q 5,000 unit Q12HR [facility] Administration Hydralazine HCl 100 mg 09/10/19 14:00 09/11/19 19:46 Apresoline PO 100 mg TID [facility] Administration Nitroglycerin/Dextrose 50 mg in 250 mls @ 3 mls/hr 09/09/19 23:00 09/11/19 07:08 Tridil Drip 50mg/250ml IV 70 mcg/min TITR [facility] 21 mls/hr Titration Protocol 10 MCG/MIN Sodium Chloride 100 mls @ 999 mls/hr 09/11/19 09:00 Nacl 0.9% IV TWAN PRN Hypotension Insulin Human Lispro 0 unit 09/10/19 07:30 09/11/19 22:45 Humalog SUB-Q 4 unit ACHS [facility] Administration Protocol Levothyroxine Sodium 75 mcg 09/11/19 10:00 09/12/19 05:30 Synthroid PO 75 mcg DAILY@0600 [facility] Administration Losartan Potassium 100 mg 09/10/19 10:00 09/10/19 10:30 Cozaar PO 100 mg QDAY [facility] Administration Ondansetron HCl 4 mg 09/10/19 00:19 Zofran IV Q8H PRN Nausea And Vomiting Sodium Chloride 10 ml 09/10/19 10:00 09/11/19 21:20 Sodium Chloride Flush Syringe 10 Ml IV 10 ml BID [facility] Administration Sodium Chloride 10 ml 09/10/19 00:19 Sodium Chloride Flush Syringe 10 Ml IV PRN PRN LINE FLUSH Zolpidem Tartrate 5 mg 09/10/19 22:00 09/11/19 21:18 Ambien PO 5 mg QHS [facility] Administration
--- NOTE | 2019-09-12 09:32 | Progress Note ---
Assessment and Plan Acute pulmonary edema with respiratory distress Hypertensive emergency- off nitroglycerine infusion Chest pain/Abnormal cardiac enzymes-chronic A/C systolic CHF-- Echo done 01/2019 showed EF 40-45% Hyperkalemia ESRD Moderate protein calorie malnutrition -Wean off supplemental oxygen for O2 sats>90% -VTE prophylaxis -PT/OT/Mobility -Oral antihypertensives -Heart failure measures -Cardioprotective measures -Supportive HD per Renal service -Nutrition/RD consult for moderate protein calorie malnutrition -OK to transfer telemetry for ongoing care. -The need for adherence to medical therapies and care was discussed extensively with the patient and she verbalized understanding Subjective Date of service: 09/12/19 Principal diagnosis: htn; sob Interval history: Patient is seen today for: acute respiratory distress, acute pulmonary edema; hy pertensive emergency Seen and examined at bedside; 24hour events reviewed; nursing and respiratory care staff consulted; no adverse overnight events reported to me; Vitals, labs, medications, chart and imaging reviewed. Patient known to my service and admitted to me. Denies any chest pain, no shortness of breath, no fevers or chills. Breathing comfortably with acceptable blood pressure control s/p HD Objective Vital Signs - 12hr 09/11/19 09/11/19 09/11/19 22:00 22:30 23:00 Temperature Pulse Rate 63 63 66 Pulse Rate [ From Monitor] Respiratory 20 21 24 Rate Blood Pressure 150/50 161/53 161/53 O2 Sat by Pulse 100 100 100 Oximetry 09/11/19 09/12/19 09/12/19 23:30 00:00 00:16 Temperature 98.8 F Pulse Rate 64 63 64 Pulse Rate [ 63 From Monitor] Respiratory 23 17 18 Rate Blood Pressure 140/58 150/46 138/44 O2 Sat by Pulse 100 100 100 Oximetry 09/12/19 09/12/19 09/12/19 00:30 01:00 01:30 Temperature Pulse Rate 62 61 61 Pulse Rate [ From Monitor] Respiratory 24 22 20 Rate Blood Pressure 138/44 147/54 147/54 O2 Sat by Pulse 100 100 100 Oximetry 09/12/19 09/12/19 09/12/19 02:00 02:30 03:00 Temperature Pulse Rate 60 64 61 Pulse Rate [ From Monitor] Respiratory 22 20 24 Rate Blood Pressure 159/55 167/53 169/67 O2 Sat by Pulse 100 100 100 Oximetry 09/12/19 09/12/19 09/12/19 03:30 03:52 04:00 Temperature 98.7 F Pulse Rate 65 62 Pulse Rate [ 62 From Monitor] Respiratory 19 18 Rate Blood Pressure 153/45 192/77 O2 Sat by Pulse 100 97 Oximetry 09/12/19 09/12/19 09/12/19 04:30 05:00 05:30 Temperature Pulse Rate 62 63 64 Pulse Rate [ From Monitor] Respiratory 18 21 16 Rate Blood Pressure 180/66 160/68 160/68 O2 Sat by Pulse 100 99 100 Oximetry 09/12/19 09/12/19 09/12/19 06:00 06:30 07:00 Temperature Pulse Rate 66 60 68 Pulse Rate [ From Monitor] Respiratory 18 27 H 12 Rate Blood Pressure 150/38 150/38 156/59 O2 Sat by Pulse 99 100 100 Oximetry 09/12/19 09/12/19 09/12/19 07:30 08:00 08:03 Temperature 98.0 F Pulse Rate 66 64 Pulse Rate [ From Monitor] Respiratory 11 L 20 Rate Blood Pressure 174/44 137/65 O2 Sat by Pulse 100 100 99 Oximetry Constitutional: no acute distress, alert Eyes: non-icteric ENT: oropharynx moist Neck: supple Effort: normal Ascultation: Bilateral: clear (anteriorly) Cardiovascular: regular rate and rhythm (no mrg) Gastrointestinal: normoactive bowel sounds, soft, non-tender, non-distended Integumentary: normal Extremities: no cyanosis, no edema, pink and warm Neurologic: normal mental status, non-focal exam, pupils equal and round, CN II- XII normal Psychiatric: mood appropriate, affect normal CBC and BMP: 09/12/19 05:29 09/12/19 05:29 ABG, PT/INR, D-dimer: PT/INR, D-dimer PT 13.6 Sec. (12.2-14.9) 09/09/19 20:35 INR 1.07 (0.87-1.13) 09/09/19 20:35 Abnormal lab findings: Abnormal Labs 09/09/19 09/09/19 09/09/19 20:35 20:35 20:35 RBC Hgb 9.6 L Hct 29.9 L MCV 76 L MCH 25 L RDW 21.6 H Lymph % (Auto) Seg Neutrophils % Sodium Potassium 5.1 H Chloride 94.9 L BUN 45 H Creatinine 8.3 H Glucose 270 H POC Glucose AST 104 H ALT 84 H Alkaline Phosphatase 195 H Troponin T 0.143 H* NT-Pro-B Natriuret Pep > 02645 H Free T4 09/10/19 09/10/19 09/10/19 01:01 03:59 03:59 RBC 3.56 L Hgb 8.9 L Hct 26.9 L MCV 75 L MCH 25 L RDW 21.0 H Lymph % (Auto) Seg Neutrophils % 70.1 H Sodium Potassium 5.1 H Chloride 95.3 L BUN 50 H Creatinine 8.7 H Glucose 217 H POC Glucose AST ALT Alkaline Phosphatase Troponin T 0.157 H* NT-Pro-B Natriuret Pep Free T4 09/10/19 09/10/19 09/10/19 05:44 09:38 12:54 RBC Hgb Hct MCV MCH RDW Lymph % (Auto) Seg Neutrophils % Sodium Potassium Chloride BUN Creatinine Glucose POC Glucose 304 H 172 H AST ALT Alkaline Phosphatase Troponin T 0.151 H* NT-Pro-B Natriuret Pep Free T4 09/10/19 09/10/19 09/11/19 19:32 23:19 08:17 RBC Hgb Hct MCV MCH RDW Lymph % (Auto) Seg Neutrophils % Sodium Potassium Chloride BUN Creatinine Glucose POC Glucose 160 H 161 H 160 H AST ALT Alkaline Phosphatase Troponin T NT-Pro-B Natriuret Pep Free T4 09/11/19 09/11/19 09/11/19 11:30 11:51 13:01 RBC Hgb Hct MCV MCH RDW Lymph % (Auto) Seg Neutrophils % Sodium Potassium Chloride 95.5 L BUN 24 H Creatinine 5.8 H Glucose 188 H POC Glucose 194 H AST ALT Alkaline Phosphatase Troponin T NT-Pro-B Natriuret Pep Free T4 1.59 H 09/11/19 09/11/19 09/12/19 16:41 22:47 05:29 RBC Hgb 9.8 L Hct MCV 76 L MCH 25 L RDW 21.6 H Lymph % (Auto) 13.1 L Seg Neutrophils % 77.5 H Sodium Potassium Chloride BUN Creatinine Glucose POC Glucose 199 H 230 H AST ALT Alkaline Phosphatase Troponin T NT-Pro-B Natriuret Pep Free T4 09/12/19 09/12/19 05:29 07:34 RBC Hgb Hct MCV MCH RDW Lymph % (Auto) Seg Neutrophils % Sodium 136 L Potassium Chloride 94.3 L BUN 35 H Creatinine 7.3 H Glucose 105 H POC Glucose 129 H AST ALT Alkaline Phosphatase Troponin T NT-Pro-B Natriuret Pep Free T4 Chest x-ray: image reviewed Allied health notes reviewed: nursing
[2019-09-12] MEDS: HumaLOG SUB-Q SCH ×4 (10:13→21:49)
[2019-09-12] MEDS: SODIUM CHLORIDE FLUSH SYRINGE 10 ML IV SCH ×3 (10:20→21:54)
[2019-09-12] MEDS: COZAAR PO SCH (10:20)
[2019-09-12] MEDS: NORVASC PO SCH (10:21)
[2019-09-12] MEDS: BABY ASPIRIN PO SCH (10:21)
[2019-09-12] MEDS: COREG PO SCH ×2 (10:24→21:43)
--- NOTE | 2019-09-12 10:24 | Progress Note ---
Assessment and Plan Pt appears to be clinically improving. Cont present cardiac management. Volume optimization per nephrology. Pt may tx out of CCU to telemetry from cardiology standpoint. The patient has been seen in conjunction with Dr. Bazan who agrees with the assessment and plan of care. - Patient Problems (1) Acute HFrEF (heart failure with reduced ejection fraction) Current Visit: Yes Status: Acute (2) Cardiomyopathy Current Visit: Yes Status: Chronic Qualifiers: Cardiomyopathy type: unspecified Qualified Code(s): I42.9 - Cardiomyopathy, unspecified (3) Volume overload Current Visit: Yes Status: Acute (4) Hypertensive crisis Current Visit: Yes Status: Acute (5) Diabetes mellitus with hyperglycemia Current Visit: Yes Status: Acute (6) ESRD (end stage renal disease) Current Visit: Yes Status: Chronic (7) NSTEMI Current Visit: Yes Status: Acute Subjective Date of service: 09/12/19 Principal diagnosis: htn; sob Interval history: pt resting in bed, states she is feeling better today. sob improved. off nitro gtt. Objective Last Vital Signs Temp 98.0 F 09/12/19 08:00 Pulse 64 09/12/19 10:00 Resp 15 09/12/19 10:00 BP 166/47 09/12/19 10:00 Pulse Ox 100 09/12/19 10:00 - Physical Examination General: No Apparent Distress HEENT: Positive: PERRL, Normocephaly, Mucus Membranes Moist Neck: Positive: neck supple, trachea midline Cardiac: Positive: Reg Rate and Rhythm, S1/S2 Lungs: Positive: Decreased Breath Sounds Abdomen: Negative: Tender Skin: Negative: Rash Musculoskeletal: No Pain Extremities: Present: edema (trace BLE) - Labs and Meds CBC 09/12/19 Range/Units 05:29 WBC 9.3 (4.5-11.0) K/mm3 RBC 3.99 (3.65-5.03) M/mm3 Hgb 9.8 L (10.1-14.3) gm/dl Hct 30.4 (30.3-42.9) % Plt Count 181 (140-440) K/mm3 Lymph # 1.2 (1.2-5.4) K/mm3 [place] # 0.6 (0.0-0.8) K/mm3 Eos # 0.3 (0.0-0.4) K/mm3 Baso # 0.1 (0.0-0.1) K/mm3 Comprehensive Metabolic Panel 09/11/19 09/12/19 Range/Units 13:01 05:29 Sodium 137 136 L (137-145) mmol/L Potassium 4.9 4.5 (3.6-5.0) mmol/L Chloride 95.5 L 94.3 L (98-107) mmol/L Carbon Dioxide 25 26 (22-30) mmol/L BUN 24 H 35 H (7-17) mg/dL Creatinine 5.8 H 7.3 H (0.7-1.2) mg/dL Glucose 188 H 105 H (65-100) mg/dL Calcium 9.0 8.6 (8.4-10.2) mg/dL - Imaging and Cardiology EKG: report reviewed, image reviewed Echo: report reviewed ( 01/2019 showed EF 40-45%%, mod LVH with increased echogenicty ? amyloid heart disease, impaired relaxation, RV systolic function mod reduced, RA mild to mod dilated, pericardial effusion seen adjacent to the RA.) - EKG Sinus rhythms and dysrhythmias: sinus rhythm Chamber hypertrophy or enlargement: left ventricular hypertro - Allied health notes Allied health notes reviewed: nursing
[2019-09-12] MEDS: HEPARIN SUB-Q SCH ×2 (10:26→21:43)
[2019-09-12] MEDS: APRESOLINE PO SCH ×3 (12:22→21:43)
--- NOTE | 2019-09-12 12:56 | Progress Note ---
Assessment and Plan Hypertensive urgency, malignant - s/p nitroglycerin drip - resumed home medications and cont to monitor BP and adjust meds as needed Respiratory distress with a moderate pulmonary edema - due to volume overload from end-stage renal disease and underlying CHF - Continue supplemental oxygen, s/p emergent dialysis, strictly monitor fluid b alance End-stage disease needing dialysis with volume overload - Consulted nephrology for dialysis Chest pain/Abnormal cardiac enzymes - Pt appears to have chronic troponin elevation c/w NSTEMI type II, currently nonspecific in setting of hypertensive emergency and ESRD. - Lexiscan MPI stress test done 12/2018 was negative for ischemia, EF 38%. No plans for additional cardiac w/u at this time per cardiology. Acute CHF exacerbation with systolic dysfunction - Echo done 01/2019 showed EF 40-45% - Patient presented with volume overload - superimposed with history of end- stage renal disease and underlying CHF - Volume correction with hemodialysis, Cardiologic consulted - follow recommendation - medical Mx for now Diabetes 2 uncontrolled - Consistent carb diet with sliding scale insulin coverage Moderate Protein calorie malnutrition, consulted dietary Hyperkalemia due to ESRD, monitor clinically, potassium level improved with dialysis Anemia of chronic kidney disease - Monitor H&H, transfuse as needed DVT prophylaxis, with heparin Transfer out of tele today, PT eval Disposition: Home with HH when clears by PT and clinistablecally Brief History: 64 y/o Indian female with h/o ESRD on MWS scheduled with last HD session on Tuesday presented with uncontrolled blood pressures and worsening LE edema and dyspnea on exertion. She is being treated for hypertensive emergency with evidence of moderate pulmonary edema on chest xray. She is on nitro gtt in the ER. Nephrology consulted secondary to chronic HD needs, cardiology following for abnormal cardiac enzymes. Radiological data: Chest x-ray - Cardiomegaly with moderate pulmonary edema. Abdominal pelvis CT 1. No inflammatory process or bowel obstruction. 2. Cardiomegaly with bibasilar pulmonary edema and small bilateral pleural effusions. 3. Atrophic kidneys and vascular calcifications likely related to diabetes and/or renal failure. Hospitalist Physical exam: GENERAL: Elderly malnourished female lying on bed appeared to be in no disc omfort. HEENT: Normocephalic. Atraumatic. No conjunctival congestion or icterus. Patient has moist mucous membranes. NECK: Supple. Trachea midline. CHEST/LUNGS: + breath sounds auscultated bilaterally, breathing nonlabored. HEART/CARDIOVASCULAR: Regular in rate and rhythm. S1 and S2 positive. ABDOMEN: Abdomen is soft, nontender. Patient has normal bowel sounds. SKIN: There is no rash. Warm and dry. NEURO: No focal motor deficit. Follows command. MUSCULOSKELETAL: No joint effusion or tenderness. EXTRIMITY: Positive edema, no cyanosis or clubbing. PSYCH: Cooperative. Subjective Date of service: 09/12/19 Principal diagnosis: htn; sob Interval history: Patient seen and examined. Medical records and medication list reviewed. No acute event overnight noted by the RN. Patient states improved difficulty breathing. Patient is tolerating diet. Discussed plan of care at bedside with patient. off nitro drip - BP stable denies any chest pain Objective - Constitutional Vitals: Vital Signs - 12hr 09/12/19 09/12/19 09/12/19 01:00 01:30 02:00 Temperature Pulse Rate 61 61 60 Pulse Rate [ From Monitor] Respiratory 22 20 22 Rate Blood Pressure 147/54 147/54 159/55 O2 Sat by Pulse 100 100 100 Oximetry 09/12/19 09/12/19 09/12/19 02:30 03:00 03:30 Temperature Pulse Rate 64 61 65 Pulse Rate [ From Monitor] Respiratory 20 24 19 Rate Blood Pressure 167/53 169/67 153/45 O2 Sat by Pulse 100 100 100 Oximetry 09/12/19 09/12/19 09/12/19 03:52 04:00 04:30 Temperature 98.7 F Pulse Rate 62 62 Pulse Rate [ 62 From Monitor] Respiratory 18 18 Rate Blood Pressure 192/77 180/66 O2 Sat by Pulse 97 100 Oximetry 09/12/19 09/12/19 09/12/19 05:00 05:30 06:00 Temperature Pulse Rate 63 64 66 Pulse Rate [ From Monitor] Respiratory 21 16 18 Rate Blood Pressure 160/68 160/68 150/38 O2 Sat by Pulse 99 100 99 Oximetry 09/12/19 09/12/19 09/12/19 06:30 07:00 07:30 Temperature Pulse Rate 60 68 66 Pulse Rate [ From Monitor] Respiratory 27 H 12 11 L Rate Blood Pressure 150/38 156/59 174/44 O2 Sat by Pulse 100 100 100 Oximetry 09/12/19 09/12/19 09/12/19 08:00 08:03 08:30 Temperature 98.0 F Pulse Rate 64 63 Pulse Rate [ From Monitor] Respiratory 20 22 Rate Blood Pressure 137/65 142/35 O2 Sat by Pulse 100 99 100 Oximetry 09/12/19 09/12/19 09/12/19 09:00 09:30 10:00 Temperature Pulse Rate 66 64 64 Pulse Rate [ From Monitor] Respiratory 17 15 15 Rate Blood Pressure 125/45 166/47 166/47 O2 Sat by Pulse 100 100 100 Oximetry 09/12/19 09/12/19 09/12/19 10:20 10:21 10:24 Temperature Pulse Rate 63 63 63 Pulse Rate [ From Monitor] Respiratory Rate Blood Pressure 156/64 156/64 156/64 O2 Sat by Pulse Oximetry 09/12/19 12:00 Temperature 97.9 F Pulse Rate Pulse Rate [ From Monitor] Respiratory Rate Blood Pressure O2 Sat by Pulse Oximetry - Labs CBC & Chem 7: 09/12/19 05:29 09/12/19 05:29 Labs: Abnormal lab results 09/11/19 09/11/19 09/11/19 Range/Units 13:01 16:41 22:47 Hgb (10.1-14.3) gm/dl MCV (79-97) fl MCH (28-32) pg RDW (13.2-15.2) % Lymph % (Auto) (13.4-35.0) % Seg Neutrophils % (40.0-70.0) % Sodium (137-145) mmol/L Chloride 95.5 L (98-107) mmol/L BUN 24 H (7-17) mg/dL Creatinine 5.8 H (0.7-1.2) mg/dL Glucose 188 H (65-100) mg/dL POC Glucose 199 H 230 H (70-105) 09/12/19 09/12/19 09/12/19 Range/Units 05:29 05:29 07:34 Hgb 9.8 L (10.1-14.3) gm/dl MCV 76 L (79-97) fl MCH 25 L (28-32) pg RDW 21.6 H (13.2-15.2) % Lymph % (Auto) 13.1 L (13.4-35.0) % Seg Neutrophils % 77.5 H (40.0-70.0) % Sodium 136 L (137-145) mmol/L Chloride 94.3 L (98-107) mmol/L BUN 35 H (7-17) mg/dL Creatinine 7.3 H (0.7-1.2) mg/dL Glucose 105 H (65-100) mg/dL POC Glucose 129 H (70-105) 09/12/19 Range/Units 11:44 Hgb (10.1-14.3) gm/dl MCV (79-97) fl MCH (28-32) pg RDW (13.2-15.2) % Lymph % (Auto) (13.4-35.0) % Seg Neutrophils % (40.0-70.0) % Sodium (137-145) mmol/L Chloride (98-107) mmol/L BUN (7-17) mg/dL Creatinine (0.7-1.2) mg/dL Glucose (65-100) mg/dL POC Glucose 286 H (70-105)
[2019-09-12] MEDS: AMBIEN PO SCH (21:43)
[2019-09-13] MEDS: HumaLOG SUB-Q SCH ×2 (09:17→13:00)
[2019-09-13] MEDS: COZAAR PO SCH (09:20)
[2019-09-13] MEDS: APRESOLINE PO SCH ×3 (09:21→16:17)
[2019-09-13] MEDS: COREG PO SCH (09:21)
[2019-09-13] MEDS: BABY ASPIRIN PO SCH (09:21)
[2019-09-13] MEDS: NORVASC PO SCH (09:21)
[2019-09-13] MEDS: CATAPRES PO SCH ×2 (09:28→16:16)
[2019-09-13] MEDS: HEPARIN SUB-Q SCH ×2 (09:35→10:20)
--- NOTE | 2019-09-13 11:17 | Progress Note ---
Assessment and Plan Currently stable cardiac status. Cont present cardiac management and volume optimization per nephrology. Nothing further to add from cardiac perspective at this time. Will sign off. Recommend pt follow up in our office with Dr. Shipman within 3-5 days of hospital discharge ([phone]). The patient has been seen in conjunction with Dr. Bazan who agrees with the assessment and plan of care. - Patient Problems (1) Acute HFrEF (heart failure with reduced ejection fraction) Current Visit: Yes Status: Acute (2) Cardiomyopathy Current Visit: Yes Status: Chronic Qualifiers: Cardiomyopathy type: unspecified Qualified Code(s): I42.9 - Cardiomyopathy, unspecified (3) Volume overload Current Visit: Yes Status: Acute (4) Hypertensive crisis Current Visit: Yes Status: Acute (5) Diabetes mellitus with hyperglycemia Current Visit: Yes Status: Acute (6) ESRD (end stage renal disease) Current Visit: Yes Status: Chronic (7) NSTEMI Current Visit: Yes Status: Acute Subjective Date of service: 09/13/19 Principal diagnosis: htn; sob Interval history: pt resting in bed, no current complaints. Objective Last Vital Signs Temp 98.0 F 09/13/19 07:54 Pulse 63 09/13/19 09:28 Resp 18 09/13/19 07:54 BP 178/73 09/13/19 07:54 Pulse Ox 98 09/13/19 07:54 - Physical Examination General: No Apparent Distress HEENT: Positive: PERRL, Normocephaly, Mucus Membranes Moist Neck: Positive: neck supple, trachea midline Cardiac: Positive: Reg Rate and Rhythm, S1/S2 Lungs: Positive: Decreased Breath Sounds Abdomen: Negative: Tender Skin: Negative: Rash Musculoskeletal: No Pain Extremities: Present: edema (trace BLE) - Imaging and Cardiology EKG: report reviewed, image reviewed Echo: report reviewed ( 01/2019 showed EF 40-45%%, mod LVH with increased echogenicty ? amyloid heart disease, impaired relaxation, RV systolic function mod reduced, RA mild to mod dilated, pericardial effusion seen adjacent to the RA.) - EKG Sinus rhythms and dysrhythmias: sinus rhythm Chamber hypertrophy or enlargement: left ventricular hypertro - Allied health notes Allied health notes reviewed: nursing
--- NOTE | 2019-09-13 13:05 | Progress Note ---
Assessment and Plan Acute pulmonary edema with respiratory distress Hypertensive emergency Chest pain/Abnormal cardiac enzymes-chronic A/C systolic CHF (Echo done 01/2019 showed EF 40-45%) Hyperkalemia ESRD on Dialysis Moderate protein calorie malnutrition - Wean off supplemental oxygen for O2 sats>90% - VTE prophylaxis - PT/OT/Mobility - Oral antihypertensives - Heart failure measures - Cardioprotective measures - Supportive HD per Renal service - Nutrition/RD consult for moderate protein calorie malnutrition - The need for adherence to medical therapies and care was discussed extensively with the patient and she verbalized understanding ... re-evaluate in am & prn Subjective Date of service: 09/13/19 Principal diagnosis: Ac. Resp distress; Ac. pulmonary edema; Hypertensive emergency Interval history: Patient is seen today for: Acute respiratory distress; Acute pulmonary edema; Hypertensive emergency Seen and examined at bedside; 24hour events reviewed; nursing and respiratory care staff consulted; no adverse overnight events reported to me; resting peacefully in bed; feels better; No chest pains; states she is compliant with all her medications; No N/V/F/C Objective Vital Signs - 12hr 09/13/19 09/13/19 09/13/19 03:45 03:57 07:54 Temperature 122.0 F H 98.4 F 98.0 F Pulse Rate 65 64 Respiratory 20 18 Rate Blood Pressure 168/53 178/73 O2 Sat by Pulse 95 98 Oximetry 09/13/19 09/13/19 09/13/19 09:20 09:21 09:28 Temperature Pulse Rate 63 63 63 Respiratory Rate Blood Pressure O2 Sat by Pulse Oximetry 09/13/19 10:00 Temperature Pulse Rate Respiratory Rate Blood Pressure O2 Sat by Pulse 98 Oximetry Constitutional: no acute distress, alert Eyes: non-icteric ENT: oropharynx moist Neck: supple Effort: normal Ascultation: Bilateral: clear (anteriorly) Percussion: Bilateral: not dull Cardiovascular: regular rate and rhythm (no mrg) Gastrointestinal: normoactive bowel sounds, soft, non-tender, non-distended Integumentary: normal Extremities: no cyanosis, no edema, pink and warm Neurologic: normal mental status, non-focal exam, pupils equal and round, CN II- XII normal Psychiatric: mood appropriate, affect normal CBC and BMP: 09/12/19 05:29 09/12/19 05:29 ABG, PT/INR, D-dimer: PT/INR, D-dimer PT 13.6 Sec. (12.2-14.9) 09/09/19 20:35 INR 1.07 (0.87-1.13) 09/09/19 20:35 Abnormal lab findings: Abnormal Labs 09/09/19 09/09/19 09/09/19 20:35 20:35 20:35 RBC Hgb 9.6 L Hct 29.9 L MCV 76 L MCH 25 L RDW 21.6 H Lymph % (Auto) Seg Neutrophils % Sodium Potassium 5.1 H Chloride 94.9 L BUN 45 H Creatinine 8.3 H Glucose 270 H POC Glucose AST 104 H ALT 84 H Alkaline Phosphatase 195 H Troponin T 0.143 H* NT-Pro-B Natriuret Pep > 98131 H Free T4 09/10/19 09/10/19 09/10/19 01:01 03:59 03:59 RBC 3.56 L Hgb 8.9 L Hct 26.9 L MCV 75 L MCH 25 L RDW 21.0 H Lymph % (Auto) Seg Neutrophils % 70.1 H Sodium Potassium 5.1 H Chloride 95.3 L BUN 50 H Creatinine 8.7 H Glucose 217 H POC Glucose AST ALT Alkaline Phosphatase Troponin T 0.157 H* NT-Pro-B Natriuret Pep Free T4 09/10/19 09/10/19 09/10/19 05:44 09:38 12:54 RBC Hgb Hct MCV MCH RDW Lymph % (Auto) Seg Neutrophils % Sodium Potassium Chloride BUN Creatinine Glucose POC Glucose 304 H 172 H AST ALT Alkaline Phosphatase Troponin T 0.151 H* NT-Pro-B Natriuret Pep Free T4 09/10/19 09/10/19 09/11/19 19:32 23:19 08:17 RBC Hgb Hct MCV MCH RDW Lymph % (Auto) Seg Neutrophils % Sodium Potassium Chloride BUN Creatinine Glucose POC Glucose 160 H 161 H 160 H AST ALT Alkaline Phosphatase Troponin T NT-Pro-B Natriuret Pep Free T4 09/11/19 09/11/19 09/11/19 11:30 11:51 13:01 RBC Hgb Hct MCV MCH RDW Lymph % (Auto) Seg Neutrophils % Sodium Potassium Chloride 95.5 L BUN 24 H Creatinine 5.8 H Glucose 188 H POC Glucose 194 H AST ALT Alkaline Phosphatase Troponin T NT-Pro-B Natriuret Pep Free T4 1.59 H 09/11/19 09/11/19 09/12/19 16:41 22:47 05:29 RBC Hgb 9.8 L Hct MCV 76 L MCH 25 L RDW 21.6 H Lymph % (Auto) 13.1 L Seg Neutrophils % 77.5 H Sodium Potassium Chloride BUN Creatinine Glucose POC Glucose 199 H 230 H AST ALT Alkaline Phosphatase Troponin T NT-Pro-B Natriuret Pep Free T4 09/12/19 09/12/19 09/12/19 05:29 07:34 11:44 RBC Hgb Hct MCV MCH RDW Lymph % (Auto) Seg Neutrophils % Sodium 136 L Potassium Chloride 94.3 L BUN 35 H Creatinine 7.3 H Glucose 105 H POC Glucose 129 H 286 H AST ALT Alkaline Phosphatase Troponin T NT-Pro-B Natriuret Pep Free T4 09/12/19 09/12/19 09/13/19 17:14 21:17 08:00 RBC Hgb Hct MCV MCH RDW Lymph % (Auto) Seg Neutrophils % Sodium Potassium Chloride BUN Creatinine Glucose POC Glucose 301 H 259 H 223 H AST ALT Alkaline Phosphatase Troponin T NT-Pro-B Natriuret Pep Free T4 09/13/19 12:41 RBC Hgb Hct MCV MCH RDW Lymph % (Auto) Seg Neutrophils % Sodium Potassium Chloride BUN Creatinine Glucose POC Glucose 271 H AST ALT Alkaline Phosphatase Troponin T NT-Pro-B Natriuret Pep Free T4 Allied health notes reviewed: nursing
--- NOTE | 2019-09-13 13:09 | Discharge Summary ---
Providers - Providers Date of Admission: 09/09/19 23:16 Date of discharge: 09/13/19 Attending physician: CROW KIM 09/09/19 20:03 Consult to Physician [CONS] Urgent Comment: EUSEBIO Flowers spoke with Dr. Orozco @ 2111 Consulting Provider: NING CHAIDEZ Physician Instructions: Reason For Exam: esrd htn 09/10/19 00:22 Consult to Physician [CONS] Routine Comment: Consulting Provider: CARLOS A MARTINEZ Physician Instructions: Reason For Exam: ab ce/ sob/cp 09/11/19 09:39 Consult to Physician [CONS] Urgent Comment: Consulting Provider: ASHLEE BETANCOURT Physician Instructions: Reason For Exam: critical care management 09/12/19 09:18 Physical Therapy Evaluation and Treat [CONS] Routine Comment: Reason For Exam: placement [facility] Condition: Stable Hospital course: 64 y/o Italian female with h/o ESRD on MWS scheduled with last HD session on Tuesday presented with uncontrolled blood pressures and worsening LE edema and dyspnea on exertion. She is being treated for hypertensive emergency with evidence of moderate pulmonary edema on chest xray. She is on nitro gtt in the ER. Nephrology consulted secondary to chronic HD needs, cardiology following for abnormal cardiac enzymes. Radiological data: Chest x-ray - Cardiomegaly with moderate pulmonary edema. Abdominal pelvis CT 1. No inflammatory process or bowel obstruction. 2. Cardiomegaly with bibasilar pulmonary edema and small bilateral pleural effusions. 3. Atrophic kidneys and vascular calcifications likely related to diabetes and/or renal failure. Discharge diagnosis and Mx: Hypertensive urgency, malignant - s/p nitroglycerin drip - resumed home medications and monitored BP and adjusted meds as needed Respiratory distress with a moderate pulmonary edema - due to volume overload from end-stage renal disease and underlying CHF - Continue supplemental oxygen, s/p emergent dialysis, strictly monitor fluid balance End-stage disease needing dialysis with volume overload - Consulted nephrology for dialysis Chest pain/Abnormal cardiac enzymes - Pt appears to have chronic troponin elevation c/w NSTEMI type II, currently nonspecific in setting of hypertensive emergency and ESRD. - Lexiscan MPI stress test done 12/2018 was negative for ischemia, EF 38%. No plans for additional cardiac w/u at this time per cardiology. Acute CHF exacerbation with systolic dysfunction - Echo done 01/2019 showed EF 40-45% - Patient presented with volume overload - superimposed with history of end- stage renal disease and underlying CHF - Volume correction with hemodialysis, Cardiologic consulted - follow recommendation - medical Mx for now Diabetes 2 uncontrolled - Consistent carb diet with sliding scale insulin coverage Moderate Protein calorie malnutrition, consulted dietary Hyperkalemia due to ESRD, monitor clinically, potassium level improved with dialysis Anemia of chronic kidney disease - Monitor H&H, transfuse as needed Hypothyroidism, on synthroid DVT prophylaxis, with heparin Transfer out of [facility] today, PT eval Disposition: Home with Hospitalist Physical exam: GENERAL: Elderly malnourished female lying on bed appeared to be in no discomfort. HEENT: Normocephalic. Atraumatic. No conjunctival congestion or icterus. Patient has moist mucous membranes. NECK: Supple. Trachea midline. CHEST/LUNGS: + breath sounds auscultated bilaterally, breathing nonlabored. HEART/CARDIOVASCULAR: Regular in rate and rhythm. S1 and S2 positive. ABDOMEN: Abdomen is soft, nontender. Patient has normal bowel sounds. SKIN: There is no rash. Warm and dry. NEURO: No focal motor deficit. Follows command. MUSCULOSKELETAL: No joint effusion or tenderness. EXTRIMITY: Positive edema, no cyanosis or clubbing. PSYCH: Cooperative. Disposition: DC/[place]-06 HOME UNDER HOME [facility] Time spent for discharge: 34 minutes Core Measure Documentation - Palliative Care Palliative Care/ Comfort Measures: Not Applicable - Core Measures Any of the following diagnoses?: history only Exam - Constitutional Vitals: Temp Pulse Resp BP Pulse Ox 98.0 F 63 18 178/73 98 09/13/19 07:54 09/13/19 09:28 09/13/19 07:54 09/13/19 07:54 09/13/19 10:00 Plan Activity: fall precautions Weight Bearing Status: Non-Weight Bearing Diet: renal Special Instructions: restrict fluid intake to (1.2 L PER DAY) Follow up with: KEVIN TUCKER MD [Primary Care Provider] - 3-5 Days Prescriptions: Levothyroxine [Synthroid] 75 mcg PO DAILY@0600 #30 tablet
--- NOTE | 2019-09-13 13:38 | Progress Note ---
Assessment and Plan - Patient Problems (1) ESRD (end stage renal disease) Current Visit: Yes Status: Chronic Plan to address problem: Continue on MWF inpatient schedule From nephrology standpoint patient is stable for discharge at this time (2) Hypertensive chronic kidney disease with stage 5 chronic kidney disease or end stage renal disease Current Visit: No Status: Chronic Plan to address problem: Patient off nitroglycerin gtt and now optimizing on oral antihypertensives. Tolerated extra session for isolated UF 3L. Will try to further challenge her dry weight goals at hemodialysis as an outpatient. From a nephrology standpoint she is stable for discharge at this time. (3) Pulmonary edema Current Visit: Yes Status: Acute Qualifiers: Chronicity: chronic Qualified Code(s): J81.1 - Chronic pulmonary edema Plan to address problem: Will challenge dry weight on HD. Overall respiratory status improved. Counseled patient on importance of sodium and fluid restriction. Will follow up at the outpatient dialysis unit. (4) Hyperkalemia Current Visit: Yes Status: Acute Plan to address problem: Counseled on importance of low potassium diet. Has improved with hemodialysis. We'll continue to monitor as an outpatient. (5) Type 2 diabetes mellitus with diabetic chronic kidney disease Current Visit: No Status: Chronic Qualifiers: Chronic kidney disease stage: on chronic dialysis Plan to address problem: DM management per primary attending. (6) Anemia in CKD (chronic kidney disease) Current Visit: No Status: Chronic Qualifiers: Chronic kidney disease stage: on chronic dialysis Qualified Code(s): N18.6 - End stage renal disease; D63.1 - Anemia in chronic kidney disease; Z99.2 - Dependence on renal dialysis Plan to address problem: KARL therapy with HD now that BP has stabilized. Subjective Date of service: 09/13/19 Principal diagnosis: Ac. Resp distress; Ac. pulmonary edema; Hypertensive emergency Interval history: No acute issues overnight. She remains off nitroglycerin drip. She was transferred to telemetry yesterday. She received her hemodialysis yesterday without any acute issues. From nephrology standpoint patient is stable for discharge at this time. Objective - Vital Signs Vital signs: Vital Signs - 12hr 09/13/19 09/13/19 09/13/19 03:45 03:57 07:54 Temperature 122.0 F H 98.4 F 98.0 F Pulse Rate 65 64 Respiratory 20 18 Rate Blood Pressure 168/53 178/73 O2 Sat by Pulse 95 98 Oximetry 09/13/19 09/13/19 09/13/19 09:20 09:21 09:28 Temperature Pulse Rate 63 63 63 Respiratory Rate Blood Pressure O2 Sat by Pulse Oximetry 09/13/19 09/13/19 10:00 11:40 Temperature 98.0 F Pulse Rate 60 Respiratory 18 Rate Blood Pressure 156/61 O2 Sat by Pulse 98 97 Oximetry - General Appearance General appearance: well-developed, well-nourished, appears stated age EENT: ATNC, PERRL Neck: no JVD, no thyromegaly, no carotid bruit Respiratory: Present: Clear to Ascultation, Normal Exam Cardiology: regular, normal heart rate, S1S2 Gastrointestinal: normal, normoactive bowel sounds Integumentary: no rash, warm and dry Neurologic: no focal deficit, no asterixis, alert and oriented x3 Musculoskeletal: deferred Psychiatric: mood/affect appropriate, cooperative - Lab 09/12/19 05:29 09/12/19 05:29 Most recent lab results Calcium 8.6 mg/dL (8.4-10.2) 09/12/19 05:29 Magnesium 2.30 mg/dL (1.7-2.3) 09/09/19 20:35 - Allied health notes Allied health notes reviewed: nursing Medications & Allergies - Medications Allergies/Adverse Reactions: Allergies No Known Allergies Allergy (Verified 01/01/19 23:56) Home Medications: Home Medications Medication Instructions Recorded Confirmed Last Taken Type Zolpidem [Ambien] 5 mg PO QHS 01/02/19 09/09/19 02/17/19 History glipiZIDE [Glipizide] 10 mg PO BID 01/02/19 09/09/19 02/17/19 History hydrALAZINE [Apresoline TAB] 100 mg PO TID 01/02/19 09/09/19 02/17/19 History Aspirin [Aspirin BABY CHEW TAB] 81 mg PO QDAY #30 tab.chew 01/04/19 09/09/19 02/17/19 Rx Carvedilol [Coreg] 25 mg PO BID #60 tablet 01/04/19 09/09/19 02/17/19 Rx amLODIPine [Norvasc] 10 mg PO QDAY #30 tablet 01/04/19 09/09/1902/17/19 Rx Losartan [Cozaar] 100 mg PO QDAY #60 tablet 03/19/19 09/09/19 Unknown Rx cloNIDine [Catapres] 0.1 mg PO Q8HR #90 tablet 03/20/19 09/09/19 Unknown Rx Levothyroxine [Synthroid] 75 mcg PO DAILY@0600 #30 tablet 09/13/19 Unknown Rx Active Medications: Generic Name Dose Route Start Last Admin Trade Name Megan PRN Reason Stop Dose Admin Acetaminophen 650 mg 09/10/19 00:19 09/11/19 20:00 Tylenol PO 650 mg Q4H PRN Administration Pain MILD(1-3)/Fever >100.5/YOUNG Amlodipine Besylate 10 mg 09/10/19 10:00 09/13/19 09:21 Norvasc PO 10 mg QDAY ART Administration Aspirin 81 mg 09/10/19 10:00 09/13/19 09:21 Baby Aspirin PO 81 mg QDAY ART Administration Carvedilol 25 mg 09/10/19 10:00 09/13/19 09:21 Coreg PO 25 mg BID ART Administration Clonidine HCl 0.1 mg 09/10/19 14:00 09/13/19 09:28 Catapres PO 0.1 mg Q8HR ART Administration Dextrose 50 ml 09/10/19 00:19 D50w (25gm) Syringe IV PRN PRN Hypoglycemia Epoetin Chago 10,000 unit 09/10/19 13:16 09/11/19 12:49 Procrit IV 10,000 unit TWAN PRN Administration hemodialysis Heparin Sodium (Porcine) 5,000 unit 09/10/19 22:00 09/13/19 09:35 Heparin SUB-Q 5,000 unit Q12HR ART Administration Hydralazine HCl 100 mg 09/10/19 14:00 09/13/19 09:29 Apresoline PO 100 mg TID ART Administration Sodium Chloride 100 mls @ 999 mls/hr 09/11/19 09:00 Nacl 0.9% IV TWAN PRN Hypotension Insulin Human Lispro 0 unit 09/10/19 07:30 09/13/19 09:17 Humalog SUB-Q 4 unit ACHS ART Administration Protocol Levothyroxine Sodium 75 mcg 09/11/19 10:00 09/12/19 05:30 Synthroid PO 75 mcg DAILY@0600 ART Administration Losartan Potassium 100 mg 09/10/19 10:00 09/13/19 09:20 Cozaar PO 100 mg QDAY ART Administration Ondansetron HCl 4 mg 09/10/19 00:19 Zofran IV Q8H PRN Nausea And Vomiting Sodium Chloride 10 ml 09/10/19 10:00 09/12/19 21:54 Sodium Chloride Flush Syringe 10 Ml IV 10 ml BID ART Administration Sodium Chloride 10 ml 09/10/19 00:19 Sodium Chloride Flush Syringe 10 Ml IV PRN PRN LINE FLUSH Zolpidem Tartrate 5 mg 09/10/19 22:00 09/12/19 21:43 Ambien PO 5 mg QHS ART Administration
[2019-09-13] MEDS: SODIUM CHLORIDE FLUSH SYRINGE 10 ML IV SCH (16:19)
[2019-09-13 16:37] VITALS: BP 162/66
== END 2019-09-13 17:15 | disposition home or self-care (01) | DRG 280 ==
LOC: ED 18:40 → CC1 23:16 → 4A 09-12 13:15
PROVIDERS: ADMIT Internal Medicine; ATTEND Internal Medicine
PROC: 5A1D70Z Performance of Urinary Filtration, Intermittent, Less than 6 Hours Per Day (ICD-10-PCS; principal; 2019-09-10)
PROC: 5A1D70Z Performance of Urinary Filtration, Intermittent, Less than 6 Hours Per Day (ICD-10-PCS; 2019-09-11)
DX: I21.A1 Myocardial infarction type 2 (principal); I50.23 Acute on chronic systolic (congestive) heart failure; N18.6 End stage renal disease; J81.0 Acute pulmonary edema; J81.1 Chronic pulmonary edema; I13.2 Hypertensive heart and chronic kidney disease with heart failure and with stage 5 chronic kidney disease, or end stage renal disease; I42.9 Cardiomyopathy, unspecified; E44.0 Moderate protein-calorie malnutrition; I16.1 Hypertensive emergency; E11.22 Type 2 diabetes mellitus with diabetic chronic kidney disease; E87.5 Hyperkalemia; E11.65 Type 2 diabetes mellitus with hyperglycemia; E89.0 Postprocedural hypothyroidism; R06.03 Acute respiratory distress; D63.1 Anemia in chronic kidney disease; Z99.2 Dependence on renal dialysis; Z79.899 Other long term (current) drug therapy; Z79.82 Long term (current) use of aspirin; Z68.22 Body mass index [BMI] 22.0-22.9, adult; Z90.49 Acquired absence of other specified parts of digestive tract
CPT/HCPCS: 36415; 71046; 74176; 80048; 80053; 80061; 80074; 82550; 82553; 82962; 83735; 83880; 84439; 84443; 84484; 85025; 85610; 85730; 93005; 93010; 94760; G0378; J0360; J0885; J1644; J1650; J1815; J1940; J7030

== ENCOUNTER 2021-01-02 01:29 | Emergency (ER) | payer MEDICARE ==
[2021-01-02 02:34] LABS: Albumin 3.9 g/dL (3.9-5); Calcium 9.2 mg/dL (8.4-10.2)
[2021-01-02 02:39] LABS: Basophils % (Auto) 0.5 % (0.0-1.8); Eosinophils # (Auto) 0.1 K/mm3 (0.0-0.4); Eosinophils % (Auto) 2.5 % (0.0-4.3); Hematocrit 31.5 % (30.3-42.9); Hemoglobin 10.1 gm/dl (10.1-14.3); Lymphocytes # (Auto) 1.2 K/mm3 (1.2-5.4); Mean Corpuscular HGB Conc 32 % (30-34); Mean Corpuscular Volume 81 fl (79-97); Monocytes # (Auto) 0.5 K/mm3 (0.0-0.8); Monocytes % (Auto) 9.7 % (0.0-7.3); Platelet Count 203 K/mm3 (140-440); Red Blood Count 3.92 M/mm3 (3.65-5.03); Red Cell Distribution Width 19.1 % (13.2-15.2)
[2021-01-02 04:07] VITALS: BP 175/80
--- NOTE | 2021-01-02 04:23 | Emergency Department Report ---
ED General Adult HPI - General Chief complaint: Nausea/Vomiting/Diarrhea Stated complaint: HIGH BLOOD PRESSURE PUI?: No Time Seen by Provider: 01/02/21 04:12 Source: patient Mode of arrival: Stretcher Limitations: No Limitations - History of Present Illness Initial comments: Patient is a 65-year-old female that presents emergency room with complaints of dizziness, weakness, elevated blood pressure. Patient dates her symptoms been going on for 2 days. Patient states that she is still able to ambulate normally. Patient states her dizziness is better with rest. Patient states her blood pressure has been fluctuating lately. Patient states she is on dialysis and she gets dialysis Tuesday, Tuesday, Tuesday. Patient states she is compliant with her dialysis schedule. Patient denies nausea and vomiting. Patient denies chest pain. Patient denies fever and chills. Patient denies shortness of breath. Patient states that she is feeling better now. Patient states she was able to rest in the waiting that her symptoms have resolved. Patient denies dizziness at this time. Patient states she is feeling back to normal. Patient denies recent travel. Patient denies recent international travel. Patient denies exposure to the novel coronavirus. Patient denies sick contacts. Patient denies fever and chills. Patient denies cough. Patient denies diarrhea. Patient denies coming in contact with anybody with symptoms of the novel coronavirus. -: Sudden Severity scale (0 -10): 5 - Related Data Home Medications Medication Instructions Recorded Confirmed Last Taken glipiZIDE [Glipizide] 10 mg PO BID 01/02/19 08/11/20 02/17/19 hydrALAZINE [Apresoline TAB] 100 mg PO TID 01/02/19 08/11/20 02/17/19 AtorvaSTATin [Lipitor] 40 mg PO QHS 08/11/20 08/11/20 Unknown Cetirizine HCl [Allergy Relief] 10 mg PO QDAY 08/11/20 08/11/20 Unknown Furosemide [Lasix TAB] 80 mg PO QDAY 08/11/20 08/11/20 Unknown Latanoprost 0.005% 1 drop OP QPM 08/11/20 08/11/20 Unknown Levothyroxine [Synthroid] 200 mcg PO DAILY@0600 08/11/20 08/11/20 Unknown Metoprolol [Lopressor TAB] 50 mg PO BID 08/11/20 08/11/20 Unknown NIFEdipine [Nifedipine ER] 60 mg PO QDAY 08/11/20 08/11/20 Unknown hydrOXYzine HCL [Atarax] 25 mg PO BID 08/11/20 08/11/20 Unknown lisinopriL [Zestril TAB] 40 mg PO QDAY 08/11/20 08/11/20 Unknown Previous Rx's Medication Instructions Recorded Last Taken Type cloNIDine [Catapres] 0.1 mg PO Q8HR #90 tablet 03/20/19 Unknown Rx Insulin Glargine [Lantus VIAL] 10 units SUB-Q QAMDIAB units 08/15/20 Unknown Rx Insulin Lispro [Humalog] 0 unit SUB-Q Q6HR vial 08/15/20 Unknown Rx Metoprolol [Lopressor TAB] 50 mg PO BID tablet 08/15/20 Unknown Rx NIFEdipine XL [Procardia Xl] 60 mg PO BID tablet 08/15/20 Unknown Rx cloNIDine [Catapres] 0.1 mg PO Q8HR tablet 08/15/20 Unknown Rx hydrALAZINE [Apresoline TAB] 100 mg PO Q8HR tablet 08/15/20 Unknown Rx lisinopriL [Zestril TAB] 40 mg PO QDAY tablet 08/15/20 Unknown Rx Allergies Allergy/AdvReac Type Severity Reaction Status Date / Time No Known Allergies Allergy Verified 01/01/19 23:56 ED Review of Systems ROS: Stated complaint: HIGH BLOOD PRESSURE Other details as noted in HPI Constitutional: denies: chills, fever Eyes: denies: eye pain, eye discharge, vision change ENT: denies: ear pain, throat pain Respiratory: denies: cough, shortness of breath, wheezing Cardiovascular: denies: chest pain, palpitations Endocrine: no symptoms reported Gastrointestinal: denies: abdominal pain, nausea, diarrhea Genitourinary: denies: urgency, dysuria, discharge Musculoskeletal: denies: back pain, joint swelling, arthralgia Skin: denies: rash, lesions Neurological: as per HPI, weakness. denies: headache, paresthesias Psychiatric: denies: anxiety, depression Hematological/Lymphatic: denies: easy bleeding, easy bruising ED Past Medical Hx - Past Medical History Previous Medical History?: Yes Hx Hypertension: Yes Hx Congestive Heart Failure: Yes Hx Diabetes: Yes Hx Renal Disease: Yes (HD MWF) Hx Headaches / Migraines: Yes Hx Asthma: No Hx COPD: No Additional medical history: Renal failure. Dialysis M, W, F - Surgical History Past Surgical History?: Yes Hx Cholecystectomy: Yes Additional Surgical History: Abdominal surgery (patient states she cannot remember what was performed). Neck surgery/tracheotomy? - Family History Family history: no significant - Social History Smoking Status: Never Smoker Substance Use Type: None - Medications Home Medications: Home Medications Medication Instructions Recorded Confirmed Last Taken Type glipiZIDE [Glipizide] 10 mg PO BID 01/02/19 08/11/20 02/17/19 History hydrALAZINE [Apresoline TAB] 100 mg PO TID 01/02/19 08/11/20 02/17/19 History cloNIDine [Catapres] 0.1 mg PO Q8HR #90 tablet 03/20/19 08/11/20 Unknown Rx AtorvaSTATin [Lipitor] 40 mg PO QHS 08/11/20 08/11/20 Unknown History Cetirizine HCl [Allergy Relief] 10 mg PO QDAY 08/11/20 08/11/20 Unknown History Furosemide [Lasix TAB] 80 mg PO QDAY 08/11/20 08/11/20 Unknown History Latanoprost 0.005% 1 drop OP QPM 08/11/20 08/11/20 Unknown History Levothyroxine [Synthroid] 200 mcg PO DAILY@0600 08/11/20 08/11/20 Unknown History Metoprolol [Lopressor TAB] 50 mg PO BID 08/11/20 08/11/20 Unknown History NIFEdipine [Nifedipine ER] 60 mg PO QDAY 08/11/20 08/11/20 Unknown History hydrOXYzine HCL [Atarax] 25 mg PO BID 08/11/20 08/11/20 Unknown History lisinopriL [Zestril TAB] 40 mg PO QDAY 08/11/20 08/11/20 Unknown History Insulin Glargine [Lantus VIAL] 10 units SUB-Q QAMDIAB units 08/15/20 Unknown Rx Insulin Lispro [Humalog] 0 unit SUB-Q Q6HR vial 08/15/20 Unknown Rx Metoprolol [Lopressor TAB] 50 mg PO BID tablet 08/15/20 Unknown Rx NIFEdipine XL [Procardia Xl] 60 mg PO BID tablet 08/15/20 Unknown Rx cloNIDine [Catapres] 0.1 mg PO Q8HR tablet 08/15/20 Unknown Rx hydrALAZINE [Apresoline TAB] 100 mg PO Q8HR tablet 08/15/20 Unknown Rx lisinopriL [Zestril TAB] 40 mg PO QDAY tablet 08/15/20 Unknown Rx ED Physical Exam - General Limitations: No Limitations General appearance: alert, in no apparent distress - Head Head exam: Present: atraumatic, normocephalic - Eye Eye exam: Present: normal appearance - ENT ENT exam: Present: mucous membranes moist - Neck Neck exam: Present: normal inspection - Respiratory Respiratory exam: Present: normal lung sounds bilaterally. Absent: respiratory distress - Cardiovascular Cardiovascular Exam: Present: regular rate, normal rhythm. Absent: systolic murmur, diastolic murmur, rubs, gallop - GI/Abdominal GI/Abdominal exam: Present: soft, normal bowel sounds. Absent: distended, tenderness, guarding - Extremities Exam Extremities exam: Present: normal inspection - Back Exam Back exam: Present: normal inspection - Neurological Exam Neurological exam: Present: alert, oriented X3 - Psychiatric Psychiatric exam: Present: normal affect, normal mood - Skin Skin exam: Present: warm, dry, intact, normal color. Absent: rash ED Course Vital Signs 01/02/21 01/02/21 01:51 04:06 Temperature 98 F Pulse Rate 62 60 Respiratory 20 18 Rate Blood Pressure 202/77 175/80 [Right] O2 Sat by Pulse 96 95 Oximetry - Reevaluation(s) Reevaluation #1: Patient's blood pressure has improved. Patient's current blood pressure is 160/70. Patient denies symptoms. Patient states she is feeling fine. Patient states she is just tired and would like to go to sleep. Patient's lipase is elevated, the patient will have a CT scan of the abdomen to rule out pancreatitis. 01/02/21 04:23 Reevaluation #2: Patient states her dizziness has resolved. Patient states she is feeling much better. I discussed all results and clinical findings with patient. I discussed plan of care with patient. Patient agrees with plan of care. Patient is stable for discharge. Patient will be discharged home. Patient given discharge instructions. Patient voiced understanding of discharge instructions. 01/02/21 05:33 ED Medical Decision Making - Lab Data Result diagrams: 01/02/21 02:00 01/02/21 02:00 - Radiology Data Radiology results: report reviewed CT HEAD/BRAIN WO CON INDICATION / CLINICAL INFORMATION: Patient complains of dizziness. TECHNIQUE: All CT scans at this location are performed using CT dose reduction for ALARA by means of automated exposure control. COMPARISON: 08/10/20. FINDINGS: There is mild generalized cerebral atrophy. Mild small vessel ischemic changes are present in the periventricular white matter. There is no evidence of focal lesion or mass effect. I see no evidence of intracranial hemorrhage or acute major vessel occlusion. The calvarium is intact. The visualized paranasal sinuses and mastoid air cells are clear. IMPRESSION: No acute abnormality. . CT OF THE ABDOMEN AND PELVIS WITHOUT CONTRAST INDICATION / CLINICAL INFORMATION: Abdominal pain. Elevated lipase. TECHNIQUE: All CT scans at this location are performed using CT dose reduction for ALARA by means of automated exposure control. COMPARISON: 08/10/20. FINDINGS: ABDOMEN: Extensive atherosclerotic calcifications without aneurysm. Small kidneys with simple cyst- appearing renal lesions bilaterally. Moderate cardiomegaly. The liver, spleen, gallbladder, bile ducts, pancreas, adrenal glands and bowel are normal. No adenopathy is seen. There are mild chronic changes in both lung bases. PELVIS: Extensive uterine calcifications. No evidence of adnexal mass or free fluid. A normal appendix is present and there is no evidence of diverticulitis. No abnormal mass or fluid collection. I do not identify a hernia. Moderate degenerative disc disease at L2-3. IMPRESSION: No acute abnormality or significant change. - Medical Decision Making Patient is a 65-year-old female that presents emergency room with complaints of dizziness and elevated blood pressure and weakness. Patient had labs done which were consistent with end-stage renal disease. Patient also found to have an elevated lipase. Patient had a CT scan of the abdomen to rule out pancreatitis due to the elevated lipase. Patient's CT scan of the abdomen was negative for acute findings. Patient's head CT was done due to dizziness and weakness. Patient's head CT was negative for acute findings. Patient is stable for discharge. Patient's symptoms resolved on their own. Patient's blood pressure improved on its own. Patient is stable for discharge. Patient was discharged home. Patient given discharge instructions. - Differential Diagnosis Dizziness, abdominal tenderness, pancreatitis, elevated blood pressure Critical care attestation.: If time is entered above; I have spent that time in minutes in the direct care of this critically ill patient, excluding procedure time. ED Disposition Clinical Impression: Elevated lipase, Dizziness, Elevated blood pressure reading, End stage renal disease on dialysis Hypertension Qualifiers: Hypertension type: unspecified Qualified Code(s): I10 - Essential (primary) hypertension Disposition: TO HOME OR SELFCARE Is pt being admited?: No Does the pt Need Aspirin: No Condition: Stable Instructions: Hypertension (ED), Hypertension, Adult, [id number], Dialysis, Dizziness, [id number] Additional Instructions: Patient to follow-up with primary care in 2 to 3 days. Patient to follow-up with cascade operator in 2 to 3 days. Patient to rest. Patient to increase water. Patient to avoid strenuous exercise or heavy lifting until cleared by cascade operator and primary care. Patient to eat a low-salt diet. Patient to monitor blood pressure at home. Patient to keep a blood pressure log. Patient to take blood pressure log to all follow-up appointments. Patient to continue all medications. Patient to take Tylenol or ibuprofen as needed for pain. Patient to return to the ER if condition worsens, changes or new symptoms arise. Referrals: PRIMARY CARE, [Primary Care Provider] - 2-3 Days Time of Disposition: 05:38
--- NOTE | 2021-01-02 05:08 | Cat Scan Report ---
CT HEAD/BRAIN WO CON INDICATION / CLINICAL INFORMATION: Patient complains of dizziness. TECHNIQUE: All CT scans at this location are performed using CT dose reduction for ALARA by means of automated e xposure control. COMPARISON: 08/10/20. FINDINGS: There is mild generalized cerebral atrophy. Mild small vessel ischemic changes are present in the per iventricular white matter. There is no evidence of focal lesion or mass effect. I see no evidence of intracranial hemorrhage or acute major vessel occlusion. The calvarium is intact. The visualized paranasal sinuses and mastoid air cells are clear. IMPRESSION: No acute abnormality. Signer Name: Roldan Chavez MD Signed: 01/02/2021 5:04 AM Workstation Name: [id number]
--- NOTE | 2021-01-02 05:12 | Cat Scan Report ---
CT OF THE ABDOMEN AND PELVIS WITHOUT CONTRAST INDICATION / CLINICAL INFORMATION: Abdominal pain. Elevated lipase. TECHNIQUE: All CT scans at this location are performed using CT dose reduction for ALARA by means of automated e xposure control. COMPARISON: 08/10/20. FINDINGS: ABDOMEN: Extensive atherosclerotic calcifications without aneurysm. Small kidneys with simple cyst-ap pearing renal lesions bilaterally. Moderate cardiomegaly. The liver, spleen, gallbladder, bile ducts, pancreas, adrenal glands and bowel are normal. No adenopa thy is seen. There are mild chronic changes in both lung bases. PELVIS: Extensive uterine calcifications. No evidence of adnexal mass or free fluid. A normal appendi x is present and there is no evidence of diverticulitis. No abnormal mass or fluid collection. I do n ot identify a hernia. Moderate degenerative disc disease at L2-3. IMPRESSION: No acute abnormality or significant change. Signer Name: Roldan Chavez MD Signed: 01/02/2021 5:07 AM Workstation Name: [id number]
== END 2021-01-02 06:20 | disposition home or self-care (01) ==
LOC: ED 01:29
DX: E11.22 Type 2 diabetes mellitus with diabetic chronic kidney disease (principal); I13.2 Hypertensive heart and chronic kidney disease with heart failure and with stage 5 chronic kidney disease, or end stage renal disease; N18.6 End stage renal disease; I50.9 Heart failure, unspecified; R10.9 Unspecified abdominal pain; R42 Dizziness and giddiness; R74.8 Abnormal levels of other serum enzymes; G43.909 Migraine, unspecified, not intractable, without status migrainosus; Z99.2 Dependence on renal dialysis; Z79.4 Long term (current) use of insulin; Z90.49 Acquired absence of other specified parts of digestive tract; Z79.899 Other long term (current) drug therapy
CPT/HCPCS: 36415; 70450; 74176; 80053; 83690; 85025

== ENCOUNTER 2021-06-29 06:55 | Inpatient (IN) | payer MEDICARE ==
--- NOTE | 2021-06-29 07:11 | Emergency Department Report ---
ED Neuro Deficit HPI - General Stated Complaint: STROKE Time Seen by Provider: 06/29/21 06:57 Source: patient, family, EMS, old records reviewed Mode of arrival: Stretcher Limitations: Language Barrier, Physical Limitation - History of Present Illness Initial Comments: 65-year female past medical history of end-stage renal disease on dialysis Tuesday, Tuesday, Tuesday, hypertension, CHF, and diabetes (with history of DKA) presents to the hospital with stroke symptoms that started 1 hours prior to arrival approximately 6 AM. Patient is not [place]ij[place] speaking with new [place] langu age Twi from [facility]. Daughter is at the bedside to provide history of present illness. She states that patient woke up normal and then went to take a shower. After taking a shower was noted if she has slurred speech and right-sided weakness. EMS reports right-sided weakness, slurred speech, no movement of the right upper or lower extremity against gravity. Accu-Chek 506. Code stroke initiated prior to patient arrival to the ED. patient is due for dialysis today. Medical Delivery Driver: Dr. Plaza - Related Data Home Medications: Home Medications Medication Instructions Recorded Confirmed Last Taken glipiZIDE [Glipizide] 10 mg PO BID 01/02/19 08/11/20 02/17/19 hydrALAZINE [Apresoline TAB] 100 mg PO TID 01/02/19 08/11/20 02/17/19 AtorvaSTATin [Lipitor] 40 mg PO QHS 08/11/20 08/11/20 Unknown Cetirizine HCl [Allergy Relief] 10 mg PO QDAY 08/11/20 08/11/20 Unknown Furosemide [Lasix TAB] 80 mg PO QDAY 08/11/20 08/11/20 Unknown Latanoprost 0.005% 1 drop OP QPM 08/11/20 08/11/20 Unknown Levothyroxine [Synthroid] 200 mcg PO DAILY@0600 08/11/20 08/11/20 Unknown Metoprolol [Lopressor TAB] 50 mg PO BID 08/11/20 08/11/20 Unknown NIFEdipine [Nifedipine ER] 60 mg PO QDAY 08/11/20 08/11/20 Unknown hydrOXYzine HCL [Atarax] 25 mg PO BID 08/11/20 08/11/20 Unknown lisinopriL [Zestril TAB] 40 mg PO QDAY 08/11/20 08/11/20 Unknown Previous Rx's Medication Instructions Recorded Last Taken Type cloNIDine [Catapres] 0.1 mg PO Q8HR #90 tablet 03/20/19 Unknown Rx Insulin Glargine [Lantus VIAL] 10 units SUB-Q QAMDIAB units 08/15/20 Unknown Rx Insulin Lispro [Humalog] 0 unit SUB-Q Q6HR vial 08/15/20 Unknown Rx Metoprolol [Lopressor TAB] 50 mg PO BID tablet 08/15/20 Unknown Rx NIFEdipine XL [Procardia Xl] 60 mg PO BID tablet 08/15/20 Unknown Rx cloNIDine [Catapres] 0.1 mg PO Q8HR tablet 08/15/20 Unknown Rx hydrALAZINE [Apresoline TAB] 100 mg PO Q8HR tablet 08/15/20 Unknown Rx lisinopriL [Zestril TAB] 40 mg PO QDAY tablet 08/15/20 Unknown Rx Allergies/Adverse Reactions: Allergies Allergy/AdvReac Type Severity Reaction Status Date / Time No Known Allergies Allergy Verified 01/01/19 23:56 ED Review of Systems ROS: Stated complaint: STROKE Other details as noted in HPI ED Past Medical Hx - Past Medical History Hx Hypertension: Yes Hx Congestive Heart Failure: Yes Hx Diabetes: Yes Hx Renal Disease: Yes (HD MWF) Hx Headaches / Migraines: Yes Hx Asthma: No Hx COPD: No Additional medical history: Renal failure. Dialysis M, W, F - Surgical History Hx Cholecystectomy: Yes Additional Surgical History: Abdominal surgery (patient states she cannot remember what was performed). Neck surgery/tracheotomy? Right eye surgery for glaucoma - Social History Smoking Status: Never Smoker Substance Use Type: None - Medications Home Medications: Home Medications Medication Instructions Recorded Confirmed Last Taken Type glipiZIDE [Glipizide] 10 mg PO BID 01/02/19 08/11/20 02/17/19 History hydrALAZINE [Apresoline TAB] 100 mg PO TID 01/02/19 08/11/20 02/17/19 History cloNIDine [Catapres] 0.1 mg PO Q8HR #90 tablet 03/20/19 08/11/20 Unknown Rx AtorvaSTATin [Lipitor] 40 mg PO QHS 08/11/20 08/11/20 Unknown History Cetirizine HCl [Allergy Relief] 10 mg PO QDAY 08/11/20 08/11/20 Unknown History Furosemide [Lasix TAB] 80 mg PO QDAY 08/11/20 08/11/20 Unknown History Latanoprost 0.005% 1 drop OP QPM 08/11/20 08/11/20 Unknown History Levothyroxine [Synthroid] 200 mcg PO DAILY@0600 08/11/20 08/11/20 Unknown History Metoprolol [Lopressor TAB] 50 mg PO BID 08/11/20 08/11/20 Unknown History NIFEdipine [Nifedipine ER] 60 mg PO QDAY 08/11/20 08/11/20 Unknown History hydrOXYzine HCL [Atarax] 25 mg PO BID 08/11/20 08/11/20 Unknown History lisinopriL [Zestril TAB] 40 mg PO QDAY 08/11/20 08/11/20 Unknown History Insulin Glargine [Lantus VIAL] 10 units SUB-Q QAMDIAB units 08/15/20 Unknown Rx Insulin Lispro [Humalog] 0 unit SUB-Q Q6HR vial 08/15/20 Unknown Rx Metoprolol [Lopressor TAB] 50 mg PO BID tablet 08/15/20 Unknown Rx NIFEdipine XL [Procardia Xl] 60 mg PO BID tablet 08/15/20 Unknown Rx cloNIDine [Catapres] 0.1 mg PO Q8HR tablet 08/15/20 Unknown Rx hydrALAZINE [Apresoline TAB] 100 mg PO Q8HR tablet 08/15/20 Unknown Rx lisinopriL [Zestril TAB] 40 mg PO QDAY tablet 08/15/20 Unknown Rx ED Neuro Physical Exam - General Suspected Stroke: Yes - NIHSS Assessment Interval: Baseline 1a. Level of Consciousness: alert/keenly responsive 1b. LOC Questions: answers no questions correctly 1c. LOC Commands: performs no tasks correctly 2. Best Gaze: forced deviation 3. Visual: complete hemianopia 4. Facial Palsy: partial paralysis 5b. Motor Arm Right: no movement 5a. Motor Arm Left: drift 6a. Motor Leg Left: no drift 6b. Motor Leg Right: some gravity effort 7. Limb Ataxia: absent 8. Sensory: mild/moderate sensory loss 9. Best Language: mute/global aphasia 10. Dysarthria: severe dysarthria 11. Extinction/Inattention: visual/tactile inattention Total Score: 24 Stroke Severity: Severe Stroke - Other Other exam information: General: No acute distress Head: Atraumatic Eyes: See NIH stroke scale ENT: Moist mucous membranes Neck: Normal appearance, no midline tenderness Chest: Bilateral crackle CV: Regular rate and rhythm Abdomen: Soft, normal bowel sounds, nontender, nondistended, no rebound or guarding Back: Normal inspection Extremity: Left upper arm dialysis access with thrill Neuro: Alert see NIH stroke scale Psych: Appropriate behavior ED Course Vital Signs 06/29/21 06/29/21 06/29/21 07:32 07:38 07:46 Pulse Rate 76 67 68 Pulse Rate [ Anterior Bilateral Throughout] Respiratory 15 17 Rate Respiratory Rate [Anterior Bilateral Throughout] Blood Pressure 225/107 225/107 O2 Sat by Pulse Oximetry 06/29/21 06/29/21 06/29/21 07:53 08:00 08:16 Pulse Rate 76 77 71 Pulse Rate [ Anterior Bilateral Throughout] Respiratory 17 28 H Rate Respiratory Rate [Anterior Bilateral Throughout] Blood Pressure 246/108 246/108 241/95 O2 Sat by Pulse Oximetry 06/29/21 06/29/21 06/29/21 08:20 08:25 08:30 Pulse Rate 67 65 68 Pulse Rate [ Anterior Bilateral Throughout] Respiratory 28 H 27 H 22 Rate Respiratory Rate [Anterior Bilateral Throughout] Blood Pressure 224/86 205/79 209/86 O2 Sat by Pulse Oximetry 06/29/21 06/29/21 06/29/21 08:36 08:40 08:46 Pulse Rate 65 63 61 Pulse Rate [ Anterior Bilateral Throughout] Respiratory 33 H 26 H 16 Rate Respiratory Rate [Anterior Bilateral Throughout] Blood Pressure 180/75 180/75 180/75 O2 Sat by Pulse Oximetry 06/29/21 06/29/21 06/29/21 08:50 08:53 08:54 Pulse Rate 60 59 L 61 Pulse Rate [ Anterior Bilateral Throughout] Respiratory 13 Rate Respiratory Rate [Anterior Bilateral Throughout] Blood Pressure 159/75 166/66 159/75 O2 Sat by Pulse Oximetry 06/29/21 06/29/21 06/29/21 08:56 08:58 09:00 Pulse Rate 59 L 58 L Pulse Rate [ 55 L Anterior Bilateral Throughout] Respiratory 20 29 H Rate Respiratory 19 Rate [Anterior Bilateral Throughout] Blood Pressure 166/66 166/66 O2 Sat by Pulse Oximetry 06/29/21 06/29/21 06/29/21 09:06 09:10 09:15 Pulse Rate 62 60 61 Pulse Rate [ Anterior Bilateral Throughout] Respiratory 34 H 20 20 Rate Respiratory Rate [Anterior Bilateral Throughout] Blood Pressure 180/69 180/69 157/65 O2 Sat by Pulse Oximetry 06/29/21 06/29/21 06/29/21 09:21 09:35 09:40 Pulse Rate 60 70 63 Pulse Rate [ Anterior Bilateral Throughout] Respiratory 31 H 22 27 H Rate Respiratory Rate [Anterior Bilateral Throughout] Blood Pressure 157/65 O2 Sat by Pulse 94 Oximetry 06/29/21 06/29/21 06/29/21 09:50 10:00 10:10 Pulse Rate 60 64 64 Pulse Rate [ Anterior Bilateral Throughout] Respiratory 30 H 23 27 H Rate Respiratory Rate [Anterior Bilateral Throughout] Blood Pressure 163/64 150/65 152/57 O2 Sat by Pulse Oximetry 06/29/21 06/29/21 10:20 10:44 Pulse Rate 58 L 140 H Pulse Rate [ Anterior Bilateral Throughout] Respiratory 17 15 Rate Respiratory Rate [Anterior Bilateral Throughout] Blood Pressure 149/58 149/58 O2 Sat by Pulse Oximetry - Reevaluation(s) Reevaluation #1: 06/29/21 07:48 Patient's blood pressure too elevated to be CTPA. Labetalol 10 mg IV initiated with a heart rate of 69. After 10 mg of IV labetalol systolic pressure increased therefore 20 mg IV ordered with a heart rate of 76. tPA has been ordered and administration pending improvement of blood pressure. Patient received IV insulin 10 units for glucose greater than 500. Venous pH not currently suggestive of DKA 06/29/21 08:05 BP remains elevated despite total labetalol 30 mg IV. Cardene drip initiated to titrate systolic blood pressure less than 185 for TPA 06/29/2021 8:25 EKG reviewed. Artifact noted without ST elevation. Mild troponin elevation noted however, as per. Medical record review patient has chronic troponin elevation. Repeat troponin pending. 06/29/21 08:35 SBP 180 with dbp < 100 now, nurse instructed to administer TPA 06/29/21 08:43 just noted that K is 7.0 on labs, ordered Hyperkalemia meds: Calcium gluconate, sodium bicarb, and albuterol. Patient received insulin approxi-1 hour ago. Repeat Accu-Chek requested 06/29/21 09:08 repeat glucose 235 06/29/21 09:13 - Consultations Consultation #1: 06/29/21 07:12 case d/w Dr Jadon Davies who states pt with a NIHSS of 24 and rec tpa if neg ct head and CTA head and neck. He has screened for contraindications and consented pt. 06/29/21 08:30 Case was rediscussed with Dr. Jadon Davies. Neurology note pending. Informed of elevated BP as cause in delay for TPA administration. states that patient may not receive TPA if greater than 3 hours from symptom onset. 06/29/21 09:01 case d/w Pam, will manage dialysis - Lab Data Result diagrams: 06/29/21 07:29 06/29/21 19:47 Lab Results 06/29/21 06/29/21 06/29/21 Range/Units 07:28 07:29 07:29 WBC 4.2 L (4.5-11.0) K/mm3 RBC 4.46 (3.65-5.03) M/mm3 Hgb 11.5 (10.1-14.3) gm/dl Hct 35.9 (30.3-42.9) % MCV 81 (79-97) fl MCH 26 L (28-32) pg MCHC 32 (30-34) % RDW 22.4 H (13.2-15.2) % Plt Count 179 (140-440) K/mm3 Lymph % (Auto) 20.5 (13.4-35.0) % Antelope % (Auto) 6.9 (0.0-7.3) % Eos % (Auto) 2.2 (0.0-4.3) % Baso % (Auto) 0.9 (0.0-1.8) % Lymph # (Auto) 0.9 L (1.2-5.4) K/mm3 Antelope # (Auto) 0.3 (0.0-0.8) K/mm3 Eos # (Auto) 0.1 (0.0-0.4) K/mm3 Baso # (Auto) 0.0 (0.0-0.1) K/mm3 Seg Neutrophils % 69.5 (40.0-70.0) % Seg Neutrophils # 2.9 (1.8-7.7) K/mm3 PT 13.7 (12.2-14.9) Sec. INR 1.00 (0.87-1.13) APTT 28.6 (24.2-36.6) Sec. Thrombin Time 20.4 H (15.1-19.6) Sec. VBG pH (7.320-7.420) Sodium (137-145) mmol/L Potassium (3.6-5.0) mmol/L Chloride (98-107) mmol/L Carbon Dioxide (22-30) mmol/L Anion Gap mmol/L BUN (7-17) mg/dL Creatinine (0.6-1.2) mg/dL Estimated GFR ml/min BUN/Creatinine Ratio % Glucose (65-100) mg/dL POC Glucose 512 H (70-105) mg/dL Calcium (8.4-10.2) mg/dL Total Creatine Kinase (30-135) units/L CK-MB (CK-2) (0.0-4.0) ng/mL CK-MB (CK-2) Rel Index (0-4) Troponin T (0.00-0.029) ng/mL Triglycerides (2-149) mg/dL Cholesterol (50-199) mg/dL LDL Cholesterol Direct (50-130) mg/dL HDL Cholesterol (40-59) mg/dL Cholesterol/HDL Ratio % 06/29/21 06/29/21 06/29/21 Range/Units 07:29 07:29 07:29 WBC (4.5-11.0) K/mm3 RBC (3.65-5.03) M/mm3 Hgb (10.1-14.3) gm/dl Hct (30.3-42.9) % MCV (79-97) fl MCH (28-32) pg MCHC (30-34) % RDW (13.2-15.2) % Plt Count (140-440) K/mm3 Lymph % (Auto) (13.4-35.0) % Antelope % (Auto) (0.0-7.3) % Eos % (Auto) (0.0-4.3) % Baso % (Auto) (0.0-1.8) % Lymph # (Auto) (1.2-5.4) K/mm3 Antelope # (Auto) (0.0-0.8) K/mm3 Eos # (Auto) (0.0-0.4) K/mm3 Baso # (Auto) (0.0-0.1) K/mm3 Seg Neutrophils % (40.0-70.0) % Seg Neutrophils # (1.8-7.7) K/mm3 PT (12.2-14.9) Sec. INR (0.87-1.13) APTT (24.2-36.6) Sec. Thrombin Time (15.1-19.6) Sec. VBG pH 7.333 (7.320-7.420) Sodium 130 L (137-145) mmol/L Potassium 7.0 H* (3.6-5.0) mmol/L Chloride 89.4 L (98-107) mmol/L Carbon Dioxide 26 (22-30) mmol/L Anion Gap 22 mmol/L BUN 75 H (7-17) mg/dL Creatinine 9.0 H (0.6-1.2) mg/dL Estimated GFR 5 ml/min BUN/Creatinine Ratio 8 % Glucose 546 H* (65-100) mg/dL POC Glucose (70-105) mg/dL Calcium 9.2 (8.4-10.2) mg/dL Total Creatine Kinase 68 (30-135) units/L CK-MB (CK-2) 3.1 (0.0-4.0) ng/mL CK-MB (CK-2) Rel Index 4.5 H (0-4) Troponin T 0.290 H* (0.00-0.029) ng/mL Triglycerides 58 (2-149) mg/dL Cholesterol 116 (50-199) mg/dL LDL Cholesterol Direct 71 (50-130) mg/dL HDL Cholesterol 43 (40-59) mg/dL Cholesterol/HDL Ratio 2.69 % - EKG Data -: EKG Interpreted by Me (lvh) EKG shows normal: sinus rhythm Rate: normal When compared to previous EKG there are: no significant change - Radiology Data Radiology results: report reviewed CT HEAD WITHOUT CONTRAST INDICATION / CLINICAL INFORMATION: CODE STROKE. Slurred speech. TECHNIQUE: All CT scans at this location are performed using CT dose reduction for ALARA by means of automated exposure control. COMPARISON: CT dated 01/02/21 FINDINGS: HEMORRHAGE: None. EXTRA-AXIAL SPACES: Normal in size and morphology for the patient's age. VENTRICULAR SYSTEM: Normal in size and morphology for the patient's age. CEREBRAL PARENCHYMA: Mild white matter hypodensities likely represent m icroangiopathy. No territorial infarct. MIDLINE SHIFT / HERNIATION: None. CEREBELLUM / BRAINSTEM: No significant abnormality. ORBITS: Interval development of increased density throughout the right globe since the prior study. SOFT TISSUES: No significant abnormality. SKULL: No significant abnormality. PARANASAL SINUSES / MASTOID AIR CELLS: Normal as visualized. ADDITIONAL FINDINGS: None. IMPRESSION: 1. No acute intracranial abnormality. 2. Increased density in the right globe. Recommend clinical correlation for interval ophthalmic procedure. CODE STROKE Time of Communication (REGULATORY SUBMISSIONS SPECIALIST/CDT): 6:28 AM Licensed Practitioner Receiving Report: Dr. Mcbride in the ED CTA NECK WITH CONTRAST HISTORY: Stroke, slurred speech, right-sided weakness COMPARISON: CT performed earlier today TECHNIQUE: Routine CTA of the neck is performed. 3-D/MIP reformats were postprocessed. Percentage stenosis is determined by direct quantitative measurements of diseased internal carotid artery diameter compared with normal distal internal carotid artery reference segments or by criteria similar to NASCET where applicable. All CT scans at this location are performed using CT dose reduction for ALARA by means of automated exposure control. CONTRAST: 100 cc FINDINGS: Aortic arch: Not included. Cervical vertebral arteries: The right vertebral artery is dominant and widely patent. The left vertebral artery is very small in caliber measuring approximately 1 mm in diameter but does appear to be patent throughout. Please note the origin of the left vertebral artery is not included. The origin of the right vertebral artery is included and unremarkable. Common carotid arteries: Moderate to severe atherosclerotic plaques are identified in the distal CCAs and carotid bulbs. There is approximate 50% narrowing in the distal right CCA. No significant stenosis on the left side. Cervical internal carotid arteries: No significant abnormality. Additional findings: There is an approximate 1.2 cm hyperdense lesion just anterior to the thyroid cartilage and hyoid bone. The etiology of these lesions are unclear. Thyroglossal duct cyst Please correlate with the patient. IMPRESSION: Slightly limited exam without inclusion of the aortic arch and origin of the left vertebral artery and great vessels. Moderate to severe atherosclerotic plaques are identified near both carotid bifurcations. The most affected level appears to be the distal right CCA demonstrating approximately 50% stenosis. Very small caliber of the left vertebral artery as described which could be congenital. Less than 50% stenosis in both ICAs. CTA HEAD WITH CONTRAST HISTORY: Stroke, right-sided weakness, slurred speech COMPARISON: None. TECHNIQUE: Routine non-contrast CT Head, CTA of the head and post-contrast CT Head are performed. 3-D/MIP reformats postprocessed. All CT scans at this location are performed using CT dose reduction for ALARA by means of automated exposure control CONTRAST: 100 cc FINDINGS: CTA Head: Intracranial vertebral arteries: Again noted is the very small caliber of the left vertebral artery. The right vertebral artery is unremarkable. Basilar artery: No significant abnormality. Posterior cerebral arteries: No significant abnormality. Intracranial internal carotid arteries: Moderate to severe atherosclerotic plaques are identified in the supraclinoid ICAs. The right side is more affected. Approximately 50% stenosis is suspected. Anterior cerebral arteries: No significant abnormality. Middle cerebral arteries: No significant abnormality. Dural venous sinuses:Not optimally opacified. No significant abnormality. Additional findings: An approximate 1 cm enhancing extra-axial lesion is suggested in the left frontal region on image 99. This is most consistent with a small meningioma. IMPRESSION: No large vessel occlusion or high-grade stenosis is identified. Moderate to severe atherosclerotic disease in the distal ICAs bilaterally. CHEST 1 VIEW INDICATION: crackles, stroke. COMPARISON: 08/10/2020 FINDINGS: Support devices: None. Heart: Stable moderate cardiomegaly. Lungs/Pleura: Stable mild central pulmonary venous congestion. No evidence for infiltrate, pleural effusion or pneumothorax. Additional findings: None. IMPRESSION: Cardiomegaly and pulmonary venous congestion. No overwhelming change since 08/10/2020. - Medical Decision Making 65-year-old male presents with symptoms of acute stroke within [address] onset[address] head negative for acute hemorrhage. Patient deemed a TPA candidate by neurologist. Patient presented with hypertensive crisis resistant to labetalol IV boluses and subsequently requiring a Cardene drip for adequate blood pressure control prior to TPA administration. CT angiogram head and neck negative for large vessel occlusion necessitating transfer. Labs reveal hyperkalemia and confirm hyperglycemia without DKA. Patient is due for dialysis today and does have crackles on examination. Patient received insulin with improvement of glucose. Additional meds for hyperkalemia include sodium bicarb, calcium gluconate, and albuterol. Case discussed with appliance service supervisor to manage dialysis. Other incidental findings include mild troponin elevations which appears to be chronic based on previous record review. Repeat potassium and troponin levels ordered for 10:30. Daughter at bedside during patient treatment due to language barrier and need for translation. Case discussed with Dr. Workman for ICU admission - Thrombolytic Inclusion/Exclusion Thrombolytic Inclusion Criteria: Ischemic Stroke Onset< 3h, NIH Stroke Scale Deficit, Negative CT Scan for ICH, Age 18 or Older, Glucose of 50-400mg/dl (after insulin) Critical Care Time: Yes Critical care time in (mins) excluding proc time.: 75 Critical care attestation.: If time is entered above; I have spent that time in minutes in the direct care o f this critically ill patient, excluding procedure time. ED Disposition Clinical Impression: Acute CVA (cerebrovascular accident), Elevated troponin, ESRD (end stage renal disease), Hyperkalemia, Hypertensive crisis, Hyperglycemia due to diabetes mellitus, Received intravenous tissue plasminogen activator (tPA) in emergency department Disposition: 09 OP ADMIT IP TO THIS HOSP Is pt being admited?: Yes Condition: Stable Time of Disposition: 09:04
[2021-06-29] MEDS ORDERED: INSULIN REGULAR, HUMAN 100 UNITS/1 ML IV ONE (07:30)
--- NOTE | 2021-06-29 07:33 | Cat Scan Report ---
CT HEAD WITHOUT CONTRAST INDICATION / CLINICAL INFORMATION: CODE STROKE. Slurred speech. TECHNIQUE: All CT scans at this location are performed using CT dose reduction for ALARA by means of automated exposure control. COMPARISON: CT dated 01/02/21 FINDINGS: HEMORRHAGE: None. EXTRA-AXIAL SPACES: Normal in size and morphology for the patient's age. VENTRICULAR SYSTEM: Normal in size and morphology for the patient's age. CEREBRAL PARENCHYMA: Mild white matter hypodensities likely represent microangiopathy. No territorial infarct. MIDLINE SHIFT / HERNIATION: None. CEREBELLUM / BRAINSTEM: No significant abnormality. ORBITS: Interval development of increased density throughout the right globe since the prior study. SOFT TISSUES: No significant abnormality. SKULL: No significant abnormality. PARANASAL SINUSES / MASTOID AIR CELLS: Normal as visualized. ADDITIONAL FINDINGS: None. IMPRESSION: 1. No acute intracranial abnormality. 2. Increased density in the right globe. Recommend clinical correlation for interval ophthalmic proce dure. CODE STROKE Time of Communication (STUDIO DIRECTOR/CDT): 6:28 AM Licensed Practitioner Receiving Report: Dr. Mcbride in the ED Signer Name: Margo Hernandez MD Signed: 06/29/2021 7:29 AM Workstation Name: [id number]
[2021-06-29 07:44] LABS: Basophils % (Auto) 0.9 % (0.0-1.8); Eosinophils # (Auto) 0.1 K/mm3 (0.0-0.4); Eosinophils % (Auto) 2.2 % (0.0-4.3); Hematocrit 35.9 % (30.3-42.9); Hemoglobin 11.5 gm/dl (10.1-14.3); Lymphocytes # (Auto) 0.9 K/mm3 (1.2-5.4); Lymphocytes % (Auto) 20.5 % (13.4-35.0); Mean Corpuscular HGB Conc 32 % (30-34); Mean Corpuscular Volume 81 fl (79-97); Monocytes # (Auto) 0.3 K/mm3 (0.0-0.8); Monocytes % (Auto) 6.9 % (0.0-7.3); Platelet Count 179 K/mm3 (140-440); Red Blood Count 4.46 M/mm3 (3.65-5.03)
[2021-06-29 07:46] LABS: Red Cell Distribution Width 22.4 % (13.2-15.2)
[2021-06-29] MEDS ORDERED: ALTEPLASE 100 MG INJ KIT IV ONE ×2 (07:46)
[2021-06-29] MEDS ORDERED: SODIUM CHLORIDE 0.9% 50 ML IVPB IV ONE (07:46)
--- NOTE | 2021-06-29 07:53 | Cat Scan Report ---
CTA NECK WITH CONTRAST HISTORY: Stroke, slurred speech, right-sided weakness COMPARISON: CT performed earlier today TECHNIQUE: Routine CTA of the neck is performed. 3-D/MIP reformats were postprocessed. Percentage st enosis is determined by direct quantitative measurements of diseased internal carotid artery diameter compared with normal distal internal carotid artery reference segments or by criteria similar to JANIE CET where applicable. All CT scans at this location are performed using CT dose reduction for ALARA b y means of automated exposure control. CONTRAST: 100 cc FINDINGS: Aortic arch: Not included. Cervical vertebral arteries: The right vertebral artery is dominant and widely patent. The left verte bral artery is very small in caliber measuring approximately 1 mm in diameter but does appear to be p atent throughout. Please note the origin of the left vertebral artery is not included. The origin of the right vertebral artery is included and unremarkable. Common carotid arteries: Moderate to severe atherosclerotic plaques are identified in the distal CCAs and carotid bulbs. There is approximate 50% narrowing in the distal right CCA. No significant stenos is on the left side. Cervical internal carotid arteries: No significant abnormality. Additional findings: There is an approximate 1.2 cm hyperdense lesion just anterior to the thyroid ca rtilage and hyoid bone. The etiology of these lesions are unclear. Thyroglossal duct cyst Please smiley elate with the patient. IMPRESSION: Slightly limited exam without inclusion of the aortic arch and origin of the left vertebral artery an d great vessels. Moderate to severe atherosclerotic plaques are identified near both carotid bifurcations. The most af fected level appears to be the distal right CCA demonstrating approximately 50% stenosis. Very small caliber of the left vertebral artery as described which could be congenital. Less than 50% stenosis in both ICAs. CTA HEAD WITH CONTRAST HISTORY: Stroke, right-sided weakness, slurred speech COMPARISON: None. TECHNIQUE: Routine non-contrast CT Head, CTA of the head and post-contrast CT Head are performed. 3-D /MIP reformats postprocessed. All CT scans at this location are performed using CT dose reduction for ALARA by means of automated e xposure control CONTRAST: 100 cc FINDINGS: CTA Head: Intracranial vertebral arteries: Again noted is the very small caliber of the left vertebral artery. The right vertebral artery is unremarkable. Basilar artery: No significant abnormality. Posterior cerebral arteries: No significant abnormality. Intracranial internal carotid arteries: Moderate to severe atherosclerotic plaques are identified in the supraclinoid ICAs. The right side is more affected. Approximately 50% stenosis is suspected. Anterior cerebral arteries: No significant abnormality. Middle cerebral arteries: No significant abnormality. Dural venous sinuses:Not optimally opacified. No significant abnormality. Additional findings: An approximate 1 cm enhancing extra-axial lesion is suggested in the left fronta l region on image 99. This is most consistent with a small meningioma. IMPRESSION: No large vessel occlusion or high-grade stenosis is identified. Moderate to severe atherosclerotic disease in the distal ICAs bilaterally. Signer Name: Benji Perry Jr, MD Signed: 06/29/2021 7:49 AM Workstation Name: [id number]
[2021-06-29 07:55] LABS: Partial Thromboplastin Time 28.6 Sec. (24.2-36.6); Thrombin Time 20.4 Sec. (15.1-19.6)
[2021-06-29] MEDS ORDERED: niCARdipine DRIP 40 MG/200 ML BAG IV ONE (08:02)
[2021-06-29 08:08] LABS: Creatine Kinase MB 3.1 ng/mL (0.0-4.0)
[2021-06-29 08:22] LABS: Calcium 9.2 mg/dL (8.4-10.2)
[2021-06-29 08:25] LABS: Chol/HDL Ratio 2.69 %
[2021-06-29] MEDS ORDERED: SODIUM BICARB 8.4% 50 MEQ/50 ML SYRINGE IV ONE (08:43)
[2021-06-29] MEDS ORDERED: ALBUTEROL 2.5 MG/3 ML NEBU IH ONE (08:44)
--- NOTE | 2021-06-29 08:58 | XRay Report ---
CHEST 1 VIEW INDICATION: crackles, stroke. COMPARISON: 08/10/2020 FINDINGS: Support devices: None. Heart: Stable moderate cardiomegaly. Lungs/Pleura: Stable mild central pulmonary venous congestion. No evidence for infiltrate, pleural ef fusion or pneumothorax. Additional findings: None. IMPRESSION: Cardiomegaly and pulmonary venous congestion. No overwhelming change since 08/10/2020. Signer Name: Benji Perry Jr, MD Signed: 06/29/2021 8:54 AM Workstation Name: [id number]
[2021-06-29] MEDS ORDERED: CALCIUM GLUCONATE 1,000 MG in SODIUM CHLORIDE 0.9% 100 ML IV ONE (09:30)
--- NOTE | 2021-06-29 10:11 | History and Physical Report ---
History of Present Illness Date of examination: 06/29/21 Date of admission: 06/29/21 09:04 Chief complaint: Slurred speech and right-sided weakness History of present illness: Patient is a 65-year-old female with past medical history of end-stage renal disease on dialysis Tuesday, hypertension, CHF, and diabetes (with history of DKA) presents to the hospital with stroke symptoms that started 1 hours prior to arrival approximately 6 AM. Patient is not [place] speaking with [place] language Twi from [facility]. Although it is understood that the patient actually speaks [place] but does not communicate sometimes. Daughter was at bedside says that the patient can be stubborn at times. During my examination the patient has started on TPN and is moving all extremities although was not speaking. Further evaluation from the ER physician documentation and collaborated by the daughter who was at bedside She states that patient woke up normal and then went to take a shower. After taking a shower was noted if she has slurred speech and right-sided weakness. EMS reports right-sided weakness, slurred speech, no movement of the right upper or lower extremity against gravity. Accu-Chek 506. Code stroke initiated prior to patient arrival to the ED. patient is due for dialysis today. Screwhead Stoner And Polisher: Dr. Plaza Patient was also noted to have significant electrolyte abnormalities Past History Past Medical History: CAD, diabetes, ESRD, hypertension, hyperlipidemia Past Surgical History: Other (Glaucoma, abdominal surgery, neck surgery) Social history: lives with family, full code Family history: no significant family history Medications and Allergies Allergies Allergy/AdvReac Type Severity Reaction Status Date / Time No Known Allergies Allergy Verified 01/01/19 23:56 Home Medications Medication Instructions Recorded Confirmed Last Taken Type glipiZIDE [Glipizide] 10 mg PO BID 01/02/19 08/11/20 02/17/19 History hydrALAZINE [Apresoline TAB] 100 mg PO TID 01/02/19 08/11/20 02/17/19 History cloNIDine [Catapres] 0.1 mg PO Q8HR #90 tablet 03/20/19 08/11/20 Unknown Rx AtorvaSTATin [Lipitor] 40 mg PO QHS 08/11/20 08/11/20 Unknown History Cetirizine HCl [Allergy Relief] 10 mg PO QDAY 08/11/20 08/11/20 Unknown History Furosemide [Lasix TAB] 80 mg PO QDAY 08/11/20 08/11/20 Unknown History Latanoprost 0.005% 1 drop OP QPM 08/11/20 08/11/20 Unknown History Levothyroxine [Synthroid] 200 mcg PO DAILY@0600 08/11/20 08/11/20 Unknown History Metoprolol [Lopressor TAB] 50 mg PO BID 08/11/20 08/11/20 Unknown History NIFEdipine [Nifedipine ER] 60 mg PO QDAY 08/11/20 08/11/20 Unknown History hydrOXYzine HCL [Atarax] 25 mg PO BID 08/11/20 08/11/20 Unknown History lisinopriL [Zestril TAB] 40 mg PO QDAY 08/11/20 08/11/20 Unknown History Insulin Glargine [Lantus VIAL] 10 units SUB-Q QAMDIAB units 08/15/20 Unknown Rx Insulin Lispro [Humalog] 0 unit SUB-Q Q6HR vial 08/15/20 Unknown Rx Metoprolol [Lopressor TAB] 50 mg PO BID tablet 08/15/20 Unknown Rx NIFEdipine XL [Procardia Xl] 60 mg PO BID tablet 08/15/20 Unknown Rx cloNIDine [Catapres] 0.1 mg PO Q8HR tablet 08/15/20 Unknown Rx hydrALAZINE [Apresoline TAB] 100 mg PO Q8HR tablet 08/15/20 Unknown Rx lisinopriL [Zestril TAB] 40 mg PO QDAY tablet 08/15/20 Unknown Rx Active Meds: Active Medications Nicardipine/Sodium Chloride (Cardene Drip 40 Mg/200 Ml) 40 mg in 200 mls @ 25 mls/hr IV ONCE ONE; Protocol Stop: 06/29/21 16:01 Last Titration: 06/29/21 09:30 Dose: 15 mg/hr, 75 mls/hr Documented by: Review of Systems ROS unobtainable: due to mental status (Had complained of aphasia and right- sided weakness) Exam - Physical Exam Narrative exam: VITAL SIGNS: Reviewed. GENERAL: The patient appears normally developed, Vital signs as documented. HEAD: No signs of head trauma. EYES: Pupils are equal. Extraocular motions intact. EARS: Hearing grossly intact. MOUTH: Oropharynx is normal. NECK: No adenopathy, no JVD. CHEST: Chest with crackles breath sounds bilaterally. No wheezes, rales, or rhonchi. CARDIAC: Regular rate and rhythm. S1 and S2, without murmurs, gallops, or rubs. VASCULAR: No Edema. Peripheral pulses normal and equal in all extremities. ABDOMEN: Soft, non tender and non distended. No rebound or guarding, and no masses palpated. Bowel Sounds normal. MUSCULOSKELETAL: Good range of motion of all major joints. Extremities without clubbing, cyanosis or edema. NEUROLOGIC EXAM: Alert and oriented x 3 No focal sensory or strength deficits. Presumed aphasia otherwise moves all extremities. Follows commands. PSYCHIATRIC: Mood normal. SKIN: detail exam as documented in skin assessment - Constitutional Vitals: Temp Pulse Resp BP Pulse Ox 70 22 157/65 94 06/29/21 09:35 06/29/21 09:35 06/29/21 09:21 06/29/21 09:35 HEART Score - HEART Score Troponin: Troponin T 0.290 ng/mL (0.00-0.029) H* 06/29/21 07:29 Results - Labs CBC & Chem 7: 06/29/21 07:29 06/29/21 07:29 Labs: Laboratory Last Values WBC 4.2 K/mm3 (4.5-11.0) L 06/29/21 07:29 RBC 4.46 M/mm3 (3.65-5.03) 06/29/21 07:29 Hgb 11.5 gm/dl (10.1-14.3) 06/29/21 07:29 Hct 35.9 % (30.3-42.9) 06/29/21 07:29 MCV 81 fl (79-97) 06/29/21 07:29 MCH 26 pg (28-32) L 06/29/21 07:29 MCHC 32 % (30-34) 06/29/21 07:29 RDW 22.4 % (13.2-15.2) H 06/29/21 07:29 Plt Count 179 K/mm3 (140-440) 06/29/21 07:29 Lymph % (Auto) 20.5 % (13.4-35.0) 06/29/21 07:29 [place] % (Auto) 6.9 % (0.0-7.3) 06/29/21 07:29 Eos % (Auto) 2.2 % (0.0-4.3) 06/29/21 07: Baso % (Auto) 0.9 % (0.0-1.8) 06/29/21 07: Lymph # (Auto) 0.9 K/mm3 (1.2-5.4) L 06/29/21 07: [place] # (Auto) 0.3 K/mm3 (0.0-0.8) 06/29/21 07: Eos # (Auto) 0.1 K/mm3 (0.0-0.4) 06/29/21 07: Baso # (Auto) 0.0 K/mm3 (0.0-0.1) 06/29/21 07: Seg Neutrophils % 69.5 % (40.0-70.0) 06/29/21 07: Seg Neutrophils # 2.9 K/mm3 (1.8-7.7) 06/29/21 07: PT 13.7 Sec. (12.2-14.9) 06/29/21 07: INR 1.00 (0.87-1.13) 06/29/21 07: APTT 28.6 Sec. (24.2-36.6) 06/29/21 07: Thrombin Time 20.4 Sec. (15.1-19.6) H 06/29/21 07:29 VBG pH 7.333 (7.320-7.420) 06/29/21 07:29 Sodium 130 mmol/L (137-145) L 06/29/21 07:29 Potassium 7.0 mmol/L (3.6-5.0) H* 06/29/21 07:29 Chloride 89.4 mmol/L (98-107) L 06/29/21 07: Carbon Dioxide 26 mmol/L (22-30) 06/29/21 07:29 Anion Gap 22 mmol/L 06/29/21 07:29 BUN 75 mg/dL (7-17) H 06/29/21 07:29 Creatinine 9.0 mg/dL (0.6-1.2) H 06/29/21 07:29 Estimated GFR 5 ml/min 06/29/21 07:29 BUN/Creatinine Ratio 8 % 06/29/21 07:29 Glucose 546 mg/dL (65-100) H* 06/29/21 07:29 POC Glucose 235 mg/dL (70-105) H 06/29/21 09:04 Calcium 9.2 mg/dL (8.4-10.2) 06/29/21 07:29 Total Creatine Kinase 68 units/L (30-135) 06/29/21 07:29 CK-MB (CK-2) 3.1 ng/mL (0.0-4.0) 06/29/21 07:29 CK-MB (CK-2) Rel Index 4.5 (0-4) H 06/29/21 07:29 Troponin T 0.290 ng/mL (0.00-0.029) H* 06/29/21 07:29 Triglycerides 58 mg/dL (2-149) 06/29/21 07:29 Cholesterol 116 mg/dL (50-199) 06/29/21 07:29 LDL Cholesterol Direct 71 mg/dL (50-130) 06/29/21 07:29 HDL Cholesterol 43 mg/dL (40-59) 06/29/21 07:29 Cholesterol/HDL Ratio 2.69 % 06/29/21 07:29 Assessment and Plan Assessment and plan: Patient is a 65-year-old female with past medical history of end-stage renal disease on dialysis Tuesday, hypertension, CHF, and diabetes (with history of DKA) presents to the hospital with stroke symptoms that started 1 hours prior to arrival approximately 6 AM. Patient is not [place] speaking with [place] language Twi from [facility]. Although it is understood that the patient actually speaks [place] but does not communicate sometimes. Daughter was at bedside says that the patient can be stubborn at times. During my examination the patient has started on TPN and is moving all extremities although was not speaking. Further evaluation from the ER physician documentation and collaborated by the daughter who was at bedside She states that patient woke up normal and then went to take a shower. After taking a shower was noted if she has slurred speech and right-sided weakness. EMS reports right-sided weakness, slurred speech, no movement of the right upper or lower extremity against gravity. Accu-Chek 506. Code stroke initiated prior to patient arrival to the ED. patient is due for dialysis today. Screwhead Stoner And Polisher: Dr. Plaza CTA head and neck IMPRESSION: Slightly limited exam without inclusion of the aortic arch and origin of the left vertebral artery and great vessels. Moderate to severe atherosclerotic plaques are identified near both carotid bifurcations. The most affected level appears to be the distal right CCA demonstrating approximately 50% stenosis. Very small caliber of the left vertebral artery as described which could be congenital. Less than 50% stenosis in both ICAs. CT head shows no acute pathology but shows increased density around the right optical area corresponds with the interval ophthalmic surgery Chest x-ray shows pulmonary vascular congestion Slurred speech with aphasia Right-sided hemiparesis all concerning for new onset CVA Diabetes mellitus with hyperglycemia Hypothyroidism End-stage renal disease Hypertensive urgency Stable congestive heart failure Hyponatremia Severe hyperkalemia Type 2 OK Plan Admit to ICU secondary to TPA Electrolyte management Wean Nicardapine drip Resume BP meds Blood glucose control ASA AFTER 24 HR OF TPA Lipitor 40mg Discussed with intensivisit Neurologist consulted DVT/GI prophy The high probability of a clinically significant, sudden or life threatening deterioration of the [neuro, cardiac, renal] system(s) required my full and direct attention, intervention and personal management. The aggregate critical care time was [35] minutes. This time is in addition to time spent performing reported procedures but includes the following: [x] Data Review and interpretation [x] Patient assessment and monitoring of vital signs [x] Documentation [x] Medication orders and management Advance Directives: Yes Plan of care discussed with patient/family: Yes
--- NOTE | 2021-06-29 10:23 | Consultation ---
History of Present Illness History of present illness: [facility] Consult Note # Demographics Consult Type: Acute Stroke Level 1 (0-4.5 hrs) Patient Location: Emergency Room First Name: Rachael Last Name: Terry Date of : 1955 Age: 65 Gender: Female Time of Initial Page (): 06/29/2021, 06:57 Time of Return Call (): 06/29/2021, 06:58 # HPI History: 65F HTN, DM, ESRD on HD presents with right facial droop and right sided weakness. BP 155/101. Fingerstick 506. LKWT 0600. Last Known Normal: I have collected independent history specific to time last normal or last known well. We have collaborated with the provider and at this time, we have the most current timeline with the information that is available. Possible Thrombolytic candidate: not on warfarin or NOACs no intracranial hemorrhage history no recent major surgery no known active major internal bleeding no known blood disorders # Scores Time of exam and NIHSS (): 06/29/2021, 07:03 Level of Consciousness 1a: [0] = Alert; keenly responsive LOC Questions 1b: [2] = Answers neither correctly LOC Commands 1c: [2] = Performs neither correctly Best Gaze 2: [2] = Forced deviation Visual 3: [2] = Complete hemianopia Facial Palsy 4: [2] = Partial paralysis Motor Arm Left 5a: [0] = No drift Motor Arm Right 5b: [4] = No movement Motor Leg Left 6a: [1] = Drift Motor Leg Right 6b: [2] = Some effort against gravity Limb Ataxia 7: [0] = Absent Sensory 8: [1] = [id number] sensory loss Best Language 9: [3] = Mute Dysarthria 10: [2] = Severe dysarthria Extinction and Inattention 11: [1] = Visual, tactile, auditory, spatial, or personal inattention NIHSS Total: 24 # Data Time Head CT personally read by me (): 06/29/2021, 07:[address]: no bleed preliminarily reviewed by me, please refer to radiology read for official reading CTA Head: no large vessel occlusion per radiologist read moderate-severe bilateral ICA stenosis CTA Neck: patent vessels per radiologist read moderate bilateral cervical ICA/CCA atherosclerosis # Assessment Impression: Ischemic Stroke (Acute) # Plan Thrombolytic/Intervention: IV Thrombolysis Thrombolytic Dosing: IV alteplase 0.9 mg/kg, max dose 90 mg; 10% of dose given over 1 minute IVP, remaining 90% given as infusion over 1 hour Intraarterial Exclusion: other Time IV Thrombolytic Recommended ( Time): 06/29/2021, 07:13 Blood Pressure Management: nicardipine labetolol tPA delayed due to severe hypertension, given at 08:43 Medication: Atorvastatin 80 Insulin for target blood sugar 140-180 Thrombolytic Administration Recommendations: I reviewed the risks/benefits/alternatives of IV thrombolytic therapy with the patient. They understand there is potential of life threatening hemorrhage from IV thrombolysis. I stated that I believe benefits outweighs risk. They wish to proceed with IV thrombolytic therapy. I have collected independent history specific to time last normal or last known well. We have collaborated with the ED provider and at this time, we have the most current timeline with the information that is available. BP goal< 180/105 for 24hrs post Thrombolytic administration Use Labetolol 10-20mg IV prn or Nicardipine gtt to maintain BP parameters No antiplatelets or anticoagulants for next 24 hrs unless indicated for emergent IA procedure or other life threatening situation ICU admission Call back if there is any decline in neurological condition Other: LDL < 70 telemetry monitoring I have discussed my recommendations with the referring provider Disposition: admit # Logistics Telemedicine: Interactive 2 way audio and visual telecommunication technology was utilized during this visit Electronically signed at 06/29/2021 10:22 () by Jadon Davies MD Medications and Allergies Allergies Allergy/AdvReac Type Severity Reaction Status Date / Time No Known Allergies Allergy Verified 01/01/19 23:56 Home Medications Medication Instructions Recorded Confirmed Last Taken Type glipiZIDE [Glipizide] 10 mg PO BID 01/02/19 08/11/20 02/17/19 History hydrALAZINE [Apresoline TAB] 100 mg PO TID 01/02/19 08/11/20 02/17/19 History cloNIDine [Catapres] 0.1 mg PO Q8HR #90 tablet 03/20/19 08/11/20 Unknown Rx AtorvaSTATin [Lipitor] 40 mg PO QHS 08/11/20 08/11/20 Unknown History Cetirizine HCl [Allergy Relief] 10 mg PO QDAY 08/11/20 08/11/20 Unknown History Furosemide [Lasix TAB] 80 mg PO QDAY 08/11/20 08/11/20 Unknown History Latanoprost 0.005% 1 drop OP QPM 08/11/20 08/11/20 Unknown History Levothyroxine [Synthroid] 200 mcg PO DAILY@0600 08/11/20 08/11/20 Unknown History Metoprolol [Lopressor TAB] 50 mg PO BID 08/11/20 08/11/20 Unknown History NIFEdipine [Nifedipine ER] 60 mg PO QDAY 08/11/20 08/11/20 Unknown History hydrOXYzine HCL [Atarax] 25 mg PO BID 08/11/20 08/11/20 Unknown History lisinopriL [Zestril TAB] 40 mg PO QDAY 08/11/20 08/11/20 Unknown History Insulin Glargine [Lantus VIAL] 10 units SUB-Q QAMDIAB units 08/15/20 Unknown Rx Insulin Lispro [Humalog] 0 unit SUB-Q Q6HR vial 08/15/20 Unknown Rx Metoprolol [Lopressor TAB] 50 mg PO BID tablet 08/15/20 Unknown Rx NIFEdipine XL [Procardia Xl] 60 mg PO BID tablet 08/15/20 Unknown Rx cloNIDine [Catapres] 0.1 mg PO Q8HR tablet 08/15/20 Unknown Rx hydrALAZINE [Apresoline TAB] 100 mg PO Q8HR tablet 08/15/20 Unknown Rx lisinopriL [Zestril TAB] 40 mg PO QDAY tablet 08/15/20 Unknown Rx Active Meds: Active Medications Acetaminophen (Acetaminophen 325 Mg Tab) 650 mg PO Q4H PRN PRN Reason: Pain, Mild (1-3) Al Hydrox/Mg Hydrox/Simethicone (Alum-Mag Hydroxide-Simethicone [phone]/5ml Oral Liqd 30 Ml) 30 ml PO Q4H PRN PRN Reason: Indigestion Albuterol (Albuterol 2.5 Mg/3 Ml Nebu) 2.5 mg IH Q3HRT PRN PRN Reason: Shortness Of Breath Albuterol/Ipratropium (Ipratropium/Albuterol Sulfate 3 Ml Ampul.Neb) 1 ampul IH Q6HRT ART Albuterol/Ipratropium (Ipratropium/Albuterol Sulfate 3 Ml Ampul.Neb) 1 ampul IH Q6HRT [facility] Aspirin (Aspirin 325 Mg Tab) 325 mg PO QDAY [facility] Atorvastatin Calcium (Atorvastatin 40 Mg Tab) 40 mg PO QHS [facility] Bisacodyl (Bisacodyl 10 Mg Rect Supp) 10 mg TN QDAY PRN PRN Reason: Constipation Clonidine HCl (Clonidine 0.1 Mg Tab) 0.1 mg PO Q8HR [facility] Dextrose (Dextrose 50% In Water (25gm) 50 Ml Syringe) 50 ml IV Q30MIN PRN; Protocol PRN Reason: Hypoglycemia Docusate Sodium (Docusate Sodium 100 Mg Cap) 100 mg PO BID [facility] Famotidine (Famotidine 20 Mg/2 Ml Inj) 20 mg IV BID [facility] Hydralazine HCl (Hydralazine 25 Mg Tab) 100 mg PO Q8HR [facility] Hydroxyzine HCl (Hydroxyzine Hcl 25 Mg Tab) 25 mg PO BID [facility] Nicardipine/Sodium Chloride (Cardene Drip 40 Mg/200 Ml) 40 mg in 200 mls @ 25 mls/hr IV ONCE ONE; Protocol Stop: 06/29/21 16:01 Last Titration: 06/29/21 09:30 Dose: 15 mg/hr, 75 mls/hr Documented by: Insulin Glargine (Insulin Glargine 100 Units/Ml) 10 units SUB-Q QAMDIAB [facility] Latanoprost (Latanoprost 0.005% Ophth Soln 2.5 Ml) drops OU QPM [facility] Levothyroxine Sodium (Levothyroxine 75 Mcg Tab) 200 mcg PO DAILY@0600 [facility] Lisinopril (Lisinopril 40 Mg Tab) 40 mg PO QDAY [facility] Magnesium Hydroxide (Magnesium Hydroxide (Mom) Oral Liqd Udc) 30 ml PO Q4H PRN PRN Reason: Constipation Metoclopramide HCl (Metoclopramide 10 Mg Tab) 10 mg PO Q6H PRN PRN Reason: Nausea And Vomiting Metoprolol Tartrate (Metoprolol Tartrate 50 Mg Tab) 50 mg PO BID [facility] Miscellaneous Medication (Furosemide [Lasix Tab]) 80 mg PO QDAY [facility] Morphine Sulfate (Morphine 2 Mg/1 Ml Inj) 2 mg IV Q4H PRN PRN Reason: Pain, Moderate (4-6) Nifedipine (Nifedipine Xl 60 Mg Tab) 60 mg PO QDAY ART Ondansetron HCl (Ondansetron 4 Mg/2 Ml Inj) 4 mg IV Q8H PRN PRN Reason: Nausea And Vomiting Promethazine HCl (Promethazine 25 Mg Rect Supp) 25 mg TN Q6H PRN PRN Reason: Nausea And Vomiting Senna (Sennosides 8.6 Mg Tab) 8.6 mg PO BID ART Senna (Sennosides 8.6 Mg Tab) 8.6 mg PO Q12H PRN PRN Reason: Laxative Effect Sodium Chloride (Sodium Chloride 0.9% 10 Ml Flush Syringe) 10 ml IV BID ART Sodium Chloride (Sodium Chloride 0.9% 10 Ml Flush Syringe) 10 ml IV PRN PRN PRN Reason: LINE FLUSH Sodium Chloride (Sodium Chloride 0.9% 10 Ml Flush Syringe) 10 ml INJ PRN PRN PRN Reason: LINE FLUSH Physical Examination - Vital Signs Vital Signs: Vital Signs Pulse Resp 76 15 06/29/21 07:32 06/29/21 07:32 Results - Laboratory Findings CBC and BMP: 06/29/21 07:29 06/29/21 07:29 Abnormal Lab Findings: Abnormal Labs 06/29/21 06/29/21 06/29/21 07:28 07:29 07:29 WBC 4.2 L MCH 26 L RDW 22.4 H Lymph # (Auto) 0.9 L Thrombin Time 20.4 H Sodium Potassium Chloride BUN Creatinine Glucose POC Glucose 512 H CK-MB (CK-2) Rel Index Troponin T 06/29/21 06/29/21 06/29/21 07:29 07:29 09:04 WBC MCH RDW Lymph # (Auto) Thrombin Time Sodium 130 L Potassium 7.0 H* Chloride 89.4 L BUN 75 H Creatinine 9.0 H Glucose 546 H* POC Glucose 235 H CK-MB (CK-2) Rel Index 4.5 H Troponin T 0.290 H*
--- NOTE | 2021-06-29 10:50 | Consultation ---
History of Present Illness Consult date: 06/29/21 Requesting physician: NEELIMA RONQUILLO Reason for consult: other (Acute CVA s/p tpA) History of present illness: PCCM CONSULT NOTE (Full dictation # [id number]) Please see dictated notes for full details Medications and Allergies Allergies Allergy/AdvReac Type Severity Reaction Status Date / Time No Known Allergies Allergy Verified 01/01/19 23:56 Home Medications Medication Instructions Recorded Confirmed Last Taken Type glipiZIDE [Glipizide] 10 mg PO BID 01/02/19 08/11/20 02/17/19 History hydrALAZINE [Apresoline TAB] 100 mg PO TID 01/02/19 08/11/20 02/17/19 History cloNIDine [Catapres] 0.1 mg PO Q8HR #90 tablet 03/20/19 08/11/20 Unknown Rx AtorvaSTATin [Lipitor] 40 mg PO QHS 08/11/20 08/11/20 Unknown History Cetirizine HCl [Allergy Relief] 10 mg PO QDAY 08/11/20 08/11/20 Unknown History Furosemide [Lasix TAB] 80 mg PO QDAY 08/11/20 08/11/20 Unknown History Latanoprost 0.005% 1 drop OP QPM 08/11/20 08/11/20 Unknown History Levothyroxine [Synthroid] 200 mcg PO DAILY@0600 08/11/20 08/11/20 Unknown History Metoprolol [Lopressor TAB] 50 mg PO BID 08/11/20 08/11/20 Unknown History NIFEdipine [Nifedipine ER] 60 mg PO QDAY 08/11/20 08/11/20 Unknown History hydrOXYzine HCL [Atarax] 25 mg PO BID 08/11/20 08/11/20 Unknown History lisinopriL [Zestril TAB] 40 mg PO QDAY 08/11/20 08/11/20 Unknown History Insulin Glargine [Lantus VIAL] 10 units SUB-Q QAMDIAB units 08/15/20 Unknown Rx Insulin Lispro [Humalog] 0 unit SUB-Q Q6HR vial 08/15/20 Unknown Rx Metoprolol [Lopressor TAB] 50 mg PO BID tablet 08/15/20 Unknown Rx NIFEdipine XL [Procardia Xl] 60 mg PO BID tablet 08/15/20 Unknown Rx cloNIDine [Catapres] 0.1 mg PO Q8HR tablet 08/15/20 Unknown Rx hydrALAZINE [Apresoline TAB] 100 mg PO Q8HR tablet 08/15/20 Unknown Rx lisinopriL [Zestril TAB] 40 mg PO QDAY tablet 08/15/20 Unknown Rx Active Meds: Active Medications Acetaminophen (Acetaminophen 325 Mg Tab) 650 mg PO Q4H PRN PRN Reason: Pain, Mild (1-3) Al Hydrox/Mg Hydrox/Simethicone (Alum-Mag Hydroxide-Simethicone [phone]/5ml Oral Liqd 30 Ml) 30 ml PO Q4H PRN PRN Reason: Indigestion Albuterol (Albuterol 2.5 Mg/3 Ml Nebu) 2.5 mg IH Q3HRT PRN PRN Reason: Shortness Of Breath Albuterol/Ipratropium (Ipratropium/Albuterol Sulfate 3 Ml Ampul.Neb) 1 ampul IH Q6HRT ART Aspirin (Aspirin 325 Mg Tab) 325 mg PO QDAY ART Atorvastatin Calcium (Atorvastatin 40 Mg Tab) 40 mg PO QHS ART Bisacodyl (Bisacodyl 10 Mg Rect Supp) 10 mg [place] QDAY PRN PRN Reason: Constipation Clonidine HCl (Clonidine 0.1 Mg Tab) 0.1 mg PO Q8HR ART Dextrose (Dextrose 50% In Water (25gm) 50 Ml Syringe) 50 ml IV Q30MIN PRN; Protocol PRN Reason: Hypoglycemia Docusate Sodium (Docusate Sodium 100 Mg Cap) 100 mg PO BID ART Famotidine (Famotidine 20 Mg/2 Ml Inj) 20 mg IV DAILY ART Hydralazine HCl (Hydralazine 100 Mg Tab) 100 mg PO Q8HR ART Hydroxyzine HCl (Hydroxyzine Hcl 25 Mg Tab) 25 mg PO BID ART Nicardipine/Sodium Chloride (Cardene Drip 40 Mg/200 Ml) 40 mg in 200 mls @ 25 mls/hr IV ONCE ONE; Protocol Stop: 06/29/21 16:01 Last Titration: 06/29/21 10:30 Dose: 10 mg/hr, 50 mls/hr Documented by: Insulin Glargine (Insulin Glargine 100 Units/Ml) 10 units SUB-Q QAMDIAB ART Latanoprost (Latanoprost 0.005% Ophth Soln 2.5 Ml) drops OU QPM [facility] Levothyroxine Sodium (Levothyroxine 100 Mcg Tab) 200 mcg PO DAILY@0600 [facility] Lisinopril (Lisinopril 40 Mg Tab) 40 mg PO QDAY [facility] Magnesium Hydroxide (Magnesium Hydroxide (Mom) Oral Liqd Udc) 30 ml PO Q4H PRN PRN Reason: Constipation Metoclopramide HCl (Metoclopramide 10 Mg Tab) 10 mg PO Q6H PRN PRN Reason: Nausea And Vomiting Metoprolol Tartrate (Metoprolol Tartrate 50 Mg Tab) 50 mg PO BID [facility] Miscellaneous Medication (Furosemide [Lasix Tab]) 80 mg PO QDAY [facility] Morphine Sulfate (Morphine 2 Mg/1 Ml Inj) 2 mg IV Q4H PRN PRN Reason: Pain, Moderate (4-6) Nifedipine (Nifedipine Xl 60 Mg Tab) 60 mg PO QDAY [facility] Ondansetron HCl (Ondansetron 4 Mg/2 Ml Inj) 4 mg IV Q8H PRN PRN Reason: Nausea And Vomiting Promethazine HCl (Promethazine 25 Mg Rect Supp) 25 mg [place] Q6H PRN PRN Reason: Nausea And Vomiting Senna (Sennosides 8.6 Mg Tab) 8.6 mg PO BID ART Senna (Sennosides 8.6 Mg Tab) 8.6 mg PO Q12H PRN PRN Reason: Laxative Effect Sodium Chloride (Sodium Chloride 0.9% 10 Ml Flush Syringe) 10 ml IV BID ART Sodium Chloride (Sodium Chloride 0.9% 10 Ml Flush Syringe) 10 ml IV PRN PRN PRN Reason: LINE FLUSH Sodium Chloride (Sodium Chloride 0.9% 10 Ml Flush Syringe) 10 ml INJ PRN PRN PRN Reason: LINE FLUSH Physical Examination Vital signs: Vital Signs Pulse Resp 76 15 06/29/21 07:32 06/29/21 07:32 Results - Laboratory Findings CBC and BMP: 06/29/21 07:29 06/29/21 07:29 PT/INR, D-dimer PT 13.7 Sec. (12.2-14.9) 06/29/21 07:29 INR 1.00 (0.87-1.13) 06/29/21 07:29 Abnormal lab findings: Abnormal Labs 0806/29/21 06/29/21 07:28 07:29 07:29 WBC 4.2 L MCH 26 L RDW 22.4 H Lymph # (Auto) 0.9 L Thrombin Time 20.4 H Sodium Potassium Chloride BUN Creatinine Glucose POC Glucose 512 H CK-MB (CK-2) Rel Index Troponin T 06/29/21 06/29/21 06/29/21 07:29 07:29 09:04 WBC MCH RDW Lymph # (Auto) Thrombin Time Sodium 130 L Potassium 7.0 H* Chloride 89.4 L BUN 75 H Creatinine 9.0 H Glucose 546 H* POC Glucose 235 H CK-MB (CK-2) Rel Index 4.5 H Troponin T 0.290 H*
[2021-06-29] MEDS ORDERED: ALBUTEROL 2.5 MG/3 ML NEBU IH PRN (11:00)
[2021-06-29] MEDS ORDERED: ONDANSETRON 4 MG/2 ML INJ IV PRN (11:00)
[2021-06-29] MEDS ORDERED: PROMETHAZINE 25 MG RECT SUPP PR PRN (11:00)
[2021-06-29] MEDS ORDERED: MAGNESIUM HYDROXIDE (MOM) ORAL LIQD UDC PO PRN (11:00)
[2021-06-29] MEDS ORDERED: MORPHINE 2 MG/1 ML INJ IV PRN (11:00)
[2021-06-29] MEDS ORDERED: ALUM-MAG HYDROXIDE-SIMETHICONE 200-200-20MG/5ML ORAL LIQD 30 ML PO PRN (11:00)
[2021-06-29] MEDS ORDERED: DEXTROSE 50% IN WATER (25GM) 50 ML SYRINGE IV PRN (11:00)
[2021-06-29] MEDS ORDERED: METOCLOPRAMIDE 10 MG TAB PO PRN (11:00)
[2021-06-29] MEDS ORDERED: ACETAMINOPHEN 325 MG TAB PO PRN (11:00)
[2021-06-29] MEDS ORDERED: EPOETIN ALFA-EPBX 10,000 UNIT/1 ML VIAL IV PRN (11:12)
[2021-06-29] MEDS ORDERED: SODIUM CHLORIDE 0.9% 100 ML IV PRN (11:12)
--- NOTE | 2021-06-29 11:34 | Consultation ---
History of Present Illness - Reason for Consult end stage renal disease, hyperkalemia - History of Present Illness 65-year-old female with past medical history significant for end-stage renal disease in the setting of hypertension and diabetes, who is well known to our outpatient dialysis clinic as she dialyzes at [facility]. She presented secondary to sudden onset of right-sided facial droop and weakness and was evaluated for acute CVA. Was evaluated by neurology and per notes she did receive dose of TPA early this morning. Labs indicated evidence of hyperkalemia with a serum potassium of 7. Nephrology was consulted for dialysis today. Past History Past Medical History: diabetes, ESRD, hypertension, hyperlipidemia Past Surgical History: Other (AVF creation) Social history: no significant social history, lives with family Family history: no significant family history Medications and Allergies Allergies Allergy/AdvReac Type Severity Reaction Status Date / Time No Known Allergies Allergy Verified 01/01/19 23:56 Home Medications Medication Instructions Recorded Confirmed Last Taken Type glipiZIDE [Glipizide] 10 mg PO BID 01/02/19 08/11/20 02/17/19 History hydrALAZINE [Apresoline TAB] 100 mg PO TID 01/02/19 08/11/20 02/17/19 History cloNIDine [Catapres] 0.1 mg PO Q8HR #90 tablet 03/20/19 08/11/20 Unknown Rx AtorvaSTATin [Lipitor] 40 mg PO QHS 08/11/20 08/11/20 Unknown History Cetirizine HCl [Allergy Relief] 10 mg PO QDAY 08/11/20 08/11/20 Unknown History Furosemide [Lasix TAB] 80 mg PO QDAY 08/11/20 08/11/20 Unknown History Latanoprost 0.005% 1 drop OP QPM 08/11/20 08/11/20 Unknown History Levothyroxine [Synthroid] 200 mcg PO DAILY@0600 08/11/20 08/11/20 Unknown History Metoprolol [Lopressor TAB] 50 mg PO BID 08/11/20 08/11/20 Unknown History NIFEdipine [Nifedipine ER] 60 mg PO QDAY 08/11/20 08/11/20 Unknown History hydrOXYzine HCL [Atarax] 25 mg PO BID 08/11/20 08/11/20 Unknown History lisinopriL [Zestril TAB] 40 mg PO QDAY 08/11/20 08/11/20 Unknown History Insulin Glargine [Lantus VIAL] 10 units SUB-Q QAMDIAB units 08/15/20 Unknown Rx Insulin Lispro [Humalog] 0 unit SUB-Q Q6HR vial 08/15/20 Unknown Rx Metoprolol [Lopressor TAB] 50 mg PO BID tablet 08/15/20 Unknown Rx NIFEdipine XL [Procardia Xl] 60 mg PO BID tablet 08/15/20 Unknown Rx cloNIDine [Catapres] 0.1 mg PO Q8HR tablet 08/15/20 Unknown Rx hydrALAZINE [Apresoline TAB] 100 mg PO Q8HR tablet 08/15/20 Unknown Rx lisinopriL [Zestril TAB] 40 mg PO QDAY tablet 08/15/20 Unknown Rx Active Meds: Active Medications Acetaminophen (Acetaminophen 325 Mg Tab) 650 mg PO Q4H PRN PRN Reason: Pain, Mild (1-3) Al Hydrox/Mg Hydrox/Simethicone (Alum-Mag Hydroxide-Simethicone [phone]/5ml Oral Liqd 30 Ml) 30 ml PO Q4H PRN PRN Reason: Indigestion Albuterol (Albuterol 2.5 Mg/3 Ml Nebu) 2.5 mg IH Q3HRT PRN PRN Reason: Shortness Of Breath Albuterol/Ipratropium (Ipratropium/Albuterol Sulfate 3 Ml Ampul.Neb) 1 ampul IH Q6HRT ART Aspirin (Aspirin 325 Mg Tab) 325 mg PO QDAY ART Atorvastatin Calcium (Atorvastatin 40 Mg Tab) 40 mg PO QHS ART Bisacodyl (Bisacodyl 10 Mg Rect Supp) 10 mg [place] QDAY PRN PRN Reason: Constipation Clonidine HCl (Clonidine 0.1 Mg Tab) 0.1 mg PO Q8HR [facility] Dextrose (Dextrose 50% In Water (25gm) 50 Ml Syringe) 50 ml IV Q30MIN PRN; Protocol PRN Reason: Hypoglycemia Docusate Sodium (Docusate Sodium 100 Mg Cap) 100 mg PO BID ART Famotidine (Famotidine 20 Mg/2 Ml Inj) 20 mg IV DAILY ART Furosemide (Furosemide 40 Mg Tab) 80 mg PO QDAY ART Hydralazine HCl (Hydralazine 100 Mg Tab) 100 mg PO Q8HR ART Hydroxyzine HCl (Hydroxyzine Hcl 25 Mg Tab) 25 mg PO BID [facility] Nicardipine/Sodium Chloride (Cardene Drip 40 Mg/200 Ml) 40 mg in 200 mls @ 25 mls/hr IV ONCE ONE; Protocol Stop: 06/29/21 16:01 Last Titration: 06/29/21 10:30 Dose: 10 mg/hr, 50 mls/hr Documented by: Sodium Chloride (Nacl 0.9%) 100 mls @ 999 mls/hr IV TWAN PRN PRN Reason: Hypotension Insulin Glargine (Insulin Glargine 100 Units/Ml) 10 units SUB-Q QAMDIAB ART Latanoprost (Latanoprost 0.005% Ophth Soln 2.5 Ml) 1 drops OU QPM [facility] Levothyroxine Sodium (Levothyroxine 100 Mcg Tab) 200 mcg PO DAILY@0600 [facility] Lisinopril (Lisinopril 40 Mg Tab) 40 mg PO QDAY [facility] Magnesium Hydroxide (Magnesium Hydroxide (Mom) Oral Liqd Udc) 30 ml PO Q4H PRN PRN Reason: Constipation Metoclopramide HCl (Metoclopramide 10 Mg Tab) 5 mg PO Q12H PRN PRN Reason: Nausea And Vomiting Metoprolol Tartrate (Metoprolol Tartrate 50 Mg Tab) 50 mg PO BID [facility] Morphine Sulfate (Morphine 2 Mg/1 Ml Inj) 2 mg IV Q4H PRN PRN Reason: Pain, Moderate (4-6) Nifedipine (Nifedipine Xl 60 Mg Tab) 60 mg PO QDAY [facility] Ondansetron HCl (Ondansetron 4 Mg/2 Ml Inj) 4 mg IV Q8H PRN PRN Reason: Nausea And Vomiting Promethazine HCl (Promethazine 25 Mg Rect Supp) 25 mg [place] Q6H PRN PRN Reason: Nausea And Vomiting Senna (Sennosides 8.6 Mg Tab) 8.6 mg PO BID ART Senna (Sennosides 8.6 Mg Tab) 8.6 mg PO Q12H PRN PRN Reason: Laxative Effect Sodium Chloride (Sodium Chloride 0.9% 10 Ml Flush Syringe) 10 ml IV BID [facility] Sodium Chloride (Sodium Chloride 0.9% 10 Ml Flush Syringe) 10 ml IV PRN PRN PRN Reason: LINE FLUSH Review of Systems ROS unobtainable: due to mental status Exam - Vital Signs Vital signs: Vital Signs Pulse Resp 76 15 06/29/21 07:32 06/29/21 07:32 - General Appearance General appearance: appears stated age, chronically ill EENT: ATNC Neck: Present: neck supple Respiratory: Clear to Ascultation Heart: regular Gastrointestinal: Present: normal Integumentary: no rash Neurologic: aphasic, facial droop Musculoskeletal: Present: deferred Results - Lab Results 06/29/21 07:29 06/29/21 18:29 Most recent lab results Calcium 9.2 mg/dL (8.4-10.2) 06/29/21 07:29 Assessment and Plan - Patient Problems (1) Acute CVA (cerebrovascular accident) Current Visit: Yes Status: Acute Plan to address problem: s/p administration of TPA. Recommendation from neurology reviewed. (2) Hyperkalemia Current Visit: Yes Status: Acute Plan to address problem: Will treat with HD. Counseled on importance of low potassium diet. (3) ESRD (end stage renal disease) Current Visit: Yes Status: Chronic Plan to address problem: Have placed her on inpatient MWF HD schedule. (4) Hypertensive chronic kidney disease with stage 5 chronic kidney disease or end stage renal disease Current Visit: No Status: Chronic Plan to address problem: Monitor under current regimen. (5) Type 2 diabetes mellitus with diabetic chronic kidney disease Current Visit: No Status: Chronic Qualifiers: Chronic kidney disease stage: on chronic dialysis Plan to address problem: Management per primary attending. (6) Secondary hyperparathyroidism (of renal origin) Current Visit: No Status: Chronic Plan to address problem: Continue on home phos binder regimen.
[2021-06-29] MEDS ORDERED: SENNOSIDES 8.6 MG TAB PO PRN (12:00)
[2021-06-29] MEDS: FAMOTIDINE 20 MG/2 ML INJ IV SCH (12:24)
--- NOTE | 2021-06-29 12:48 | Electrocardiograph Report ---
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
[2021-06-29] MEDS: cloNIDine 0.1 MG TAB PO SCH (12:50)
[2021-06-29] MEDS: FUROSEMIDE 40 MG TAB PO SCH (12:57)
[2021-06-29] MEDS: INSULIN GLARGINE 100 UNITS/ML SUB-Q SCH (12:57)
[2021-06-29] MEDS ORDERED: hydrALAZINE 25 MG TAB PO SCH (14:00)
[2021-06-29] MEDS ORDERED: IPRATROPIUM/ALBUTEROL SULFATE 3 ML AMPUL.NEB IH SCH (14:00)
[2021-06-29] MEDS ORDERED: SODIUM POLYSTYRENE 15 GM/60 ML ORAL LIQD PO NR (15:07)
--- NOTE | 2021-06-29 16:19 | Consultation ---
History of Present Illness Consult date: 06/29/21 Consult reason: elevated troponin History of present illness: Patient is a 65 y/o female with a pmhx of ESRD (HD MWF), HTN, HFrEF, and DM who presented to the hospital with stroke like symptoms. Patient is non Estonian speaking and AMS at time of interview. History taken from chart. Patient went to shower in the morning and after the shower was noted to have slurred speech and right sided weakness. Patient was given TPN. Cardiology was consulted due to patients troponins being elevated. Echo-08/14/2020 EF 25 to 30%, left ventricle is mildly dilated moderate to severe left ventricular hypertrophy left atrium is moderately dilated right ventricle is moderately dilated right ventricle systolic function is moderately reduced Past History Past Medical History: CAD, diabetes, ESRD, hypertension, hyperlipidemia Past Surgical History: Other (Glaucoma, abdominal surgery, neck surgery) Social history: lives with family, full code Family history: no significant family history Medications and Allergies Allergies Allergy/AdvReac Type Severity Reaction Status Date / Time No Known Allergies Allergy Verified 01/01/19 23:56 Home Medications Medication Instructions Recorded Confirmed Last Taken Type glipiZIDE [Glipizide] 10 mg PO BID 01/02/19 08/11/20 02/17/19 History hydrALAZINE [Apresoline TAB] 100 mg PO TID 01/02/19 08/11/20 02/17/19 History cloNIDine [Catapres] 0.1 mg PO Q8HR #90 tablet 03/20/19 08/11/20 Unknown Rx AtorvaSTATin [Lipitor] 40 mg PO QHS 08/11/20 08/11/20 Unknown History Cetirizine HCl [Allergy Relief] 10 mg PO QDAY 08/11/20 08/11/20 Unknown History Furosemide [Lasix TAB] 80 mg PO QDAY 08/11/20 08/11/20 Unknown History Latanoprost 0.005% 1 drop OP QPM 08/11/20 08/11/20 Unknown History Levothyroxine [Synthroid] 200 mcg PO DAILY@0600 08/11/20 08/11/20 Unknown History Metoprolol [Lopressor TAB] 50 mg PO BID 08/11/20 08/11/20 Unknown History NIFEdipine [Nifedipine ER] 60 mg PO QDAY 08/11/20 08/11/20 Unknown History hydrOXYzine HCL [Atarax] 25 mg PO BID 08/11/20 08/11/20 Unknown History lisinopriL [Zestril TAB] 40 mg PO QDAY 08/11/20 08/11/20 Unknown History Insulin Glargine [Lantus VIAL] 10 units SUB-Q QAMDIAB units 08/15/20 Unknown Rx Insulin Lispro [Humalog] 0 unit SUB-Q Q6HR vial 08/15/20 Unknown Rx Metoprolol [Lopressor TAB] 50 mg PO BID tablet 08/15/20 Unknown Rx NIFEdipine XL [Procardia Xl] 60 mg PO BID tablet 08/15/20 Unknown Rx cloNIDine [Catapres] 0.1 mg PO Q8HR tablet 08/15/20 Unknown Rx hydrALAZINE [Apresoline TAB] 100 mg PO Q8HR tablet 08/15/20 Unknown Rx lisinopriL [Zestril TAB] 40 mg PO QDAY tablet 08/15/20 Unknown Rx Active Meds: Active Medications Acetaminophen (Acetaminophen 325 Mg Tab) 650 mg PO Q4H PRN PRN Reason: Pain, Mild (1-3) Al Hydrox/Mg Hydrox/Simethicone (Alum-Mag Hydroxide-Simethicone [phone]/5ml Oral Liqd 30 Ml) 30 ml PO Q4H PRN PRN Reason: Indigestion Albuterol (Albuterol 2.5 Mg/3 Ml Nebu) 2.5 mg IH Q3HRT PRN PRN Reason: Shortness Of Breath Albuterol/Ipratropium (Ipratropium/Albuterol Sulfate 3 Ml Ampul.Neb) 1 ampul IH Q6HRT ART Aspirin (Aspirin 325 Mg Tab) 325 mg PO QDAY ART Atorvastatin Calcium (Atorvastatin 40 Mg Tab) 40 mg PO QHS ART Bisacodyl (Bisacodyl 10 Mg Rect Supp) 10 mg [place] QDAY PRN PRN Reason: Constipation Clonidine HCl (Clonidine 0.1 Mg Tab) 0.1 mg PO Q8HR [facility] Dextrose (Dextrose 50% In Water (25gm) 50 Ml Syringe) 50 ml IV Q30MIN PRN; Protocol PRN Reason: Hypoglycemia Docusate Sodium (Docusate Sodium 100 Mg Cap) 100 mg PO BID ART Famotidine (Famotidine 20 Mg/2 Ml Inj) 20 mg IV DAILY ART Furosemide (Furosemide 40 Mg Tab) 80 mg PO QDAY [facility] Hydralazine HCl (Hydralazine 100 Mg Tab) 100 mg PO Q8HR ART Hydroxyzine HCl (Hydroxyzine Hcl 25 Mg Tab) 25 mg PO BID [facility] Sodium Chloride (Nacl 0.9%) 100 mls @ 999 mls/hr IV TWAN PRN PRN Reason: Hypotension Insulin Glargine (Insulin Glargine 100 Units/Ml) 10 units SUB-Q QAMDIAB [facility] Latanoprost (Latanoprost 0.005% Ophth Soln 2.5 Ml) 1 drops OU QPM [facility] Levothyroxine Sodium (Levothyroxine 100 Mcg Tab) 200 mcg PO DAILY@0600 [facility] Lisinopril (Lisinopril 40 Mg Tab) 40 mg PO QDAY [facility] Magnesium Hydroxide (Magnesium Hydroxide (Mom) Oral Liqd Udc) 30 ml PO Q4H PRN PRN Reason: Constipation Metoclopramide HCl (Metoclopramide 10 Mg Tab) 5 mg PO Q12H PRN PRN Reason: Nausea And Vomiting Metoprolol Tartrate (Metoprolol Tartrate 50 Mg Tab) 50 mg PO BID [facility] Morphine Sulfate (Morphine 2 Mg/1 Ml Inj) 2 mg IV Q4H PRN PRN Reason: Pain, Moderate (4-6) Nifedipine (Nifedipine Xl 60 Mg Tab) 60 mg PO QDAY [facility] Ondansetron HCl (Ondansetron 4 Mg/2 Ml Inj) 4 mg IV Q8H PRN PRN Reason: Nausea And Vomiting Promethazine HCl (Promethazine 25 Mg Rect Supp) 25 mg [place] Q6H PRN PRN Reason: Nausea And Vomiting Senna (Sennosides 8.6 Mg Tab) 8.6 mg PO BID [facility] Senna (Sennosides 8.6 Mg Tab) 8.6 mg PO Q12H PRN PRN Reason: Laxative Effect Sodium Chloride (Sodium Chloride 0.9% 10 Ml Flush Syringe) 10 ml IV BID [facility] Sodium Chloride (Sodium Chloride 0.9% 10 Ml Flush Syringe) 10 ml IV PRN PRN PRN Reason: LINE FLUSH Sodium Polystyrene Sulfonate (Sodium Polystyrene 15 Gm/60 Ml Oral Liqd) 30 gm PO ONCE NR Stop: 06/29/21 17:00 Review of Systems ROS unobtainable: due to mental status Physical Examination Last Vital Signs Temp 97.9 F 06/29/21 12:23 Pulse 72 06/29/21 16:04 Resp 21 06/29/21 13:10 BP 175/61 06/29/21 16:04 Pulse Ox 98 06/29/21 13:10 Results 06/29/21 07:29 06/29/21 07:29 Cardiac Enzymes 06/29/21 Range/Units 07:29 CK-MB (CK-2) 3.1 (0.0-4.0) ng/mL Coagulation 06/29/21 Range/Units 07:29 PT 13.7 (12.2-14.9) Sec. INR 1.00 (0.87-1.13) APTT 28.6 (24.2-36.6) Sec. Lipids 06/29/21 Range/Units 07:29 Triglycerides 58 (2-149) mg/dL Cholesterol 116 (50-199) mg/dL HDL Cholesterol 43 (40-59) mg/dL Cholesterol/HDL Ratio 2.69 % CBC 06/29/21 Range/Units 07:29 WBC 4.2 L (4.5-11.0) K/mm3 RBC 4.46 (3.65-5.03) M/mm3 Hgb 11.5 (10.1-14.3) gm/dl Hct 35.9 (30.3-42.9) % Plt Count 179 (140-440) K/mm3 Lymph # (Auto) 0.9 L (1.2-5.4) K/mm3 [place] # (Auto) 0.3 (0.0-0.8) K/mm3 Eos # (Auto) 0.1 (0.0-0.4) K/mm3 Baso # (Auto) 0.0 (0.0-0.1) K/mm3 Comprehensive Metabolic Panel 06/29/21 Range/Units 07:29 Sodium 130 L (137-145) mmol/L Potassium 7.0 H* (3.6-5.0) mmol/L Chloride 89.4 L (98-107) mmol/L Carbon Dioxide 26 (22-30) mmol/L BUN 75 H (7-17) mg/dL Creatinine 9.0 H (0.6-1.2) mg/dL Glucose 546 H* (65-100) mg/dL Calcium 9.2 (8.4-10.2) mg/dL - Imaging and Cardiology Echo: report reviewed EKG: report reviewed, image reviewed EKG interpretations - Telemetry EKG Rhythm: Sinus Rhythm - EKG Sinus rhythms and dysrhythmias: sinus rhythm Assessment and Plan NSTEMI suspected type 2 * Patient EKG showed sinus 62 and patient was sinus 69 on monitor with no events. * Troponins noted to be elevated likely secondary to ESRD. Trend CE * Echo-08/14/2020 EF 25 to 30%, left ventricle is mildly dilated moderate to severe left ventricular hypertrophy left atrium is moderately dilated right ventricle is moderately dilated right ventricle systolic function is moderately reduced ESRD * Patient received dialysis today * Nephrology is following Ischemic Stroke * Patient received TPN for stroke like symptoms * Neuro is following * Patient is currently altered mental status Patient seen in conjunction with Dr. Warren who agrees to this plan of care. Will continue to follow - Patient Problems (1) Acute CVA (cerebrovascular accident) Current Visit: Yes Status: Acute (2) Elevated troponin Current Visit: Yes Status: Acute (3) Hyperglycemia due to diabetes mellitus Current Visit: Yes Status: Acute (4) Hyperkalemia Current Visit: Yes Status: Acute (5) ESRD (end stage renal disease) Current Visit: Yes Status: Chronic (6) Altered mental status Current Visit: No Status: Acute
[2021-06-29 16:29] LABS: Hepatitis B Surface Antigen Non-Reactive (Negative); Hepatitis C Virus Antibody Non-Reactive (NonReactive)
[2021-06-29] MEDS: hydrOXYzine HCL 25 MG TAB PO SCH (17:56)
[2021-06-29] MEDS: hydrALAZINE 100 MG TAB PO SCH (17:57)
[2021-06-29] MEDS: IPRATROPIUM/ALBUTEROL SULFATE 3 ML AMPUL.NEB IH SCH ×2 (18:12→20:29)
[2021-06-29] MEDS: LATANOPROST 0.005% OPHTH SOLN 2.5 ML OU SCH (19:23)
[2021-06-29 20:01] LABS: Creatine Kinase MB TNR ng/mL (0.0-4.0)
[2021-06-29 20:26] LABS: Creatine Kinase MB 4.2 ng/mL (0.0-4.0)
[2021-06-30] MEDS: hydrALAZINE 100 MG TAB PO SCH ×3 (00:06→21:08)
[2021-06-30] MEDS: cloNIDine 0.1 MG TAB PO SCH ×3 (00:07→21:07)
[2021-06-30] MEDS: DOCUSATE SODIUM 100 MG CAP PO SCH ×3 (00:07→21:09)
[2021-06-30] MEDS: hydrOXYzine HCL 25 MG TAB PO SCH ×3 (00:07→21:09)
[2021-06-30] MEDS: HEPARIN 5,000 UNIT/1 ML VIAL SUB-Q SCH ×2 (00:08→10:00)
[2021-06-30] MEDS: METOPROLOL TARTRATE 50 MG TAB PO SCH ×3 (00:08→21:07)
[2021-06-30] MEDS: SENNOSIDES 8.6 MG TAB PO SCH ×3 (00:09→21:09)
--- NOTE | 2021-06-30 02:08 | Consultation ---
DATE OF CONSULTATION: 06/29/2021 PULMONARY CRITICAL CARE CONSULTATION CONSULTING PHYSICIAN: Dr. Eulalio Workman. REASON FOR CONSULTATION: Acute cerebrovascular accident, status post tPA, acute hypoxemic respiratory failure. CHIEF COMPLAINT AND HISTORY OF PRESENT ILLNESS: As follows: The patient is a now 65-year-old female known to me from prior admissions, past history significant amongst other things for a diagnosis of end-stage renal disease on dialysis Tuesday, Tuesday and Tuesday, but poorly controlled hypertension. She was brought into the hospital with stroke-like symptoms that began 1 hour prior to arrival at approximately 6:00 a.m. this morning, her daughter gave most of the history. She stated that the patient woke up normal, went to take a shower, and after taking a shower, she was noted to have slurred speech and right-sided weakness. EMS also documented the right-sided weakness. A code stroke was called. In the ER, there was no movement of the right upper or lower extremity against gravity and neurologically, she was a little bit confused. After discussions with the teleneurology team, the patient was given some blood pressure medication to improve her blood pressures, which were significantly elevated and then after that, tPA was given. Post tPA, she was brought into the intensive care unit for close observation and for dialysis. Of note, she reportedly had an NIHSS scale of about 24, but a negative CT head and CTA head and neck. When I stopped by to see her, she was resting in bed. She was on the dialysis machine. She was on 4 liters nasal cannula. She was still confused or delirious, intermittently she seems to respond appropriately. I do not have any history of vomiting or overt aspiration. The patient has described herself as a nonsmoker in the past. The above is as much of the history of presentation as I have. PAST MEDICAL HISTORY: Again significant for end-stage renal disease, on dialysis, hypertension, congestive heart failure, diabetes, history of hypothyroidism, and I believe a history of glaucoma. PAST SURGICAL HISTORY: She has a left upper extremity AV graft. She has had abdominal surgery in the past and she has had right eye surgery for glaucoma. MEDICATIONS: She was on at the time I stopped by to see were reviewed, pertinent medications included the following: Tylenol 650 mg p.o. q. 4 hours p.r.n. mild pain or fevers, albuterol nebulizer treatments 2.5 mg nebulized q. 3 hours p.r.n. shortness of breath, DuoNeb scheduled 1 nebulization q. 6 hours scheduled, aspirin 325 mg p.o. daily, Lipitor 40 mg p.o. at bedtime, p.r.n. Dulcolax, clonidine 0.1 mg p.o. q. 8 hours. Docusate sodium 100 mg p.o. b.i.d., Pepcid 20 mg IV daily, Lasix 80 mg p.o. daily, hydralazine 100 mg p.o. q. 8 hours, Atarax 25 mg p.o. b.i.d., Lantus insulin 10 units subQ daily, latanoprost 0.005% eyedrops to both eyes at bedtime, Synthroid 200 mcg p.o. daily, lisinopril 40 mg p.o. daily, p.r.n. milk of magnesia, metoprolol 50 mg p.o. b.i.d., morphine sulfate 2 mg IV q. 4 hours p.r.n. moderate pain. Nicardipine drip had been going at 5 mg per hour, being titrated off now. Nifedipine 60 mg p.o. daily, Zofran 4 mg IV q. 8 hours p.r.n. nausea and vomiting and Senokot 8.6 mg p.o. b.i.d. ALLERGIES: No known drug allergies. DIET: Petite lady, no significant weight changes since I have last seen her. FAMILY AND SOCIAL HISTORY: Lives in the community with family, I believe her daughter. Describes herself as a never smoker. Alcohol, illicit drug use or abuse denied. FAMILY HISTORY: Otherwise unknown. REVIEW OF SYSTEMS: Unobtainable secondary to the patient's medical and mental condition. Since she has been here, no gross hematochezia or melena, no gross hematuria, no hematemesis, no hemoptysis, no bloody tracheal secretions, and no witnessed seizures. Review of systems otherwise unobtainable or as in the body of the history above. PHYSICAL EXAMINATION: VITAL SIGNS: First temperature I see here is 97.9, pulse was 76, respiratory rate 15, blood pressure 225/107, O2 sats at the time I saw her were 98% that was on 4 liters nasal cannula. GENERAL: She is an elderly looking petite lady. Normocephalic, atraumatic. Resting in bed with mildly increased respiratory effort at rest. HEAD, EYES, EARS, NOSE, AND THROAT: She has mild conjunctival erythema. No gross jugular venous distention, no thyromegaly. Oropharynx is moist. Grossly, there were no palpable lymph nodes in the supraclavicular or submandibular lymph node chains. LUNGS: Auscultation of both lung banks revealed bilateral rhonchi, no active wheezing. HEART: Sounds 1 and 2 are heard. They were regular in rate and rhythm at the time of my evaluation without overt rubs or murmurs. ABDOMEN: Soft, flat, bowel sounds are positive, nontender, no palpable hepatosplenomegaly. EXTREMITIES: Without overt digital clubbing or cyanosis, no pedal edema. Pedal pulses are 2+ bilaterally. NEUROLOGIC: Pupils are equal, round, about 4 mm, reactive to light. Extraocular muscle movements appeared intact. She was definitely able to move the left upper extremity. The left side in particular had minimal weakness to movement to the right side. A little bit of expressive and probably receptive aphasia. SKIN: Poor turgor with stasis dermatitis type changes in the lower extremities; however, without overt cellulitis or rash in the areas examined. Please see the wound care nurses' notes for full description of her skin. PSYCHIATRIC: Mood and affect were flat. She was delirious. LABORATORY DATA: From my review are as follows: Admission white cell count 4200, hemoglobin 11.5, hematocrit 35.9, platelet count 179. No manual differential. INR 1.00. Venous blood gas showed a pH of 7.33. Serum sodium was 130, potassium 7.0, chloride 89, bicarbonate 26, BUN 75, creatinine 9.0, glucose 546. Troponin was elevated at 0.29. Otherwise, liver function tests essentially within normal limits. No microbiology studies. A chest x-ray shows gross cardiomegaly with bilateral and perihilar increased interstitial infiltrates consistent with mild to moderate pulmonary edema. There is some fluid in the minor fissure also seen on the right. No gross pneumothorax, no gross bony fracture. CT scans were done. CT of the head, no acute intracranial abnormality. CTA of the neck was done, moderate to severe atherosclerotic plaques identified near both carotid bifurcations, approximately 50%. CTA of the head: No large vessel occlusion or high-grade stenosis was identified. Carotid Dopplers are pending. ASSESSMENT: 1. Hypertensive emergency. 2. Acute cerebrovascular accident, now status post tPA. 3. End-stage renal disease, on dialysis. 4. Acute hypoxemic respiratory failure. 5. History of congestive heart failure. 6. Diabetes with hyperglycemia. 7. History of glaucoma. 8. Acute toxic metabolic encephalopathy. PLAN: We will keep her here in the intensive care unit. Cardene drip will be weaned off as her oral antihypertensive medications are increased and up-titrated. Oxygen will be weaned to keep sats greater than or equal to about 90%. Aspiration precautions will be maintained. Bilevel positive airway pressure ventilation therapy will be offered on a p.r.n. basis. Dialysis is ongoing currently. We will consider an arterial blood gas post dialysis. Hyperkalemia is being addressed with dialysis at this point. She has been seen by the hvac specialist. Initially, Cardene will be targeted to wean for systolic blood pressures greater than or equal to about 150-160 mmHg considering she just had a CVA. A Neurology evaluation is pending. She is on GI prophylaxis. She will be placed on DVT prophylaxis, especially once the tPA window is completed, a swallow evaluation will be in order. Flu and pneumonia vaccination will be addressed per protocol. Thank you very much for the consult, Dr. Workman. We will follow along and make further recommendations as picture progresses/becomes clearer. She is critically ill on life-sustaining interventions including the Cardene drip as well as tPA, at high risk of from cardiopulmonary and renal system decompensation. At this time, I spent about 35-40 minutes of critical care time without overlap and excluding any procedural time that may be necessary. TID: [id number] RECEIPT: [id number] RACHEL/KENNETH
[2021-06-30] MEDS: IPRATROPIUM/ALBUTEROL SULFATE 3 ML AMPUL.NEB IH SCH (02:13)
[2021-06-30] MEDS ORDERED: LEVOTHYROXINE 75 MCG TAB PO SCH (06:00)
--- NOTE | 2021-06-30 08:08 | Vascular Lab Report ---
DUPLEX DOPPLER ULTRASOUND CAROTID, BILATERAL INDICATION / CLINICAL INFORMATION: stroke. COMPARISON: None available. FINDINGS: RIGHT CAROTID: Moderate partially calcified plaques are noted at the bifurcation extending to the pro ximal ICA and ECA - PLAQUE ESTIMATE (%): < 50% - CCA velocity: 83 cm/sec. - ICA peak systolic velocity: 111 cm/sec. - ICA/CCA PSV Ratio: 1.3 Right Vertebral Artery: Antegrade flow. LEFT CAROTID: Moderate to severe partially calcified plaques are noted at the bifurcation and right I CA and ECA - PLAQUE ESTIMATE (%): > 50% - CCA velocity: 109 cm/sec. - ICA peak systolic velocity: 151 cm/sec. - ICA/CCA PSV Ratio: 1.2 Left Vertebral Artery: Antegrade flow. IMPRESSION: 1. Right Internal Carotid Artery: Less than 50% diameter stenosis. 2. Left Internal Carotid Artery: 50-69% stenosis. Velocity criteria are extrapolated from diameter data as defined by the Society of Radiologists in [facility] Consensus Conference, Radiology 2003; 229;340-346. NO STENOSIS (NORMAL) - Plaque = none; ICA PSV < 125 cm/sec; ICA/CCA PSV Ratio < 2.0 <50% STENOSIS - Plaque < 50%; ICA PSV < 125 cm/sec; ICA/CCA PSV Ratio < 2.0 50-69% STENOSIS - Plaque > 50%; ICA PSV = 125-230 cm/sec; ICA/CCA PSV Ratio = 2.0-4.0 >70% BUT <100% STENOSIS - Plaque > 50%; ICA PSV > 230 cm/sec; ICA/CCA PSV Ratio > 4.0 NEAR OCCLUSION - Plaque = visible lumen; ICA PSV = high/low/none; ICA/CCA PSV Ratio = variable TOTAL OCCLUSION - Plaque = no lumen; ICA PSV = none; ICA/CCA PSV Ratio = N/A Signer Name: Benji Perry Jr, MD Signed: 06/29/2021 2:37 PM Workstation Name: [id number]
--- NOTE | 2021-06-30 08:50 | Consultation ---
History of Present Illness Consult date: 06/30/21 Reason for Consult: new onset right side weakness,ESRD,DKA --post TPA History of present illness: Slurred speech and right-sided weakness History of present illness: Patient is a 65-year-old female with past medical history of end-stage renal disease on dialysis Tuesday, hypertension, CHF, and diabetes (with history of DKA) presents to the hospital with stroke symptoms that started 1 hours prior to arrival approximately 6 AM. Patient is not Georgian speaking with hopi language Twi from [facility]. Although it is understood that the patient actually speaks Georgian but does not communicate sometimes. Further evaluation from the ER physician documentation and collaborated by the daughter who was at bedside She states that patient woke up normal and then went to take a shower. After taking a shower was noted if she has slurred speech and right-sided weakness. EMS reports right-sided weakness, slurred speech, no movement of the right upper or lower extremity against gravity. Accu-Chek 506. Code stroke initiated prior to patient arrival to the ED. patient is due for dialysis today. Irrigator Head: Dr. Plaza Patient was also noted to have significant electrolyte abnormalities CT brain is unremarkable CTA brain and neck is remarkable for astherosclerotic changes distal ICA bilateral pt. was given TPA and was admited to ICU Initial NIH #24 today she is alert knows her name follow command she is with slight residual right side weakness MRI is pending repeat CT brain -24 hours is pending Past History Past Medical History: CAD, diabetes, ESRD, hypertension, hyperlipidemia Past Surgical History: Other (Glaucoma, abdominal surgery, neck surgery) Social history: lives with family, full code Family history: no significant family history Medications and Allergies Allergies Allergy/AdvReac Type Severity Reaction Status Date / Time No Known Allergies Allergy Verified 01/01/19 23:56 Home Medications Medication Instructions Recorded Confirmed Last Taken Type glipiZIDE [Glipizide] 10 mg PO BID 01/02/19 08/11/20 02/17/19 History hydrALAZINE [Apresoline TAB] 100 mg PO TID 01/02/19 08/11/20 02/17/19 History cloNIDine [Catapres] 0.1 mg PO Q8HR #90 tablet 03/20/19 08/11/20 Unknown Rx AtorvaSTATin [Lipitor] 40 mg PO QHS 08/11/20 08/11/20 Unknown History Cetirizine HCl [Allergy Relief] 10 mg PO QDAY 08/11/20 08/11/20 Unknown History Furosemide [Lasix TAB] 80 mg PO QDAY 08/11/20 08/11/20 Unknown History Latanoprost 0.005% 1 drop OP QPM 08/11/20 08/11/20 Unknown History Levothyroxine [Synthroid] 200 mcg PO DAILY@0600 08/11/20 08/11/20 Unknown History Metoprolol [Lopressor TAB] 50 mg PO BID 08/11/20 08/11/20 Unknown History NIFEdipine [Nifedipine ER] 60 mg PO QDAY 08/11/20 08/11/20 Unknown History hydrOXYzine HCL [Atarax] 25 mg PO BID 08/11/20 08/11/20 Unknown History lisinopriL [Zestril TAB] 40 mg PO QDAY 08/11/20 08/11/20 Unknown History Insulin Glargine [Lantus VIAL] 10 units SUB-Q QAMDIAB units 08/15/20 Unknown Rx Insulin Lispro [Humalog] 0 unit SUB-Q Q6HR vial 08/15/20 Unknown Rx Metoprolol [Lopressor TAB] 50 mg PO BID tablet 08/15/20 Unknown Rx NIFEdipine XL [Procardia Xl] 60 mg PO BID tablet 08/15/20 Unknown Rx cloNIDine [Catapres] 0.1 mg PO Q8HR tablet 08/15/20 Unknown Rx hydrALAZINE [Apresoline TAB] 100 mg PO Q8HR tablet 08/15/20 Unknown Rx lisinopriL [Zestril TAB] 40 mg PO QDAY tablet 08/15/20 Unknown Rx Active Meds: Active Medications Nicardipine/Sodium Chloride (Cardene Drip 40 Mg/200 Ml) 40 mg in 200 mls @ 25 mls/hr IV ONCE ONE; Protocol Stop: 06/29/21 16:01 Last Titration: 06/29/21 09:30 Dose: 15 mg/hr, 75 mls/hr Documented by: Review of Systems ROS unobtainable: due to mental status (Had complained of aphasia and right- sided weakness) Past History Past Medical History: diabetes, ESRD, hypertension, hyperlipidemia Past Surgical History: Other (AVF creation) Social history: no significant social history, lives with family Family history: no significant family history Medications and Allergies Allergies Allergy/AdvReac Type Severity Reaction Status Date / Time No Known Allergies Allergy Verified 01/01/19 23:56 Home Medications Medication Instructions Recorded Confirmed Last Taken Type glipiZIDE [Glipizide] 10 mg PO BID 01/02/19 08/11/20 02/17/19 History hydrALAZINE [Apresoline TAB] 100 mg PO TID 01/02/19 08/11/20 02/17/19 History cloNIDine [Catapres] 0.1 mg PO Q8HR #90 tablet 03/20/19 08/11/20 Unknown Rx AtorvaSTATin [Lipitor] 40 mg PO QHS 08/11/20 08/11/20 Unknown History Cetirizine HCl [Allergy Relief] 10 mg PO QDAY 08/11/20 08/11/20 Unknown History Furosemide [Lasix TAB] 80 mg PO QDAY 08/11/20 08/11/20 Unknown History Latanoprost 0.005% 1 drop OP QPM 08/11/20 08/11/20 Unknown History Levothyroxine [Synthroid] 200 mcg PO DAILY@0600 08/11/20 08/11/20 Unknown History Metoprolol [Lopressor TAB] 50 mg PO BID 08/11/20 08/11/20 Unknown History NIFEdipine [Nifedipine ER] 60 mg PO QDAY 08/11/20 08/11/20 Unknown History hydrOXYzine HCL [Atarax] 25 mg PO BID 08/11/20 08/11/20 Unknown History lisinopriL [Zestril TAB] 40 mg PO QDAY 08/11/20 08/11/20 Unknown History Insulin Glargine [Lantus VIAL] 10 units SUB-Q QAMDIAB units 08/15/20 Unknown Rx Insulin Lispro [Humalog] 0 unit SUB-Q Q6HR vial 08/15/20 Unknown Rx Metoprolol [Lopressor TAB] 50 mg PO BID tablet 08/15/20 Unknown Rx NIFEdipine XL [Procardia Xl] 60 mg PO BID tablet 08/15/20 Unknown Rx cloNIDine [Catapres] 0.1 mg PO Q8HR tablet 08/15/20 Unknown Rx hydrALAZINE [Apresoline TAB] 100 mg PO Q8HR tablet 09/18/20 Unknown Rx lisinopriL [Zestril TAB] 40 mg PO QDAY tablet 08/15/20 Unknown Rx Active Meds: Active Medications Acetaminophen (Acetaminophen 325 Mg Tab) 650 mg PO Q4H PRN PRN Reason: Pain, Mild (1-3) Al Hydrox/Mg Hydrox/Simethicone (Alum-Mag Hydroxide-Simethicone [phone]/5ml Oral Liqd 30 Ml) 30 ml PO Q4H PRN PRN Reason: Indigestion Albuterol (Albuterol 2.5 Mg/3 Ml Nebu) 2.5 mg IH Q3HRT PRN PRN Reason: Shortness Of Breath Aspirin (Aspirin 325 Mg Tab) 325 mg PO QDAY [facility] Atorvastatin Calcium (Atorvastatin 40 Mg Tab) 40 mg PO QHS [facility] Last Admin: 06/30/21 00:08 Dose: Not Given Documented by: Bisacodyl (Bisacodyl 10 Mg Rect Supp) 10 mg VT QDAY PRN PRN Reason: Constipation Clonidine HCl (Clonidine 0.1 Mg Tab) 0.1 mg PO Q8HR [facility] Last Admin: 06/30/21 00:07 Dose: Not Given Documented by: Dextrose (Dextrose 50% In Water (25gm) 50 Ml Syringe) 50 ml IV Q30MIN PRN; Protocol PRN Reason: Hypoglycemia Docusate Sodium (Docusate Sodium 100 Mg Cap) 100 mg PO BID [facility] Last Admin: 06/30/21 00:07 Dose: Not Given Documented by: Famotidine (Famotidine 20 Mg/2 Ml Inj) 20 mg IV DAILY [facility] Last Admin: 06/29/21 12:24 Dose: 20 mg Documented by: Furosemide (Furosemide 40 Mg Tab) 80 mg PO QDAY [facility] Last Admin: 06/29/21 12:57 Dose: Not Given Documented by: Heparin Sodium (Porcine) (Heparin 5,000 Unit/1 Ml Vial) 5,000 unit SUB-Q Q12HR [facility] Last Admin: 06/30/21 00:08 Dose: Not Given Documented by: Hydralazine HCl (Hydralazine 100 Mg Tab) 100 mg PO Q8HR [facility] Last Admin: 06/30/21 00:06 Dose: Not Given Documented by: Hydroxyzine HCl (Hydroxyzine Hcl 25 Mg Tab) 25 mg PO BID [facility] Last Admin: 06/30/21 00:07 Dose: Not Given Documented by: Sodium Chloride (Nacl 0.9%) 100 mls @ 999 mls/hr IV TWAN PRN PRN Reason: Hypotension Insulin Glargine (Insulin Glargine 100 Units/Ml) 10 units SUB-Q QAMDIAB [facility] Last Admin: 06/29/21 12:57 Dose: Not Given Documented by: Latanoprost (Latanoprost 0.005% Ophth Soln 2.5 Ml) 1 drops OU QPM [facility] Last Admin: 06/29/21 19:23 Dose: 1 drops Documented by: Levothyroxine Sodium (Levothyroxine 100 Mcg Tab) 200 mcg PO DAILY@0600 [facility] Lisinopril (Lisinopril 40 Mg Tab) 40 mg PO QDAY [facility] Magnesium Hydroxide (Magnesium Hydroxide (Mom) Oral Liqd Udc) 30 ml PO Q4H PRN PRN Reason: Constipation Metoclopramide HCl (Metoclopramide 10 Mg Tab) 5 mg PO Q12H PRN PRN Reason: Nausea And Vomiting Metoprolol Tartrate (Metoprolol Tartrate 50 Mg Tab) 50 mg PO BID [facility] Last Admin: 06/30/21 00:08 Dose: Not Given Documented by: Morphine Sulfate (Morphine 2 Mg/1 Ml Inj) 2 mg IV Q4H PRN PRN Reason: Pain, Moderate (4-6) Nifedipine (Nifedipine Xl 60 Mg Tab) 60 mg PO QDAY [facility] Ondansetron HCl (Ondansetron 4 Mg/2 Ml Inj) 4 mg IV Q8H PRN PRN Reason: Nausea And Vomiting Promethazine HCl (Promethazine 25 Mg Rect Supp) 25 mg VT Q6H PRN PRN Reason: Nausea And Vomiting Senna (Sennosides 8.6 Mg Tab) 8.6 mg PO BID [facility] Last Admin: 06/30/21 00:09 Dose: Not Given Documented by: Senna (Sennosides 8.6 Mg Tab) 8.6 mg PO Q12H PRN PRN Reason: Laxative Effect Sodium Chloride (Sodium Chloride 0.9% 10 Ml Flush Syringe) 10 ml IV BID [facility] Last Admin: 06/30/21 00:10 Dose: 10 ml Documented by: Sodium Chloride (Sodium Chloride 0.9% 10 Ml Flush Syringe) 10 ml IV PRN PRN PRN Reason: LINE FLUSH Review of Systems ROS unobtainable: due to mental status Physical Examination - Vital Signs Vital Signs: Vital Signs Pulse Resp 76 15 06/29/21 07:32 06/29/21 07:32 - Constitutional General appearance: comfortable - EENT EENT: Present: PERRL, mucous membranes moist - Respiratory Respiratory: Present: chest non-tender, lungs clear, rhonchi - Cardiovascular Cardiovascular: Present: regular rate, normal S1, normal S2 Extremities: Present: no peripheral edema bilatateraly, no clubbing, cyanosis - Gastrointestinal Gastrointestinal: Present: normoactive bowel sounds - Integumentary Integumentary: Present: normal - Neurologic Cranial nerve examination: PERRL, EOMI, other (slight right facial droop , no visual field defect ,no aphasia ) Sensorimotor examination: other (right upper pronator drift , lower 4/5 planter is down no sensory deficit, gait not done) - Level of Consciousness 1a. Level of Consciousness: alert/keenly responsive - LOC Questions 1b. LOC Questions: answers 1 question correctly - LOC Command 1c. LOC Commands: performs tasks correctly - Best Gaze 2. Best Gaze: normal - Visual 3. Visual: no visual loss - Facial Palsy 4. Facial Palsy: minor paralysis - Motor Arm 5a. Motor Arm Left: no drift 5b. Motor Arm Right: drift - Motor Leg 6a. Motor Leg Left: no drift 6b. Motor Leg Right: no drift - Limb Ataxia 7. Limb Ataxia: absent - Sensory 8. Sensory: normal - Best Language 9. Best Language: no aphasia - Dysarthria 10. Dysarthria: normal - Extinction and Inattention 11. Extinction/Inattention: no abnormality - Scoring Total Score: 3 Stroke Severity: Minor Stroke Results - Laboratory Findings CBC and BMP: 06/29/21 07:29 06/29/21 19:47 Abnormal Lab Findings: Abnormal Labs 06/29/21 06/29/21 06/29/21 07:28 07:29 07:29 WBC 4.2 L MCH 26 L RDW 22.4 H Lymph # (Auto) 0.9 L Thrombin Time 20.4 H ABG pH POC ABG pCO2 POC ABG pO2 ABG Hemoglobin ABG Oxyhemoglobin ABG Sodium ABG Chloride ABG Glucose Carboxyhemoglobin Sodium Potassium Chloride BUN Creatinine Glucose POC Glucose 512 H CK-MB (CK-2) CK-MB (CK-2) Rel Index Troponin T Arterial Blood Glucose Arterial Blood Ionized Calcium 06/29/21 06/29/21 06/29/21 07:29 07:29 09:04 WBC MCH RDW Lymph # (Auto) Thrombin Time ABG pH POC ABG pCO2 POC ABG pO2 ABG Hemoglobin ABG Oxyhemoglobin ABG Sodium ABG Chloride ABG Glucose Carboxyhemoglobin Sodium 130 L Potassium 7.0 H* Chloride 89.4 L BUN 75 H Creatinine 9.0 H Glucose 546 H* POC Glucose 235 H CK-MB (CK-2) CK-MB (CK-2) Rel Index 4.5 H Troponin T 0.290 H* Arterial Blood Glucose Arterial Blood Ionized Calcium 06/29/21 06/29/21 06/29/21 17:44 19:47 20:00 WBC MCH RDW Lymph # (Auto) Thrombin Time ABG pH 7.526 H POC ABG pCO2 29.7 L POC ABG pO2 64.0 L ABG Hemoglobin 11.8 L ABG Oxyhemoglobin 90.9 L ABG Sodium 133.1 L ABG Chloride 97.0 L ABG Glucose 176 H Carboxyhemoglobin 2.2 H Sodium Potassium Chloride BUN Creatinine Glucose POC Glucose 190 H CK-MB (CK-2) 4.2 H CK-MB (CK-2) Rel Index 4.1 H Troponin T 0.322 H* Arterial Blood Glucose 176 H Arterial Blood Ionized Calcium 4.4 L 06/29/21 06/30/21 23:31 05:23 WBC MCH RDW Lymph # (Auto) Thrombin Time ABG pH POC ABG pCO2 POC ABG pO2 ABG Hemoglobin ABG Oxyhemoglobin ABG Sodium ABG Chloride ABG Glucose Carboxyhemoglobin Sodium Potassium Chloride BUN Creatinine Glucose POC Glucose 117 H 161 H CK-MB (CK-2) CK-MB (CK-2) Rel Index Troponin T Arterial Blood Glucose Arterial Blood Ionized Calcium Assessment and Plan Assessment and Plan Assessment and plan: #Patient is a 65-year-old female with past medical history of end-stage renal disease on dialysis Tuesday, hypertension, CHF, and diabetes (with history of DKA) presents to the hospital with stroke symptoms that started 1 hours prior to arrival approximately 6 AM. Patient is not Georgian speaking with hopi language Twi from [place]. -Initial NIh#24 --currently #3 she is s/p TPA -CTA head and neck Slightly limited exam without inclusion of the aortic arch and origin of the left vertebral artery and great vessels. Moderate to severe atherosclerotic plaques are identified near both carotid bifurcations. The most affected level appears to be the distal right CCA demonstrating approximately 50% stenosis. Very small caliber of the left vertebral artery as described which could be congenital. Less than 50% stenosis in both ICAs. CT head shows no acute pathology but shows increased density around the right optical area corresponds with the interval ophthalmic surgery Chest x-ray shows pulmonary vascular congestion -echo is pending -MRI brain is pending -CT brain at 24 hours is pending -Hold ASA and sq heparine until repeat CT brain is done. -ST/PT evaluate -lipitor 40 mg daily #Type 2 [place] - Accu-Chek 506. -today suger 253 -none ketotic hyperglycemia -A1C#10.7 #Hypothyroidism -TSH#64 -correct underlying problem #End-stage renal disease -BUn/Cr#75/9 -onhemodialyis X3 times weekly #Hypertensive urgency -Allow for permissive HTN<220/110 X 24 hours then gradual control to <150/80 #Stable congestive heart failure -Echo is pending #Hyponatremia and Severe hyperkalemia -correct electrolytes abn. PLAN -Admit to ICU Post TPA protocol. -Electrolyte management -Wean Nicardapine drip -Resume BP meds -Blood glucose control -ASA AFTER 24 HR OF TPA and after CT brain repeat at 24 hours -Lipitor 40mg -DVT/GI prophy -CT brain repeat,and Brain MRI - Echo cardiogram The high probability of a clinically significant, sudden or life threatening deterioration of the [neuro, cardiac, renal] system(s) required my full and direct attention, intervention and personal management. The aggregate critical care time was [35] minutes. This time is in addition to time spent performing re ported procedures but includes the following: [x] Data Review and interpretation [x] Patient assessment and monitoring of vital signs [x] Documentation [x] Medication orders and management Advance Directives: Yes Plan of care discussed with patient/family: Yes
[2021-06-30] MEDS: INSULIN GLARGINE 100 UNITS/ML SUB-Q SCH (08:59)
[2021-06-30] MEDS: FAMOTIDINE 20 MG/2 ML INJ IV SCH (09:50)
[2021-06-30] MEDS: NIFEdipine XL 60 MG TAB PO SCH (10:00)
[2021-06-30] MEDS ORDERED: NON-FORMULARY EACH (Furosemide [Lasix Tab] 80 MG Tablet) PO SCH (10:00)
[2021-06-30] MEDS: ASPIRIN 325 MG TAB PO SCH (10:00)
[2021-06-30] MEDS: LISINOPRIL 40 MG TAB PO SCH (10:00)
--- NOTE | 2021-06-30 11:03 | Progress Note ---
Assessment and Plan Hypertensive emergency Acute CVA s/p tPA ESRD on dialysis Acute hypoxemic respiratory failure H/O CHF Diabetes type II History of glaucoma Acute toxic metabolic encephalopathy - follow repeat CT brain / MRI brain - repeat CXR in am - continue care as below otherwise; - continue secondary prevention measures - continue HD/UF for toxin and volume clearance - supportive diuretics per nephrology team - avoid nephrotoxins; renally dose all medications - continue supplemental oxygen as needed to keep O2 sat's > 90% - bronchodilators with pulmonary hygiene per RT - PT/OT as tolerated - mobility protocols for pressure ulcer prophylaxis - continue accuchecks with glycemic control per SSI for target BG < 180 mg/dl - GI & VTE prophylaxis - Flu & pneumovax addressed per protocol - continue other care per attending / other consultants ... re-evaluate in am & prn Subjective Date of service: 06/30/21 Principal diagnosis: HTNsive emergency; Acute CVA; ESRD; Ac hypoxemic resp failure; CHF; DM II Interval history: Patient is seen today for: Hypertensive emergency; Acute CVA s/p tPA; ESRD on dialysis; Acute hypoxemic respiratory failure; CHF; DM II; Acute toxic metabolic encephalopathy Seen and examined at bedside; 24hour events reviewed; nursing and respiratory care staff consulted; no adverse overnight events reported to me; resting in bed; doing a little better; no gross bleeding; MRI brain pending; denies acute chest pains or palpitations Objective Vital Signs - 12hr 06/29/21 06/29/21 06/29/21 23:10 23:20 23:30 Temperature Pulse Rate 74 74 77 Pulse Rate [ Anterior Bilateral Throughout] Pulse Rate [ Right Arm] Respiratory 18 22 12 Rate Respiratory Rate [Anterior Bilateral Throughout] Respiratory Rate [Right Arm ] Blood Pressure 162/66 162/66 162/66 Blood Pressure [Right Arm] O2 Sat by Pulse 99 98 98 Oximetry O2 Sat by Pulse Oximetry [ Right Arm] 06/29/21 06/29/21 06/30/21 23:40 23:50 00:00 Temperature 98.9 F Pulse Rate 75 75 74 Pulse Rate [ Anterior Bilateral Throughout] Pulse Rate [ 74 Right Arm] Respiratory 28 H 19 19 Rate Respiratory Rate [Anterior Bilateral Throughout] Respiratory 25 H Rate [Right Arm ] Blood Pressure 162/66 162/66 162/66 Blood Pressure 119/83 [Right Arm] O2 Sat by Pulse 98 100 99 Oximetry O2 Sat by Pulse 100 Oximetry [ Right Arm] 06/30/21 06/30/21 06/30/21 00:07 00:08 00:10 Temperature Pulse Rate 74 76 75 Pulse Rate [ Anterior Bilateral Throughout] Pulse Rate [ Right Arm] Respiratory 13 Rate Respiratory Rate [Anterior Bilateral Throughout] Respiratory Rate [Right Arm ] Blood Pressure 119/83 119/83 119/83 Blood Pressure [Right Arm] O2 Sat by Pulse 99 Oximetry O2 Sat by Pulse Oximetry [ Right Arm] 06/30/21 06/30/21 06/30/21 00:12 00:20 00:30 Temperature Pulse Rate 73 75 75 Pulse Rate [ Anterior Bilateral Throughout] Pulse Rate [ Right Arm] Respiratory 13 20 25 H Rate Respiratory Rate [Anterior Bilateral Throughout] Respiratory Rate [Right Arm ] Blood Pressure 119/83 119/83 119/83 Blood Pressure [Right Arm] O2 Sat by Pulse 97 99 97 Oximetry O2 Sat by Pulse Oximetry [ Right Arm] 06/30/21 06/30/21 06/30/21 00:40 00:50 01:00 Temperature Pulse Rate 74 75 77 Pulse Rate [ Anterior Bilateral Throughout] Pulse Rate [ 74 Right Arm] Respiratory 20 25 H 13 Rate Respiratory Rate [Anterior Bilateral Throughout] Respiratory 25 H Rate [Right Arm ] Blood Pressure 119/83 119/83 119/83 Blood Pressure 119/83 [Right Arm] O2 Sat by Pulse 97 99 97 Oximetry O2 Sat by Pulse 100 Oximetry [ Right Arm] 06/30/21 06/30/21 06/30/21 01:10 01:20 01:30 Temperature Pulse Rate 75 71 73 Pulse Rate [ Anterior Bilateral Throughout] Pulse Rate [ Right Arm] Respiratory 24 24 11 L Rate Respiratory Rate [Anterior Bilateral Throughout] Respiratory Rate [Right Arm ] Blood Pressure 149/83 149/83 149/83 Blood Pressure [Right Arm] O2 Sat by Pulse 99 97 93 Oximetry O2 Sat by Pulse Oximetry [ Right Arm] 06/30/21 06/30/21 06/30/21 01:40 01:50 02:00 Temperature Pulse Rate 76 75 75 Pulse Rate [ Anterior Bilateral Throughout] Pulse Rate [ 74 Right Arm] Respiratory 14 11 L 24 Rate Respiratory Rate [Anterior Bilateral Throughout] Respiratory 25 H Rate [Right Arm ] Blood Pressure 149/83 149/83 149/83 Blood Pressure 119/83 [Right Arm] O2 Sat by Pulse 92 98 100 Oximetry O2 Sat by Pulse 100 Oximetry [ Right Arm] 06/30/21 06/30/21 06/30/21 02:10 02:14 02:20 Temperature Pulse Rate 73 74 Pulse Rate [ 76 Anterior Bilateral Throughout] Pulse Rate [ Right Arm] Respiratory 24 26 H Rate Respiratory 20 Rate [Anterior Bilateral Throughout] Respiratory Rate [Right Arm ] Blood Pressure 174/63 174/63 Blood Pressure [Right Arm] O2 Sat by Pulse 100 100 Oximetry O2 Sat by Pulse Oximetry [ Right Arm] 06/30/21 06/30/21 06/30/21 02:30 02:40 02:50 Temperature Pulse Rate 72 76 73 Pulse Rate [ Anterior Bilateral Throughout] Pulse Rate [ Right Arm] Respiratory 24 24 18 Rate Respiratory Rate [Anterior Bilateral Throughout] Respiratory Rate [Right Arm ] Blood Pressure 174/63 174/63 174/63 Blood Pressure [Right Arm] O2 Sat by Pulse 100 100 100 Oximetry O2 Sat by Pulse Oximetry [ Right Arm] 06/30/21 06/30/21 06/30/21 03:00 03:10 03:20 Temperature Pulse Rate 76 74 80 Pulse Rate [ Anterior Bilateral Throughout] Pulse Rate [ Right Arm] Respiratory 27 H 25 H 26 H Rate Respiratory Rate [Anterior Bilateral Throughout] Respiratory Rate [Right Arm ] Blood Pressure 174/63 166/54 166/54 Blood Pressure [Right Arm] O2 Sat by Pulse 100 100 100 Oximetry O2 Sat by Pulse Oximetry [ Right Arm] 06/30/21 06/30/21 06/30/21 03:30 03:34 03:40 Temperature Pulse Rate 77 75 Pulse Rate [ Anterior Bilateral Throughout] Pulse Rate [ Right Arm] Respiratory 21 29 H Rate Respiratory Rate [Anterior Bilateral Throughout] Respiratory Rate [Right Arm ] Blood Pressure 166/54 166/54 Blood Pressure [Right Arm] O2 Sat by Pulse 97 92 99 Oximetry O2 Sat by Pulse Oximetry [ Right Arm] 06/30/21 06/30/21 06/30/21 03:50 04:00 04:10 Temperature 98.9 F Pulse Rate 75 76 73 Pulse Rate [ Anterior Bilateral Throughout] Pulse Rate [ 117 H Right Arm] Respiratory 21 15 26 H Rate Respiratory Rate [Anterior Bilateral Throughout] Respiratory 19 Rate [Right Arm ] Blood Pressure 166/54 166/54 167/93 Blood Pressure 167/93 [Right Arm] O2 Sat by Pulse 99 100 100 Oximetry O2 Sat by Pulse 99 Oximetry [ Right Arm] 06/30/21 06/30/21 06/30/21 04:20 04:30 04:40 Temperature Pulse Rate 76 73 75 Pulse Rate [ Anterior Bilateral Throughout] Pulse Rate [ Right Arm] Respiratory 17 23 18 Rate Respiratory Rate [Anterior Bilateral Throughout] Respiratory Rate [Right Arm ] Blood Pressure 166/54 166/54 166/54 Blood Pressure [Right Arm] O2 Sat by Pulse 97 100 97 Oximetry O2 Sat by Pulse Oximetry [ Right Arm] 06/30/21 06/30/21 06/30/21 04:50 05:00 05:10 Temperature Pulse Rate 76 75 75 Pulse Rate [ Anterior Bilateral Throughout] Pulse Rate [ 77 Right Arm] Respiratory 23 22 21 Rate Respiratory Rate [Anterior Bilateral Throughout] Respiratory 20 Rate [Right Arm ] Blood Pressure 166/54 185/112 185/112 Blood Pressure 185/100 [Right Arm] O2 Sat by Pulse 97 97 94 Oximetry O2 Sat by Pulse 100 Oximetry [ Right Arm] 06/30/21 06/30/21 06/30/21 05:20 05:30 05:40 Temperature Pulse Rate 76 74 76 Pulse Rate [ Anterior Bilateral Throughout] Pulse Rate [ Right Arm] Respiratory 23 13 22 Rate Respiratory Rate [Anterior Bilateral Throughout] Respiratory Rate [Right Arm ] Blood Pressure 185/112 185/112 108/53 Blood Pressure [Right Arm] O2 Sat by Pulse 84 89 97 Oximetry O2 Sat by Pulse Oximetry [ Right Arm] 06/30/21 06/30/21 06/30/21 05:50 06:00 06:10 Temperature Pulse Rate 70 66 75 Pulse Rate [ Anterior Bilateral Throughout] Pulse Rate [ 74 Right Arm] Respiratory 25 H 26 H 29 H Rate Respiratory Rate [Anterior Bilateral Throughout] Respiratory 24 Rate [Right Arm ] Blood Pressure 108/53 108/53 175/111 Blood Pressure 165/85 [Right Arm] O2 Sat by Pulse 98 100 100 Oximetry O2 Sat by Pulse 100 Oximetry [ Right Arm] 06/30/21 06/30/21 06/30/21 06:20 06:30 06:40 Temperature Pulse Rate 72 73 75 Pulse Rate [ Anterior Bilateral Throughout] Pulse Rate [ Right Arm] Respiratory 25 H 21 24 Rate Respiratory Rate [Anterior Bilateral Throughout] Respiratory Rate [Right Arm ] Blood Pressure 165/85 165/85 165/85 Blood Pressure [Right Arm] O2 Sat by Pulse 98 100 100 Oximetry O2 Sat by Pulse Oximetry [ Right Arm] 06/30/21 06/30/21 06/30/21 06:50 07:00 07:10 Temperature 98.0 F Pulse Rate 74 75 Pulse Rate [ Anterior Bilateral Throughout] Pulse Rate [ Right Arm] Respiratory 13 16 Rate Respiratory Rate [Anterior Bilateral Throughout] Respiratory Rate [Right Arm ] Blood Pressure 165/85 165/85 165/84 Blood Pressure [Right Arm] O2 Sat by Pulse 88 99 99 Oximetry O2 Sat by Pulse Oximetry [ Right Arm] 06/30/21 06/30/21 06/30/21 07:20 07:22 07:30 Temperature Pulse Rate Pulse Rate [ Anterior Bilateral Throughout] Pulse Rate [ Right Arm] Respiratory Rate Respiratory Rate [Anterior Bilateral Throughout] Respiratory Rate [Right Arm ] Blood Pressure 165/84 165/84 Blood Pressure [Right Arm] O2 Sat by Pulse 99 98 99 Oximetry O2 Sat by Pulse Oximetry [ Right Arm] 06/30/21 06/30/21 06/30/21 07:40 07:50 08:00 Temperature Pulse Rate 73 Pulse Rate [ Anterior Bilateral Throughout] Pulse Rate [ 69 Right Arm] Respiratory 29 H Rate Respiratory Rate [Anterior Bilateral Throughout] Respiratory 18 Rate [Right Arm ] Blood Pressure 165/84 165/84 165/84 Blood Pressure 155/65 [Right Arm] O2 Sat by Pulse 99 95 98 Oximetry O2 Sat by Pulse 95 Oximetry [ Right Arm] 06/30/21 06/30/21 06/30/21 08:10 08:20 08:30 Temperature Pulse Rate 74 73 73 Pulse Rate [ Anterior Bilateral Throughout] Pulse Rate [ Right Arm] Respiratory 20 31 H 29 H Rate Respiratory Rate [Anterior Bilateral Throughout] Respiratory Rate [Right Arm ] Blood Pressure 143/73 143/73 143/73 Blood Pressure [Right Arm] O2 Sat by Pulse 98 90 96 Oximetry O2 Sat by Pulse Oximetry [ Right Arm] 06/30/21 06/30/21 06/30/21 08:40 08:50 09:00 Temperature Pulse Rate 70 74 74 Pulse Rate [ Anterior Bilateral Throughout] Pulse Rate [ 75 Right Arm] Respiratory 21 29 H Rate Respiratory Rate [Anterior Bilateral Throughout] Respiratory 20 Rate [Right Arm ] Blood Pressure 143/73 143/73 154/123 Blood Pressure 147/89 [Right Arm] O2 Sat by Pulse 98 98 97 Oximetry O2 Sat by Pulse 94 Oximetry [ Right Arm] 06/30/21 06/30/2106/30/21 09:10 09:20 09:30 Temperature Pulse Rate 72 73 71 Pulse Rate [ Anterior Bilateral Throughout] Pulse Rate [ Right Arm] Respiratory Rate Respiratory Rate [Anterior Bilateral Throughout] Respiratory Rate [Right Arm ] Blood Pressure 154/123 154/123 154/123 Blood Pressure [Right Arm] O2 Sat by Pulse 100 98 89 Oximetry O2 Sat by Pulse Oximetry [ Right Arm] 06/30/21 06/30/21 06/30/21 09:40 09:50 10:00 Temperature Pulse Rate 73 69 68 Pulse Rate [ Anterior Bilateral Throughout] Pulse Rate [ Right Arm] Respiratory 21 25 H Rate Respiratory Rate [Anterior Bilateral Throughout] Respiratory Rate [Right Arm ] Blood Pressure 154/123 154/123 154/123 Blood Pressure [Right Arm] O2 Sat by Pulse 88 88 89 Oximetry O2 Sat by Pulse Oximetry [ Right Arm] 06/30/21 06/30/21 06/30/21 10:10 10:20 10:30 Temperature Pulse Rate 78 72 70 Pulse Rate [ Anterior Bilateral Throughout] Pulse Rate [ Right Arm] Respiratory 16 27 H 26 H Rate Respiratory Rate [Anterior Bilateral Throughout] Respiratory Rate [Right Arm ] Blood Pressure 154/123 154/123 154/123 Blood Pressure [Right Arm] O2 Sat by Pulse 85 88 92 Oximetry O2 Sat by Pulse Oximetry [ Right Arm] Constitutional: no acute distress, other (elderly female with noirmal respiratory effort at rest) Eyes: non-icteric ENT: oropharynx moist Neck: supple, no lymphadenopathy, no JVD Effort: mildly labored Ascultation: Bilateral: clear Percussion: Bilateral: not dull Cardiovascular: regular rate and rhythm Gastrointestinal: normoactive bowel sounds, soft, non-tender, non-distended Integumentary: rash (stasis dermatitis) Extremities: no cyanosis, no edema, pulses normal, no ischemia or petechiae Neurologic: pupils equal and round, CN II-XII normal Psychiatric: mood appropriate, affect normal CBC and BMP: 06/29/21 07:29 06/29/21 19:47 ABG, PT/INR, D-dimer: ABG ABG pH 7.526 (7.320-7.450) H 06/29/21 20:00 POC ABG pCO2 29.7 mmHg (32.0-48.0) L 06/29/21 20:00 POC ABG pO2 64.0 mmHg (83-108) L 06/29/21 20:00 POC ABG HCO3 24.0 06/29/21 20:00 ABG O2 Saturation 93.2 (0-100) 06/29/21 20:00 PT/INR, D-dimer PT 13.7 Sec. (12.2-14.9) 06/29/21 07:29 INR 1.00 (0.87-1.13) 06/29/21 07:29 Abnormal lab findings: Abnormal Labs 06/29/21 06/29/21 06/29/21 07:28 07:29 07:29 WBC 4.2 L MCH 26 L RDW 22.4 H Lymph # (Auto) 0.9 L Thrombin Time 20.4 H ABG pH POC ABG pCO2 POC ABG pO2 ABG Hemoglobin ABG Oxyhemoglobin ABG Sodium ABG Chloride ABG Glucose Carboxyhemoglobin Sodium Potassium Chloride BUN Creatinine Glucose POC Glucose 512 H CK-MB (CK-2) CK-MB (CK-2) Rel Index Troponin T Arterial Blood Glucose Arterial Blood Ionized Calcium 06/29/21 06/29/21 06/29/21 07:29 07:29 09:04 WBC MCH RDW Lymph # (Auto) Thrombin Time ABG pH POC ABG pCO2 POC ABG pO2 ABG Hemoglobin ABG Oxyhemoglobin ABG Sodium ABG Chloride ABG Glucose Carboxyhemoglobin Sodium 130 L Potassium 7.0 H* Chloride 89.4 L BUN 75 H Creatinine 9.0 H Glucose 546 H* POC Glucose 235 H CK-MB (CK-2) CK-MB (CK-2) Rel Index 4.5 H Troponin T 0.290 H* Arterial Blood Glucose Arterial Blood Ionized Calcium 06/29/21 06/29/21 06/29/21 17:44 19:47 20:00 WBC MCH RDW Lymph # (Auto) Thrombin Time ABG pH 7.526 H POC ABG pCO2 29.7 L POC ABG pO2 64.0 L ABG Hemoglobin 11.8 L ABG Oxyhemoglobin 90.9 L ABG Sodium 133.1 L ABG Chloride 97.0 L ABG Glucose 176 H Carboxyhemoglobin 2.2 H Sodium Potassium Chloride BUN Creatinine Glucose POC Glucose 190 H CK-MB (CK-2) 4.2 H CK-MB (CK-2) Rel Index 4.1 H Troponin T 0.322 H* Arterial Blood Glucose 176 H Arterial Blood Ionized Calcium 4.4 L 06/29/21 06/30/21 23:31 05:23 WBC MCH RDW Lymph # (Auto) Thrombin Time ABG pH POC ABG pCO2 POC ABG pO2 ABG Hemoglobin ABG Oxyhemoglobin ABG Sodium ABG Chloride ABG Glucose Carboxyhemoglobin Sodium Potassium Chloride BUN Creatinine Glucose POC Glucose 117 H 161 H CK-MB (CK-2) CK-MB (CK-2) Rel Index Troponin T Arterial Blood Glucose Arterial Blood Ionized Calcium Chest x-ray: other (none today) Allied health notes reviewed: nursing
--- NOTE | 2021-06-30 11:34 | Cat Scan Report ---
CT head/brain wo con INDICATION / CLINICAL INFORMATION: 65 years Female; cva. TECHNIQUE: Routine CT head without contrast. All CT scans at this location are performed using CT dos e reduction for ALARA by means of automated exposure control. COMPARISON: The study is compared to the previous CT of 06/29/2021 FINDINGS: BRAIN / INTRACRANIAL CONTENTS: The motion degrades the image quality despite repeat imaging. However, there is continued moderate cerebral white matter disease most consistent with microvascular angiopa thy. The findings appear to correlate with the earlier CT at. There is mild cerebral atrophy with continued prominence of the ventricular system. There is no clear CT evidence of acute intracranial hemorrhage or significant mass effect. ORBITS: There is continued diffuse increased attenuation within the right optic globe which also smiley elates with the earlier study though has developed from the previous CT of 01/02/2021. SINUSES / MASTOIDS: No significant abnormality in the visualized paranasal sinuses or mastoid air dangelo ls. CRANIOCERVICAL JUNCTION: No significant abnormality. ADDITIONAL FINDINGS: None. IMPRESSION: 1. There is continued moderate microvascular angiopathy without clear CT evidence of acute intracrani al hemorrhage at. Signer Name: Azael Cisneros MD Signed: 06/30/2021 11:30 AM Workstation Name: [id number]
[2021-06-30] MEDS ORDERED: hydrALAZINE 20 MG/1 ML INJ ONE (12:14)
[2021-06-30] MEDS: FUROSEMIDE 40 MG TAB PO SCH (14:31)
[2021-06-30] MEDS ORDERED: hydrALAZINE 20 MG/1 ML INJ IV ONE (15:00)
--- NOTE | 2021-06-30 15:25 | Progress Note ---
Assessment and Plan NSTEMI suspected type 2 * Patient EKG showed sinus 62 and patient was sinus 69 on monitor with no events. * Troponins noted to be elevated likely secondary to ESRD. Trend CE * Echo-08/14/2020 EF 25 to 30%, left ventricle is mildly dilated moderate to severe left ventricular hypertrophy left atrium is moderately dilated right ventricle is moderately dilated right ventricle systolic function is moderately reduced * Echo 06/29/2021-EF 25 to 30% severe left ventricular hypertrophy, mild diastolic dysfunction, right ventricle is moderate to severely dilated, right systolic function is normal left atrium is severely dilated, right atrium mildly dilated atrial septum is bowed toward the left mild tricuspid regurgitation mild mitral regurgitation ESRD * Patient received dialysis yesterday * Nephrology is following Ischemic Stroke * Patient received TPN for stroke like symptoms * Neuro is following * MRI pending Patient seen in conjunction with Dr. Warren who agrees to this plan of care. Will continue to follow - Patient Problems (1) Acute CVA (cerebrovascular accident) Current Visit: Yes Status: Acute (2) Elevated troponin Current Visit: Yes Status: Acute (3) Hyperglycemia due to diabetes mellitus Current Visit: Yes Status: Acute (4) Hyperkalemia Current Visit: Yes Status: Acute (5) ESRD (end stage renal disease) Current Visit: Yes Status: Chronic (6) Altered mental status Current Visit: No Status: Acute Subjective Date of service: 06/30/21 Principal diagnosis: HTNsive emergency; Acute CVA; ESRD; Ac hypoxemic resp failure; CHF; DM II Interval history: Patient resting in bed No events on monitor Objective Vital Signs Temp Pulse Pulse Pulse Resp Resp Resp 06/30/21 14:32 72 06/30/21 12:00 98.4 F 06/30/21 10:30 70 26 H 06/30/21 10:20 72 27 H 06/30/21 10:10 78 16 06/30/21 10:00 70 25 H 06/30/21 09:50 69 21 06/30/21 09:40 73 06/30/21 09:30 71 06/30/21 09:20 73 06/30/21 09:10 72 06/30/21 09:00 74 75 20 06/30/21 08:50 74 29 H 06/30/21 08:40 70 21 06/30/21 08:30 73 29 H 08/03/21 08:20 73 31 H 06/30/21 08:10 74 20 06/30/21 08:00 75 69 29 H 18 06/30/21 07:50 06/30/21 07:40 06/30/21 07:30 06/30/21 07:22 06/30/21 07:20 06/30/21 07:10 06/30/21 07:00 98.0 F 75 16 06/30/21 06:50 74 13 06/30/21 06:40 75 24 06/30/21 06:30 73 21 06/30/21 06:20 72 25 H 06/30/21 06:10 75 29 H 06/30/21 06:00 66 74 26 H 24 06/30/21 05:50 70 25 H 06/30/21 05:40 76 22 06/30/21 05:30 74 13 06/30/21 05:20 76 23 06/30/21 05:10 75 21 06/30/21 05:00 75 77 22 20 06/30/21 04:50 76 23 06/30/21 04:40 75 18 06/30/21 04:30 73 23 06/30/21 04:20 76 17 06/30/21 04:10 73 26 H 06/30/21 04:00 98.9 F 76 117 H 15 19 06/30/21 03:50 75 21 06/30/21 03:40 75 29 H 06/30/21 03:34 06/30/21 03:30 77 21 06/30/21 03:20 80 26 H 06/30/21 03:10 74 25 H 06/30/21 03:00 76 27 H 06/30/21 02:50 73 18 06/30/21 02:40 76 24 06/30/21 02:30 72 24 06/30/21 02:20 74 26 H 06/30/21 02:14 76 20 06/30/21 02:10 73 24 06/30/21 02:00 75 74 24 25 H 06/30/21 01:50 75 11 L 06/30/21 01:40 76 14 06/30/21 01:30 73 11 L 06/30/21 01:20 71 24 06/30/21 01:10 75 24 06/30/21 01:00 77 74 13 25 H 06/30/21 00:50 75 25 H 06/30/21 00:40 74 20 06/30/21 00:30 75 25 H 06/30/21 00:20 75 20 06/30/21 00:12 73 13 06/30/21 00:10 75 13 06/30/21 00:08 76 06/30/21 00:07 74 06/30/21 00:00 98.9 F 74 74 19 25 H 06/29/21 23:50 75 19 06/29/21 23:40 75 28 H 06/29/21 23:30 77 12 06/29/21 23:20 74 22 06/29/21 23:10 74 18 06/29/21 23:00 76 76 16 18 06/29/21 22:50 75 14 06/29/21 22:40 75 18 06/29/21 22:30 75 21 06/29/21 22:20 75 28 H 06/29/21 22:10 73 26 H 06/29/21 22:00 74 70 25 H 20 06/29/21 21:50 72 19 06/29/21 21:40 70 27 H 06/29/21 21:30 73 25 H 06/29/21 21:20 72 25 H 06/29/21 21:10 72 25 H 06/29/21 21:00 76 73 25 H 24 06/29/21 20:50 73 26 H 06/29/21 20:40 74 26 H 06/29/21 20:30 75 24 06/29/21 20:20 76 16 06/29/21 20:16 06/29/21 20:10 75 21 06/29/21 20:00 99.6 F 73 77 29 H 24 06/29/21 19:50 77 12 06/29/21 19:40 75 25 H 06/29/21 19:30 75 21 06/29/21 19:20 75 20 06/29/21 19:10 76 19 06/29/21 19:00 77 77 12 26 H 06/29/21 18:50 78 12 06/29/21 18:40 77 24 06/29/21 18:30 77 8 L 06/29/21 18:20 79 15 06/29/21 18:10 77 16 06/29/21 18:00 97.9 F 77 76 8 L 17 06/29/21 17:50 79 15 06/29/21 17:40 77 25 H 06/29/21 17:38 81 12 06/29/21 17:30 75 17 06/29/21 17:20 75 12 06/29/21 17:10 77 17 06/29/21 17:00 82 16 06/29/21 16:50 79 13 06/29/21 16:40 78 68 20 16 06/29/21 16:30 76 15 06/29/21 16:23 97.7 F 76 15 06/29/21 16:20 76 12 06/29/21 16:10 78 16 06/29/21 16:04 72 06/29/21 16:00 71 11 L 06/29/21 15:57 18 06/29/21 15:50 72 12 06/29/21 15:45 75 06/29/21 15:40 70 63 15 15 06/29/21 15:30 74 18 Last Vital Signs Temp 98.4 F 06/30/21 12:00 Pulse 72 06/30/21 14:32 Resp 26 H 06/30/21 10:30 BP 134/74 06/30/21 14:32 Pulse Ox 92 06/30/21 10:30 - Physical Examination General: No Apparent Distress HEENT: Positive: PERRL Neck: Positive: neck supple Cardiac: Positive: Reg Rate and Rhythm Lungs: Positive: Normal Breath Sounds Neuro: Positive: Grossly Intact Abdomen: Positive: Unremarkable, Soft Extremities: Present: upper extr. pulses, lower extr. pulses - Labs and Meds Cardiac Enzymes 06/29/21 06/29/21 Range/Units 18:29 19:47 CK-MB (CK-2) TNR 4.2 H Comprehensive Metabolic Panel 06/29/21 06/29/21 Range/Units 18:29 19:47 Potassium TNR 4.4 D - Imaging and Cardiology EKG: report reviewed, image reviewed Echo: report reviewed - Telemetry EKG Rhythm: Sinus Rhythm - EKG Sinus rhythms and dysrhythmias: sinus rhythm - Allied health notes Allied health notes reviewed: nursing
--- NOTE | 2021-06-30 15:30 | Magnetic Resonance Report ---
MR brain wo con INDICATION / CLINICAL INFORMATION: 65 years Female; stroke. TECHNIQUE: Multiplanar, multisequence MR images of the brain were obtained. COMPARISON: None available. FINDINGS: BRAIN / INTRACRANIAL CONTENTS: The motion significantly degrades the image quality despite using a fa st acquisition sequences at. However, there is milder to moderate cerebral white matter disease most notably involving periventricular regions and most consistent with microvascular angiopathy. The diff usion imaging reveals no clear evidence of acute infarction. There is mild cerebral atrophy with associated mild prominence of the ventricular system. No extra-ax ial fluid collections or significant mass effect is identified at. CRANIOCERVICAL JUNCTION: No significant abnormality. 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 The distal internal carotid arteries grossly demonstrate appropriate signal voids . ORBITS: There is increase T1 and FLAIR signal within the right optic lobe which correlates with incre ased attenuation on the CT which have developed from the previous CT of 01/02/2021 and correlation woul d be needed regarding interval procedure and injection, such as silicone. Hemorrhage would be expecte d to demonstrate more heterogeneous appearance though correlation would be needed regarding any recen t trauma. SINUSES / MASTOIDS: No significant abnormality in the visualized paranasal sinuses or mastoid air dangelo ls. ADDITIONAL FINDINGS: None. IMPRESSION: 1. The study is limited by motion. However, there is microvascular angiopathy and cerebral atrophy as described without clear evidence of recent infarction. 2. There is increase of signal within the right optic lobe, also detailed above. Signer Name: Azael Cisneros MD Signed: 06/30/2021 3:26 PM Workstation Name: [id number]
--- NOTE | 2021-06-30 15:30 | Progress Note ---
Assessment and Plan Assessment and plan: Patient is a 65-year-old female with past medical history of end-stage renal disease on dialysis Tuesday, hypertension, CHF, and diabetes (with history of DKA) presents to the hospital with stroke symptoms that started 1 hours prior to arrival approximately 6 AM. Patient is not [place] speaking with kaw language Twi from [facility]. Although it is understood that the patient actually speaks [place] but does not communicate sometimes. Daughter was at bedside says that the patient can be stubborn at times. During my examination the patient has started on TPN and is moving all extremities although was not speaking. Further evaluation from the ER physician documentation and collaborated by the daughter who was at bedside She states that patient woke up normal and then went to take a shower. After taking a shower was noted if she has slurred speech and right-sided weakness. EMS reports right-sided weakness, slurred speech, no movement of the right upper or lower extremity against gravity. Accu-Chek 506. Code stroke initiated prior to patient arrival to the ED. patient is due for dialysis today. Dcs Engineer: Dr. Plaza CTA head and neck IMPRESSION: Slightly limited exam without inclusion of the aortic arch and origin of the left vertebral artery and great vessels. Moderate to severe atherosclerotic plaques are identified near both carotid bifurcations. The most affected level appears to be the distal right CCA demonstrating approximately 50% stenosis. Very small caliber of the left vertebral artery as described which could be congenital. Less than 50% stenosis in both ICAs. CT head shows no acute pathology but shows increased density around the right optical area corresponds with the interval ophthalmic surgery Chest x-ray shows pulmonary vascular congestion Slurred speech with aphasia Right-sided hemiparesis all concerning for new onset CVA Diabetes mellitus with hyperglycemia Hypothyroidism End-stage renal disease Hypertensive urgency Stable congestive heart failure Hyponatremia Severe hyperkalemia Type 2 AR Plan Patient is 24 hours post TPA for suspected CVA. Will repeat CT head prior to resumption of aspirin. Has been weaned off Cardene drip. Continue to monitor Case has been discussed with bus girl. Will downgrade patient to IMCU. While awaiting for the pending tests including MRI Electrolyte management Resume BP meds Blood glucose control ASA AFTER 24 HR OF TPA Lipitor 40mg Discussed with intensivisit Neurologist consulted DVT/GI prophy History Interval history: Patient seen and examined this morning speaking mental status is improved. Also moving all extremities Hospitalist Physical - Physical exam Narrative exam: VITAL SIGNS: Reviewed. GENERAL: The patient appears normally developed, Vital signs as documented. HEAD: No signs of head trauma. EYES: Pupils are equal. Extraocular motions intact. EARS: Hearing grossly intact. MOUTH: Oropharynx is normal. NECK: No adenopathy, no JVD. CHEST: Chest with crackles breath sounds bilaterally. No wheezes, rales, or rhonchi. CARDIAC: Regular rate and rhythm. S1 and S2, without murmurs, gallops, or rubs. VASCULAR: No Edema. Peripheral pulses normal and equal in all extremities. ABDOMEN: Soft, non tender and non distended. No rebound or guarding, and no masses palpated. Bowel Sounds normal. MUSCULOSKELETAL: Good range of motion of all major joints. Extremities without clubbing, cyanosis or edema. NEUROLOGIC EXAM: Alert and oriented x 3 No focal sensory or strength deficits. Aphasia resolved follows commands. PSYCHIATRIC: Mood normal. SKIN: detail exam as documented in skin assessment - Constitutional Vitals: Temp Pulse Resp BP Pulse Ox 98.4 F 72 26 H 134/74 92 06/30/21 12:00 06/30/21 14:32 06/30/21 10:30 06/30/21 14:32 06/30/21 10:30 HEART Score - HEART Score Troponin: Troponin T 0.322 ng/mL (0.00-0.029) H* 06/29/21 19:47 Results - Labs CBC & Chem 7: 06/29/21 07:29 06/29/21 19:47 Labs: Laboratory Last Values WBC 4.2 K/mm3 (4.5-11.0) L 06/29/21 07:29 RBC 4.46 M/mm3 (3.65-5.03) 06/29/21 07:29 Hgb 11.5 gm/dl (10.1-14.3) 06/29/21 07:29 Hct 35.9 % (30.3-42.9) 06/29/21 07:29 MCV 81 fl (79-97) 06/29/21 07:29 MCH 26 pg (28-32) L 06/29/21 07:29 MCHC 32 % (30-34) 06/29/21 07:29 RDW 22.4 % (13.2-15.2) H 06/29/21 07: Plt Count 179 K/mm3 (140-440) 06/29/21 07: Lymph % (Auto) 20.5 % (13.4-35.0) 06/29/21 07: [place] % (Auto) 6.9 % (0.0-7.3) 06/29/21 07: Eos % (Auto) 2.2 % (0.0-4.3) 06/29/21 07: Baso % (Auto) 0.9 % (0.0-1.8) 06/29/21 07: Lymph # (Auto) 0.9 K/mm3 (1.2-5.4) L 06/29/21 07: [place] # (Auto) 0.3 K/mm3 (0.0-0.8) 06/29/21 07: Eos # (Auto) 0.1 K/mm3 (0.0-0.4) 06/29/21 07: Baso # (Auto) 0.0 K/mm3 (0.0-0.1) 06/29/21 07: Seg Neutrophils % 69.5 % (40.0-70.0) 06/29/21 07: Seg Neutrophils # 2.9 K/mm3 (1.8-7.7) 06/29/21 07: PT 13.7 Sec. (12.2-14.9) 06/29/21 07: INR 1.00 (0.87-1.13) 06/29/21 07: APTT 28.6 Sec. (24.2-36.6) 06/29/21 07: Thrombin Time 20.4 Sec. (15.1-19.6) H 06/29/21 07:29 ABG pH 7.526 (7.320-7.450) H 06/29/21 20:00 POC ABG pCO2 29.7 mmHg (32.0-48.0) L 06/29/21 20:00 POC ABG pO2 64.0 mmHg (83-108) L 06/29/21 20:00 POC ABG HCO3 24.0 06/29/21 20:00 ABG O2 Saturation 93.2 (0-100) 08/02/21 20:00 POC ABG Base Excess 1.9 06/29/21 20:00 ABG Hemoglobin 11.8 (12.0-17.5) L 06/29/21 20:00 ABG Oxyhemoglobin 90.9 (94-98) L 06/29/21 20:00 ABG Methemoglobin 0.3 (0.0-1.5) 06/29/21 20:00 ABG Sodium 133.1 mmol/L (136.0-145.0) L 06/29/21 20:00 ABG Potassium 3.8 mmol/L (3.40-4.50) 06/29/21 20:00 ABG Chloride 97.0 mmol/L (98-107) L 06/29/21 20:00 ABG Glucose 176 mg/dL (65-95) H 06/29/21 20:00 VBG pH 7.333 (7.320-7.420) 06/29/21 07:29 Carboxyhemoglobin 2.2 (0.5-1.5) H 06/29/21 20:00 FiO2 % 32.0 06/29/21 20:00 Sodium 130 mmol/L (137-145) L 06/29/21 07:29 Potassium 4.4 mmol/L (3.6-5.0) D 06/29/21 19:47 Chloride 89.4 mmol/L (98-107) L 06/29/21 07:29 Carbon Dioxide 26 mmol/L (22-30) 06/29/21 07:29 Anion Gap 22 mmol/L 06/29/21 07:29 BUN 75 mg/dL (7-17) H 06/29/21 07:29 Creatinine 9.0 mg/dL (0.6-1.2) H 06/29/21 07:29 Estimated GFR 5 ml/min 06/29/21 07:29 BUN/Creatinine Ratio 8 % 06/29/21 07:29 Glucose 546 mg/dL (65-100) H* 06/29/21 07:29 POC Glucose 161 mg/dL (70-105) H 06/30/21 05:23 Calcium 9.2 mg/dL (8.4-10.2) 06/29/21 07:29 Total Creatine Kinase 102 units/L (30-135) 06/29/21 19:47 CK-MB (CK-2) 4.2 ng/mL (0.0-4.0) H 06/29/21 19:47 CK-MB (CK-2) Rel Index 4.1 (0-4) H 06/29/21 19:47 Troponin T 0.322 ng/mL (0.00-0.029) H* 06/29/21 19:47 Triglycerides 58 mg/dL (2-149) 06/29/21 07:29 Cholesterol 116 mg/dL (50-199) 06/29/21 07:29 LDL Cholesterol Direct 71 mg/dL (50-130) 06/29/21 07:29 HDL Cholesterol 43 mg/dL (40-59) 06/29/21 07:29 Cholesterol/HDL Ratio 2.69 % 06/29/21 07:29 Arterial Blood Glucose 176 mg/dL (65-95) H 06/29/21 20:00 Arterial Blood Ionized Calcium 4.4 mg/dL (4.6-5.3) L 06/29/21 20:00 Hepatitis A IgM Ab Non-reactive (NonReactive) 06/29/21 15:54 Hep Bs Antigen Non-reactive (Negative) 06/29/21 15:54 Hep B Core IgM Ab Non-reactive (NonReactive) 06/29/21 15:54 Hepatitis C Antibody Non-reactive (NonReactive) 06/29/21 15:54 Active Medications - Current Medications Current Medications: Generic Name Dose Route Start Last Admin Trade Name Freq PRN Reason Stop Dose Admin Acetaminophen 650 mg 06/29/21 11:00 Acetaminophen 325 Mg Tab PO Q4H PRN Pain, Mild (1-3) Al Hydrox/Mg Hydrox/Simethicone 30 ml 06/29/21 11:00 Alum-Mag Hydroxide-Simethicone [id number]/5ml Oral Liqd 30 Ml PO Q4H PRN Indigestion Albuterol 2.5 mg 06/29/21 11:00 Albuterol 2.5 Mg/3 Ml Nebu IH Q3HRT PRN Shortness Of Breath Aspirin 325 mg 06/30/21 10:00 Aspirin 325 Mg Tab PO QDAY ART Atorvastatin Calcium 40 mg 06/29/21 22:00 06/30/21 00:08 Atorvastatin 40 Mg Tab PO Not Given QHS ART Bisacodyl 10 mg 06/29/21 11:00 Bisacodyl 10 Mg Rect Supp [place] QDAY PRN Constipation Clonidine HCl 0.1 mg 06/29/21 14:00 06/30/21 14:32 Clonidine 0.1 Mg Tab PO 0.1 mg Q8HR ART Administration Dextrose 50 ml 06/29/21 11:00 Dextrose 50% In Water (25gm) 50 Ml Syringe IV Q30MIN PRN Hypoglycemia Protocol Docusate Sodium 100 mg 06/29/21 22:00 06/30/21 00:07 Docusate Sodium 100 Mg Cap PO Not Given BID ART Famotidine 20 mg 06/29/21 12:00 06/29/21 12:24 Famotidine 20 Mg/2 Ml Inj IV 20 mg DAILY ART Administration Furosemide 80 mg 06/29/21 12:00 06/30/21 14:31 Furosemide 40 Mg Tab PO 80 mg QDAY ART Administration Heparin Sodium (Porcine) 5,000 unit 06/29/21 22:00 06/30/21 00:08 Heparin 5,000 Unit/1 Ml Vial SUB-Q Not Given Q12HR ART Hydralazine HCl 100 mg 06/29/21 14:00 06/30/21 14:31 Hydralazine 100 Mg Tab PO 100 mg Q8HR ART Administration Hydroxyzine HCl 25 mg 06/29/21 11:00 06/30/21 14:34 Hydroxyzine Hcl 25 Mg Tab PO 25 mg BID ART Administration Sodium Chloride 100 mls @ 999 mls/hr 06/29/21 11:12 Nacl 0.9% IV TWAN PRN Hypotension Insulin Glargine 10 units 06/29/21 12:00 06/30/21 08:59 Insulin Glargine 100 Units/Ml SUB-Q Not Given QAMDIAB ART Latanoprost 1 drops 06/29/21 18:00 06/29/21 19:23 Latanoprost 0.005% Ophth Soln 2.5 Ml OU 1 drops QPM ART Administration Levothyroxine Sodium 200 mcg 06/30/21 06:00 Levothyroxine 100 Mcg Tab PO DAILY@0600 ART Lisinopril 40 mg 06/30/21 10:00 Lisinopril 40 Mg Tab PO QDAY ART Magnesium Hydroxide 30 ml 06/29/21 11:00 Magnesium Hydroxide (Mom) Oral Liqd Udc PO Q4H PRN Constipation Metoclopramide HCl 5 mg 06/29/21 11:00 Metoclopramide 10 Mg Tab PO Q12H PRN Nausea And Vomiting Metoprolol Tartrate 50 mg 06/29/21 22:00 06/30/21 00:08 Metoprolol Tartrate 50 Mg Tab PO Not Given BID [facility] Morphine Sulfate 2 mg 06/29/21 11:00 Morphine 2 Mg/1 Ml Inj IV Q4H PRN Pain, Moderate (4-6) Nifedipine 60 mg 06/30/21 10:00 Nifedipine Xl 60 Mg Tab PO QDAY [facility] Ondansetron HCl 4 mg 06/29/21 11:00 06/30/21 11:28 Ondansetron 4 Mg/2 Ml Inj IV 4 mg Q8H PRN Administration Nausea And Vomiting Promethazine HCl 25 mg 06/29/21 11:00 Promethazine 25 Mg Rect Supp [place] Q6H PRN Nausea And Vomiting Senna 8.6 mg 06/29/21 22:00 06/30/21 00:09 Sennosides 8.6 Mg Tab PO Not Given BID [facility] Senna 8.6 mg 06/29/21 12:00 Sennosides 8.6 Mg Tab PO Q12H PRN Laxative Effect Sodium Chloride 10 ml 06/29/21 11:00 06/30/21 00:10 Sodium Chloride 0.9% 10 Ml Flush Syringe IV 10 ml BID ART Administration Sodium Chloride 10 ml 06/29/21 11:00 Sodium Chloride 0.9% 10 Ml Flush Syringe IV PRN PRN LINE FLUSH Nutrition/Malnutrition Assess - Dietary Evaluation Nutrition/Malnutrition Findings: Nutrition Notes Start: 06/30/21 14:58 Freq: Status: Active Protocol: Document 06/30/21 14:58 TIMMY (Rec: 06/30/21 15:02 [facility] [id number]) Nutrition Notes Need for Assessment generated from: MD Order,Education Initial or Follow up Assessment Current Diagnosis CKD (stage V CKD),Diabetes, Hypertension,Heart Failure, Stroke Other Pertinent Diagnosis Acute CVA, aphasia, hypertensive emergency Current Diet NPO Labs/Tests Reviewed Pertinent Medications Lasix Height 5 ft 2 in Weight 56.699 kg [place] Body Weight (kg) 50.00 BMI 22.8 Weight Status Appropriate Subjective/Other Information RD consulted for diet education. Pt not appropriate for diet education at this time. He does not speak [place]. Burn Absent Trauma Absent Minimum of two criteria No #1 Nutrition Diagnosis Inadequate oral intake Etiology recent CVA As Evidenced by Signs and Symptoms pt NPO Is patient on ventilator? No Is Patient Ambulatory and/or Out of Bed No REE-([facility]-confined to bed) 1272.036 Calculation Used for Recommendations [facility] Additional Notes Pro needs >1.2g/kg: >68g/day Fluid needs 1-1.5L/day Nutrition Intervention Change Diet Order: Advance diet when medically feasible Goal #1 Diet advancement to meet nutrient needs Anticipated Discharge Needs: Unable to identify at this time Follow-Up By: 07/01/21 Additional Comments F/U: diet advancement
--- NOTE | 2021-06-30 16:09 | Progress Note ---
Assessment and Plan - Patient Problems (1) Acute CVA (cerebrovascular accident) Current Visit: Yes Status: Acute Plan to address problem: s/p administration of TPA. Recommendation from neurology reviewed. pending MRI of the brain today. (2) Hyperkalemia Current Visit: Yes Status: Acute Plan to address problem: Will treat with HD. Counseled on importance of low potassium diet. improved levels noted this morning. (3) ESRD (end stage renal disease) Current Visit: Yes Status: Chronic Plan to address problem: Have placed her on inpatient MWF HD schedule. (4) Hypertensive chronic kidney disease with stage 5 chronic kidney disease or end stage renal disease Current Visit: No Status: Chronic Plan to address problem: Monitor under current regimen. (5) Type 2 diabetes mellitus with diabetic chronic kidney disease Current Visit: No Status: Chronic Qualifiers: Chronic kidney disease stage: on chronic dialysis Plan to address problem: Management per primary attending. (6) Secondary hyperparathyroidism (of renal origin) Current Visit: No Status: Chronic Plan to address problem: Continue on home phos binder regimen. Subjective Date of service: 06/30/21 Principal diagnosis: HTNsive emergency; Acute CVA; ESRD; Ac hypoxemic resp failure; CHF; DM II Interval history: no acute changes overnight. She is pending an MRI at this time. Repeat CT of the head reviewed. Has been weaned off nicardipine drip. Plan is to start oral medications today. She tolerated hemodialysis yesterday without any acute abnormalities or issues. Next hemodialysis treatment is scheduled for tomorrow. Objective - Vital Signs Vital signs: Vital Signs - 12hr 06/30/21 06/30/21 06/30/21 04:10 04:20 04:30 Temperature Pulse Rate 73 76 73 Pulse Rate [ Right Arm] Respiratory 26 H 17 23 Rate Respiratory Rate [Right Arm ] Blood Pressure 167/93 166/54 166/54 Blood Pressure [Right Arm] O2 Sat by Pulse 100 97 100 Oximetry O2 Sat by Pulse Oximetry [ Right Arm] 06/30/21 06/30/21 06/30/21 04:40 04:50 05:00 Temperature Pulse Rate 75 76 75 Pulse Rate [ 77 Right Arm] Respiratory 18 23 22 Rate Respiratory 20 Rate [Right Arm ] Blood Pressure 166/54 166/54 185/112 Blood Pressure 185/100 [Right Arm] O2 Sat by Pulse 97 97 97 Oximetry O2 Sat by Pulse 100 Oximetry [ Right Arm] 06/30/21 06/30/21 06/30/21 05:10 05:20 05:30 Temperature Pulse Rate 75 76 74 Pulse Rate [ Right Arm] Respiratory 21 23 13 Rate Respiratory Rate [Right Arm ] Blood Pressure 185/112 185/112 185/112 Blood Pressure [Right Arm] O2 Sat by Pulse 94 84 89 Oximetry O2 Sat by Pulse Oximetry [ Right Arm] 06/30/21 06/30/21 06/30/21 05:40 05:50 06:00 Temperature Pulse Rate 76 70 66 Pulse Rate [ 74 Right Arm] Respiratory 22 25 H 26 H Rate Respiratory 24 Rate [Right Arm ] Blood Pressure 108/53 108/53 108/53 Blood Pressure 165/85 [Right Arm] O2 Sat by Pulse 97 98 100 Oximetry O2 Sat by Pulse 100 Oximetry [ Right Arm] 06/30/21 06/30/21 06/30/21 06:10 06:20 06:30 Temperature Pulse Rate 75 72 73 Pulse Rate [ Right Arm] Respiratory 29 H 25 H 21 Rate Respiratory Rate [Right Arm ] Blood Pressure 175/111 165/85 165/85 Blood Pressure [Right Arm] O2 Sat by Pulse 100 98 100 Oximetry O2 Sat by Pulse Oximetry [ Right Arm] 06/30/21 06/30/21 06/30/21 06:40 06:50 07:00 Temperature 98.0 F Pulse Rate 75 74 75 Pulse Rate [ Right Arm] Respiratory 24 13 16 Rate Respiratory Rate [Right Arm ] Blood Pressure 165/85 165/85 165/85 Blood Pressure [Right Arm] O2 Sat by Pulse 100 88 99 Oximetry O2 Sat by Pulse Oximetry [ Right Arm] 06/30/21 06/30/21 06/30/21 07:10 07:20 07:22 Temperature Pulse Rate Pulse Rate [ Right Arm] Respiratory Rate Respiratory Rate [Right Arm ] Blood Pressure 165/84 165/84 Blood Pressure [Right Arm] O2 Sat by Pulse 99 99 98 Oximetry O2 Sat by Pulse Oximetry [ Right Arm] 06/30/21 06/30/21 06/30/21 07:30 07:40 07:50 Temperature Pulse Rate Pulse Rate [ Right Arm] Respiratory Rate Respiratory Rate [Right Arm ] Blood Pressure 165/84 165/84 165/84 Blood Pressure [Right Arm] O2 Sat by Pulse 99 99 95 Oximetry O2 Sat by Pulse Oximetry [ Right Arm] 06/30/21 06/30/21 06/30/21 08:00 08:10 08:20 Temperature Pulse Rate 75 74 73 Pulse Rate [ 69 Right Arm] Respiratory 29 H 20 31 H Rate Respiratory 18 Rate [Right Arm ] Blood Pressure 165/84 143/73 143/73 Blood Pressure 155/65 [Right Arm] O2 Sat by Pulse 98 98 90 Oximetry O2 Sat by Pulse 95 Oximetry [ Right Arm] 06/30/21 06/30/21 06/30/21 08:30 08:40 08:50 Temperature Pulse Rate 73 70 74 Pulse Rate [ Right Arm] Respiratory 29 H 21 29 H Rate Respiratory Rate [Right Arm ] Blood Pressure 143/73 143/73 143/73 Blood Pressure [Right Arm] O2 Sat by Pulse 96 98 98 Oximetry O2 Sat by Pulse Oximetry [ Right Arm] 06/30/21 06/30/21 06/30/21 09:00 09:10 09:20 Temperature Pulse Rate 74 72 73 Pulse Rate [ 75 Right Arm] Respiratory Rate Respiratory 20 Rate [Right Arm ] Blood Pressure 154/123 154/123 154/123 Blood Pressure 147/89 [Right Arm] O2 Sat by Pulse 97 100 98 Oximetry O2 Sat by Pulse 94 Oximetry [ Right Arm] 06/30/21 06/30/21 06/30/21 09:30 09:40 09:50 Temperature Pulse Rate 71 73 69 Pulse Rate [ Right Arm] Respiratory 21 Rate Respiratory Rate [Right Arm ] Blood Pressure 154/123 154/123 154/123 Blood Pressure [Right Arm] O2 Sat by Pulse 89 88 88 Oximetry O2 Sat by Pulse Oximetry [ Right Arm] 06/30/21 06/30/21 06/30/21 10:00 10:10 10:20 Temperature Pulse Rate 70 78 72 Pulse Rate [ Right Arm] Respiratory 25 H 16 27 H Rate Respiratory Rate [Right Arm ] Blood Pressure 154/123 154/123 154/123 Blood Pressure [Right Arm] O2 Sat by Pulse 89 85 88 Oximetry O2 Sat by Pulse Oximetry [ Right Arm] 06/30/21 06/30/21 06/30/21 10:30 11:10 11:14 Temperature Pulse Rate 70 76 Pulse Rate [ Right Arm] Respiratory 26 H 14 Rate Respiratory Rate [Right Arm ] Blood Pressure 154/123 154/123 Blood Pressure [Right Arm] O2 Sat by Pulse 92 94 94 Oximetry O2 Sat by Pulse Oximetry [ Right Arm] 06/30/21 06/30/21 06/30/21 11:20 11:30 11:40 Temperature Pulse Rate 83 77 75 Pulse Rate [ Right Arm] Respiratory 19 26 H 25 H Rate Respiratory Rate [Right Arm ] Blood Pressure 111/72 111/72 111/72 Blood Pressure [Right Arm] O2 Sat by Pulse 99 100 99 Oximetry O2 Sat by Pulse Oximetry [ Right Arm] 06/30/21 06/30/21 06/30/21 11:50 12:00 12:10 Temperature 98.4 F Pulse Rate 74 71 70 Pulse Rate [ Right Arm] Respiratory 25 H 28 H 23 Rate Respiratory Rate [Right Arm ] Blood Pressure 111/72 111/72 197/39 Blood Pressure [Right Arm] O2 Sat by Pulse 100 99 100 Oximetry O2 Sat by Pulse Oximetry [ Right Arm] 06/30/21 06/30/21 06/30/21 12:20 14:10 14:20 Temperature Pulse Rate 72 73 Pulse Rate [ Right Arm] Respiratory 19 Rate Respiratory Rate [Right Arm ] Blood Pressure 112/74 112/74 134/74 Blood Pressure [Right Arm] O2 Sat by Pulse 100 94 Oximetry O2 Sat by Pulse Oximetry [ Right Arm] 06/30/21 06/30/21 06/30/21 14:30 14:32 14:40 Temperature Pulse Rate 71 72 73 Pulse Rate [ Right Arm] Respiratory 14 20 Rate Respiratory Rate [Right Arm ] Blood Pressure 112/74 134/74 112/74 Blood Pressure [Right Arm] O2 Sat by Pulse 91 95 Oximetry O2 Sat by Pulse Oximetry [ Right Arm] 06/30/21 06/30/21 06/30/21 14:50 15:00 15:10 Temperature Pulse Rate 77 71 68 Pulse Rate [ Right Arm] Respiratory 26 H 10 L 15 Rate Respiratory Rate [Right Arm ] Blood Pressure 112/74 112/74 134/74 Blood Pressure [Right Arm] O2 Sat by Pulse 99 98 99 Oximetry O2 Sat by Pulse Oximetry [ Right Arm] 06/30/21 06/30/21 06/30/21 15:20 15:30 16:00 Temperature 98.6 F Pulse Rate 72 74 Pulse Rate [ Right Arm] Respiratory 14 Rate Respiratory Rate [Right Arm ] Blood Pressure 134/74 134/74 Blood Pressure [Right Arm] O2 Sat by Pulse 94 90 Oximetry O2 Sat by Pulse Oximetry [ Right Arm] - General Appearance General appearance: appears stated age, fatigue, frail EENT: ATNC Neck: no JVD Respiratory: Present: Clear to Ascultation Cardiology: regular Gastrointestinal: normal Integumentary: no rash Neurologic: facial droop Musculoskeletal: deferred Psychiatric: cooperative - Lab 06/29/21 07:29 06/29/21 19:47 Most recent lab results ABG pH 7.526 (7.320-7.450) H 06/29/21 20:00 ABG O2 Saturation 93.2 (0-100) 06/29/21 20:00 Calcium 9.2 mg/dL (8.4-10.2) 06/29/21 07:29 Medications & Allergies - Medications Allergies/Adverse Reactions: Allergies No Known Allergies Allergy (Verified 01/01/19 23:56) Home Medications: Home Medications Medication Instructions Recorded Confirmed Last Taken Type glipiZIDE [Glipizide] 10 mg PO BID 01/02/19 08/11/20 02/17/19 History hydrALAZINE [Apresoline TAB] 100 mg PO TID 01/02/19 08/11/20 02/17/19 History cloNIDine [Catapres] 0.1 mg PO Q8HR #90 tablet 03/20/19 08/11/20 Unknown Rx AtorvaSTATin [Lipitor] 40 mg PO QHS 08/11/20 08/11/20 Unknown History Cetirizine HCl [Allergy Relief] 10 mg PO QDAY 08/11/20 08/11/20 Unknown History Furosemide [Lasix TAB] 80 mg PO QDAY 08/11/20 08/11/20 Unknown History Latanoprost 0.005% 1 drop OP QPM 08/11/20 08/11/20 Unknown History Levothyroxine [Synthroid] 200 mcg PO DAILY@0600 08/11/20 08/11/20 Unknown History Metoprolol [Lopressor TAB] 50 mg PO BID 08/11/20 08/11/20 Unknown History NIFEdipine [Nifedipine ER] 60 mg PO QDAY 08/11/20 08/11/20 Unknown History hydrOXYzine HCL [Atarax] 25 mg PO BID 08/11/20 08/11/20 Unknown History lisinopriL [Zestril TAB] 40 mg PO QDAY 08/11/20 08/11/20 Unknown History Insulin Glargine [Lantus VIAL] 10 units SUB-Q QAMDIAB units 08/15/20 Unknown Rx Insulin Lispro [Humalog] 0 unit SUB-Q Q6HR vial 08/15/20 Unknown Rx Metoprolol [Lopressor TAB] 50 mg PO BID tablet 08/15/20 Unknown Rx NIFEdipine XL [Procardia Xl] 60 mg PO BID tablet 08/15/20 Unknown Rx cloNIDine [Catapres] 0.1 mg PO Q8HR tablet 08/15/20 Unknown Rx hydrALAZINE [Apresoline TAB] 100 mg PO Q8HR tablet 08/15/20 Unknown Rx lisinopriL [Zestril TAB] 40 mg PO QDAY tablet 08/15/20 Unknown Rx Active Medications: Generic Name Dose Route Start Last Admin Trade Name Freq PRN Reason Stop Dose Admin Acetaminophen 650 mg 06/29/21 11:00 Acetaminophen 325 Mg Tab PO Q4H PRN Pain, Mild (1-3) Al Hydrox/Mg Hydrox/Simethicone 30 ml 06/29/21 11:00 Alum-Mag Hydroxide-Simethicone 240-607-29yt/5ml Oral Liqd 30 Ml PO Q4H PRN Indigestion Albuterol 2.5 mg 06/29/21 11:00 Albuterol 2.5 Mg/3 Ml Nebu IH Q3HRT PRN Shortness Of Breath Aspirin 325 mg 06/30/21 10:00 Aspirin 325 Mg Tab PO QDAY ART Atorvastatin Calcium 40 mg 06/29/21 22:00 06/30/21 00:08 Atorvastatin 40 Mg Tab PO Not Given QHS ART Bisacodyl 10 mg 06/29/21 11:00 Bisacodyl 10 Mg Rect Supp CO QDAY PRN Constipation Clonidine HCl 0.1 mg 06/29/21 14:00 06/30/21 14:32 Clonidine 0.1 Mg Tab PO 0.1 mg Q8HR ART Administration Dextrose 50 ml 06/29/21 11:00 Dextrose 50% In Water (25gm) 50 Ml Syringe IV Q30MIN PRN Hypoglycemia Protocol Docusate Sodium 100 mg 06/29/21 22:00 06/30/21 00:07 Docusate Sodium 100 Mg Cap PO Not Given BID ART Famotidine 20 mg 06/29/21 12:00 06/29/21 12:24 Famotidine 20 Mg/2 Ml Inj IV 20 mg DAILY [facility] Administration Furosemide 80 mg 06/29/21 12:00 06/30/21 14:31 Furosemide 40 Mg Tab PO 80 mg QDAY [facility] Administration Heparin Sodium (Porcine) 5,000 unit 06/29/21 22:00 06/30/21 00:08 Heparin 5,000 Unit/1 Ml Vial SUB-Q Not Given Q12HR [facility] Hydralazine HCl 100 mg 06/29/21 14:00 06/30/21 14:31 Hydralazine 100 Mg Tab PO 100 mg Q8HR [facility] Administration Hydroxyzine HCl 25 mg 06/29/21 11:00 06/30/21 14:34 Hydroxyzine Hcl 25 Mg Tab PO 25 mg BID [facility] Administration Sodium Chloride 100 mls @ 999 mls/hr 06/29/21 11:12 Nacl 0.9% IV TWAN PRN Hypotension Insulin Glargine 10 units 06/29/21 12:00 06/30/21 08:59 Insulin Glargine 100 Units/Ml SUB-Q Not Given QAMDIAB [facility] Latanoprost 1 drops 06/29/21 18:00 06/29/21 19:23 Latanoprost 0.005% Ophth Soln 2.5 Ml OU 1 drops QPM [facility] Administration Levothyroxine Sodium 200 mcg 06/30/21 06:00 Levothyroxine 100 Mcg Tab PO DAILY@0600 [facility] Lisinopril 40 mg 06/30/21 10:00 Lisinopril 40 Mg Tab PO QDAY [facility] Magnesium Hydroxide 30 ml 06/29/21 11:00 Magnesium Hydroxide (Mom) Oral Liqd Udc PO Q4H PRN Constipation Metoclopramide HCl 5 mg 06/29/21 11:00 Metoclopramide 10 Mg Tab PO Q12H PRN Nausea And Vomiting Metoprolol Tartrate 50 mg 06/29/21 22:00 06/30/21 00:08 Metoprolol Tartrate 50 Mg Tab PO Not Given BID [facility] Morphine Sulfate 2 mg 06/29/21 11:00 Morphine 2 Mg/1 Ml Inj IV Q4H PRN Pain, Moderate (4-6) Nifedipine 60 mg 06/30/21 10:00 Nifedipine Xl 60 Mg Tab PO QDAY [facility] Ondansetron HCl 4 mg 06/29/21 11:00 06/30/21 11:28 Ondansetron 4 Mg/2 Ml Inj IV 4 mg Q8H PRN Administration Nausea And Vomiting Promethazine HCl 25 mg 06/29/21 11:00 Promethazine 25 Mg Rect Supp CO Q6H PRN Nausea And Vomiting Senna 8.6 mg 06/29/21 22:00 06/30/21 00:09 Sennosides 8.6 Mg Tab PO Not Given BID ART Senna 8.6 mg 06/29/21 12:00 Sennosides 8.6 Mg Tab PO Q12H PRN Laxative Effect Sodium Chloride 10 ml 06/29/21 11:00 06/30/21 00:10 Sodium Chloride 0.9% 10 Ml Flush Syringe IV 10 ml BID ART Administration Sodium Chloride 10 ml 06/29/21 11:00 Sodium Chloride 0.9% 10 Ml Flush Syringe IV PRN PRN LINE FLUSH
[2021-06-30] MEDS: LATANOPROST 0.005% OPHTH SOLN 2.5 ML OU SCH (21:09)
[2021-07-01] MEDS: cloNIDine 0.1 MG TAB PO SCH ×5 (06:40→22:10)
[2021-07-01] MEDS: hydrALAZINE 100 MG TAB PO SCH ×5 (06:40→22:10)
[2021-07-01] MEDS: LEVOTHYROXINE 100 MCG TAB PO SCH ×2 (06:41→07:46)
[2021-07-01] MEDS: HEPARIN 5,000 UNIT/1 ML VIAL SUB-Q SCH ×3 (07:46→22:10)
[2021-07-01] MEDS: INSULIN GLARGINE 100 UNITS/ML SUB-Q SCH (08:37)
[2021-07-01] MEDS: SENNOSIDES 8.6 MG TAB PO SCH ×2 (09:18→22:11)
[2021-07-01] MEDS: FUROSEMIDE 40 MG TAB PO SCH (09:18)
[2021-07-01] MEDS: DOCUSATE SODIUM 100 MG CAP PO SCH ×2 (09:18→22:11)
[2021-07-01] MEDS: LISINOPRIL 40 MG TAB PO SCH (09:18)
[2021-07-01] MEDS: hydrOXYzine HCL 25 MG TAB PO SCH ×2 (09:18→22:11)
[2021-07-01] MEDS: ASPIRIN 325 MG TAB PO SCH (09:18)
[2021-07-01] MEDS: NIFEdipine XL 60 MG TAB PO SCH (09:18)
[2021-07-01] MEDS: FAMOTIDINE 20 MG TAB PO SCH (09:19)
[2021-07-01] MEDS: METOPROLOL TARTRATE 50 MG TAB PO SCH ×2 (09:19→22:11)
--- NOTE | 2021-07-01 09:27 | Discharge Summary ---
Providers - Providers Date of Admission: 06/29/21 09:04 Attending physician: NEELIMA RONQUILLO MD 06/29/21 08:54 Consult to Physician [CONS] Urgent Comment: dr. Back oramírez /reyna Consulting Provider: LORELEI VASQUEZ Physician Instructions: Reason For Exam: esrd, hyperkalemia 06/29/21 10:00 Consult to Physician [CONS] Routine Comment: dr. [place] nick/ reyna Consulting Provider: GAYLE COKER Physician Instructions: Reason For Exam: cva s/p TPA 06/29/21 10:01 Consult to Physician [CONS] Routine Comment: dr. rikki ayon/shirley orellana Consulting Provider: HALEIGH GOSS Physician Instructions: Reason For Exam: CVA 06/29/21 10:03 Consult to Dietitian/Nutrition [CONS] Routine Physician Instructions: Reason For Exam: Reason for Consult: Diet education Occupational Therapy Evaluate and Treat [CONS] Routine Comment: Reason For Exam: Neuro deficits Physical Therapy Evaluation and Treat [CONS] Routine Comment: Reason For Exam: Neuro deficits 06/29/21 10:06 Consult to Case Management [CONS] Routine Services Needed at Discharge: Hammer Driver Notified:: NO 06/29/21 10:07 Speech Therapy Evaluation and Treat [CONS] Routine Reason For Exam: swallow eval 06/29/21 10:14 Consult to Physician [CONS] Routine Comment: dr. gretchen kendall o/shirley orellana Consulting Provider: SUE CAMPOS Physician Instructions: Reason For Exam: tYPE 2 ID ? Primary care physician: NING PLAZA Hospitalization Reason for admission: CVA Condition: Stable Hospital course: Patient is a 65-year-old female with past medical history of end-stage renal disease on dialysis Tuesday, hypertension, CHF, and diabetes (with history of DKA) presents to the hospital with stroke symptoms that started 1 hours prior to arrival approximately 6 AM. Patient is not [place] speaking with [place] language [place] from [place]. Although it is understood that the patient actually speaks [place] but does not communicate sometimes. Daughter was at bedside says that the patient can be stubborn at times. During my examination the patient has started on TPN and is moving all extremities although was not speaking. Further evaluation from the ER physician documentation and collaborated by the daughter who was at bedside She states that patient woke up normal and then went to take a shower. After taking a shower was noted if she has slurred speech and right-sided weakness. EMS reports right-sided weakness, slurred speech, no movement of the right upper or lower extremity against gravity. Accu-Chek 506. Code stroke initiated prior to patient arrival to the ED. patient is due for dialysis today. Frame Carver Spindle: Dr. Plaza CTA head and neck IMPRESSION: Slightly limited exam without inclusion of the aortic arch and origin of the left vertebral artery and great vessels. Moderate to severe atherosclerotic plaques are identified near both carotid bifurcations. The most affected level appears to be the distal right CCA demonstrating approximately 50% stenosis. Very small caliber of the left vertebral artery as described which could be congenital. Less than 50% stenosis in both ICAs. CT head shows no acute pathology but shows increased density around the right optical area corresponds with the interval ophthalmic surgery Chest x-ray shows pulmonary vascular congestion Slurred speech with aphasia Right-sided hemiparesis all concerning for new onset CVA Diabetes mellitus with hyperglycemia Acute metabolic encephalopathy now resolved Hypothyroidism End-stage renal disease Hypertensive urgency Stable congestive heart failure Hyponatremia Severe hyperkalemia Type 2 ID Plan Patient seen and examined during this hospitalization the patient received TPA. She is moving all extremities at this time. She is also speaking no evidence of slurred speech. She is going to undergo dialysis today. Blood pressure is better controlled. Echocardiogram was done 06/29/2021-EF 25 to 30% severe left ventricular hypertrophy, mild diastolic dysfunction, right ventricle is moderate to severely dilated, right systolic function is normal left atrium is severely dilated, right atrium mildly dilated atrial septum is bowed toward the left mild tricuspid regurgitation mild mitral regurgitation this appears consistent with Echo-08/14/2020 EF 25 to 30%, left ventricle is mildly dilated moderate to severe left ventricular hypertrophy left atrium is moderately dilated right ventricle is moderately dilated right ventricle systolic function is moderately reduced No further recommendation by cardiology the patient will follow with them outpatient. Disposition: [id number] HOME UNDER HOME [facility] Final Discharge Diagnosis (Prints w/discharge instructions): Acute CVA Time spent for discharge: 35 MINS Core Measure Documentation - Palliative Care Palliative Care/ Comfort Measures: Not Applicable - Core Measures Any of the following diagnoses?: stroke - Stroke Discharge Requirements Statin for LDL = or >70 mg/dl on DC: Yes Anticoag for atrial fib/atrial flutter: Not Applicable Antithrombotic for ischemic stroke: Yes Exam - Physical Exam Narrative exam: VITAL SIGNS: Reviewed. GENERAL: The patient appears normally developed, Vital signs as documented. HEAD: No signs of head trauma. EYES: Pupils are equal. Extraocular motions intact. EARS: Hearing grossly intact. MOUTH: Oropharynx is normal. NECK: No adenopathy, no JVD. CHEST: Chest with crackles breath sounds bilaterally. No wheezes, rales, or rhonchi. CARDIAC: Regular rate and rhythm. S1 and S2, without murmurs, gallops, or rubs. VASCULAR: No Edema. Peripheral pulses normal and equal in all extremities. ABDOMEN: Soft, non tender and non distended. No rebound or guarding, and no masses palpated. Bowel Sounds normal. MUSCULOSKELETAL: Good range of motion of all major joints. Extremities without clubbing, cyanosis or edema. NEUROLOGIC EXAM: Alert and oriented x 3 No focal sensory or strength deficits . Aphasia resolved, follows commands. PSYCHIATRIC: Mood normal. SKIN: detail exam as documented in skin assessment - Constitutional Vitals: Temp Pulse Resp BP Pulse Ox 99.0 F 74 14 162/45 94 07/01/21 04:00 07/01/21 08:17 06/30/21 15:20 07/01/21 09:18 07/01/21 08:17 Plan Activity: advance as tolerated, fall precautions Diet: renal Special Instructions: restrict fluid intake to (1000CC/DAY), record daily weights, record daily BP diary, record blood sugar diary Follow up with: NING PLAZA MD [Primary Care Provider] - 3-5 Days SUE CAMPOS MD [Staff Physician] - 7 Days PIA COSTELLO MD [Staff Physician] - 7 Days Prescriptions: Aspirin 325 mg PO QDAY #30 tablet Famotidine [Pepcid] 20 mg PO DAILY #30 tablet
--- NOTE | 2021-07-01 10:37 | Progress Note ---
Assessment and Plan - Patient Problems (1) Acute CVA (cerebrovascular accident) Current Visit: Yes Status: Acute Plan to address problem: s/p administration of TPA. Recommendation from neurology reviewed. Findings of MRI reviewed. (2) Hyperkalemia Current Visit: Yes Status: Acute Plan to address problem: Will treat with HD. Counseled on importance of low potassium diet. improved levels noted this morning. (3) ESRD (end stage renal disease) Current Visit: Yes Status: Chronic Plan to address problem: Have placed her on inpatient MWF HD schedule. (4) Hypertensive chronic kidney disease with stage 5 chronic kidney disease or end stage renal disease Current Visit: No Status: Chronic Plan to address problem: Monitor under current regimen. (5) Type 2 diabetes mellitus with diabetic chronic kidney disease Current Visit: No Status: Chronic Qualifiers: Chronic kidney disease stage: on chronic dialysis Plan to address problem: Management per primary attending. (6) Secondary hyperparathyroidism (of renal origin) Current Visit: No Status: Chronic Plan to address problem: Continue on home phos binder regimen. Subjective Date of service: 07/01/21 Principal diagnosis: HTNsive emergency; Acute CVA; ESRD; Ac hypoxemic resp failure; CHF; DM II Interval history: No acute changes overnight. Findings of MRI reviewed. Patient receiving dialysis at bedside this am. Objective - Vital Signs Vital signs: Vital Signs - 12hr 06/30/21 07/01/21 07/01/21 23:44 00:00 04:00 Temperature 98.9 F 99.0 F Pulse Rate 66 Pulse Rate [ Left Radial] Respiratory Rate Blood Pressure O2 Sat by Pulse Oximetry O2 Sat by Pulse Oximetry [ Anterior Bilateral Throughout] 07/01/21 07/01/21 07/01/21 06:40 08:13 08:16 Temperature Pulse Rate 66 62 Pulse Rate [ Left Radial] Respiratory Rate Blood Pressure 153/61 O2 Sat by Pulse 94 Oximetry O2 Sat by Pulse Oximetry [ Anterior Bilateral Throughout] 07/01/21 07/01/21 07/01/21 08:17 09:15 09:18 Temperature 98.4 F Pulse Rate 66 Pulse Rate [ 74 Left Radial] Respiratory 13 Rate Blood Pressure 162/45 162/45 O2 Sat by Pulse 94 Oximetry O2 Sat by Pulse 96 Oximetry [ Anterior Bilateral Throughout] 07/01/21 07/01/21 07/01/21 09:22 09:30 09:45 Temperature Pulse Rate 68 68 68 Pulse Rate [ Left Radial] Respiratory Rate Blood Pressure 151/54 136/54 163/87 O2 Sat by Pulse Oximetry O2 Sat by Pulse Oximetry [ Anterior Bilateral Throughout] 07/01/21 07/01/21 07/01/21 10:00 10:15 10:30 Temperature Pulse Rate 68 68 70 Pulse Rate [ Left Radial] Respiratory Rate Blood Pressure 140/45 144/37 153/34 O2 Sat by Pulse Oximetry O2 Sat by Pulse Oximetry [ Anterior Bilateral Throughout] - General Appearance General appearance: appears stated age, chronically ill EENT: ATNC Neck: no JVD Respiratory: Present: Clear to Ascultation Cardiology: regular Gastrointestinal: normal Integumentary: warm and dry Musculoskeletal: deferred Psychiatric: cooperative - Lab 06/29/21 07:29 06/29/21 19:47 Most recent lab results ABG pH 7.526 (7.320-7.450) H 06/29/21 20:00 ABG O2 Saturation 93.2 (0-100) 06/29/21 20:00 Calcium 9.2 mg/dL (8.4-10.2) 06/29/21 07:29 - Allied health notes Allied health notes reviewed: nursing Medications & Allergies - Medications Allergies/Adverse Reactions: Allergies No Known Allergies Allergy (Verified 01/01/19 23:56) Home Medications: Home Medications Medication Instructions Recorded Confirmed Last Taken Type glipiZIDE [Glipizide] 10 mg PO BID 01/02/19 08/11/20 02/17/19 History cloNIDine [Catapres] 0.1 mg PO Q8HR #90 tablet 03/20/19 08/11/20 Unknown Rx AtorvaSTATin [Lipitor] 40 mg PO QHS 08/11/20 08/11/20 Unknown History Cetirizine HCl [Allergy Relief] 10 mg PO QDAY 08/11/20 08/11/20 Unknown History Furosemide [Lasix TAB] 80 mg PO QDAY 08/11/20 08/11/20 Unknown History Latanoprost 0.005% 1 drop OP QPM 08/11/20 08/11/20 Unknown History Levothyroxine [Synthroid] 200 mcg PO DAILY@0600 08/11/20 08/11/20 Unknown History Metoprolol [Lopressor TAB] 50 mg PO BID 08/11/20 08/11/20 Unknown History NIFEdipine [Nifedipine ER] 60 mg PO QDAY 08/11/20 08/11/20 Unknown History hydrOXYzine HCL [Atarax] 25 mg PO BID 08/11/20 08/11/20 Unknown History lisinopriL [Zestril TAB] 40 mg PO QDAY 08/11/20 08/11/20 Unknown History Insulin Glargine [Lantus VIAL] 10 units SUB-Q QAMDIAB units 08/15/20 Unknown Rx Insulin Lispro [Humalog] 0 unit SUB-Q Q6HR vial 08/15/20 Unknown Rx Metoprolol [Lopressor TAB] 50 mg PO BID tablet 08/15/20 Unknown Rx NIFEdipine XL [Procardia Xl] 60 mg PO BID tablet 08/15/20 Unknown Rx cloNIDine [Catapres] 0.1 mg PO Q8HR tablet 08/15/20 Unknown Rx hydrALAZINE [Apresoline TAB] 100 mg PO Q8HR tablet 08/15/20 Unknown Rx lisinopriL [Zestril TAB] 40 mg PO QDAY tablet 08/15/20 Unknown Rx Aspirin 325 mg PO QDAY #30 tablet 07/01/21 Unknown Rx Famotidine [Pepcid] 20 mg PO DAILY #30 tablet 07/01/21 Unknown Rx Active Medications: Generic Name Dose Route Start Last Admin Trade Name Freq PRN Reason Stop Dose Admin Acetaminophen 650 mg 06/29/21 11:00 Acetaminophen 325 Mg Tab PO Q4H PRN Pain, Mild (1-3) Al Hydrox/Mg Hydrox/Simethicone 30 ml 06/29/21 11:00 Alum-Mag Hydroxide-Simethicone [id number]/5ml Oral Liqd 30 Ml PO Q4H PRN Indigestion Albuterol 2.5 mg 06/29/21 11:00 Albuterol 2.5 Mg/3 Ml Nebu IH Q3HRT PRN Shortness Of Breath Aspirin 325 mg 06/30/21 10:00 07/01/21 09:18 Aspirin 325 Mg Tab PO 325 mg QDAY ART Administration Atorvastatin Calcium 40 mg 06/29/21 22:00 06/30/21 21:09 Atorvastatin 40 Mg Tab PO 40 mg QHS ART Administration Bisacodyl 10 mg 06/29/21 11:00 Bisacodyl 10 Mg Rect Supp MT QDAY PRN Constipation Clonidine HCl 0.1 mg 06/29/21 14:00 07/01/21 07:45 Clonidine 0.1 Mg Tab PO Not Given Q8HR ART Dextrose 50 ml 06/29/21 11:00 Dextrose 50% In Water (25gm) 50 Ml Syringe IV Q30MIN PRN Hypoglycemia Protocol Docusate Sodium 100 mg 06/29/21 22:00 07/01/21 09:18 Docusate Sodium 100 Mg Cap PO 100 mg BID ART Administration Famotidine 20 mg 07/01/21 10:00 07/01/21 09:19 Famotidine 20 Mg Tab PO 20 mg DAILY ART Administration Furosemide 80 mg 06/29/21 12:00 07/01/21 09:18 Furosemide 40 Mg Tab PO 80 mg QDAY ART Administration Heparin Sodium (Porcine) 5,000 unit 06/29/21 22:00 07/01/21 09:19 Heparin 5,000 Unit/1 Ml Vial SUB-Q 5,000 unit Q12HR ART Administration Hydralazine HCl 100 mg 06/29/21 14:00 07/01/21 07:45 Hydralazine 100 Mg Tab PO Not Given Q8HR [facility] Hydroxyzine HCl 25 mg 06/29/21 11:00 07/01/21 09:18 Hydroxyzine Hcl 25 Mg Tab PO 25 mg BID ART Administration Sodium Chloride 100 mls @ 999 mls/hr 06/29/21 11:12 Nacl 0.9% IV TWAN PRN Hypotension Insulin Glargine 10 units 06/29/21 12:00 07/01/21 08:37 Insulin Glargine 100 Units/Ml SUB-Q 10 units QAMDIAB ART Administration Latanoprost 1 drops 06/29/21 18:00 06/30/21 21:09 Latanoprost 0.005% Ophth Soln 2.5 Ml OU 1 drops QPM ART Administration Levothyroxine Sodium 200 mcg 06/30/21 06:00 07/01/21 07:46 Levothyroxine 100 Mcg Tab PO Not Given DAILY@0600 [facility] Lisinopril 40 mg 06/30/21 10:00 07/01/21 09:18 Lisinopril 40 Mg Tab PO 40 mg QDAY ART Administration Magnesium Hydroxide 30 ml 06/29/21 11:00 Magnesium Hydroxide (Mom) Oral Liqd Udc PO Q4H PRN Constipation Metoclopramide HCl 5 mg 06/29/21 11:00 Metoclopramide 10 Mg Tab PO Q12H PRN Nausea And Vomiting Metoprolol Tartrate 50 mg 06/29/21 22:00 07/01/21 09:19 Metoprolol Tartrate 50 Mg Tab PO 50 mg BID ART Administration Morphine Sulfate 2 mg 06/29/21 11:00 Morphine 2 Mg/1 Ml Inj IV Q4H PRN Pain, Moderate (4-6) Nifedipine 60 mg 06/30/21 10:00 07/01/21 09:18 Nifedipine Xl 60 Mg Tab PO 60 mg QDAY ART Administration Ondansetron HCl 4 mg 06/29/21 11:00 06/30/21 11:28 Ondansetron 4 Mg/2 Ml Inj IV 4 mg Q8H PRN Administration Nausea And Vomiting Promethazine HCl 25 mg 06/29/21 11:00 Promethazine 25 Mg Rect Supp MT Q6H PRN Nausea And Vomiting Senna 8.6 mg 06/29/21 22:00 07/01/21 09:18 Sennosides 8.6 Mg Tab PO 8.6 mg BID ART Administration Senna 8.6 mg 06/29/21 12:00 Sennosides 8.6 Mg Tab PO Q12H PRN Laxative Effect Sodium Chloride 10 ml 06/29/21 11:00 07/01/21 09:20 Sodium Chloride 0.9% 10 Ml Flush Syringe IV 10 ml BID ART Administration Sodium Chloride 10 ml 06/29/21 11:00 06/30/21 09:50 Sodium Chloride 0.9% 10 Ml Flush Syringe IV 10 ml PRN PRN Administration LINE FLUSH
--- NOTE | 2021-07-01 12:56 | Progress Note ---
Assessment and Plan NSTEMI suspected type 2 * Patient EKG showed sinus 62 and patient was sinus 69 on monitor with no events. * Troponins noted to be elevated likely secondary to ESRD. * Lexiscan MPI stress 01/03/2019-normal resting and stress myocardial perfusion images. EF 38% * Echo-08/14/2020 EF 25 to 30%, left ventricle is mildly dilated moderate to severe left ventricular hypertrophy left atrium is moderately dilated right ventricle is moderately dilated right ventricle systolic function is moderately reduced * Echo 06/29/2021-EF 25 to 30% severe left ventricular hypertrophy, mild diastolic dysfunction, right ventricle is moderate to severely dilated, right systolic function is normal left atrium is severely dilated, right atrium mildly dilated atrial septum is bowed toward the left mild tricuspid regurgitation mild mitral regurgitation * Plan for Lexiscan stress test in AM. NPO after midnight ESRD * Patient received dialysis today * Nephrology is following Ischemic Stroke * Patient received TPN for stroke like symptoms * Neuro is following * MRI shows no clear evidence of recent infarctions Plan for Lexiscan stress test in AM. NPO after midnight Patient should follow up with Dr. Shipman, [facility], on 07/13/2021 at 11:15am at our [place] office. Patient seen in conjunction with Dr. Warren who agrees to this plan of care. Will continue to follow - Patient Problems (1) Acute CVA (cerebrovascular accident) Current Visit: Yes Status: Acute (2) Elevated troponin Current Visit: Yes Status: Acute (3) Hyperglycemia due to diabetes mellitus Current Visit: Yes Status: Acute (4) Hyperkalemia Current Visit: Yes Status: Acute (5) ESRD (end stage renal disease) Current Visit: Yes Status: Chronic (6) Altered mental status Current Visit: No Status: Acute Subjective Date of service: 07/01/21 Principal diagnosis: HTNsive emergency; Acute CVA; ESRD; Ac hypoxemic resp failure; CHF; DM II Interval history: Patient resting in bed with no complaints. Receiving HD Sinus 70s with no events on monitor Objective Last Vital Signs Temp 98.4 F 07/01/21 09:15 Pulse 65 07/01/21 12:52 Resp 13 07/01/21 09:15 BP 151/46 07/01/21 12:52 Pulse Ox 96 07/01/21 09:15 - Physical Examination General: No Apparent Distress HEENT: Positive: PERRL Neck: Positive: neck supple Cardiac: Positive: Reg Rate and Rhythm Lungs: Positive: Normal Breath Sounds Neuro: Positive: Grossly Intact Abdomen: Positive: Unremarkable, Soft Extremities: Present: upper extr. pulses, lower extr. pulses - Imaging and Cardiology EKG: report reviewed, image reviewed Echo: report reviewed - Telemetry EKG Rhythm: Sinus Rhythm - EKG Sinus rhythms and dysrhythmias: sinus rhythm - Allied health notes Allied health notes reviewed: nursing
--- NOTE | 2021-07-01 13:04 | Progress Note ---
Assessment and Plan Assessment and Plan Assessment and plan: #Patient is a 65-year-old female with past medical history of end-stage renal disease on dialysis Tuesday, hypertension, CHF, and diabetes (w ith history of DKA) presents to the hospital with stroke symptoms that started 1 hours prior to arrival approximately 6 AM. Patient is not [place] speaking with [place] language [place] from [place]. -Initial NIh#24 --currently #3 she is s/p TPA -CTA head and neck Slightly limited exam without inclusion of the aortic arch and origin of the left vertebral artery and great vessels. Moderate to severe atherosclerotic plaques are identified near both carotid bifurcations. The most affected level appears to be the distal right CCA demonstrating approximately 50% stenosis. Very small caliber of the left vertebral artery as described which could be congenital. Less than 50% stenosis in both ICAs. CT head shows no acute pathology but shows increased density around the right optical area corresponds with the interval ophthalmic surgery Chest x-ray shows pulmonary vascular congestion -echo is pending -MRI brain is pending -CT brain at 24 hours is unremarkable -MRI brain is unremarkable -ST/PT evaluate -lipitor 40 mg daily -ASA 325 mg daily -US carotid showed LICA>50-69% stenosis consider vascular consult. #Type 2 IL - Accu-Chek 506. -today suger 253 -none ketotic hyperglycemia -A1C#10.7 #Hypothyroidism -TSH#64 -correct underlying problem #End-stage renal disease -bun/Cr#75/9 -on hemodialyis X3 times weekly #Hypertensive urgency -Allow for permissive HTN<220/110 X 24 hours then gradual control to <150/80 #Stable congestive heart failure -Echo is pending #Hyponatremia and Severe hyperkalemia -correct electrolytes abn. PLAN -Electrolyte management -Resume BP meds -Blood glucose control -ASA 325 mg daily -Lipitor 40mg -DVT/GI prophy - Increase activity as tolerated The high probability of a clinically significant, sudden or life threatening deterioration of the [neuro, cardiac, renal] system(s) required my full and direct attention, intervention and personal management. The aggregate critical care time was [35] minutes. This time is in addition to time spent performing reported procedures but includes the following: [x] Data Review and interpretation [x] Patient assessment and monitoring of vital signs [x] Documentation [x] Medication orders and management Advance Directives: Yes Plan of care discussed with patient/family: Yes Subjective Date of service: 07/01/21 Principal diagnosis: HTNsive emergency; Acute CVA; ESRD; Ac hypoxemic resp failure; CHF; DM II Interval history: doing better today more interactive denied weakness ,confusion or swalllowing difficulty On dialysis today MRI brain is unremarkable Echo with EF#25-30% US left ICA stenosis#50-69% Objective - Vital Sign Vital Signs - 12hr 07/01/21 07/01/21 07/01/21 04:00 06:40 08:13 Temperature 99.0 F Pulse Rate 66 Pulse Rate [ Left Radial] Respiratory Rate Blood Pressure 153/61 O2 Sat by Pulse 94 Oximetry O2 Sat by Pulse Oximetry [ Anterior Bilateral Throughout] 07/01/21 07/01/21 07/01/21 08:16 08:17 09:15 Temperature 98.4 F Pulse Rate 62 66 Pulse Rate [ 74 Left Radial] Respiratory 13 Rate Blood Pressure 162/45 O2 Sat by Pulse 94 Oximetry O2 Sat by Pulse 96 Oximetry [ Anterior Bilateral Throughout] 07/01/21 07/01/21 07/01/21 09:18 09:22 09:30 Temperature Pulse Rate 68 68 Pulse Rate [ Left Radial] Respiratory Rate Blood Pressure 162/45 151/54 136/54 O2 Sat by Pulse Oximetry O2 Sat by Pulse Oximetry [ Anterior Bilateral Throughout] 07/01/21 07/01/21 07/01/21 09:45 10:00 10:15 Temperature Pulse Rate 68 68 68 Pulse Rate [ Left Radial] Respiratory Rate Blood Pressure 163/87 140/45 144/37 O2 Sat by Pulse Oximetry O2 Sat by Pulse Oximetry [ Anterior Bilateral Throughout] 07/01/21 07/01/21 07/01/21 10:30 10:45 11:00 Temperature Pulse Rate 70 69 64 Pulse Rate [ Left Radial] Respiratory Rate Blood Pressure 153/34 112/55 154/76 O2 Sat by Pulse Oximetry O2 Sat by Pulse Oximetry [ Anterior Bilateral Throughout] 07/01/21 07/01/21 07/01/21 11:15 11:30 11:45 Temperature Pulse Rate 64 70 64 Pulse Rate [ Left Radial] Respiratory Rate Blood Pressure 138/48 139/50 156/57 O2 Sat by Pulse Oximetry O2 Sat by Pulse Oximetry [ Anterior Bilateral Throughout] 07/01/21 07/01/2107/01/21 12:00 12:15 12:30 Temperature Pulse Rate 65 63 68 Pulse Rate [ Left Radial] Respiratory Rate Blood Pressure 118/76 163/45 145/53 O2 Sat by Pulse Oximetry O2 Sat by Pulse Oximetry [ Anterior Bilateral Throughout] 07/01/21 12:52 Temperature Pulse Rate 65 Pulse Rate [ Left Radial] Respiratory Rate Blood Pressure 151/46 O2 Sat by Pulse Oximetry O2 Sat by Pulse Oximetry [ Anterior Bilateral Throughout] - General Apperance Constitutional: comfortable - EENT EENT: PERRL, mucous membranes moist - Respiratory Respiratory: chest non-tender, lungs clear, rhonchi - Cardiovascular Cardiovascular: other Extremities: no peripheral edema bilat, no clubbing, cyanosis - Gastrointestinal Gastrointestinal: normoactive bowel sounds - Integumentary Integumentary: normal - Neurologic Cranial nerve examination: PERRL, EOMI, intact Speech examination: intact Detailed motor examination: grossly full strength in - Laboratory Findings CBC and BMP: 06/29/21 07:29 06/29/21 19:47 Abnormal Lab Findings: Abnormal Labs 06/29/21 06/29/21 06/29/21 07:28 07:29 07:29 WBC 4.2 L MCH 26 L RDW 22.4 H Lymph # (Auto) 0.9 L Thrombin Time 20.4 H ABG pH POC ABG pCO2 POC ABG pO2 ABG Hemoglobin ABG Oxyhemoglobin ABG Sodium ABG Chloride ABG Glucose Carboxyhemoglobin Sodium Potassium Chloride BUN Creatinine Glucose POC Glucose 512 H CK-MB (CK-2) CK-MB (CK-2) Rel Index Troponin T Arterial Blood Glucose Arterial Blood Ionized Calcium 06/29/21 06/29/21 06/29/21 07:29 07:29 09:04 WBC MCH RDW Lymph # (Auto) Thrombin Time ABG pH POC ABG pCO2 POC ABG pO2 ABG Hemoglobin ABG Oxyhemoglobin ABG Sodium ABG Chloride ABG Glucose Carboxyhemoglobin Sodium 130 L Potassium 7.0 H* Chloride 89.4 L BUN 75 H Creatinine 9.0 H Glucose 546 H* POC Glucose 235 H CK-MB (CK-2) CK-MB (CK-2) Rel Index 4.5 H Troponin T 0.290 H* Arterial Blood Glucose Arterial Blood Ionized Calcium 06/29/21 06/29/21 06/29/21 17:44 19:47 20:00 WBC MCH RDW Lymph # (Auto) Thrombin Time ABG pH 7.526 H POC ABG pCO2 29.7 L POC ABG pO2 64.0 L ABG Hemoglobin 11.8 L ABG Oxyhemoglobin 90.9 L ABG Sodium 133.1 L ABG Chloride 97.0 L ABG Glucose 176 H Carboxyhemoglobin 2.2 H Sodium Potassium Chloride BUN Creatinine Glucose POC Glucose 190 H CK-MB (CK-2) 4.2 H CK-MB (CK-2) Rel Index 4.1 H Troponin T 0.322 H* Arterial Blood Glucose 176 H Arterial Blood Ionized Calcium 4.4 L 06/29/21 06/30/21 06/30/21 23:31 05:23 23:32 WBC MCH RDW Lymph # (Auto) Thrombin Time ABG pH POC ABG pCO2 POC ABG pO2 ABG Hemoglobin ABG Oxyhemoglobin ABG Sodium ABG Chloride ABG Glucose Carboxyhemoglobin Sodium Potassium Chloride BUN Creatinine Glucose POC Glucose 117 H 161 H 130 H CK-MB (CK-2) CK-MB (CK-2) Rel Index Troponin T Arterial Blood Glucose Arterial Blood Ionized Calcium 07/01/21 07/01/21 05:23 11:22 WBC MCH RDW Lymph # (Auto) Thrombin Time ABG pH POC ABG pCO2 POC ABG pO2 ABG Hemoglobin ABG Oxyhemoglobin ABG Sodium ABG Chloride ABG Glucose Carboxyhemoglobin Sodium Potassium Chloride BUN Creatinine Glucose POC Glucose 125 H 175 H CK-MB (CK-2) CK-MB (CK-2) Rel Index Troponin T Arterial Blood Glucose Arterial Blood Ionized Calcium
--- NOTE | 2021-07-01 15:22 | Progress Note ---
Assessment and Plan Hypertensive emergency Acute CVA s/p tPA ESRD on dialysis Acute hypoxemic respiratory failure H/O CHF Diabetes type II History of glaucoma Acute toxic metabolic encephalopathy - discharge held for stress testing - MRI without acute bleed / large ischemia - continue care as below otherwise; - continue secondary prevention measures - continue HD/UF for toxin and volume clearance - supportive diuretics per nephrology team - avoid nephrotoxins; renally dose all medications - continue supplemental oxygen as needed to keep O2 sat's > 90% - bronchodilators with pulmonary hygiene per RT - PT/OT as tolerated - mobility protocols for pressure ulcer prophylaxis - continue accuchecks with glycemic control per SSI for target BG < 180 mg/dl - GI & VTE prophylaxis - Flu & pneumovax addressed per protocol - continue other care per attending / other consultants .... transfer to telemetry floor ... re-evaluate in am & prn Subjective Date of service: 07/01/21 Principal diagnosis: HTNsive emergency; Acute CVA; ESRD; Ac hypoxemic resp failure; CHF; DM II Interval history: Patient is seen today for: Hypertensive emergency; Acute CVA s/p tPA; ESRD on dialysis; Acute hypoxemic respiratory failure; CHF; DM II; Acute toxic metabolic encephalopathy Seen and examined at bedside; 24hour events reviewed; nursing and respiratory care staff consulted; no adverse overnight events reported to me; resting in bed; doing much better clinically; denies acute chest pain or SOB Objective Vital Signs - 12hr 07/01/21 07/01/21 07/01/21 04:00 06:40 08:13 Temperature 99.0 F Pulse Rate 66 Pulse Rate [ Left Radial] Respiratory Rate Blood Pressure 153/61 O2 Sat by Pulse 94 Oximetry O2 Sat by Pulse Oximetry [ Anterior Bilateral Throughout] 07/01/21 07/01/21 07/01/21 08:16 08:17 09:15 Temperature 98.4 F Pulse Rate 62 66 Pulse Rate [ 74 Left Radial] Respiratory 13 Rate Blood Pressure 162/45 O2 Sat by Pulse 94 Oximetry O2 Sat by Pulse 96 Oximetry [ Anterior Bilateral Throughout] 07/01/21 07/01/21 07/01/21 09:18 09:22 09:30 Temperature Pulse Rate 68 68 Pulse Rate [ Left Radial] Respiratory Rate Blood Pressure 162/45 151/54 136/54 O2 Sat by Pulse Oximetry O2 Sat by Pulse Oximetry [ Anterior Bilateral Throughout] 07/01/21 07/01/21 07/01/21 09:45 10:00 10:15 Temperature Pulse Rate 68 68 68 Pulse Rate [ Left Radial] Respiratory Rate Blood Pressure 163/87 140/45 144/37 O2 Sat by Pulse Oximetry O2 Sat by Pulse Oximetry [ Anterior Bilateral Throughout] 07/01/21 07/01/21 07/01/21 10:30 10:45 11:00 Temperature Pulse Rate 70 69 64 Pulse Rate [ Left Radial] Respiratory Rate Blood Pressure 153/34 112/55 154/76 O2 Sat by Pulse Oximetry O2 Sat by Pulse Oximetry [ Anterior Bilateral Throughout] 07/01/21 07/01/21 07/01/21 11:15 11:30 11:45 Temperature Pulse Rate 64 70 64 Pulse Rate [ Left Radial] Respiratory Rate Blood Pressure 138/48 139/50 156/57 O2 Sat by Pulse Oximetry O2 Sat by Pulse Oximetry [ Anterior Bilateral Throughout] 07/01/21 07/01/21 07/01/21 12:00 12:15 12:30 Temperature 98.2 F Pulse Rate 65 63 68 Pulse Rate [ Left Radial] Respiratory Rate Blood Pressure 118/76 163/45 145/53 O2 Sat by Pulse Oximetry O2 Sat by Pulse Oximetry [ Anterior Bilateral Throughout] 07/01/21 07/01/21 12:52 13:00 Temperature 98.1 F Pulse Rate 65 70 Pulse Rate [ Left Radial] Respiratory 15 Rate Blood Pressure 151/46 122/62 O2 Sat by Pulse Oximetry O2 Sat by Pulse 94 Oximetry [ Anterior Bilateral Throughout] Constitutional: no acute distress, other (elderly female with noirmal respiratory effort at rest) Eyes: non-icteric ENT: oropharynx moist Neck: supple, no lymphadenopathy, no JVD Effort: mildly labored Ascultation: Bilateral: clear Percussion: Bilateral: not dull Cardiovascular: regular rate and rhythm Gastrointestinal: normoactive bowel sounds Integumentary: normal Extremities: no cyanosis, no edema, pulses normal, no ischemia or petechiae Neurologic: pupils equal and round, CN II-XII normal Psychiatric: mood appropriate, affect normal CBC and BMP: 06/29/21 07:29 06/29/21 19:47 ABG, PT/INR, D-dimer: ABG ABG pH 7.526 (7.320-7.450) H 06/29/21 20:00 POC ABG pCO2 29.7 mmHg (32.0-48.0) L 06/29/21 20:00 POC ABG pO2 64.0 mmHg (83-108) L 06/29/21 20:00 POC ABG HCO3 24.0 06/29/21 20:00 ABG O2 Saturation 93.2 (0-100) 06/29/21 20:00 PT/INR, D-dimer PT 13.7 Sec. (12.2-14.9) 06/29/21 07:29 INR 1.00 (0.87-1.13) 06/29/21 07:29 Abnormal lab findings: Abnormal Labs 06/29/21 06/29/21 06/29/21 07:28 07:29 07:29 WBC 4.2 L MCH 26 L RDW 22.4 H Lymph # (Auto) 0.9 L Thrombin Time 20.4 H ABG pH POC ABG pCO2 POC ABG pO2 ABG Hemoglobin ABG Oxyhemoglobin ABG Sodium ABG Chloride ABG Glucose Carboxyhemoglobin Sodium Potassium Chloride BUN Creatinine Glucose POC Glucose 512 H CK-MB (CK-2) CK-MB (CK-2) Rel Index Troponin T Arterial Blood Glucose Arterial Blood Ionized Calcium 06/29/21 06/29/21 06/29/21 07:29 07:29 09:04 WBC MCH RDW Lymph # (Auto) Thrombin Time ABG pH POC ABG pCO2 POC ABG pO2 ABG Hemoglobin ABG Oxyhemoglobin ABG Sodium ABG Chloride ABG Glucose Carboxyhemoglobin Sodium 130 L Potassium 7.0 H* Chloride 89.4 L BUN 75 H Creatinine 9.0 H Glucose 546 H* POC Glucose 235 H CK-MB (CK-2) CK-MB (CK-2) Rel Index 4.5 H Troponin T 0.290 H* Arterial Blood Glucose Arterial Blood Ionized Calcium 06/29/21 06/29/21 06/29/21 17:44 19:47 20:00 WBC MCH RDW Lymph # (Auto) Thrombin Time ABG pH 7.526 H POC ABG pCO2 29.7 L POC ABG pO2 64.0 L ABG Hemoglobin 11.8 L ABG Oxyhemoglobin 90.9 L ABG Sodium 133.1 L ABG Chloride 97.0 L ABG Glucose 176 H Carboxyhemoglobin 2.2 H Sodium Potassium Chloride BUN Creatinine Glucose POC Glucose 190 H CK-MB (CK-2) 4.2 H CK-MB (CK-2) Rel Index 4.1 H Troponin T 0.322 H* Arterial Blood Glucose 176 H Arterial Blood Ionized Calcium 4.4 L 06/29/21 06/30/21 06/30/21 23:31 05:23 23:32 WBC MCH RDW Lymph # (Auto) Thrombin Time ABG pH POC ABG pCO2 POC ABG pO2 ABG Hemoglobin ABG Oxyhemoglobin ABG Sodium ABG Chloride ABG Glucose Carboxyhemoglobin Sodium Potassium Chloride BUN Creatinine Glucose POC Glucose 117 H 161 H 130 H CK-MB (CK-2) CK-MB (CK-2) Rel Index Troponin T Arterial Blood Glucose Arterial Blood Ionized Calcium 07/01/21 07/01/21 05:23 11:22 WBC MCH RDW Lymph # (Auto) Thrombin Time ABG pH POC ABG pCO2 POC ABG pO2 ABG Hemoglobin ABG Oxyhemoglobin ABG Sodium ABG Chloride ABG Glucose Carboxyhemoglobin Sodium Potassium Chloride BUN Creatinine Glucose POC Glucose 125 H 175 H CK-MB (CK-2) CK-MB (CK-2) Rel Index Troponin T Arterial Blood Glucose Arterial Blood Ionized Calcium Allied health notes reviewed: nursing
[2021-07-01] MEDS: LATANOPROST 0.005% OPHTH SOLN 2.5 ML OU SCH (18:55)
[2021-07-02] MEDS: hydrALAZINE 100 MG TAB PO SCH ×2 (05:19→13:01)
[2021-07-02] MEDS: LEVOTHYROXINE 100 MCG TAB PO SCH (05:19)
[2021-07-02] MEDS: cloNIDine 0.1 MG TAB PO SCH ×3 (05:19→13:02)
[2021-07-02] MEDS ORDERED: REGADENOSON 0.4 MG/5 ML INJ IV ONE (07:29)
[2021-07-02] MEDS ORDERED: NIFEdipine XL 60 MG TAB PO SCH (10:00)
[2021-07-02] MEDS: FUROSEMIDE 40 MG TAB PO SCH (11:43)
[2021-07-02] MEDS: FAMOTIDINE 20 MG TAB PO SCH (11:43)
[2021-07-02] MEDS: SENNOSIDES 8.6 MG TAB PO SCH (11:43)
[2021-07-02] MEDS: ASPIRIN 325 MG TAB PO SCH (11:43)
[2021-07-02] MEDS: LISINOPRIL 40 MG TAB PO SCH (11:44)
[2021-07-02] MEDS: METOPROLOL TARTRATE 50 MG TAB PO SCH (11:44)
[2021-07-02] MEDS: HEPARIN 5,000 UNIT/1 ML VIAL SUB-Q SCH (11:45)
[2021-07-02] MEDS: DOCUSATE SODIUM 100 MG CAP PO SCH (11:46)
--- NOTE | 2021-07-02 12:09 | Progress Note ---
Assessment and Plan NSTEMI suspected type 2 * Patient EKG showed sinus 62 and patient was sinus 69 on monitor with no events. * Troponins noted to be elevated likely secondary to ESRD. * Lexiscan MPI stress 01/03/2019-normal resting and stress myocardial perfusion images. EF 38% * Echo-08/14/2020 EF 25 to 30%, left ventricle is mildly dilated moderate to severe left ventricular hypertrophy left atrium is moderately dilated right ventricle is moderately dilated right ventricle systolic function is moderately reduced * Echo 06/29/2021-EF 25 to 30% severe left ventricular hypertrophy, mild diastolic dysfunction, right ventricle is moderate to severely dilated, right systolic function is normal left atrium is severely dilated, right atrium mildly dilated atrial septum is bowed toward the left mild tricuspid regurgitation mild mitral regurgitation * Lexiscan stress test- negative with EF of 30% ESRD * Patient received dialysis yesterday * Nephrology is following Ischemic Stroke * Patient received TPN for stroke like symptoms * Neuro is following * MRI shows no clear evidence of recent infarctions Patient had a normal stress test. Patient is stable and may discharge from a cardica standpoint Patient should follow up with Dr. Shipman, [facility], on 07/13/2021 at 11:15am at our [place] office. Patient seen in conjunction with Dr. Warren who agrees to this plan of care. Will see as needed - Patient Problems (1) Acute CVA (cerebrovascular accident) Current Visit: Yes Status: Acute (2) Elevated troponin Current Visit: Yes Status: Acute (3) Hyperglycemia due to diabetes mellitus Current Visit: Yes Status: Acute (4) Hyperkalemia Current Visit: Yes Status: Acute (5) ESRD (end stage renal disease) Current Visit: Yes Status: Chronic (6) Altered mental status Current Visit: No Status: Acute Subjective Date of service: 07/02/21 Principal diagnosis: HTNsive emergency; Acute CVA; ESRD; Ac hypoxemic resp failure; CHF; DM II Interval history: Patient at stress lab this AM Sinus 70s with no events on monitor Objective Last Vital Signs Temp 97.0 F L 07/02/21 11:19 Pulse 68 07/02/21 11:44 Resp 18 07/02/21 11:19 BP 217/81 07/02/21 11:44 Pulse Ox 100 07/02/21 11:32 - Physical Examination General: No Apparent Distress HEENT: Positive: PERRL Neck: Positive: neck supple Cardiac: Positive: Reg Rate and Rhythm Lungs: Positive: Normal Breath Sounds Neuro: Positive: Grossly Intact Abdomen: Positive: Unremarkable, Soft Skin: Negative: Rash, Suspicious Lesions, Ulceration Extremities: Present: upper extr. pulses, lower extr. pulses - Imaging and Cardiology EKG: report reviewed, image reviewed Echo: report reviewed - Telemetry EKG Rhythm: Sinus Rhythm - EKG Sinus rhythms and dysrhythmias: sinus rhythm - Allied health notes Allied health notes reviewed: nursing
[2021-07-02] MEDS: hydrOXYzine HCL 25 MG TAB PO SCH (13:04)
[2021-07-02] MEDS: INSULIN GLARGINE 100 UNITS/ML SUB-Q SCH (14:15)
--- NOTE | 2021-07-02 14:25 | Discharge Summary ---
Providers - Providers Date of Admission: 06/29/21 09:04 Attending physician: NEELIMA RONQUILLO MD 06/29/21 08:54 Consult to Physician [CONS] Urgent Comment: dr. Wong spear /reyna Consulting Provider: LORELEI VASQUEZ Physician Instructions: Reason For Exam: esrd, hyperkalemia 06/29/21 10:00 Consult to Physician [CONS] Routine Comment: dr. [place] nick/ reyna Consulting Provider: GAYLE COKER Physician Instructions: Reason For Exam: cva s/p TPA 06/29/21 10:01 Consult to Physician [CONS] Routine Comment: dr. rikki orellana Consulting Provider: HALEIGH GOSS Physician Instructions: Reason For Exam: CVA 06/29/21 10:03 Consult to Dietitian/Nutrition [CONS] Routine Physician Instructions: Reason For Exam: Reason for Consult: Diet education Occupational Therapy Evaluate and Treat [CONS] Routine Comment: Reason For Exam: Neuro deficits Physical Therapy Evaluation and Treat [CONS] Routine Comment: Reason For Exam: Neuro deficits 06/29/21 10:06 Consult to Case Management [CONS] Routine Services Needed at Discharge: Utility Aide Notified:: NO 06/29/21 10:07 Speech Therapy Evaluation and Treat [CONS] Routine Reason For Exam: swallow eval 06/29/21 10:14 Consult to Physician [CONS] Routine Comment: dr. gretchen kendall o/shirley orellana Consulting Provider: SUE CAMPOS Physician Instructions: Reason For Exam: tYPE 2 [place] ? 07/02/21 12:13 Consult to Physician [CONS] Routine Comment: Consulting Provider: MEG PERES Physician Instructions: Reason For Exam: LICA >50% Primary care physician: NING PLAZA Hospitalization Reason for admission: CVA Condition: Stable Hospital course: Patient is a 65-year-old female with past medical history of end-stage renal disease on dialysis Tuesday, hypertension, CHF, and diabetes (with history of DKA) presents to the hospital with stroke symptoms that started 1 hours prior to arrival approximately 6 AM. Patient is not [place] speaking with [place] language Twi from [facility]. Although it is understood that the patient actually speaks Jamaican but does not communicate sometimes. Daughter was at bedside says that the patient can be stubborn at times. During my examination the patient has started on TPN and is moving all extremities although was not speaking. Further evaluation from the ER physician documentation and collaborated by the daughter who was at bedside She states that patient woke up normal and then went to take a shower. After taking a shower was noted if she has slurred speech and right-sided weakness. EMS reports right-sided weakness, slurred speech, no movement of the right upper or lower extremity against gravity. Accu-Chek 506. Code stroke initiated prior to patient arrival to the ED. patient is due for dialysis today. Automobiles Salesperson: Dr. Plaza CTA head and neck IMPRESSION: Slightly limited exam without inclusion of the aortic arch and origin of the left vertebral artery and great vessels. Moderate to severe atherosclerotic plaques are identified near both carotid bifurcations. The most affected level appears to be the distal right CCA demonstrating approximately 50% stenosis. Very small caliber of the left vertebral artery as described which could be congenital. Less than 50% stenosis in both ICAs. CT head shows no acute pathology but shows increased density around the right optical area corresponds with the interval ophthalmic surgery Chest x-ray shows pulmonary vascular congestion Slurred speech with aphasia Right-sided hemiparesis all concerning for new onset CVA Diabetes mellitus with hyperglycemia Acute metabolic encephalopathy now resolved Hypothyroidism End-stage renal disease Hypertensive urgency Stable congestive heart failure Hyponatremia Severe hyperkalemia Type 2 OH Plan Patient seen and examined during this hospitalization the patient received TPA. She is moving all extremities at this time. She is also speaking no evidence of slurred speech. She is going to undergo dialysis today. Blood pressure is better controlled. Echocardiogram was done 06/29/2021-EF 25 to 30% severe left ventricular hypertrophy, mild diastolic dysfunction, right ventricle is moderate to severely dilated, right systolic function is normal left atrium is severely dilated, right atrium mildly dilated atrial septum is bowed toward the left mild tricuspid regurgitation mild mitral regurgitation this appears consistent with Echo-08/14/2020 EF 25 to 30%, left ventricle is mildly dilated moderate to severe left ventricular hypertrophy left atrium is moderately dilated right ventricle is moderately dilated right ventricle systolic function is moderately reduced No further recommendation by cardiology the patient will follow with them outpatient. Patient underwent stress test at the recommendation of cardiology which was negative. She is cleared for discharge she will follow-up with vascular surgery outpatient to further evaluate left ICA which appeared to have greater than 50% stenosis by ultrasound. Her blood pressure is better controlled following reinitiation of her home dose blood pressure medication. Disposition: [id number] HOME UNDER HOME HLTH Final Discharge Diagnosis (Prints w/discharge instructions): CVA Time spent for discharge: 35 minutes Core Measure Documentation - Palliative Care Palliative Care/ Comfort Measures: Not Applicable - Core Measures Any of the following diagnoses?: stroke - Stroke Discharge Requirements Statin for LDL = or >70 mg/dl on DC: Yes Anticoag for atrial fib/atrial flutter: Not Applicable Antithrombotic for ischemic stroke: Yes Exam - Physical Exam Narrative exam: VITAL SIGNS: Reviewed. GENERAL: The patient appears normally developed, Vital signs as documented. HEAD: No signs of head trauma. EYES: Pupils are equal. Extraocular motions intact. EARS: Hearing grossly intact. MOUTH: Oropharynx is normal. NECK: No adenopathy, no JVD. CHEST: Chest with crackles breath sounds bilaterally. No wheezes, rales, or rhonchi. CARDIAC: Regular rate and rhythm. S1 and S2, without murmurs, gallops, or rubs. VASCULAR: No Edema. Peripheral pulses normal and equal in all extremities. ABDOMEN: Soft, non tender and non distended. No rebound or guarding, and no masses palpated. Bowel Sounds normal. MUSCULOSKELETAL: Good range of motion of all major joints. Extremities without clubbing, cyanosis or edema. NEUROLOGIC EXAM: Alert and oriented x 3 No focal sensory or strength deficits. Aphasia resolved, follows commands. PSYCHIATRIC: Mood normal. SKIN: detail exam as documented in skin assessment - Constitutional Vitals: Temp Pulse Resp BP Pulse Ox 97.0 F L 65 18 148/67 100 07/02/21 11:19 07/02/21 13:02 07/02/21 11:19 07/02/21 13:02 07/02/21 11:32 Plan Activity: advance as tolerated, fall precautions Diet: low fat Special Instructions: record daily weights, record daily BP diary, physical therapy, occupational therapy Follow up with: NING PLAZA MD [Primary Care Provider] - 3-5 Days SUE CAMPOS MD [Staff Physician] - 7 Days PIA COSTELLO MD [Staff Physician] - 7 Days MEG PERES MD [Staff Physician] - 7 Days Prescriptions: Aspirin 325 mg PO QDAY #30 tablet Famotidine [Pepcid] 20 mg PO DAILY #30 tablet
--- NOTE | 2021-07-02 15:55 | Progress Note ---
Assessment and Plan Hypertensive emergency Acute CVA s/p tPA ESRD on dialysis Acute hypoxemic respiratory failure H/O CHF Diabetes type II History of glaucoma Acute toxic metabolic encephalopathy - discharge held for stress testing - MRI without acute bleed / large ischemia - continue care as below otherwise; - continue secondary prevention measures - continue HD/UF for toxin and volume clearance - supportive diuretics per nephrology team - avoid nephrotoxins; renally dose all medications - continue supplemental oxygen as needed to keep O2 sat's > 90% - bronchodilators with pulmonary hygiene per RT - PT/OT as tolerated - mobility protocols for pressure ulcer prophylaxis - continue accuchecks with glycemic control per SSI for target BG < 180 mg/dl - GI & VTE prophylaxis - Flu & pneumovax addressed per protocol - continue other care per attending / other consultants ... re-evaluate in am & prn Subjective Date of service: 07/02/21 Principal diagnosis: HTNsive emergency; Acute CVA; ESRD; Ac hypoxemic resp failure; CHF; DM II Interval history: Patient is seen today for: Hypertensive emergency; Acute CVA s/p tPA; ESRD on dialysis; Acute hypoxemic respiratory failure; CHF; DM II; Acute toxic metabolic encephalopathy Seen and examined at bedside; 24hour events reviewed; nursing and respiratory care staff consulted; no adverse overnight events reported to me; resting in bed; Objective Vital Signs - 12hr 07/02/21 07/02/21 07/02/21 05:10 05:19 07:29 Temperature 98.9 F Pulse Rate 63 65 65 Respiratory 20 Rate Blood Pressure 189/84 189/84 183/70 Blood Pressure [Right] O2 Sat by Pulse 95 94 Oximetry 07/02/21 07/02/21 07/02/21 07:30 08:09 08:20 Temperature Pulse Rate Respiratory Rate Blood Pressure 185/84 178/78 Blood Pressure [Right] O2 Sat by Pulse 94 Oximetry 07/02/21 07/02/21 07/02/21 08:49 08:50 08:51 Temperature Pulse Rate Respiratory Rate Blood Pressure 175/70 195/66 148/66 Blood Pressure [Right] O2 Sat by Pulse Oximetry 07/02/21 07/02/21 07/02/21 08:53 09:14 11:19 Temperature 97.0 F L Pulse Rate 60 64 Respiratory 18 Rate Blood Pressure 148/74 217/81 Blood Pressure [Right] O2 Sat by Pulse 91 Oximetry 07/02/21 07/02/21 07/02/21 11:30 11:31 11:32 Temperature Pulse Rate 62 67 68 Respiratory Rate Blood Pressure Blood Pressure [Right] O2 Sat by Pulse 99 100 100 Oximetry 07/02/21 07/02/21 07/02/21 11:44 13:00 13:01 Temperature Pulse Rate 68 65 65 Respiratory Rate Blood Pressure 217/81 148/67 Blood Pressure 148/67 [Right] O2 Sat by Pulse Oximetry 07/02/21 13:02 Temperature Pulse Rate 65 Respiratory Rate Blood Pressure 148/67 Blood Pressure [Right] O2 Sat by Pulse Oximetry Constitutional: no acute distress, other (elderly female with noirmal respiratory effort at rest) Eyes: non-icteric ENT: oropharynx moist Neck: supple, no lymphadenopathy, no JVD Effort: mildly labored Ascultation: Bilateral: clear Percussion: Bilateral: not dull Cardiovascular: regular rate and rhythm Gastrointestinal: normoactive bowel sounds Integumentary: normal Extremities: no cyanosis, no edema, pulses normal, no ischemia or petechiae Neurologic: pupils equal and round, CN II-XII normal Psychiatric: mood appropriate, affect normal CBC and BMP: 06/29/21 07:29 06/29/21 19:47 ABG, PT/INR, D-dimer: ABG ABG pH 7.526 (7.320-7.450) H 06/29/21 20:00 POC ABG pCO2 29.7 mmHg (32.0-48.0) L 06/29/21 20:00 POC ABG pO2 64.0 mmHg (83-108) L 06/29/21 20:00 POC ABG HCO3 24.0 06/29/21 20:00 ABG O2 Saturation 93.2 (0-100) 06/29/21 20:00 PT/INR, D-dimer PT 13.7 Sec. (12.2-14.9) 06/29/21 07:29 INR 1.00 (0.87-1.13) 06/29/21 07:29 Abnormal lab findings: Abnormal Labs 06/29/21 06/29/21 06/29/21 07:28 07:29 07:29 WBC 4.2 L MCH 26 L RDW 22.4 H Lymph # (Auto) 0.9 L Thrombin Time 20.4 H ABG pH POC ABG pCO2 POC ABG pO2 ABG Hemoglobin ABG Oxyhemoglobin ABG Sodium ABG Chloride ABG Glucose Carboxyhemoglobin Sodium Potassium Chloride BUN Creatinine Glucose POC Glucose 512 H CK-MB (CK-2) CK-MB (CK-2) Rel Index Troponin T Arterial Blood Glucose Arterial Blood Ionized Calcium 06/29/21 06/29/21 06/29/21 07:29 07:29 09:04 WBC MCH RDW Lymph # (Auto) Thrombin Time ABG pH POC ABG pCO2 POC ABG pO2 ABG Hemoglobin ABG Oxyhemoglobin ABG Sodium ABG Chloride ABG Glucose Carboxyhemoglobin Sodium 130 L Potassium 7.0 H* Chloride 89.4 L BUN 75 H Creatinine 9.0 H Glucose 546 H* POC Glucose 235 H CK-MB (CK-2) CK-MB (CK-2) Rel Index 4.5 H Troponin T 0.290 H* Arterial Blood Glucose Arterial Blood Ionized Calcium 06/29/21 06/29/21 06/29/21 17:44 19:47 20:00 WBC MCH RDW Lymph # (Auto) Thrombin Time ABG pH 7.526 H POC ABG pCO2 29.7 L POC ABG pO2 64.0 L ABG Hemoglobin 11.8 L ABG Oxyhemoglobin 90.9 L ABG Sodium 133.1 L ABG Chloride 97.0 L ABG Glucose 176 H Carboxyhemoglobin 2.2 H Sodium Potassium Chloride BUN Creatinine Glucose POC Glucose 190 H CK-MB (CK-2) 4.2 H CK-MB (CK-2) Rel Index 4.1 H Troponin T 0.322 H* Arterial Blood Glucose 176 H Arterial Blood Ionized Calcium 4.4 L 06/29/21 06/30/21 06/30/21 23:31 05:23 23:32 WBC MCH RDW Lymph # (Auto) Thrombin Time ABG pH POC ABG pCO2 POC ABG pO2 ABG Hemoglobin ABG Oxyhemoglobin ABG Sodium ABG Chloride ABG Glucose Carboxyhemoglobin Sodium Potassium Chloride BUN Creatinine Glucose POC Glucose 117 H 161 H 130 H CK-MB (CK-2) CK-MB (CK-2) Rel Index Troponin T Arterial Blood Glucose Arterial Blood Ionized Calcium 07/01/21 07/01/21 07/02/21 05:23 11:22 11:37 WBC MCH RDW Lymph # (Auto) Thrombin Time ABG pH POC ABG pCO2 POC ABG pO2 ABG Hemoglobin ABG Oxyhemoglobin ABG Sodium ABG Chloride ABG Glucose Carboxyhemoglobin Sodium Potassium Chloride BUN Creatinine Glucose POC Glucose 125 H 175 H 154 H CK-MB (CK-2) CK-MB (CK-2) Rel Index Troponin T Arterial Blood Glucose Arterial Blood Ionized Calcium Allied health notes reviewed: nursing
--- NOTE | 2021-07-02 16:07 | Consultation ---
History of Present Illness - Reason for Consult Consult date: 07/02/21 Patient with a history of right CVA - History of Present Illness Patient with a history of right CVA who was noted to have mild left carotid bulb stenosis 50 to 69%. On her CTA, it also appears that the tortuosity of the carotid as it comes off the arch narrows the blood vessels significantly. Patient is improved and is being discharged home today. Past History Past Medical History: diabetes, ESRD, hypertension, hyperlipidemia Past Surgical History: Other (AVF creation) Social history: no significant social history, lives with family Family history: no significant family history Medications and Allergies Allergies Allergy/AdvReac Type Severity Reaction Status Date / Time No Known Allergies Allergy Verified 01/01/19 23:56 Home Medications Medication Instructions Recorded Confirmed Last Taken Type glipiZIDE [Glipizide] 10 mg PO BID 01/02/19 08/11/20 02/17/19 History cloNIDine [Catapres] 0.1 mg PO Q8HR #90 tablet 03/20/19 08/11/20 Unknown Rx AtorvaSTATin [Lipitor] 40 mg PO QHS 08/11/20 08/11/20 Unknown History Cetirizine HCl [Allergy Relief] 10 mg PO QDAY 08/11/20 08/11/20 Unknown History Furosemide [Lasix TAB] 80 mg PO QDAY 08/11/20 08/11/20 Unknown History Latanoprost 0.005% 1 drop OP QPM 08/11/20 08/11/20 Unknown History Levothyroxine [Synthroid] 200 mcg PO DAILY@0600 08/11/20 08/11/20 Unknown History Metoprolol [Lopressor TAB] 50 mg PO BID 08/11/20 08/11/20 Unknown History NIFEdipine [Nifedipine ER] 60 mg PO QDAY 08/11/20 08/11/20 Unknown History hydrOXYzine HCL [Atarax] 25 mg PO BID 08/11/20 08/11/20 Unknown History lisinopriL [Zestril TAB] 40 mg PO QDAY 08/11/20 08/11/20 Unknown History Insulin Glargine [Lantus VIAL] 10 units SUB-Q QAMDIAB units 08/15/20 Unknown Rx Insulin Lispro [Humalog] 0 unit SUB-Q Q6HR vial 08/15/20 Unknown Rx Metoprolol [Lopressor TAB] 50 mg PO BID tablet 08/15/20 Unknown Rx NIFEdipine XL [Procardia Xl] 60 mg PO BID tablet 08/15/20 Unknown Rx cloNIDine [Catapres] 0.1 mg PO Q8HR tablet 08/15/20 Unknown Rx hydrALAZINE [Apresoline TAB] 100 mg PO Q8HR tablet 08/15/20 Unknown Rx lisinopriL [Zestril TAB] 40 mg PO QDAY tablet 08/15/20 Unknown Rx Aspirin 325 mg PO QDAY #30 tablet 07/01/21 Unknown Rx Famotidine [Pepcid] 20 mg PO DAILY #30 tablet 07/01/21 Unknown Rx Active Meds: Active Medications Acetaminophen (Acetaminophen 325 Mg Tab) 650 mg PO Q4H PRN PRN Reason: Pain, Mild (1-3) Al Hydrox/Mg Hydrox/Simethicone (Alum-Mag Hydroxide-Simethicone [phone]/5ml Oral Liqd 30 Ml) 30 ml PO Q4H PRN PRN Reason: Indigestion Albuterol (Albuterol 2.5 Mg/3 Ml Nebu) 2.5 mg IH Q3HRT PRN PRN Reason: Shortness Of Breath Aspirin (Aspirin 325 Mg Tab) 325 mg PO QDAY [facility] Last Admin: 07/02/21 11:43 Dose: 325 mg Documented by: Atorvastatin Calcium (Atorvastatin 40 Mg Tab) 40 mg PO QHS [facility] Last Admin: 07/01/21 22:11 Dose: 40 mg Documented by: Bisacodyl (Bisacodyl 10 Mg Rect Supp) 10 mg MA QDAY PRN PRN Reason: Constipation Clonidine HCl (Clonidine 0.1 Mg Tab) 0.2 mg PO Q8HR [facility] Last Admin: 07/02/21 13:02 Dose: Not Given Documented by: Dextrose (Dextrose 50% In Water (25gm) 50 Ml Syringe) 50 ml IV Q30MIN PRN; Protocol PRN Reason: Hypoglycemia Docusate Sodium (Docusate Sodium 100 Mg Cap) 100 mg PO BID [facility] Last Admin: 07/02/21 11:46 Dose: 100 mg Documented by: Famotidine (Famotidine 20 Mg Tab) 20 mg PO DAILY [facility] Last Admin: 07/02/21 11:43 Dose: 20 mg Documented by: Furosemide (Furosemide 40 Mg Tab) 80 mg PO QDAY [facility] Last Admin: 07/02/21 11:43 Dose: 80 mg Documented by: Heparin Sodium (Porcine) (Heparin 5,000 Unit/1 Ml Vial) 5,000 unit SUB-Q Q12HR [facility] Last Admin: 07/02/21 11:45 Dose: 5,000 unit Documented by: Hydralazine HCl (Hydralazine 100 Mg Tab) 100 mg PO Q8HR [facility] Last Admin: 07/02/21 13:01 Dose: 100 mg Documented by: Hydroxyzine HCl (Hydroxyzine Hcl 25 Mg Tab) 25 mg PO BID [facility] Last Admin: 07/02/21 13:04 Dose: 25 mg Documented by: Sodium Chloride (Nacl 0.9%) 100 mls @ 999 mls/hr IV TWAN PRN PRN Reason: Hypotension Insulin Glargine (Insulin Glargine 100 Units/Ml) 10 units SUB-Q QAMDIAB [facility] Last Admin: 07/02/21 14:15 Dose: 10 units Documented by: Latanoprost (Latanoprost 0.005% Ophth Soln 2.5 Ml) 1 drops OU QPM [facility] Last Admin: 07/01/21 18:55 Dose: 1 drops Documented by: Levothyroxine Sodium (Levothyroxine 100 Mcg Tab) 200 mcg PO DAILY@0600 [facility] Last Admin: 07/02/21 05:19 Dose: 200 mcg Documented by: Lisinopril (Lisinopril 40 Mg Tab) 40 mg PO QDAY [facility] Last Admin: 07/02/21 11:44 Dose: 40 mg Documented by: Magnesium Hydroxide (Magnesium Hydroxide (Mom) Oral Liqd Udc) 30 ml PO Q4H PRN PRN Reason: Constipation Metoclopramide HCl (Metoclopramide 10 Mg Tab) 5 mg PO Q12H PRN PRN Reason: Nausea And Vomiting Metoprolol Tartrate (Metoprolol Tartrate 50 Mg Tab) 50 mg PO BID [facility] Last Admin: 07/02/21 11:44 Dose: 50 mg Documented by: Morphine Sulfate (Morphine 2 Mg/1 Ml Inj) 2 mg IV Q4H PRN PRN Reason: Pain, Moderate (4-6) Last Admin: 07/02/21 08:45 Dose: 2 mg Documented by: Nifedipine (Nifedipine Xl 60 Mg Tab) 60 mg PO Q12HR [facility] Last Admin: 07/02/21 11:43 Dose: 60 mg Documented by: Ondansetron HCl (Ondansetron 4 Mg/2 Ml Inj) 4 mg IV Q8H PRN PRN Reason: Nausea And Vomiting Last Admin: 06/30/21 11:28 Dose: 4 mg Documented by: Promethazine HCl (Promethazine 25 Mg Rect Supp) 25 mg MA Q6H PRN PRN Reason: Nausea And Vomiting Senna (Sennosides 8.6 Mg Tab) 8.6 mg PO BID [facility] Last Admin: 07/02/21 11:43 Dose: 8.6 mg Documented by: Senna (Sennosides 8.6 Mg Tab) 8.6 mg PO Q12H PRN PRN Reason: Laxative Effect Sodium Chloride (Sodium Chloride 0.9% 10 Ml Flush Syringe) 10 ml IV BID [facility] Last Admin: 07/02/21 11:45 Dose: 10 ml Documented by: Sodium Chloride (Sodium Chloride 0.9% 10 Ml Flush Syringe) 10 ml IV PRN PRN PRN Reason: LINE FLUSH Last Admin: 06/30/21 09:50 Dose: 10 ml Documented by: Review of Systems ROS unobtainable: due to mental status (Language barrier) Exam - Constitutional Vitals: Temp Pulse Resp BP Pulse Ox 97.0 F L 65 18 148/67 100 07/02/21 11:19 07/02/21 13:02 07/02/21 11:19 07/02/21 13:02 07/02/21 11:32 General appearance: Present: no acute distress - Neck Neck: Present: supple - Respiratory Respiratory effort: normal - Abdominal General gastrointestinal: Present: deferred Female genitourinary: Present: deferred - Rectal Rectal Exam: deferred Results - Labs CBC & Chem 7: 06/29/21 07:29 06/29/21 19:47 Labs: Abnormal lab results 07/02/21 07/02/21 Range/Units 11:37 15:58 POC Glucose 154 H 298 H (70-105) mg/dL - Imaging and Cardiology CT Scan - head: image reviewed Venous US: image reviewed Assessment and Plan Patient with mild carotid stenosis and tortuosity of her left common carotid artery as it exits the arch. The patient will need to follow-up in our office 2 weeks following discharge. Would recommend that the patient be placed on antiplatelet therapy in conjunction with her antihypertensives.
[2021-07-02 16:08] VITALS: BP 181/77
[2021-07-02] MEDS: LATANOPROST 0.005% OPHTH SOLN 2.5 ML OU SCH (18:41)
--- NOTE | 2021-07-02 19:13 | Progress Note ---
Assessment and Plan - Patient Problems (1) Acute CVA (cerebrovascular accident) Current Visit: Yes Status: Acute Plan to address problem: s/p administration of TPA. Recommendation from neurology reviewed. Findings of MRI reviewed. Mild carotid stenosis noted on ultrasound, and plan to f/u vascular surgery in ~ 2 weeks as outpatient. (2) Hyperkalemia Current Visit: Yes Status: Acute Plan to address problem: Will treat with HD. Counseled on importance of low potassium diet. improved levels noted this morning. (3) ESRD (end stage renal disease) Current Visit: Yes Status: Chronic Plan to address problem: Have placed her on inpatient MWF HD schedule. (4) Hypertensive chronic kidney disease with stage 5 chronic kidney disease or end stage renal disease Current Visit: No Status: Chronic Plan to address problem: Monitor under current regimen. (5) Type 2 diabetes mellitus with diabetic chronic kidney disease Current Visit: No Status: Chronic Qualifiers: Chronic kidney disease stage: on chronic dialysis Plan to address problem: Management per primary attending. (6) Secondary hyperparathyroidism (of renal origin) Current Visit: No Status: Chronic Plan to address problem: Continue on home phos binder regimen. Subjective Date of service: 07/02/21 Principal diagnosis: HTNsive emergency; Acute CVA; ESRD; Ac hypoxemic resp failure; CHF; DM II Interval history: No acute complaints/changes. Pending DC today. Objective - Vital Signs Vital signs: Vital Signs - 12hr 07/02/21 07/02/21 07/02/21 07:29 07:30 08:09 Temperature Pulse Rate 65 Respiratory Rate Blood Pressure 183/70 185/84 Blood Pressure [Right] O2 Sat by Pulse 94 94 Oximetry 07/02/21 07/02/21 07/02/21 08:20 08:49 08:50 Temperature Pulse Rate Respiratory Rate Blood Pressure 178/78 175/70 195/66 Blood Pressure [Right] O2 Sat by Pulse Oximetry 07/02/21 07/02/21 07/02/21 08:51 08:53 09:14 Temperature Pulse Rate 60 Respiratory Rate Blood Pressure 148/66 148/74 Blood Pressure [Right] O2 Sat by Pulse Oximetry 07/02/21 07/02/21 07/02/21 11:19 11:30 11:31 Temperature 97.0 F L Pulse Rate 64 62 67 Respiratory 18 Rate Blood Pressure 217/81 Blood Pressure [Right] O2 Sat by Pulse 91 99 100 Oximetry 07/02/21 07/02/21 07/02/21 11:32 11:44 13:00 Temperature Pulse Rate 68 68 65 Respiratory Rate Blood Pressure 217/81 Blood Pressure 148/67 [Right] O2 Sat by Pulse 100 Oximetry 07/02/21 07/02/21 07/02/21 13:01 13:02 15:58 Temperature 98.6 F Pulse Rate 65 65 62 Respiratory 18 Rate Blood Pressure 148/67 148/67 181/77 Blood Pressure [Right] O2 Sat by Pulse 93 Oximetry - General Appearance General appearance: well-nourished, appears stated age EENT: ATNC Neck: no JVD Respiratory: Present: Clear to Ascultation Cardiology: regular Gastrointestinal: normal Integumentary: no rash Neurologic: facial droop Musculoskeletal: deferred Psychiatric: cooperative - Lab 06/29/21 07:29 06/29/21 19:47 Most recent lab results ABG pH 7.526 (7.320-7.450) H 06/29/21 20:00 ABG O2 Saturation 93.2 (0-100) 06/29/21 20:00 Calcium 9.2 mg/dL (8.4-10.2) 06/29/21 07:29 Medications & Allergies - Medications Allergies/Adverse Reactions: Allergies No Known Allergies Allergy (Verified 01/01/19 23:56) Home Medications: Home Medications Medication Instructions Recorded Confirmed Last Taken Type glipiZIDE [Glipizide] 10 mg PO BID 01/02/19 08/11/20 02/17/19 History cloNIDine [Catapres] 0.1 mg PO Q8HR #90 tablet 03/20/19 08/11/20 Unknown Rx AtorvaSTATin [Lipitor] 40 mg PO QHS 08/11/20 08/11/20 Unknown History Cetirizine HCl [Allergy Relief] 10 mg PO QDAY 08/11/20 08/11/20 Unknown History Furosemide [Lasix TAB] 80 mg PO QDAY 08/11/20 08/11/20 Unknown History Latanoprost 0.005% 1 drop OP QPM 08/11/20 08/11/20 Unknown History Levothyroxine [Synthroid] 200 mcg PO DAILY@0600 08/11/20 08/11/20 Unknown Histo ry Metoprolol [Lopressor TAB] 50 mg PO BID 08/11/20 08/11/20 Unknown History NIFEdipine [Nifedipine ER] 60 mg PO QDAY 08/11/20 08/11/20 Unknown History hydrOXYzine HCL [Atarax] 25 mg PO BID 08/11/20 08/11/20 Unknown History lisinopriL [Zestril TAB] 40 mg PO QDAY 08/11/20 08/11/20 Unknown History Insulin Glargine [Lantus VIAL] 10 units SUB-Q QAMDIAB units 08/15/20 Unknown Rx Insulin Lispro [Humalog] 0 unit SUB-Q Q6HR vial 08/15/20 Unknown Rx Metoprolol [Lopressor TAB] 50 mg PO BID tablet 08/15/20 Unknown Rx NIFEdipine XL [Procardia Xl] 60 mg PO BID tablet 08/15/20 Unknown Rx cloNIDine [Catapres] 0.1 mg PO Q8HR tablet 08/15/20 Unknown Rx hydrALAZINE [Apresoline TAB] 100 mg PO Q8HR tablet 08/15/20 Unknown Rx lisinopriL [Zestril TAB] 40 mg PO QDAY tablet 08/15/20 Unknown Rx Aspirin 325 mg PO QDAY #30 tablet 07/01/21 Unknown Rx Famotidine [Pepcid] 20 mg PO DAILY #30 tablet 07/01/21 Unknown Rx Active Medications: Generic Name Dose Route Start Last Admin Trade Name Freq PRN Reason Stop Dose Admin Acetaminophen 650 mg 06/29/21 11:00 Acetaminophen 325 Mg Tab PO Q4H PRN Pain, Mild (1-3) Al Hydrox/Mg Hydrox/Simethicone 30 ml 06/29/21 11:00 Alum-Mag Hydroxide-Simethicone [phone]/5ml Oral Liqd 30 Ml PO Q4H PRN Indigestion Albuterol 2.5 mg 06/29/21 11:00 Albuterol 2.5 Mg/3 Ml Nebu IH Q3HRT PRN Shortness Of Breath Aspirin 325 mg 06/30/21 10:00 07/02/21 11:43 Aspirin 325 Mg Tab PO 325 mg QDAY ART Administration Atorvastatin Calcium 40 mg 06/29/21 22:00 07/01/21 22:11 Atorvastatin 40 Mg Tab PO 40 mg QHS ART Administration Bisacodyl 10 mg 06/29/21 11:00 Bisacodyl 10 Mg Rect Supp [place] QDAY PRN Constipation Clonidine HCl 0.2 mg 07/02/21 08:00 07/02/21 13:02 Clonidine 0.1 Mg Tab PO Not Given Q8HR ART Dextrose 50 ml 06/29/21 11:00 Dextrose 50% In Water (25gm) 50 Ml Syringe IV Q30MIN PRN Hypoglycemia Protocol Docusate Sodium 100 mg 06/29/21 22:00 07/02/21 11:46 Docusate Sodium 100 Mg Cap PO 100 mg BID ART Administration Famotidine 20 mg 07/01/21 10:00 07/02/21 11:43 Famotidine 20 Mg Tab PO 20 mg DAILY ART Administration Furosemide 80 mg 06/29/21 12:00 07/02/21 11:43 Furosemide 40 Mg Tab PO 80 mg QDAY ART Administration Heparin Sodium (Porcine) 5,000 unit 06/29/21 22:00 07/02/21 11:45 Heparin 5,000 Unit/1 Ml Vial SUB-Q 5,000 unit Q12HR ART Administration Hydralazine HCl 100 mg 06/29/21 14:00 07/02/21 13:01 Hydralazine 100 Mg Tab PO 100 mg Q8HR ART Administration Hydroxyzine HCl 25 mg 06/29/21 11:00 07/02/21 13:04 Hydroxyzine Hcl 25 Mg Tab PO 25 mg BID ART Administration Sodium Chloride 100 mls @ 999 mls/hr 06/29/21 11:12 Nacl 0.9% IV TWAN PRN Hypotension Insulin Glargine 10 units 06/29/21 12:00 07/02/21 14:15 Insulin Glargine 100 Units/Ml SUB-Q 10 units QAMDIAB ART Administration Latanoprost 1 drops 06/29/21 18:00 07/02/21 18:41 Latanoprost 0.005% Ophth Soln 2.5 Ml OU Not Given QPM [facility] Levothyroxine Sodium 200 mcg 06/30/21 06:00 07/02/21 05:19 Levothyroxine 100 Mcg Tab PO 200 mcg DAILY@0600 ART Administration Lisinopril 40 mg 06/30/21 10:00 07/02/21 11:44 Lisinopril 40 Mg Tab PO 40 mg QDAY ART Administration Magnesium Hydroxide 30 ml 06/29/21 11:00 Magnesium Hydroxide (Mom) Oral Liqd Udc PO Q4H PRN Constipation Metoclopramide HCl 5 mg 06/29/21 11:00 Metoclopramide 10 Mg Tab PO Q12H PRN Nausea And Vomiting Metoprolol Tartrate 50 mg 06/29/21 22:00 07/02/21 11:44 Metoprolol Tartrate 50 Mg Tab PO 50 mg BID ART Administration Morphine Sulfate 2 mg 06/29/21 11:00 07/02/21 08:45 Morphine 2 Mg/1 Ml Inj IV 2 mg Q4H PRN Administration Pain, Moderate (4-6) Nifedipine 60 mg 07/02/21 10:00 07/02/21 11:43 Nifedipine Xl 60 Mg Tab PO 60 mg Q12HR ART Administration Ondansetron HCl 4 mg 06/29/21 11:00 06/30/21 11:28 Ondansetron 4 Mg/2 Ml Inj IV 4 mg Q8H PRN Administration Nausea And Vomiting Promethazine HCl 25 mg 06/29/21 11:00 Promethazine 25 Mg Rect Supp [place] Q6H PRN Nausea And Vomiting Senna 8.6 mg 06/29/21 22:00 07/02/21 11:43 Sennosides 8.6 Mg Tab PO 8.6 mg BID ART Administration Senna 8.6 mg 06/29/21 12:00 Sennosides 8.6 Mg Tab PO Q12H PRN Laxative Effect Sodium Chloride 10 ml 06/29/21 11:00 07/02/21 11:45 Sodium Chloride 0.9% 10 Ml Flush Syringe IV 10 ml BID ART Administration Sodium Chloride 10 ml 06/29/21 11:00 06/30/21 09:50 Sodium Chloride 0.9% 10 Ml Flush Syringe IV 10 ml PRN PRN Administration LINE FLUSH
--- NOTE | 2021-07-02 23:41 | Treadmill Report ---
DATE OF SERVICE: 07/02/2021 NUCLEAR PERFUSION SCAN REFERRING PHYSICIAN: Hospitalist Solange. PROTOCOL: The patient was assessed in postoperative state, given 10 mCi of technetium at rest. The patient had rest imaging. The patient underwent Lexiscan stress test per standard protocol. At peak stress, the patient given 26 mCi technetium-99m. Shortly thereafter, the patient underwent stress imaging. Technically difficult study due to GI artifact, no significant fixed or reversible perfusion defects identified suggestive of prior infarction or ischemia. Gated wall motion reveals severe global left ventricular hypokinesis. Calculated ejection fraction of 30%. No TID. CONCLUSIONS: 1. Normal myocardial perfusion scan without evidence of active ischemia or prior infarction. 2. Severe LV dysfunction with a calculated ejection fraction of 30%. TID: [id number] RECEIPT: [id number] GIULIANA/ZARA
== END 2021-07-02 22:29 | disposition home health service (06) | DRG 61 ==
LOC: ED 06:55 → CC1 09:04 → 4A 07-01 23:57
PROVIDERS: ADMIT Internal Medicine; ATTEND Internal Medicine
PROC: 3E03317 Introduction of Other Thrombolytic into Peripheral Vein, Percutaneous Approach (ICD-10-PCS; principal; 2021-06-29)
PROC: 4A033R1 Measurement of Arterial Saturation, Peripheral, Percutaneous Approach (ICD-10-PCS; 2021-06-29)
PROC: 5A1D70Z Performance of Urinary Filtration, Intermittent, Less than 6 Hours Per Day (ICD-10-PCS; 2021-06-29)
PROC: 5A1D70Z Performance of Urinary Filtration, Intermittent, Less than 6 Hours Per Day (ICD-10-PCS; 2021-07-01)
DX: I63.9 Cerebral infarction, unspecified (principal); N18.6 End stage renal disease; I21.A1 Myocardial infarction type 2; G92 Toxic encephalopathy; J96.01 Acute respiratory failure with hypoxia; E87.1 Hypo-osmolality and hyponatremia; N25.81 Secondary hyperparathyroidism of renal origin; I13.2 Hypertensive heart and chronic kidney disease with heart failure and with stage 5 chronic kidney disease, or end stage renal disease; I16.1 Hypertensive emergency; G81.91 Hemiplegia, unspecified affecting right dominant side; E11.65 Type 2 diabetes mellitus with hyperglycemia; E87.5 Hyperkalemia; E03.9 Hypothyroidism, unspecified; I50.9 Heart failure, unspecified; E11.22 Type 2 diabetes mellitus with diabetic chronic kidney disease; I65.29 Occlusion and stenosis of unspecified carotid artery; I25.10 Atherosclerotic heart disease of native coronary artery without angina pectoris; R29.724 NIHSS score 24; Z99.2 Dependence on renal dialysis; Z79.899 Other long term (current) drug therapy
CPT/HCPCS: 36415; 36600; 70450; 70496; 70498; 70551; 71045; 78452; 80048; 80061; 80074; 82550; 82553; 82805; 82962; 84132; 84484; 85025; 85610; 85670; 85730; 93005; 93017; 93306; 93880; 94640; 94644; 99291; G0378; A9270-GY; A9502; J0360; J0610; J1644; J1815; J2270; J2405; J2785; J2997; Q9967